=== PATIENT | female | born 1955 | race Caucasian/White ===

== ENCOUNTER → 2017-03-11 | Outpatient (CLI) | payer BC ==
[2017-03-11 09:37] LABS: BASOPHILS % (AUTO) 0 % (0-10); EOSINOPHILS # (AUTO) 0.1 10^3/uL (0.0-0.3); EOSINOPHILS % (AUTO) 1 % (0-10); LYMPHOCYTES # (AUTO) 2.3 X 10^3 (1.0-4.0); LYMPHOCYTES % (AUTO) 36 % (12-44); MEAN CORPUSCULAR HEMOGLOBIN 29 PG (25-34); MEAN CORPUSCULAR HGB CONC 34 G/DL (32-36); MEAN CORPUSCULAR VOLUME 86 FL (80-99); MEAN PLATELET VOLUME 11.6 FL (7.4-10.4); MONOCYTES # (AUTO) 0.6 X 10^3 (0.0-1.0); MONOCYTES % (AUTO) 9 % (0-12); NEUTROPHILS # (AUTO) 3.4 X 10^3 (1.8-7.8); NEUTROPHILS % (AUTO) 53 % (42-75); PLATELET COUNT 151 10^3/uL (130-400); RED BLOOD COUNT 4.81 10^6/uL (4.35-5.85); RED CELL DISTRIBUTION WIDTH 12.6 % (10.0-14.5); WHITE BLOOD COUNT 6.4 10^3/uL (4.3-11.0)
[2017-03-11 09:59] LABS: ALANINE AMINOTRANSFERASE 15 U/L (0-55); ALBUMIN 4.3 GM/DL (3.2-4.5); ANION GAP 8 MMOL/L (5-14); ASPARTATE AMINO TRANSFERASE 21 U/L (5-34); BILIRUBIN,TOTAL 1.1 MG/DL (0.1-1.0); BLOOD UREA NITROGEN 10 MG/DL (7-18); BUN/CREATININE RATIO 13 (0-20); CALCIUM 9.3 MG/DL (8.5-10.1); CARBON DIOXIDE 26 MMOL/L (21-32); CHLORIDE 106 MMOL/L (98-107); CHOLESTEROL 219 MG/DL (< 200); CREATININE SERUM 0.75 MG/DL (0.60-1.30); DIRECT LDL 146 MG/DL (1-129); GFR ESTIMATED > 60; GLUCOSE 95 MG/DL (70-105); HEMOLYSIS 6 (0-29); ICTERUS 1.4 (0-1.9); LIPEMIA 3 (0-49); SODIUM 140 MMOL/L (135-145); TOTAL PROTEIN 7.3 GM/DL (6.4-8.2); TRIGLYCERIDES 113 MG/DL (<150); VLDL CHOLESTEROL 23 MG/DL (5-40)
[2017-03-11 10:19] LABS: THYROID STIMULATING HORMONE 1.64 UIU/ML (0.35-4.94)
== END ==
LOC: LAB 09:18
PROVIDERS: ATTEND Family Medicine
DX: Z00.00 Encounter for general adult medical examination without abnormal findings (principal); E78.5 Hyperlipidemia, unspecified; I10 Essential (primary) hypertension
CPT/HCPCS: 36415; 80053; 80061; 84443; 85025

== ENCOUNTER → 2017-06-01 | Outpatient (CLI) | payer BC ==
[2017-06-01 07:23] LABS: BASOPHILS % (AUTO) 0 % (0-10); EOSINOPHILS # (AUTO) 0.1 10^3/uL (0.0-0.3); EOSINOPHILS % (AUTO) 2 % (0-10); LYMPHOCYTES # (AUTO) 2.2 X 10^3 (1.0-4.0); LYMPHOCYTES % (AUTO) 39 % (12-44); MEAN CORPUSCULAR HEMOGLOBIN 29 PG (25-34); MEAN CORPUSCULAR HGB CONC 34 G/DL (32-36); MEAN CORPUSCULAR VOLUME 87 FL (80-99); MEAN PLATELET VOLUME 11.1 FL (7.4-10.4); MONOCYTES # (AUTO) 0.4 X 10^3 (0.0-1.0); MONOCYTES % (AUTO) 7 % (0-12); NEUTROPHILS % (AUTO) 51 % (42-75); PLATELET COUNT 163 10^3/uL (130-400); RED CELL DISTRIBUTION WIDTH 12.7 % (10.0-14.5); WHITE BLOOD COUNT 5.8 10^3/uL (4.3-11.0)
[2017-06-01 07:49] LABS: ALANINE AMINOTRANSFERASE 21 U/L (0-55); ALBUMIN 4.3 GM/DL (3.2-4.5); ANION GAP 9 MMOL/L (5-14); ASPARTATE AMINO TRANSFERASE 22 U/L (5-34); BILIRUBIN,TOTAL 1.1 MG/DL (0.1-1.0); BLOOD UREA NITROGEN 10 MG/DL (7-18); BUN/CREATININE RATIO 13; CALCIUM 9.3 MG/DL (8.5-10.1); CARBON DIOXIDE 26 MMOL/L (21-32); CHLORIDE 107 MMOL/L (98-107); CHOLESTEROL 127 MG/DL (< 200); CREATININE SERUM 0.78 MG/DL (0.60-1.30); DIRECT LDL 61 MG/DL (1-129); GFR ESTIMATED > 60; GLUCOSE 94 MG/DL (70-105); POTASSIUM 3.9 MMOL/L (3.6-5.0); SODIUM 142 MMOL/L (135-145); TOTAL PROTEIN 7.1 GM/DL (6.4-8.2); TRIGLYCERIDES 105 MG/DL (<150); VLDL CHOLESTEROL 21 MG/DL (5-40)
[2017-06-01 08:09] LABS: THYROID STIMULATING HORMONE 2.89 UIU/ML (0.35-4.94)
== END ==
LOC: LAB 07:07
PROVIDERS: ATTEND Family Medicine
DX: E78.5 Hyperlipidemia, unspecified (principal)
CPT/HCPCS: 36415; 80053; 80061; 84443; 85025

== ENCOUNTER → 2018-03-09 | Outpatient (CLI) | payer BC ==
--- NOTE | 2018-03-10 09:10 | Diagnostic Imaging Report ---
Indication: Routine screening. Comparison is made with prior study from 05/04/2016 and 05/05/2012. 2-D and 3-D bilateral screening mammography was performed CAD. Scattered fibroglandular densities are identified bilaterally. The parenchymal pattern is stable. No mass or malignant-appearing microcalcifications are seen. Axillae are unremarkable. Impression: BI-RADS category 1. No mammographic features suspicious for malignancy are identified. ACR BI-RADS Category 1: Negative. Result letter will be mailed to the patient. Note: At least 10% of breast cancer is not imaged by mammography. Dictated by: Dictated on workstation # [id number]
== END ==
LOC: RAD 13:53
PROVIDERS: ATTEND Family Medicine
DX: Z12.31 Encounter for screening mammogram for malignant neoplasm of breast (principal)
CPT/HCPCS: 77067

== ENCOUNTER → 2019-11-15 | Outpatient (CLI) | payer MEDICARE, OTHER ==
--- NOTE | 2019-11-16 12:40 | Diagnostic Imaging Report ---
EXAMINATION: Digital mammogram bilateral screening. INDICATION: Screening. COMPARISON: This study was compared to the prior exams of 03/09/2018 and 05/04/2016. At this time, there are no current complaints. The current study was also evaluated with a Computer Aided Detection (CAD) system. 3-D tomosynthesis was also performed and reviewed. FINDINGS: The fibroglandular tissue in both breasts is heterogeneously dense. On the craniocaudad view of the right breast in the far lateral aspect of the breast, approximately 6 cm from the nipple, there is a 7.5 mm asymmetric density. There is no corresponding abnormality seen on the MLO view, and this finding is probably secondary to superimposition. Even so, I would recommend that a compression view of this area be obtained in the CC projection for further study. Immediately posterior and medial to this, there is a 6.6 mm nodular density which was not clearly evident on the prior exam either. There is no corresponding abnormality of this finding on the MLO view either. This area should also be compressed in the CC projection. A true lateral view of the right breast would be recommended as well. If these densities persist, then ultrasound may also be necessary. The left breast is unchanged. IMPRESSION: 1. Additional mammographic views of the two densities in the right breast would be recommended for further evaluation. Ultrasound should also be performed. ACR BI-RADS Category 0: Incomplete. (Needs additional imaging evaluation). Result letter will be mailed to the patient. Note: At least 10% of breast cancer is not imaged by mammography. Dictated by: Dictated on workstation # [id number]
== END ==
LOC: RAD 10:09
PROVIDERS: ATTEND Family Medicine
DX: Z12.31 Encounter for screening mammogram for malignant neoplasm of breast (principal)
CPT/HCPCS: 77067

== ENCOUNTER → 2019-12-03 | Outpatient (CLI) | payer MEDICARE, OTHER ==
--- NOTE | 2019-12-03 13:58 | Diagnostic Imaging Report ---
INDICATION: Right breast densities. Patient presents for additional views. COMPARISON: Correlation is made with the recent screening study from 11/15/2019. TECHNIQUE: Unilateral right 2D and 3D diagnostic mammography was performed with CAD. The patient returned and spot compression CC, rolled CC, and 90 degree lateral views of the right breast were performed. FINDINGS: The densities noted in the outer right breast at mid to posterior depth on the screening study show normal dispersion on additional views, most likely representing superimposed tissue. No underlying mass is identified. No suspicious calcifications are seen. IMPRESSION: Additional views fail to demonstrate a discrete mass. The patient may return to routine annual screening mammography. ACR BI-RADS Category 3: Probably benign findings. Result letter will be mailed to the patient. Note: At least 10% of breast cancer is not imaged by mammography. Dictated by: Dictated on workstation # [id number]
== END ==
LOC: RAD 13:31
PROVIDERS: ATTEND Nurse Practitioner Family
DX: R92.2 Inconclusive mammogram (principal)

== ENCOUNTER 2020-02-26 21:01 | Emergency (ER) | payer MEDICARE, OTHER ==
[~2020-02-26] VITALS: Ht 167 cm; Wt 77.0 kg
--- OUTSIDE RECORDS SUMMARY | 2020-02-26 21:08 | XMS REPORT | CCD ---
Author Author Carola Post D.O. 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 PP Unavailable CCM Unavailable Summary Purpose Interface Exchange Insurance Providers Payer name Policy type / Coverage type Covered constitution party ID Effective Begin Date Effective End Date WPS MEDICARE PART B [place] Medicare Part B [id number] 2019 Unknown [place] Medicare Part B [id number] 2019 100 Unknown Family history Grandfather Diagnosis Age At Onset Cancer Unknown Social History Social History Element Codes Description Effective Dates Marital status Unknown 04/08/2016 Number of children Unknown 3 04/08/2016 Employment Unknown Currently employed [employer] 249 04/08/[address]: 105915955 Has never smoked or chewed tobacco 04/08/[address]: 690344 Currently drinks alcohol 04/08 Frequency of drinks SNOMED CT: 043206624 Drinks rarely 016 Has the patient ever used illegal drugs? Unknown Has nev er used illegal drugs 04/08/2016 Allergies, Adverse Reactions, Alerts Substance Reaction Codes Entered Date Inactivated Date Status * NO KNOWN FOOD ALLERGIES Unknown 04/08/2016 No Inactiv e Date Active * NO KNOWN DRUG ALLERGIES Unknown 02/20/2020 No Inactiv e Date Active * NO KNOWN ENVIRONMENTAL ALLERGIES Unknown 04/08/2016 N o Inactive Date Active Problems Condition Codes Effective Dates Condition Status Encounter for general adult medical examination withou t abnormal findings ICD-9: V70.9 ICD-10: Z00.00 04/07/2016 Active Mixed hyperlipidemia ICD-9: 272.2 ICD-10: E78.2 08/29/2016 Active Essential (primary) hypertension ICD-9: 401.9 ICD-10: I10 08/29/2016 Active Screening mammogram, encounter for ICD-9: V76.12 ICD-10: Z12.31 10/31/2019 Active Hematuria ICD-9: 599.70 ICD-10: R31.9 08/27/2019 Active Urinary tract infection ICD-9: 599.0 ICD-10: N39.0 08/15/2019 Active VACCIN FOR DISEASE NEC (HPV or Zostavax) ICD-9: V05.8 ICD-10: Z23 08/15/2019 Active Other specified counseling ICD-9: V65.49 ICD-10: Z71.89 02/14/2019 Active FLU VACCINE ICD-9: V04.81 ICD-10: Z23 07/03/2018 Active Encounter for gynecological examination (general) (routine) without abnormal findings ICD-9: V72.31 ICD-10: Z01.419 03/02/2018 Active Pneumonia, unspecified organism ICD-9: 486 ICD-10: J18.9 11/03/2017 Active Acute bronchitis, unspecified ICD-9: 490 ICD-10: J20.9 10/27/2017 Active Influenza due to other identified influe nza virus with other respiratory manifestations ICD-9: 487.1 ICD-10: J10.1 10/27/2017 Active Hypertension Unknown 03/10/2017 Active Sciatica, left side ICD-9: 724.3 ICD-10: M54.32 04/29/2016 Active Strain of muscle, fascia and tendon of lower back, sub sequent encounter ICD-9: V58.89 ICD-10: S39.012D 04/29/2016 Active Strain of muscle, fascia and tendon of lower back, ini tial encounter ICD-9: 847.2 ICD-10: S39.012A 04/22/2016 Active Plantar fascial fibromatosis ICD-9: 728.71 ICD-10: M72.2 04/07/2016 Active Medications Medication Codes Instructions Start Date Stop Date Status Fill Instructions Zetia 10 mg tablet RxNorm: 044710 1 Tablet(s) Oral QD 02/20/202007/28 Active Livalo 1 mg tablet RxNorm: 172462 1 Tablet(s) Oral QD 12/03/201901/25 Inactive Aleve 220 mg tablet RxNorm: 683589 Tablet(s) Oral as needed 019 No Stop Date Active Macrobid 100 mg capsule RxNorm: 465455 1 Capsule(s) Oral two ti mes a day 08/15/2019 08/22/2019 Inactive Fish Oil 360 mg-1,200 mg capsule RxNorm: 1 Capsule(s) Or al two times a day 08/15/2019 02/19/2020 Inactive Crestor 5 mg tablet RxNorm: 662278 1/2 Tablet(s) PO twice a week 02/10/2020 Inactive Crestor 5 mg tablet RxNorm: 356159 1 Tablet(s) PO Tues, Thurs, Sat and Sun and 1/2 tablet (2.5mg) on Mon, Tue and Tue03/05/2019 03/11/2019 Inactive Crestor 5 mg tablet RxNorm: 934137 1 Tablet(s) PO QD 02/07/201903/05 Inactive Crestor 5 mg tablet RxNorm: 798222 1 Tablet(s) PO QD re check labwork in 6 months 08/21/2018 08/20/2018 Inactive Crestor 5 mg tablet RxNorm: 340002 1 Tablet(s) PO QD re check labwork in 6 months 08/21/2018 02/06/2019 Inactive Ventolin HFA 90 mcg/actuation aerosol inhaler RxNorm: 220322 2 Puff(s) INH Q4H as needed 11/03/2017 03/01/2018 Inactive please switch to proair if ventolin is not covered. thanks! Levaquin 500 mg tablet RxNorm: 401776 1 Tablet(s) PO QD 11/03/2017 Inactive Zithromax Z-Talat 250 mg tablet RxNorm: 540265 Tablet(s) PO 10/27/2017 03/01/2018 Inactive Lipitor 10 mg tablet RxNorm: 202772 1 TABLET(S) PO QD REPLACES PRAVASTATIN 06/08/2017 08/10/2017 Inactive Lipitor 10 mg tablet RxNorm: 595584 1 Tablet(s) PO QD replaces Pravastatin 03/16/2017 06/07/2017 Inactive pravastatin 10 mg tablet RxNorm: 242402 1 Tablet(s) PO QD 03/15/2017 03/14/2017 Inactive pravastatin 10 mg tablet RxNorm: 936167 1 Tablet(s) PO QD 03/15/2017 03/15/2017 Inactive Zorvolex 35 mg capsule RxNorm: 2468047 1 Capsule(s) PO TID HOLD MELOXICAM 05/03/2016 06/01/2016 Inactive Zorvolex 35 mg capsule RxNorm: 8909201 1 Capsule(s) PO TID HOLD MELOXICAM 04/30/2016 05/02/2016 Inactive prednisone 20 mg tablet RxNorm: 928010 1 Tablet(s) PO B ID and then decrease to 1 tab PO QD x 5 days 04/30/2016 05/04/2016 Inactive cyclobenzaprine 10 mg tablet RxNorm: 915836 1 Tablet(s) PO TID as needed for muscle spasm 04/23/2016 08/29/2016 Inactive pravastatin 20 mg tablet RxNorm: 327494 1 Tablet(s) PO QD 04/14/2016 08/29/2016 Inactive Vivlodex 10 mg capsule RxNorm: 7617390 1 Capsule(s) PO QD 04/08/2016 05/07/2016 Inactive Co Q-10 300 mg capsule RxNorm: 414130 1 Capsule(s) PO QD No Start Date Active Vitamin D3 5,000 unit tablet RxNorm: 585697 1 Tablet(s) PO QD No Star t Date Active melatonin 5 mg tablet RxNorm: 628509 1 Tablet(s) PO QHS as needed N o Start Date Active Multivitamin & Mineral Formula tablet RxNorm: 1 Tablet(s) PO Q D No Start Date Active Fish Oil 1,000 mg capsule RxNorm: 2 Capsule(s) PO QD No Start Date 08/29/2016 Inactive Metamucil 0.4 gram capsule RxNorm: 0298005 2 Capsule(s) PO BID No S tart Date 02/13/2019 Inactive Vitamin D3 2,000 unit tablet RxNorm: 736711 1 Tablet(s) PO QD No St art Date 03/26/2019 Inactive Lipitor 10 mg tablet RxNorm: 526339 1 Tablet(s) PO QD No Start Date 0 03/15/2017 Inactive Crestor 5 mg tablet RxNorm: 968920 1 Tablet(s) PO Tues, Thurs, Sat and Sun and 1/2 tablet (2.5mg) on Mon, Wed and Fri No Start Date 03/04/2019 Inactive Calcium with Vitamin D 600 mg (1,500 mg)-400 unit tablet RxN orm: 888167 1 Tablet(s) PO QD No Start Date 03/01/2018 Inactive krill oil 1,000 mg-170 mg-50 mg-80 mg capsule RxNorm: 1 Capsule(s) PO BID No Start Date 08/14/2019 Inactive Co Q-10 200 mg capsule RxNorm: 987409 1 Capsule(s) PO QD No Start D ate 03/01/2018 Inactive Co Q-10 oral RxNorm: 14156 oral No Start Date 07/24/2017 Inactive oxycodone-acetaminophen 5 mg-325 mg tablet RxNorm: 6231464 1 Tab let(s) PO Q6H No Start Date 08/29/2016 Inactive Krill Oil ([place] 3 and 6) oral RxNorm: 01345 oral No Start Date 02/13/2019 Inactive Flexeril 10mg tablet RxNorm: 1 Tablet(s) PO Q8H No Start Date 12/2015 Inactive Vitamin D3 1,000 unit tablet RxNorm: 826209 1 Tablet(s) PO QD No St art Date 03/11/2019 Inactive Medication Administered No Medication Administered data Immunizations Vaccine Codes Date Status Shingrix Unknown 11/20/2019 Zoster Unknown 08/15/2019 Complete Influenza CVX: 141 07/03/2018 Complete Results Observation Observation Code Item Item Code Result Date S [facility] Location COMPLETE BLOOD COUNT [id number] WBC 5.5 10e9/L 02/13/20 20 Unknown COMPLETE BLOOD COUNT [id number] RBC 4.67 10e12/L 2019 Unknown COMPLETE BLOOD COUNT [id number] HEMOGLOBIN 13.5 g/dL 02/13/20 20 Unknown COMPLETE BLOOD COUNT [id number] HEMATOCRIT 40.9 % 02/13/20 20 Unknown COMPLETE BLOOD COUNT [id number] MCV 87.6 fL 0 Unknown COMPLETE BLOOD COUNT [id number] MCH 28.9 pg 0 Unknown COMPLETE BLOOD COUNT [id number] MCHC 33.0 g/dL 0 Unknown COMPLETE BLOOD COUNT [id number] PLATELET COUNT 152 10e9/L Unknown COMPLETE BLOOD COUNT 2240945 Mean Plt Volume 11.6 fL Unknown COMPLETE BLOOD COUNT [id number] Neut Auto 32.4 % 0 Unknown COMPLETE BLOOD COUNT [id number] Lymph Auto 55.1 % 02/13/20 20 Unknown COMPLETE BLOOD COUNT [id number] Wolfe Auto 9.2 % 0 Unknown COMPLETE BLOOD COUNT [id number] RDW 13.2 % 0 Unknown COMPLETE BLOOD COUNT 1225961 Eos Auto 3.1 % 0 Unknown COMPLETE BLOOD COUNT 7545207 Baso Auto 0.2 % 0 Unknown COMPLETE BLOOD COUNT [id number] Neutrophil Abs 1.78 10e9/L Unknown COMPLETE BLOOD COUNT [id number] Lymphocyte Abs 3.03 10e9/L Unknown COMPLETE BLOOD COUNT [id number] Monocyte Abs 0.51 10e9/L 01/25 Unknown COMPLETE BLOOD COUNT [id number] Eosinophil Abs 0.17 10e9/L Unknown COMPLETE BLOOD COUNT [id number] RDW-SD 40.9 fL 0 Unknown COMPLETE BLOOD COUNT [id number] Basophil Abs 0.01 10e9/L 01/25 Unknown FREE T4 42935 T4 Free 0.83 ng/dL 02/13/2020 Unknown [facility] 10607 Cholesterol 204 mg/dL 02/13/2020 Unkno wn [facility] GROUP 93923 Triglyceride 136 mg/dL 02/13/2020 Unkn own [facility] 37947 HDL CHOLESTEROL 40 mg/dL 02/13/2020 U nknown [facility] 94117 Chol/HDL Ratio 5.10 ratio 02/13/2020 U nknown [facility] 26008 NON-HDL Chol 164 mg/dL 02/13/2020 Unkn own [facility] 92910 LDL Cholesterol 137 mg/dL 02/13/2020 U nknown THYROID STIMULATING HORMONE 86724 TSH 1.419 uIU/mL 02/13/2020 Unknown COMPREHENSIVE METABOLIC 88308 AST 20 U/L 2019 Unknown COMPREHENSIVE METABOLIC 77648 ALT 15 U/L 2019 Unknown COMPREHENSIVE METABOLIC 14758 BUN 11 mg/dL 2019 Unknown COMPREHENSIVE METABOLIC 39854 ALBUMIN 4.3 g/dL 2019 Unknown COMPREHENSIVE METABOLIC 22825 CHLORIDE 105 mmol/L 02/12 Unknown COMPREHENSIVE METABOLIC 14219 Bili Total 0.9 mg/dL 02/12 Unknown COMPREHENSIVE METABOLIC 36121 ALK PHOS 75 U/L 2019 Unknown COMPREHENSIVE METABOLIC 47616 SODIUM 142 mmol/L 02/12 Unknown COMPREHENSIVE METABOLIC 85992 CREATININE 0.67 mg/dL 01/25 Unknown COMPREHENSIVE METABOLIC 42432 CALCIUM 9.3 mg/dL 2019 Unknown COMPREHENSIVE METABOLIC 85147 POTASSIUM 4.5 mmol/L 02/12 Unknown COMPREHENSIVE METABOLIC 96317 Total Protein 6.6 g/dL Unknown COMPREHENSIVE METABOLIC 19786 Glucose 90 mg/dL 2019 Unknown COMPREHENSIVE METABOLIC 77133 Bicarbonate 28 mmol/L 01/25 Unknown COMPREHENSIVE METABOLIC 47334 AGAP 9 mmol/L 2019 Unknown GFR CALC 1712835 GFR Non Afr Amr >60 mL/min 02/13/2020 Un known GFR CALC 1806298 GFR Afr Amr >60 mL/min 02/13/2020 Unknow n CULTURE, URINE, ROUTINE 395 CULTURE SEE NOTE 1 11/13/2018 Mary Jane BONDMonica [place] [address] [place] [phone] CULTURE, URINE, ROUTINE 395 CULTURE, URINE, ROUTINE SEE NOTE 09/12/2019 Mary Jane [place] [address] [place] [phone] URINALYSIS, COMPLETE 45267 Color YELLOW 08/26 [facility] [place] [address] [place] [address] URINALYSIS, COMPLETE 87066 APPEARANCE CLEAR 08/26 [facility] [place] [address] [place] [phone] URINALYSIS, COMPLETE 40051 SPECIFIC GRAVITY 1.003 09/11/2019 [facility] [place] [address] [place] [phone] URINALYSIS, COMPLETE 89853 PH 7.0 08/26 [facility] [place] [address] [place] [address] URINALYSIS, COMPLETE 73093 Glucose NEGATIVE 08/26 [facility] [place] [address] [place] [phone] URINALYSIS, COMPLETE 41598 BILIRUBIN NEGATIVE 08/26 [facility] [place] [address] [place] [phone] URINALYSIS, COMPLETE 64566 Ketones NEGATIVE 08/[address] [address] URINALYSIS, COMPLETE 83392 OCCULT BLOOD NEGATIVE [facility] [address] [place] [address] URINALYSIS, COMPLETE 29509 Protein NEGATIVE 08/26 [facility] [address] URINALYSIS, COMPLETE 68722 LEUKOCYTE ESTERASE NEGATIV E 09/11/2019 [facility] [address] URINALYSIS, COMPLETE 33596 WBC NONE SEEN /HPF 09/11/2019 [facility] [place] [address] [address] URINALYSIS, COMPLETE 25912 RBC NONE SEEN /HPF 09/11/2019 [facility] [address] URINALYSIS, COMPLETE 71934 SQUAMOUS EPITHELIAL CELLS NONE SEEN /HPF 09/11/2019 [facility] [address] URINALYSIS, COMPLETE 28374 TRANSITIONAL EPITHELIAL CELLS DNR /HPF 09/11/2019 [facility] [address] URINALYSIS, COMPLETE 98685 RENAL EPITHELIAL CELLS DNR /HPF 09/11/2019 [facility] [address] URINALYSIS, COMPLETE 85060 BACTERIA NONE SEEN /HPF 09/11/2019 [facility] [address] URINALYSIS, COMPLETE 47715 CALCIUM OXALATE CRYSTALS D NR /HPF 09/11/[address] [facility] [address] URINALYSIS, COMPLETE 88137 TRIPLE PHOSPHATE CRYSTALS DNR /HPF 09/11/[address] [facility] [place] [address] URINALYSIS, COMPLETE 77984 URIC ACID CRYSTALS DNR /HP F 09/11/2019 [facility] [place] [address] URINALYSIS, COMPLETE 74888 AMORPHOUS SEDIMENT DNR /HP F 09/11/2019 [facility] [address] URINALYSIS, COMPLETE 33793 CRYSTALS DNR /HPF 08/26 [facility] [address] URINALYSIS, COMPLETE 86631 HYALINE CAST NONE SEEN /LP F 09/11/2019 [facility] [address] [place] [address] URINALYSIS, COMPLETE 83407 GRANULAR CAST DNR /LPF 1 11/12/2018 [facility] [address] URINALYSIS, COMPLETE 78433 CASTS DNR /LPF 08/26 [facility] [address] URINALYSIS, COMPLETE 12768 YEAST DNR /HPF 08/26 [facility] [address] URINALYSIS, COMPLETE 61794 COMMENTS DNR 08/26 [facility] [address] URINALYSIS, COMPLETE 07026 NOTE DNR 08/26 [facility] [address] URINALYSIS, COMPLETE 66841 NITRITE NEGATIVE 08/26 [facility] [address] CULTURE, URINE, ROUTINE 395 CULTURE, URINE, ROUTINE SEE NOTE 08/16/2019 Mary Jane [place] [address] EXTRA LAVENDER-TOP TUBE XLKS EXTRA LAVENDER-TOP TUBE 08/10/2019 [facility] [place] [address] EXTRA LAVENDER-TOP TUBE XLKS COMMENT 1 10/10/2018 [facility] [place] [address] LIPID PANEL 24774 CHOLESTEROL, TOTAL 180 mg/dL 08/10 [facility] [place] [address] LIPID PANEL 17745 HDL CHOLESTEROL 35 mg/dL 08/10/20 19 [facility] [place] [address] LIPID PANEL 60218 TRIGLYCERIDES 200 mg/dL 08/10/2019 [facility] [address] [address] LIPID PANEL 36177 LDL-CHOLESTEROL 113 mg/dL(calc) [facility] [address] [address] LIPID PANEL 30364 CHOL/HDLC RATIO 5.1 (calc) 08/10/20 [facility] [address] [address] LIPID PANEL 15816 NON HDL CHOLESTEROL 145 mg/dL(calc) 08/10/2019 [facility] [address] [address] COMPREHENSIVE METABOLIC PANEL 18623 Glucose 86 mg/ dL 08/10/2019 [facility] [address] COMPREHENSIVE METABOLIC PANEL 25771 UREA NITROGEN (BUN) 11 mg/dL 08/10/2019 [facility] [address] [address] COMPREHENSIVE METABOLIC PANEL 01971 CREATININE 0.71 m g/dL 08/10/2019 [facility] [address] [address] COMPREHENSIVE METABOLIC PANEL 85941 eGFR NON-AFR. ANGUILLAN 90 mL/min/1.73m2 08/10/2019 [facility] [address] COMPREHENSIVE METABOLIC PANEL 73054 eGFR 104 mL/min/1.73m2 08/10/2019 [facility] [address] [address] COMPREHENSIVE METABOLIC PANEL 27695 BUN/CREATININE RATIO NOT APPLICABLE (calc) 08/10/[address] [address] COMPREHENSIVE METABOLIC PANEL 42019 SODIUM 140 mm ol/L 08/10/2019 [facility] [address] [address] COMPREHENSIVE METABOLIC PANEL 30210 POTASSIUM 4.2 mm ol/L 08/10/2019 [facility] [address] [address] COMPREHENSIVE METABOLIC PANEL 33037 CHLORIDE 105 mm ol/L 08/10/2019 [facility] [address] [address] COMPREHENSIVE METABOLIC PANEL 25526 CARBON DIOXIDE 28 mmol/L 08/10/2019 [facility] [address] COMPREHENSIVE METABOLIC PANEL 90917 CALCIUM 9.3 mg /dL 08/10/2019 [facility] [address] COMPREHENSIVE METABOLIC PANEL 21585 PROTEIN, TOTAL 6. 7 g/dL 08/10/[address] [facility] [address] COMPREHENSIVE METABOLIC PANEL 23646 ALBUMIN 4.3 g/ dL 08/10/2019 [facility] [address] COMPREHENSIVE METABOLIC PANEL 26030 GLOBULIN 2.4 g/ dL(calc) 08/10/2019 [facility] [address] COMPREHENSIVE METABOLIC PANEL 11145 ALBUMIN/GLOBULIN RATIO 1.8 (calc) 08/10/2019 [facility] [address] COMPREHENSIVE METABOLIC PANEL 51647 BILIRUBIN, TOTAL 0.6 mg/dL 08/10/2019 [facility] [address] COMPREHENSIVE METABOLIC PANEL 96221 ALKALINE PHOSPHATASE 74 U/L 08/10/2019 [facility] [address] COMPREHENSIVE METABOLIC PANEL 77015 AST 21 U/L 08/10/2019 [facility] [address] COMPREHENSIVE METABOLIC PANEL 31013 ALT 15 U/L 08/10/2019 [facility] [address] COMPREHENSIVE METABOLIC 31055 AST 18 U/L 2018 Unknown COMPREHENSIVE METABOLIC 73784 ALT 12 U/L 2018 Unknown COMPREHENSIVE METABOLIC 00081 BUN 11 mg/dL 2018 Unknown COMPREHENSIVE METABOLIC 80873 ALBUMIN 4.6 g/dL 2018 Unknown COMPREHENSIVE METABOLIC 55577 CHLORIDE 106 mmol/L 02/14 Unknown COMPREHENSIVE METABOLIC 64253 Bili Total 0.9 mg/dL 02/14 Unknown COMPREHENSIVE METABOLIC 67051 ALK PHOS 76 U/L 2018 Unknown COMPREHENSIVE METABOLIC 34689 SODIUM 142 mmol/L 02/14 Unknown COMPREHENSIVE METABOLIC 36610 CREATININE 0.69 mg/dL 01/25 Unknown COMPREHENSIVE METABOLIC 90352 CALCIUM 9.5 mg/dL 2018 Unknown COMPREHENSIVE METABOLIC 20223 POTASSIUM 3.9 mmol/L 02/14 Unknown COMPREHENSIVE METABOLIC 27773 Total Protein 6.6 g/dL Unknown COMPREHENSIVE METABOLIC 44226 Glucose 86 mg/dL 2018 Unknown COMPREHENSIVE METABOLIC 26243 Bicarbonate 29 mmol/L 01/25 Unknown COMPREHENSIVE METABOLIC 04477 AGAP 7 mmol/L 2018 Unknown GFR CALC 3644405 GFR Non Afr Amr >60 mL/min 02/14/2019 Un known GFR CALC 2666820 GFR Afr Amr >60 mL/min 02/14/2019 Unknow n [facility] 39923 Cholesterol 127 mg/dL 02/14/2019 Unkno wn [facility] 85281 Triglyceride 156 mg/dL 02/14/2019 Unkn own [facility] 65710 HDL CHOLESTEROL 45 mg/dL 02/14/2019 U nknown [facility] 08804 Chol/HDL Ratio 2.82 ratio 02/14/2019 U nknown [facility] 42769 NON-HDL Chol 82 mg/dL 02/14/2019 Unkn own [facility] 75381 LDL Cholesterol 51 mg/dL 02/14/2019 U nknown COMPREHENSIVE METABOLIC PANEL 06406 Glucose 88 mg/ dL 08/16/2018 [facility] [place] [address] [place] [address] COMPREHENSIVE METABOLIC PANEL 66101 UREA NITROGEN (BUN) 11 mg/dL 08/16/2018 [facility] [place] [address] [place] [address] COMPREHENSIVE METABOLIC PANEL 97674 CREATININE 0.70 m g/dL 08/16/2018 [facility] [place] [address] [place] [address] COMPREHENSIVE METABOLIC PANEL 06040 eGFR NON-AFR. ANGUILLAN 92 mL/min/1.73m2 08/16/2018 [facility] [address] [place] [address] COMPREHENSIVE METABOLIC PANEL 40170 eGFR 107 mL/min/1.73m2 08/16/2018 [facility] [place] [address] [place] [address] COMPREHENSIVE METABOLIC PANEL 59254 BUN/CREATININE RATIO NOT APPLICABLE (calc) 08/16/2018 [facility] [place] [address] [place] [address] COMPREHENSIVE METABOLIC PANEL 34183 SODIUM 140 mm ol/L 08/16/2018 [facility] [address] COMPREHENSIVE METABOLIC PANEL 21093 POTASSIUM 4.0 mm ol/L 08/16/2018 [facility] [address] COMPREHENSIVE METABOLIC PANEL 78386 CHLORIDE 104 mm ol/L 08/16/[address] [facility] [address] COMPREHENSIVE METABOLIC PANEL 76673 CARBON DIOXIDE 29 mmol/L 08/16/[address] [facility] [address] COMPREHENSIVE METABOLIC PANEL 30779 CALCIUM 9.4 mg /dL 08/16/[address] [facility] [address] COMPREHENSIVE METABOLIC PANEL 19180 PROTEIN, TOTAL 6. 7 g/dL 08/16/[address] [facility] [address] COMPREHENSIVE METABOLIC PANEL 50208 ALBUMIN 4.4 g/ dL 08/16/[address] [facility] [address] COMPREHENSIVE METABOLIC PANEL 07117 GLOBULIN 2.3 g/ dL(calc) 08/16/[address] [facility] [address] COMPREHENSIVE METABOLIC PANEL 39842 ALBUMIN/GLOBULIN RATIO 1.9 (calc) 08/16/[address] [facility] [address] COMPREHENSIVE METABOLIC PANEL 67361 BILIRUBIN, TOTAL 0.8 mg/dL 08/16/2018 [facility] [address] [address] COMPREHENSIVE METABOLIC PANEL 47619 ALKALINE PHOSPHATASE 72 U/L 08/16/2018 [facility] [address] COMPREHENSIVE METABOLIC PANEL 46298 AST 19 U/L 08/16/2018 [facility] [address] COMPREHENSIVE METABOLIC PANEL 00981 ALT 12 U/L 08/16/2018 [facility] [address] LIPID PANEL 53003 CHOLESTEROL, TOTAL 228 mg/dL 08/16 [facility] [place] [address] LIPID PANEL 80906 HDL CHOLESTEROL 42 mg/dL 08/16/20 [facility] [address] [place] [address] LIPID PANEL 90241 TRIGLYCERIDES 175 mg/dL 08/16/2018 [facility] [address] LIPID PANEL 91134 LDL-CHOLESTEROL 155 mg/dL(calc) [facility] [address] LIPID PANEL 25497 CHOL/HDLC RATIO 5.4 (calc) 08/16/20 [facility] [address] LIPID PANEL 30324 NON HDL CHOLESTEROL 186 mg/dL(calc) 08/16/2018 [facility] [address] EXTRA LAVENDER-TOP TUBE XLKS EXTRA LAVENDER-TOP TUBE 08/16/2018 [facility] [address] [address] EXTRA LAVENDER-TOP TUBE XLKS COMMENT 1 10/16/2017 [facility] [address] Procedures Procedure Codes Date INITIAL PREVENTIVE EXAM CPT-4: G0402 02/20/2020 ROUTINE VENIPUNCTURE CPT-4: 16596 02/13/2020 COMPREHEN METABOLIC PANEL CPT-4: 29467 02/13/2020 LIPID PANEL CPT-4: 93265 02/13/2020 COMPLETE CBC W/AUTO DIFF WBC CPT-4: 02628 02/13/2020 ASSAY THYROID STIM HORMONE CPT-4: 01494 02/13/2020 ASSAY OF FREE THYROXINE CPT-4: 27662 02/13/2020 URINALYSIS, COMPLETE CPT-4: 77757 09/10/2019 CULTURE, URINE, ROUTINE CPT-4: 395 09/10/2019 URINALYSIS NONAUTO W/O SCOPE CPT-4: 74581 08/27/2019 CULTURE, URINE, ROUTINE CPT-4: 395 08/15/2019 URINALYSIS NONAUTO W/O SCOPE CPT-4: 53929 08/15/2019 SHINGRIX HZV VACC RECOMBINANT IM CPT-4: 44759 019 IMMUNIZATION ADMIN CPT-4: 63010 08/15/2019 COMPREHENSIVE METABOLIC PANEL CPT-4: 82982 08/09/2019 LIPID PANEL CPT-4: 99113 08/09/2019 ROUTINE VENIPUNCTURE CPT-4: 87371 08/09/2019 EXTRA LAVENDER-TOP TUBE CPT-4: XLKS 08/09/2019 ROUTINE VENIPUNCTURE CPT-4: 77889 02/14/2019 COMPREHEN METABOLIC PANEL CPT-4: 79729 02/14/2019 LIPID PANEL CPT-4: 77263 02/14/2019 ROUTINE VENIPUNCTURE CPT-4: 65825 08/15/2018 COMPREHENSIVE METABOLIC PANEL CPT-4: 62801 08/15/2018 EXTRA LAVENDER-TOP TUBE CPT-4: XLKS 08/15/2018 LIPID PANEL CPT-4: 06374 08/15/2018 IIV4 VACCINE 3 YRS+ IM AND UP CPT-4: 25114 07/03/2018 IMMUNIZATION ADMIN CPT-4: 54763 07/03/2018 SPECIMEN HANDLING OFFICE-LAB CPT-4: 92612 03/02/2018 OCCULT BLOOD FECES CPT-4: 41698 03/02/2018 THER/PROPH/DIAG INJ SC/IM CPT-4: 64545 11/03/2017 TRIAMCINOLONE ACET INJ NOS CPT-4: J3301 11/03/2017 INFLUENZA ASSAY W/OPTIC CPT-4: 31858 10/27/2017 THER/PROPH/DIAG INJ SC/IM CPT-4: 05616 10/27/2017 TRIAMCINOLONE ACET INJ NOS CPT-4: J3301 10/27/2017 THER/PROPH/DIAG INJ SC/IM CPT-4: 30637 04/23/2016 TRIAMCINOLONE ACET INJ NOS CPT-4: J3301 04/23/2016 DEXAMETHASONE SODIUM PHOS CPT-4: J1100 04/23/2016 Vital Signs Date Vital 02/20/2020 Blood Pressure 1: 138/74 Code: 8480-6 BMI: 27.9 Code: 47586-7 Heart Rate 1: 84 bpm Height: 5'5" Respiratory Rate: 18 bpm SpO2: 98% Tempera ture: 36.9 (C) / 98.4 (F) Weight: 169 lbs 08/27/2019 Blood Pressure 1: 128/80 Code: 8480-6 Heart Rate 1: 72 bpm Respiratory Rate: 18 bpm SpO2: 98% Temperature: 36.8 (C) / 98.2 (F) 08/15/2019 Blood Pressure 1: 128/74 Code: 8480-6 Heart Rate 1: 80 bpm Respiratory Rate: 16 bpm SpO2: 97% Temperature: 36.8 (C) / 98.2 (F) We ight: 162 lbs 02/14/2019 Blood Pressure 1: 126/70 Code: 8480-6 BMI: 26.7 Code: 61322-8 Heart Rate 1: 68 bpm Height: 5'6" Respiratory Rate: 18 bpm SpO2: 97% Tempera ture: 36.6 (C) / 97.9 (F) Weight: 168 lbs 08/15/2018 Blood Pressure 1: 122/78 Code: 8480-6 BMI: 25.9 Code: 73533-1 Heart Rate 1: 72 bpm Height: 5'6" Respiratory Rate: 20 bpm SpO2: 97% Tempera ture: 36.7 (C) / 98.0 (F) Weight: 163 lbs 03/02/2018 Blood Pressure 1: 126/74 Code: 8480-6 BMI: 26.1 Code: 32724-8 Heart Rate 1: 76 bpm Height: 5'6" Respiratory Rate: 20 bpm SpO2: 98% Tempera ture: 36.6 (C) / 97.8 (F) Weight: 164 lbs 11/03/2017 Blood Pressure 1: 124/82 Code: 8480-6 BMI: 25.3 Code: 30467-8 Heart Rate 1: 90 bpm Height: 5'6" Respiratory Rate: 22 bpm SpO2: 98% Tempera ture: 36.9 (C) / 98.4 (F) Weight: 159 lbs 10/27/2017 Blood Pressure 1: 122/84 Code: 8480-6 BMI: 25.6 Code: 07355-9 Heart Rate 1: 90 bpm Height: 5'6" Respiratory Rate: 22 bpm SpO2: 97% Tempera ture: 36.1 (C) / 97.0 (F) Weight: 161 lbs 08/11/2017 Blood Pressure 1: 132/76 Code: 8480-6 BMI: 26.4 Code: 11357-7 Heart Rate 1: 72 bpm Height: 5'6" Respiratory Rate: 20 bpm Temperature: 36 .6 (C) / 97.8 (F) Weight: 166 lbs 05/23/2017 Blood Pressure 1: 126/72 Code: 8480-6 BMI: 26.1 Code: 88898-6 Heart Rate 1: 72 bpm Height: 5'6" Respiratory Rate: 20 bpm SpO2: 98% Tempera ture: 37.1 (C) / 98.8 (F) Weight: 164 lbs 03/10/2017 Blood Pressure 1: 124/72 Code: 8480-6 BMI: 26.1 Code: 34840-4 Heart Rate 1: 92 bpm Height: 5'6" Respiratory Rate: 20 bpm SpO2: 97% Tempera ture: 37.2 (C) / 98.9 (F) Weight: 164 lbs 08/30/2016 Blood Pressure 1: 142/82 Code: 8480-6 BMI: 25.6 Code: 19431-9 Heart Rate 1: 72 bpm Height: 5'6" Respiratory Rate: 20 bpm Temperature: 36 .6 (C) / 97.9 (F) Weight: 161 lbs 06/01/2016 Blood Pressure 1: 156/88 Code: 8480-6 BMI: 26.4 Code: 71852-8 Heart Rate 1: 70 bpm Height: 5'6" Respiratory Rate: 18 bpm SpO2: 97% Tempera ture: 36.6 (C) / 97.8 (F) Weight: 166 lbs 04/30/2016 Blood Pressure 1: 122/70 Code: 8480-6 Heart Rate 1: 10 2 bpm Height: Respiratory Rate: 24 bpm SpO2: 95% Temperature: 36.4 (C) / 97.6 (F) We ight: 04/23/2016 Blood Pressure 1: 152/76 Code: 8480-6 BMI: 26.5 Code: 71236-9 Heart Rate 1: 106 bpm Height: 5'7" Respiratory Rate: 24 bpm SpO2: 96% Tempera ture: 36.8 (C) / 98.2 (F) Weight: 169 lbs 04/08/2016 Blood Pressure 1: 116/68 Code: 8480-6 BMI: 27.4 Code: 84060-9 Heart Rate 1: 76 bpm Height: 5'6" Respiratory Rate: 20 bpm Temperature: 36 .7 (C) / 98.1 (F) Weight: 170 lbs Functional Status No Functional Status data Reason For Visit Reason For Visit Effective Dates Notes well woman exam (65+ years) 02/20/2020 [facility] to [facility] Physical follow up 08/27/2019 hyperlipidemia 08/15/2019 Patient had discolor ed urine last week and has resolved after taking cranberry juice. She feels like it may be related to her Crestor lab draw 08/09/2019 follow up 02/14/2019 follow up 08/15/2018 injection(s) 07/03/2018 requesting flu shot well woman exam (40-65 years) 03/02/2018 Due for ma mmogram, patient unsure if ever had bone density, colonoscopy at age 54 follow up 11/03/2017 fatigue 10/27/2017 hyperlipidemia 08/11/2017 hyperlipidemia 05/23/2017 follow up 03/10/2017 follow up 08/30/2016 follow up 06/01/2016 Patient states the l egs are the worst of it follow up 04/30/2016 Patient has stopped the Oxycodone and is now Extra Strength Tylenol with stretches follow up 04/23/2016 ER visit from 2015 for persistent lower back/hip pain. ~generic 04/08/2016 New Patient---establ ishing visit Encounters Encounter Performer Location Codes Date ([id number]) NURSE/OUTPATIENT VISIT EST Diagnosis: Essential (primary) hypertension[ICD10: I10] Diagnosis: Mixed hyperlipidemia[ICD10: E78.2] Diagnosis: Encounter for general adult medical examination without abnormal findings[ICD10: Z00.00] Chio MORTENSEN S. MARIONDER [employer] CPT-4: 86103 02/13/2020 ([id number]) NURSE/OUTPATIENT VISIT EST Diagnosis: Hematuria[ICD10: R31.9] Chio MORTENSEN S. OREND ER DO [employer] CPT-4: 00885 09/10/2019 ([id number]) OFFICE/OUTPATIENT VISIT EST Diagnosis: Hematuria[ICD10: R31.9] Chio MORTENSEN S. MARIOND ER DO [employer] CPT-4: 02618 08/27/2019 ([id number]) PREV VISIT EST AGE 40-64 Diagnosis: Urinary tract infection[ICD10: N39.0] Diagnosis: Encounter for general adult medical examination without abnormal findings[ICD10: Z00.00] Diagnosis: Essential (primary) hypertension[ICD10: I10] Diagnosis: Mixed hyperlipidemia[ICD10: E78.2] Diagnosis: VACCIN FOR DISEASE NEC (HPV or Zostavax)[ICD10: Z23] Chio POST [facility] CPT-4: 91248 08/15/2019 ([id number]) NURSE/OUTPATIENT VISIT EST Diagnosis: Mixed hyperlipidemia[ICD10: E78.2] Diagnosis: Essential (primary) hypertension[ICD10: I10] Chio POST DO [facility] CPT-4: 99335 08/09/2019 ([id number]) OFFICE/OUTPATIENT VISIT EST Diagnosis: Mixed hyperlipidemia[ICD10: E78.2] Diagnosis: Other specified counseling[ICD10: Z71.89] Chio POST [facility] CPT-4: 56647 02/14/2019 ([id number]) OFFICE/OUTPATIENT VISIT EST Diagnosis: Mixed hyperlipidemia[ICD10: E78.2] Chio PLUMMER NELLIE Addis POST [facility] CPT-4: 74358 08/15/2018 ([id number]) NURSE/OUTPATIENT VISIT EST Diagnosis: FLU VACCINE[ICD10: Z23] Chio BONILLA [facility] CPT-4: 35959 07/03/2018 ([id number]) PREV VISIT EST AGE 40-64 Diagnosis: Encounter for general adult medical examination without abnormal findings[ICD10: Z00.00] Diagnosis: Encounter for gynecological examination (general) (routine) without abnormal findings[ICD10: Z01.419] Chio Holder [facility] CPT-4: 25321 03/02/2018 OFFICE/OUTPATIENT VISIT EST Diagnosis: Pneumonia, unspecified organism[ICD10: J18.9] Shaniqua MORENOLINE Addis POST DO [facility] CPT-4: 97529 11/03/2017 OFFICE/OUTPATIENT VISIT EST Diagnosis: Influenza due to other identified influenza virus with other respiratory manifestations[ICD10: J10.1] Diagnosis: Acute bronchitis, unspecified[ICD10: J20.9] Shaniqua POST [facility] CPT-4: 06028 10/27/2017 ([id number]) OFFICE/OUTPATIENT VISIT EST Diagnosis: Mixed hyperlipidemia[ICD10: E78.2] Chio BALLARD [email or web address] POST [employer] [facility] CPT-4: 63238 08/11/2017 ([id number]) PREV VISIT EST AGE 40-64 Diagnosis: Encounter for general adult medical examination without abnormal findings[ICD10: Z00.00] Diagnosis: Mixed hyperlipidemia[ICD10: E78.2] Chio PLUMMER [place] [email or web address] [facility] [employer] [facility] CPT-4: 64057 05/23/2017 ([id number]) OFFICE/OUTPATIENT VISIT EST Diagnosis: Essential (primary) hypertension[ICD10: I10] Diagnosis: Mixed hyperlipidemia[ICD10: E78.2] Chio POST [employer] [facility] CPT-4: 60898 03/10/2017 ([id number]) OFFICE/OUTPATIENT VISIT EST Diagnosis: Mixed hyperlipidemia[ICD10: E78.2] Diagnosis: Essential (primary) hypertension[ICD10: I10] Chio POST [employer] [facility] CPT-4: 15629 08/30/2016 ([id number]) OFFICE/OUTPATIENT VISIT EST Diagnosis: Mixed hyperlipidemia[ICD10: E78.2] Ale Becerra KAVITHA [place] [email or web address] MARTINBlekkoIRENE [employer] [facility] CPT-4: 53099 06/01/2016 ([id number]) OFFICE/OUTPATIENT VISIT EST Diagnosis: Strain of muscle, fascia and tendon of lower back, subsequent encounter[ICD10: S39.012D] Diagnosis: Sciatica, left side[ICD10: M54.32] Aleeli PLUMMER [place] [employer] ROMAN [employer] [facility] CPT-4: 69150 04/30/2016 ([id number]) OFFICE/OUTPATIENT VISIT EST Diagnosis: Strain of muscle, fascia and tendon of lower back, initial encounter[ICD10: S39.012A] Diagnosis: Sciatica, left side[ICD10: M54.32] Aleeli Becerra KAVITHA [place] [email or web address] CPT-4: 27500 04/23/2016 ([id number]) PREV VISIT NEW AGE 40-64 Diagnosis: Encounter for general adult medical examination without abnormal findings[ICD10: Z00.00] Diagnosis: Plantar fascial fibromatosis[ICD10: M72.2] [facility]io [facility] CPT-4: 33700 04/08/2016 Plan of Care Planned Activity Notes Codes Status Date Visit Diagnosis Plan: Encounter for gene ral adult medical examination without abnormal findings Discussion: Mediterranean diet Combinati on of cardio and weight bearing exercise Lab discussed Due for colonoscopy this year Will get Flu and Prevnar this Fall ICD-9 : V70.9 ICD-10 : Z00.00 02/20/2020 Visit Diagnosis Plan: Mixed hyperlipidemia Discussion: Does not tolerate statins so will do zetia trial with lifestyle change and recheck in 6mos ICD-9 : 272.2 ICD-10 : E78.2 02/20/2020 Patient Education: Zetia- [employer] Coupon [id number] [email or web address] Completed 02/20/2020 Appointment: Chio Post WPtel: [address] [place], [place] [phone] LAB 02/13/2020 Appointment: Chio Post WPtel: [address] [place] [address] UA 09/10/2019 Visit Diagnosis Plan: Hematuria Discussion: Hold crest or No NSAIDs Push fluids/water Recheck urine microscopy in 2weeks and if still with microscopic blood then will need urology eval and cystoscope ICD-9 : 599.70 ICD-10 : R31.9 08/27/2019 Appointment: Chio Post WPtel: [address] [place], [place] [phone] [facility] ACUTE ILLNESS 08/27/2019 Visit Diagnosis Plan: Encounter for gene ral adult medical examination without abnormal findings Discussion: Mediterranean diet Combinati on of cardio and weight bearing exercise Lab discussed Had Tdap about 1 year ago Had flu shot Shingrix #1 given ICD-9 : V70.9 ICD-10 : Z00.00 08/15/2019 Visit Diagnosis Plan: Essential (primary) hypertension Discussion: Stable ICD-9 : 401.9 ICD-10 : I10 08/15/2019 Visit Diagnosis Plan: Mixed hyperlipidemia Discussion: Increase Crestor to 1/2 tablet daily 3 times a week and check lipids in 6mos ICD-9 : 272.2 ICD-10 : E78.2 08/15/2019 Appointment: Chio Post WPtel: [address] [place], [place] [phone] [place] confirmed 08/09/19-- does not need reminder call Annual Well Visit 08/15/2019 Appointment: Chio Post WPtel: [address] [place] [address] 08/15/19 1330---added to office visit with Dr kwon () CANCELED 08/15/2019 Appointment: Chio Post WPtel: [address] [place] [address] [place] LAB 08/09/2019 Visit Diagnosis Plan: Mixed hyperlipidemia Discussion: Check CMP, Lipids Doing well with Crestor Restart Vitamin D ICD-9 : 272.2 ICD-10 : E78.2 02/14/2019 Visit Diagnosis Plan: Other specified counseling Discu ssion: Discussed upcoming travel and using compression socks as well as aspirin 81mg starting 2 days prior to travel and continuing for 1 week after ICD-9 : V65.49 ICD-10 : Z71.89 02/14/2019 Appointment: Chio Post WPtel: [address] [place], [place] [phone] [place] FOLLOW UP 02/14/2019 Visit Diagnosis Plan: Mixed hyperlipidemia Discussion: Check CMP, Lipids Recommend Shingrix Had flu shot ICD-9 : 272.2 ICD-10 : E78.2 08/15/2018 Appointment: Chio Post WPtel: [address] [place], [place] [phone] FOLLOW UP 08/15/2018 Appointment: Chio Post WPtel: [address] [place], [place] [phone] [place] INJECTION 07/03/2018 Patient Education: Patient Medication Summary Completed 07/03/2018 Visit Diagnosis Plan: Encounter for gene ral adult medical examination without abnormal findings Discussion: Update fasting lab in Novemb er then fwup Recommend Shingrix ICD-9 : V70.9 ICD-10 : Z00.00 03/02/2018 Visit Diagnosis Plan: Encounter for gyne cological examination (general) (routine) without abnormal findings Discussion: Pap done Mammogram ordered ICD-9 : V72.31 ICD-10 : Z01.419 03/02/2018 Appointment: Chio Post WPtel: [facility] Annual Well Visit 03/02/2018 Patient Education: Patient Medication Summary Completed 03/02/2018 Appointment: Chio Post WPtel: [phone] RESCHEDULED 02/08/2018 Visit Diagnosis Plan: Pneumonia, unspecified organism Discussion: patient recently on zpack. 40 mg kenalog given as one time shot. levaquin prescribed daily for 7 days. instructed patient to increase fluid intake and rest. instructed to perform deep breathing exercises every hour. if new or worsening symptoms, go to ED. inhaler prescribed to be used every 4 hours as needed for SOB/cough. no work for rest of week. rtc next week if no improvement. ICD-9 : 486 ICD-10 : J18.9 11/03/2017 Appointment: Shaniqua Ruiz [address] [place] [address] ACUTE ILLNESS 11/03/2017 Patient Education: Patient Medication Summary Completed 11/03/2017 Visit Diagnosis Plan: Acute bronchitis, unspecified Di scussion: zpack prescribed for patient. 40 mg kenalog given to patient to assist with fluid collection. instructed to perform deep breathing exercises at home. ICD-9 : 490 ICD-10 : J20.9 10/27/2017 Visit Diagnosis Plan: Influenza due to o ther identified influenza virus with other respiratory manifestations Discussion: positive for influenza b. ou t of window for tamiflu. increase fluid intake and rest. no work until tuesday. discussed length of illness and secondary infections. continue with tylenol/ibup rofen for pain or fever. call or rtc next week if new or worsening symptoms. 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 then check CMP, Lipids and fwup ICD-9 : 272.2 ICD-10 : E78.2 08/11/2017 Appointment: Chio Post WPtel: [address] [place] [address] MEDICATION REVIEW 08/11/2017 Patient Education: Patient Medication Summary Completed 08/11/2017 Visit Diagnosis Plan: Mixed hyperlipidemia Discussion: Continue lipitor and check lipids with LFTs next month ICD-9 : 272.2 ICD-10 : E78.2 05/23/2017 Visit Diagnosis Plan: Encounter for [facility] adult medical examination without abnormal findings Discussion: Will update lab next month D efers mammogram until next year--normal mammogram last year Pap due next year Tdap 3 yrs ago Colonoscopy up to date Discussed zostavax--will check on coverage ICD-9 : V70.9 ICD-10 : Z00.00 05/23/2017 Appointment: Chio Post WPtel: [address] [place] [address] Annual Well Visit 05/23/2017 Patient Education: Patient Medication Summary Completed 05/23/2017 Visit Diagnosis Plan: Mixed hyperlipidemia Discussion: Check CMP, Lipids ICD-9 : 272.2 ICD-10 : E78.2 03/10/2017 Visit Diagnosis Plan: Essential (primary) hypertension Follow Up: 6 months ICD-9 : 401.9 ICD-10 : I10 03/10/2017 Appointment: Chio Post WPtel: [facility] 03/09 confimed ~sl CHECK UP 03/10/2017 Patient Education: Patient Medication Summary Completed 03/10/2017 Appointment: Chio [phone] [facility] 02/03 rescheduled ~sl RESCHEDULED 02/28/2017 Visit Plan: Lab discussed Continue lifes tyle modification Check full fasting lab in 6mos Monitor BP 1-2 times a week at home Discussed adding weights or yoga/sriram chi 3 times a week 08/30/2016 Appointment: Chio Post WPtel: [address] [place], [place] [phone] 08/26 lm`sl...confirmed~lb FOLLOW UP 08/30 Patient Education: Patient Medication Summary Completed 08/30/2016 Patient Education: Patient Medication Summary Completed 08/26/2016 Care Plan: COMPREHEN METABOLIC PANEL NINFA NC : 97871-4 Pending 08/26/2016 Care Plan: LIPID PANEL LOINC : 38572-3 Pending 08/26/2016 Visit Plan: Patient is very anxious abou t going back on any medication for her lipids right now Stressed diet and exercise changes she can try Continue higher dose of fish oil she is now taking Can recheck lipids and cmp in 3 months If not much better, will need rx started - discussed trying fenofibrate possibly 06/01/2016 Appointment: Ale Becerra [address] [place], [place] [phone] 05/27 confirmed ~sl FOLLOW UP 06/01/2016 Patient Education: Patient Medication Summary Completed 06/01/2016 Visit Plan: 3 days of zorvolex samples g iven - hold meloxicam - if working well, can send into [facility] Tuesday Additional prednisone above since injection seemed to be helpful Continue flexeril since helping also Can do tylebol still Continue stretching, heat, ice, topical pain relievers Follow up in 1-2 weeks if not still improving and will consider imaging(lumbar xrays and then MRI if negative) 04/30/2016 Appointment: Ale Becerra [address] [facility] FOLLOW UP 04/30/2016 Patient Education: Patient Medication Summary Completed 04/30/2016 Visit Plan: Steroid injection given toda y Muscle relaxer as well Continue daily meloxicam Start weaning back on oxycodone Can replace oxycodone dosing with otc tylenol Advised topical pain relievers, heat/ice, etc If oxycodone runs completely out and patient still needs some, can call for refill to [facility] or could consider replacing with tramadol 04/23/2016 Appointment: Hernan Ale [facility] [facility] [facility] Follow UP 04/23/2016 Patient Education: Patient Medication Summary Completed 04/23/2016 Visit Plan: Continue inserts and stretch es for plantar fascia Add Vivlodex Return in 2-3 weeks for injection if pain persists Check Fasting Lab Update Mammogram 04/08/2016 Appointment: Chio Post WPtel: [phone] [facility] 04/07 confirmed ~sl NEW PATIENT 04/08/2016 Patient Education: Patient Medication Summary Completed 04/08/2016 Patient Education: [facility] - [employer] - 18-64 - Dynamic Jaun l ID Completed 04/08/2016 Care Plan: MAMMOGRAM SCREENING LOINC : 2 6347-5 Pending 04/08/2016 Instructions Comment . Lab discussed Continue lifestyle modification Check full fasting lab in 6mos Monitor BP 1-2 times a week at home Discussed adding weights or yoga/sriram chi 3 times a week . Patient is very anxious about going ba ck on any medication for her lipids right now Stressed diet and exercise changes she can try Continue higher dose of fish oil she is now taking Can recheck lipids and cmp in 3 months If not much better, will need rx started - discussed trying fenofibrate possibly . 3 days of zorvolex samples given - d meloxicam - if working well, can send into [facility] Tuesday Additional prednisone above since injection seemed to be helpful Continue flexeril since helping also Can do tylebol still Continue stretching, heat, ice, topical pain relievers Follow up in 1-2 weeks if not still improving and will consider imaging(lumbar xrays and then MRI if negative) . Steroid injection given today Muscle relaxer as well Continue daily meloxicam Start weaning back on oxycodone Can replace oxycodone dosing with otc tylenol Advised topical pain relievers, heat/ice, etc If oxycodone runs completely out and patient still needs some, can call for refill to [facility] or could consider replacing with tramadol . Continue inserts and stretches for josey ntar fascia Add Vivlodex Return in 2-3 weeks for injection if pain persists Check Fasting Lab Update Mammogram Medical Equipment No Medical Equipment data Health Concerns Section Health Concerns data not found Goals Section Goals data not found Interventions Section Interventions data not found Health Status Evaluations/Outcomes Section Health Status Evaluations/Outcomes data not found Advance Directives No Advance Directive data
--- OUTSIDE RECORDS SUMMARY | 2020-02-26 21:09 | XMS REPORT | CCD ---
Author Author Carola Post D.O. Organization [facility] Address [address] [place] [address] Phone Care Team Providers Care Diet Consultant Name Role Phone Chio Post D.O. PP Unavailable CCM Unavailable Summary Purpose Interface Exchange Insurance Providers Payer name Policy type / Coverage type Covered green party ID Effective Begin Date Effective End Date WPS MEDICARE PART B [place] Medicare Part B [id number] 2019 Unknown [employer] Medicare Part B [id number] 2019 100 Unknown Family history Grandfather Diagnosis Age At Onset Cancer Unknown Social History Social History Element Codes Description Effective Dates Marital status Unknown 04/08/2016 Number of children Unknown 3 04/08/2016 Employment Unknown Currently employed [employer] 249 04/08/[address]: 926256185 Has never smoked or chewed tobacco 04/08/[address]: 169386 Currently drinks alcohol 04/08 Frequency of drinks SNOMED CT: 728861508 Drinks rarely 016 Has the patient ever [...] Fill Instructions Zetia 10 mg tablet RxNorm: 439321 1 Tablet(s) Oral QD 02/20/202007/28 Active Livalo 1 mg tablet RxNorm: 934776 1 Tablet(s) Oral QD 12/03/201901/25 Inactive Aleve 220 mg tablet RxNorm: 485235 Tablet(s) Oral as needed 019 No Stop Date Active Macrobid 100 mg capsule RxNorm: 357816 1 Capsule(s) Oral two ti mes a day 08/15/2019 08/22/2019 Inactive Fish Oil 360 mg-1,200 mg capsule RxNorm: 1 Capsule(s) Or al two times a day 08/15/2019 02/19/2020 Inactive Crestor 5 mg tablet RxNorm: 700475 1/2 Tablet(s) PO twice a week 02/10/2020 Inactive Crestor 5 mg tablet RxNorm: 226803 1 Tablet(s) PO Tues, Thurs, Sat and Sun and 1/2 tablet (2.5mg) on Mon, Tue and Tue03/05/2019 03/11/2019 Inactive Crestor 5 mg tablet RxNorm: 816531 1 Tablet(s) PO QD 02/07/201903/05 Inactive Crestor 5 mg tablet RxNorm: 079397 1 Tablet(s) PO QD re check labwork in 6 months 08/21/2018 08/20/2018 Inactive Crestor 5 mg tablet RxNorm: 957054 1 Tablet(s) PO QD re check labwork in 6 months 08/21/2018 02/06/2019 Inactive Ventolin HFA 90 mcg/actuation aerosol inhaler RxNorm: 017961 2 Puff(s) INH Q4H as needed 11/03/2017 03/01/2018 Inactive please switch to proair if ventolin is not covered. thanks! Levaquin 500 mg tablet RxNorm: 512781 1 Tablet(s) PO QD 11/03/2017 Inactive Zithromax Z-Talat 250 mg tablet RxNorm: 219052 Tablet(s) PO 10/27/2017 03/01/2018 Inactive Lipitor 10 mg tablet RxNorm: 179501 1 TABLET(S) PO QD REPLACES PRAVASTATIN 06/08/2017 08/10/2017 Inactive Lipitor 10 mg tablet RxNorm: 441175 1 Tablet(s) PO QD replaces Pravastatin 03/16/2017 06/07/2017 Inactive pravastatin 10 mg tablet RxNorm: 662775 1 Tablet(s) PO QD 03/15/2017 03/14/2017 Inactive pravastatin 10 mg tablet RxNorm: 688841 1 Tablet(s) PO QD 03/15/2017 03/15/2017 Inactive Zorvolex 35 mg capsule RxNorm: 3523288 1 Capsule(s) PO TID HOLD MELOXICAM 05/03/2016 06/01/2016 Inactive Zorvolex 35 mg capsule RxNorm: 1196405 1 Capsule(s) PO TID HOLD MELOXICAM 04/30/2016 05/02/2016 Inactive prednisone 20 mg tablet RxNorm: 678819 1 Tablet(s) PO B ID and then decrease to 1 tab PO QD x 5 days 04/30/2016 05/04/2016 Inactive cyclobenzaprine 10 mg tablet RxNorm: 674434 1 Tablet(s) PO TID as needed for muscle spasm 04/23/2016 08/29/2016 Inactive pravastatin 20 mg tablet RxNorm: 015325 1 Tablet(s) PO QD 04/14/2016 08/29/2016 Inactive Vivlodex 10 mg capsule RxNorm: 0715601 1 Capsule(s) PO QD 04/08/2016 05/07/2016 Inactive Co Q-10 300 mg capsule RxNorm: 440027 1 Capsule(s) PO QD No Start Date Active Vitamin D3 5,000 unit tablet RxNorm: 667825 1 Tablet(s) PO QD No Star t Date Active melatonin 5 mg tablet RxNorm: 633179 1 Tablet(s) PO QHS as needed N o Start Date Active Multivitamin & Mineral Formula tablet RxNorm: 1 Tablet(s) PO Q D No Start Date Active Fish Oil 1,000 mg capsule RxNorm: 2 Capsule(s) PO QD No Start Date 08/29/2016 Inactive Metamucil 0.4 gram capsule RxNorm: 1376412 2 Capsule(s) PO BID No S tart Date 02/13/2019 Inactive Vitamin D3 2,000 unit tablet RxNorm: 395993 1 Tablet(s) PO QD No St art Date 03/26/2019 Inactive Lipitor 10 mg tablet RxNorm: 378988 1 Tablet(s) PO QD No Start Date 0 03/15/2017 Inactive Crestor 5 mg tablet RxNorm: 955848 1 Tablet(s) PO Tues, Thurs, Sat and Sun and 1/2 tablet (2.5mg) on Mon, Wed and Fri No Start Date 03/04/2019 Inactive Calcium with Vitamin D 600 mg (1,500 mg)-400 unit tablet RxN orm: 034327 1 Tablet(s) PO QD No Start Date 03/01/2018 Inactive krill oil 1,000 mg-170 mg-50 mg-80 mg capsule RxNorm: 1 Capsule(s) PO BID No Start Date 08/14/2019 Inactive Co Q-10 200 mg capsule RxNorm: 574792 1 Capsule(s) PO QD No Start D ate 03/01/2018 Inactive Co Q-10 oral RxNorm: 11332 oral No Start Date 07/24/2017 Inactive oxycodone-acetaminophen 5 mg-325 mg tablet RxNorm: 5038423 1 Tab let(s) PO Q6H No Start Date 08/29/2016 Inactive Krill Oil ([place] 3 and 6) oral RxNorm: 58740 oral No Start Date 02/13/2019 Inactive Flexeril 10mg tablet RxNorm: 1 Tablet(s) PO Q8H No Start Date 12/2015 Inactive Vitamin D3 1,000 unit tablet RxNorm: 237338 1 Tablet(s) PO QD No St art Date 03/11/2019 Inactive Medication Administered No Medication Administered data Immunizations Vaccine Codes Date Status Shingrix Unknown 11/20/2019 Zoster Unknown 08/15/2019 Complete Influenza CVX: 141 07/03/2018 Complete Results Observation Observation Code Item Item Code Result Date S [facility] Location COMPLETE BLOOD COUNT [id number] WBC 5.5 10e9/L 02/13/20 20 Unknown COMPLETE BLOOD COUNT [id number] RBC 4.67 10e12/L 2019 Unknown COMPLETE BLOOD COUNT [id number] HEMOGLOBIN 13.5 g/dL 02/13/20 20 Unknown COMPLETE BLOOD COUNT [id number] HEMATOCRIT 40.9 % 02/13/20 20 Unknown COMPLETE BLOOD COUNT [id number] MCV 87.6 fL 0 Unknown COMPLETE BLOOD COUNT [id number] MCH 28.9 pg 0 Unknown COMPLETE BLOOD COUNT 1644679 MCHC 33.0 g/dL 0 Unknown COMPLETE BLOOD COUNT [id number] PLATELET COUNT 152 10e9/L Unknown COMPLETE BLOOD COUNT 0060694 Mean Plt Volume 11.6 fL Unknown COMPLETE BLOOD COUNT [id number] Neut Auto 32.4 % 0 Unknown COMPLETE BLOOD COUNT [id number] Lymph Auto 55.1 % 02/13/20 20 Unknown COMPLETE BLOOD COUNT [id number] [place] Auto 9.2 % 0 Unknown COMPLETE BLOOD COUNT [id number] RDW 13.2 % 0 Unknown COMPLETE BLOOD COUNT [id number] Eos Auto 3.1 % 0 Unknown COMPLETE BLOOD COUNT [id number] Baso Auto 0.2 % 0 Unknown COMPLETE BLOOD COUNT [id number] Neutrophil Abs 1.78 10e9/L Unknown COMPLETE BLOOD COUNT 1959403 Lymphocyte Abs 3.03 10e9/L Unknown COMPLETE BLOOD COUNT [id number] Monocyte Abs 0.51 10e9/L 01/25 Unknown COMPLETE BLOOD COUNT [id number] Eosinophil Abs 0.17 10e9/L Unknown COMPLETE BLOOD COUNT 6513861 RDW-SD 40.9 fL 0 Unknown COMPLETE BLOOD COUNT [id number] Basophil Abs 0.01 10e9/L 01/25 Unknown FREE T4 94768 T4 Free 0.83 ng/dL 02/13/2020 Unknown LIP[facility] GROUP 30186 Cholesterol 204 mg/dL 02/13/2020 Unkno wn LIPID GROUP 33269 Triglyceride 136 mg/dL 02/13/2020 Unkn own LIPID GROUP 06796 HDL CHOLESTEROL 40 mg/dL 02/13/2020 U nknown L[facility] GROUP 17747 Chol/HDL Ratio 5.10 ratio 02/13/2020 U nknown LIPID GROUP 64685 NON-HDL Chol 164 mg/dL 02/13/2020 Unkn own LIP[facility] GROUP 30617 LDL Cholesterol 137 mg/dL 02/13/2020 U nknown THYROID STIMULATING HORMONE 57084 TSH 1.419 uIU/mL 02/13/2020 Unknown COMPREHENSIVE METABOLIC 90617 AST 20 U/L 2019 Unknown COMPREHENSIVE METABOLIC 30635 ALT 15 U/L 2019 Unknown COMPREHENSIVE METABOLIC 87187 BUN 11 mg/dL 2019 Unknown COMPREHENSIVE METABOLIC 04834 ALBUMIN 4.3 g/dL 2019 Unknown COMPREHENSIVE METABOLIC 45355 CHLORIDE 105 mmol/L 02/12 Unknown COMPREHENSIVE METABOLIC 47935 Bili Total 0.9 mg/dL 02/12 Unknown COMPREHENSIVE METABOLIC 11117 ALK PHOS 75 U/L 2019 Unknown COMPREHENSIVE METABOLIC 18970 SODIUM 142 mmol/L 02/12 Unknown COMPREHENSIVE METABOLIC 43222 CREATININE 0.67 mg/dL 01/25 Unknown COMPREHENSIVE METABOLIC 50637 CALCIUM 9.3 mg/dL 2019 Unknown COMPREHENSIVE METABOLIC 65977 POTASSIUM 4.5 mmol/L 02/12 Unknown COMPREHENSIVE METABOLIC 52483 Total Protein 6.6 g/dL Unknown COMPREHENSIVE METABOLIC 41904 Glucose 90 mg/dL 2019 Unknown COMPREHENSIVE METABOLIC 73538 Bicarbonate 28 mmol/L 01/25 Unknown COMPREHENSIVE METABOLIC 12698 AGAP 9 mmol/L 2019 Unknown GFR CALC 0847455 GFR Non Afr Amr >60 mL/min 02/13/2020 Un known GFR CALC [id number] GFR Afr Amr >60 mL/min 02/13/2020 Unknow n CULTURE, URINE, ROUTINE 395 CULTURE SEE NOTE 1 11/13/2018 [facility] [place] [address] [place] [phone] CULTURE, URINE, ROUTINE 395 CULTURE, URINE, ROUTINE SEE NOTE 09/12/2019 Mary Jane [place] [address] [place] [address] URINALYSIS, COMPLETE 15398 Color YELLOW 08/26 [facility] [place] [address] [place] [address] URINALYSIS, COMPLETE 87267 APPEARANCE CLEAR 08/26 [facility] [place] [address] [place] [address] URINALYSIS, COMPLETE 74792 SPECIFIC GRAVITY 1.003 09/11/2019 [facility] [place] [address] [place] [address] URINALYSIS, COMPLETE 31879 PH 7.0 08/26 [facility] [place] [address] [place] [address] URINALYSIS, COMPLETE 32999 Glucose NEGATIVE 08/26 [facility] [place] [address] [place] [address] URINALYSIS, COMPLETE 42732 BILIRUBIN NEGATIVE 08/26 [facility] [place] [address] [place] [address] URINALYSIS, COMPLETE 63752 Ketones NEGATIVE 08/26 [facility] [address] [address] URINALYSIS, COMPLETE 89211 OCCULT BLOOD NEGATIVE [facility] [address] [place] [address] URINALYSIS, COMPLETE 18201 Protein NEGATIVE 08/26 [facility] [place] [address] URINALYSIS, COMPLETE 16947 LEUKOCYTE ESTERASE NEGATIV E 09/11/2019 [facility] [place] [address] URINALYSIS, COMPLETE 41007 WBC NONE SEEN /HPF 09/11/2019 [facility] [place] [address] URINALYSIS, COMPLETE 59435 RBC NONE SEEN /HPF 09/11/2019 [facility] [place] [address] URINALYSIS, COMPLETE 64604 SQUAMOUS EPITHELIAL CELLS NONE SEEN /HPF 09/11/2019 [facility] [place] [address] URINALYSIS, COMPLETE 95732 TRANSITIONAL EPITHELIAL CELLS DNR /HPF 09/11/2019 [facility] [address] URINALYSIS, COMPLETE 08936 RENAL EPITHELIAL CELLS DNR /HPF 09/11/2019 [facility] [address] URINALYSIS, COMPLETE 43374 BACTERIA NONE SEEN /HPF 09/11/2019 [facility] [address] URINALYSIS, COMPLETE 49783 CALCIUM OXALATE CRYSTALS D NR /HPF 09/11/[address] [facility] [address] URINALYSIS, COMPLETE 57800 TRIPLE PHOSPHATE CRYSTALS DNR /HPF 09/11/[address] [facility] [place] [address] URINALYSIS, COMPLETE 59379 URIC ACID CRYSTALS DNR /HP F 09/11/2019 [facility] [place] [address] URINALYSIS, COMPLETE 96547 AMORPHOUS SEDIMENT DNR /HP F 09/11/2019 [facility] [place] [address] URINALYSIS, COMPLETE 84897 CRYSTALS DNR /HPF 08/26 [facility] [address] URINALYSIS, COMPLETE 38283 HYALINE CAST NONE SEEN /LP F 09/11/2019 [facility] [address] [place] [address] [place] [address] URINALYSIS, COMPLETE 52998 GRANULAR CAST DNR /LPF 1 11/12/2018 [facility] [address] URINALYSIS, COMPLETE 64784 CASTS DNR /LPF 08/26 [facility] [address] URINALYSIS, COMPLETE 61359 YEAST DNR /HPF 08/26 [facility] [address] URINALYSIS, COMPLETE 07265 COMMENTS DNR 08/26 [facility] [address] URINALYSIS, COMPLETE 62555 NOTE DNR 08/26 [facility] [address] URINALYSIS, COMPLETE 41853 NITRITE NEGATIVE 08/26 [facility] [address] CULTURE, URINE, ROUTINE 395 CULTURE, URINE, ROUTINE SEE NOTE 08/16/2019 Mary [place] [address] EXTRA LAVENDER-TOP TUBE XLKS EXTRA LAVENDER-TOP TUBE 08/10/2019 [facility] [place] [address] EXTRA LAVENDER-TOP TUBE XLKS COMMENT 1 10/10/2018 [facility] [place] [address] LIPID PANEL 07717 CHOLESTEROL, TOTAL 180 mg/dL 08/10 [facility] [place] [address] LIPID PANEL 57317 HDL CHOLESTEROL 35 mg/dL 08/10/20 19 [facility] [place] [address] LIPID PANEL 92320 TRIGLYCERIDES 200 mg/dL 08/10/2019 [facility] [address] [address] LIPID PANEL 89398 LDL-CHOLESTEROL 113 mg/dL(calc) [facility] [address] [address] LIPID PANEL 20407 CHOL/HDLC RATIO 5.1 (calc) 08/10/20 [facility] [address] [address] LIPID PANEL 95996 NON HDL CHOLESTEROL 145 mg/dL(calc) 08/10/2019 [facility] [address] [address] COMPREHENSIVE METABOLIC PANEL 45479 Glucose 86 mg/ dL 08/10/[address] [facility] [address] COMPREHENSIVE METABOLIC PANEL 37520 UREA NITROGEN (BUN) 11 mg/dL 08/10/2019 [facility] [address] [address] COMPREHENSIVE METABOLIC PANEL 32018 CREATININE 0.71 m g/dL 08/10/2019 [facility] [address] [address] COMPREHENSIVE METABOLIC PANEL 80717 eGFR NON-AFR. CITIZEN [place] 90 mL/min/1.73m2 08/10/[address] [facility] [address] COMPREHENSIVE METABOLIC PANEL 71296 eGFR 104 mL/min/1.73m2 08/10/2019 [facility] [address] [address] COMPREHENSIVE METABOLIC PANEL 68513 BUN/CREATININE RATIO NOT APPLICABLE (calc) 08/10/2019 [facility] [address] [address] COMPREHENSIVE METABOLIC PANEL 12827 SODIUM 140 mm ol/L 08/10/2019 [facility] [address] [address] COMPREHENSIVE METABOLIC PANEL 98360 POTASSIUM 4.2 mm ol/L 08/10/2019 [facility] [address] [address] COMPREHENSIVE METABOLIC PANEL 05357 CHLORIDE 105 mm ol/L 08/10/2019 [facility] [address] [address] COMPREHENSIVE METABOLIC PANEL 28711 CARBON DIOXIDE 28 mmol/L 08/10/[address] [facility] [address] COMPREHENSIVE METABOLIC PANEL 28021 CALCIUM 9.3 mg /dL 08/10/[address] [facility] [address] COMPREHENSIVE METABOLIC PANEL 08962 PROTEIN, TOTAL 6. 7 g/dL 08/10/[address] [facility] [address] COMPREHENSIVE METABOLIC PANEL 50925 ALBUMIN 4.3 g/ dL 08/10/[address] [facility] [address] COMPREHENSIVE METABOLIC PANEL 68674 GLOBULIN 2.4 g/ dL(calc) 08/10/[address] [facility] [address] COMPREHENSIVE METABOLIC PANEL 02250 ALBUMIN/GLOBULIN RATIO 1.8 (calc) 08/10/[address] [facility] [address] COMPREHENSIVE METABOLIC PANEL 34796 BILIRUBIN, TOTAL 0.6 mg/dL 08/10/2019 [facility] [address] COMPREHENSIVE METABOLIC PANEL 23970 ALKALINE PHOSPHATASE 74 U/L 08/10/2019 [facility] [address] COMPREHENSIVE METABOLIC PANEL 35519 AST 21 U/L 08/10/2019 [facility] [address] COMPREHENSIVE METABOLIC PANEL 44168 ALT 15 U/L 08/10/[address] [facility] [address] COMPREHENSIVE METABOLIC 11076 AST 18 U/L 2018 Unknown COMPREHENSIVE METABOLIC 49912 ALT 12 U/L 2018 Unknown COMPREHENSIVE METABOLIC 77294 BUN 11 mg/dL 2018 Unknown COMPREHENSIVE METABOLIC 25179 ALBUMIN 4.6 g/dL 2018 Unknown COMPREHENSIVE METABOLIC 17592 CHLORIDE 106 mmol/L 02/14 Unknown COMPREHENSIVE METABOLIC 90802 Bili Total 0.9 mg/dL 02/14 Unknown COMPREHENSIVE METABOLIC 51557 ALK PHOS 76 U/L 2018 Unknown COMPREHENSIVE METABOLIC 90739 SODIUM 142 mmol/L 02/14 Unknown COMPREHENSIVE METABOLIC 87120 CREATININE 0.69 mg/dL 01/25 Unknown COMPREHENSIVE METABOLIC 75014 CALCIUM 9.5 mg/dL 2018 Unknown COMPREHENSIVE METABOLIC 43845 POTASSIUM 3.9 mmol/L 02/14 Unknown COMPREHENSIVE METABOLIC 10580 Total Protein 6.6 g/dL Unknown COMPREHENSIVE METABOLIC 42638 Glucose 86 mg/dL 2018 Unknown COMPREHENSIVE METABOLIC 65116 Bicarbonate 29 mmol/L 01/25 Unknown COMPREHENSIVE METABOLIC 86513 AGAP 7 mmol/L 2018 Unknown GFR CALC 6137402 GFR Non Afr Amr >60 mL/min 02/14/2019 Un known GFR CALC 4195244 GFR Afr Amr >60 mL/min 02/14/2019 Unknow n LIP[facility] GROUP 53008 Cholesterol 127 mg/dL 02/14/2019 Unkno wn LIP[facility] GROUP 34315 Triglyceride 156 mg/dL 02/14/2019 Unkn own [facility] 35595 HDL CHOLESTEROL 45 mg/dL 02/14/2019 U nknown L[facility] GROUP 76984 Chol/HDL Ratio 2.82 ratio 02/14/2019 U nknown L[facility] GROUP 49940 NON-HDL Chol 82 mg/dL 02/14/2019 Unkn own LIP[facility] GROUP 11793 LDL Cholesterol 51 mg/dL 02/14/2019 U nknown COMPREHENSIVE METABOLIC PANEL 68509 Glucose 88 mg/ dL 08/16/2018 [facility] [place] [address] [place] [address] COMPREHENSIVE METABOLIC PANEL 12269 UREA NITROGEN (BUN) 11 mg/dL 08/16/2018 [facility] [place] [address] [place] [address] COMPREHENSIVE METABOLIC PANEL 89245 CREATININE 0.70 m g/dL 08/16/2018 [facility] [place] [address] [place] [address] COMPREHENSIVE METABOLIC PANEL 87161 eGFR NON-AFR. CITIZEN OF [place] 92 mL/min/1.73m2 08/16/2018 [facility]Align[facility]WallsLife[facility] [address] [place] [address] COMPREHENSIVE METABOLIC PANEL 91354 eGFR 107 mL/min/1.73m2 08/16/2018 [facility] CenterWallssamreen [place] [address] [place] [address] COMPREHENSIVE METABOLIC PANEL 38573 BUN/CREATININE RATIO NOT APPLICABLE (calc) 08/16/2018 [facility] CenterWallssamreen [place] [address] [place] [address] COMPREHENSIVE METABOLIC PANEL 03127 SODIUM 140 mm ol/L 08/16/2018 [facility] [address] COMPREHENSIVE METABOLIC PANEL 53655 POTASSIUM 4.0 mm ol/L 08/16/2018 [facility] [address] COMPREHENSIVE METABOLIC PANEL 89626 CHLORIDE 104 mm ol/L 08/16/[address] [facility] [address] COMPREHENSIVE METABOLIC PANEL 68245 CARBON DIOXIDE 29 mmol/L 08/16/[address] [facility] [address] COMPREHENSIVE METABOLIC PANEL 98072 CALCIUM 9.4 mg /dL 08/16/2018 [facility] [address] COMPREHENSIVE METABOLIC PANEL 14796 PROTEIN, TOTAL 6. 7 g/dL 08/16/2018 [facility] [address] COMPREHENSIVE METABOLIC PANEL 97787 ALBUMIN 4.4 g/ dL 08/16/[address] [facility] [address] COMPREHENSIVE METABOLIC PANEL 60760 GLOBULIN 2.3 g/ dL(calc) 08/16/2018 [facility] [address] COMPREHENSIVE METABOLIC PANEL 16374 ALBUMIN/GLOBULIN RATIO 1.9 (calc) 08/16/2018 [facility] [address] COMPREHENSIVE METABOLIC PANEL 55269 BILIRUBIN, TOTAL 0.8 mg/dL 08/16/2018 [facility] [address] [address] COMPREHENSIVE METABOLIC PANEL 17597 ALKALINE PHOSPHATASE 72 U/L 08/16/2018 [facility] [address] COMPREHENSIVE METABOLIC PANEL 39061 AST 19 U/L 08/16/2018 [facility] [address] COMPREHENSIVE METABOLIC PANEL 91661 ALT 12 U/L 08/16/2018 [facility] [address] LIPID PANEL 65595 CHOLESTEROL, TOTAL 228 mg/dL 08/16 [facility] [address] LIPID PANEL 02353 HDL CHOLESTEROL 42 mg/dL 08/16/20 [facility] [address] [place] [address] LIPID PANEL 89292 TRIGLYCERIDES 175 mg/dL 08/16/2018 [facility] [address] LIPID PANEL 23322 LDL-CHOLESTEROL 155 mg/dL(calc) [facility] [address] LIPID PANEL 95956 CHOL/HDLC RATIO 5.4 (calc) 08/16/20 [facility] [address] LIPID PANEL 14258 NON HDL CHOLESTEROL 186 mg/dL(calc) 08/16/2018 [facility] [address] EXTRA LAVENDER-TOP TUBE XLKS EXTRA LAVENDER-TOP TUBE 08/16/[address] [facility] [address] [address] EXTRA LAVENDER-TOP TUBE XLKS COMMENT 1 10/16/2017 [facility] [address] Procedures Procedure Codes Date INITIAL PREVENTIVE EXAM CPT-4: G0402 02/20/2020 ROUTINE VENIPUNCTURE CPT-4: 43929 02/13/2020 COMPREHEN METABOLIC PANEL CPT-4: 99116 02/13/2020 LIPID PANEL CPT-4: 80048 02/13/2020 COMPLETE CBC W/AUTO DIFF WBC CPT-4: 05529 02/13/2020 ASSAY THYROID STIM HORMONE CPT-4: 87002 02/13/2020 ASSAY OF FREE THYROXINE CPT-4: 21865 02/13/2020 URINALYSIS, COMPLETE CPT-4: 45243 09/10/2019 CULTURE, URINE, ROUTINE CPT-4: 395 09/10/2019 URINALYSIS NONAUTO W/O SCOPE CPT-4: 94461 08/27/2019 CULTURE, URINE, ROUTINE CPT-4: 395 08/15/2019 URINALYSIS NONAUTO W/O SCOPE CPT-4: 64304 08/15/2019 SHINGRIX HZV VACC RECOMBINANT IM CPT-4: 41889 019 IMMUNIZATION ADMIN CPT-4: 09983 08/15/2019 COMPREHENSIVE METABOLIC PANEL CPT-4: 93700 08/09/2019 LIPID PANEL CPT-4: 22719 08/09/2019 ROUTINE VENIPUNCTURE CPT-4: 14749 08/09/2019 EXTRA LAVENDER-TOP TUBE CPT-4: XLKS 08/09/2019 ROUTINE VENIPUNCTURE CPT-4: 80773 02/14/2019 COMPREHEN METABOLIC PANEL CPT-4: 58236 02/14/2019 LIPID PANEL CPT-4: 28265 02/14/2019 ROUTINE VENIPUNCTURE CPT-4: 53037 08/15/2018 COMPREHENSIVE METABOLIC PANEL CPT-4: 24940 08/15/2018 EXTRA LAVENDER-TOP TUBE CPT-4: XLKS 08/15/2018 LIPID PANEL CPT-4: 04018 08/15/2018 IIV4 VACCINE 3 YRS+ IM AND UP CPT-4: 96479 07/03/2018 IMMUNIZATION ADMIN CPT-4: 40301 07/03/2018 SPECIMEN HANDLING OFFICE-LAB CPT-4: 17335 03/02/2018 OCCULT BLOOD FECES CPT-4: 35902 03/02/2018 THER/PROPH/DIAG INJ SC/IM CPT-4: 14979 11/03/2017 TRIAMCINOLONE ACET INJ NOS CPT-4: J3301 11/03/2017 INFLUENZA ASSAY W/OPTIC CPT-4: 87058 10/27/2017 THER/PROPH/DIAG INJ SC/IM CPT-4: 30075 10/27/2017 TRIAMCINOLONE ACET INJ NOS CPT-4: J3301 10/27/2017 THER/PROPH/DIAG INJ SC/IM CPT-4: 58294 04/23/2016 TRIAMCINOLONE ACET INJ NOS CPT-4: J3301 04/23/2016 DEXAMETHASONE SODIUM PHOS CPT-4: J1100 04/23/2016 Vital Signs Date Vital 02/20/2020 Blood Pressure 1: 138/74 Code: 8480-6 BMI: 27.9 Code: 49189-6 Heart Rate 1: 84 bpm Height: 5'5" [...] 1: 126/70 Code: 8480-6 BMI: 26.7 Code: 16943-9 Heart Rate 1: 68 bpm Height: 5'6" Respiratory Rate: 18 bpm SpO2: 97% Tempera ture: 36.6 (C) / 97.9 (F) Weight: 168 lbs 08/15/2018 Blood Pressure 1: 122/78 Code: 8480-6 BMI: 25.9 Code: 95820-8 Heart Rate 1: 72 bpm Height: 5'6" Respiratory Rate: 20 bpm SpO2: 97% Tempera ture: 36.7 (C) / 98.0 (F) Weight: 163 lbs 03/02/2018 Blood Pressure 1: 126/74 Code: 8480-6 BMI: 26.1 Code: 02988-0 Heart Rate 1: 76 bpm Height: 5'6" Respiratory Rate: 20 bpm SpO2: 98% Tempera ture: 36.6 (C) / 97.8 (F) Weight: 164 lbs 11/03/2017 Blood Pressure 1: 124/82 Code: 8480-6 BMI: 25.3 Code: 49709-2 Heart Rate 1: 90 bpm Height: 5'6" Respiratory Rate: 22 bpm SpO2: 98% Tempera ture: 36.9 (C) / 98.4 (F) Weight: 159 lbs 10/27/2017 Blood Pressure 1: 122/84 Code: 8480-6 BMI: 25.6 Code: 28603-7 Heart Rate 1: 90 bpm Height: 5'6" Respiratory Rate: 22 bpm SpO2: 97% Tempera ture: 36.1 (C) / 97.0 (F) Weight: 161 lbs 08/11/2017 Blood Pressure 1: 132/76 Code: 8480-6 BMI: 26.4 Code: 79768-8 Heart Rate 1: 72 bpm Height: 5'6" Respiratory Rate: 20 bpm Temperature: 36 .6 (C) / 97.8 (F) Weight: 166 lbs 05/23/2017 Blood Pressure 1: 126/72 Code: 8480-6 BMI: 26.1 Code: 92253-8 Heart Rate 1: 72 bpm Height: 5'6" Respiratory Rate: 20 bpm SpO2: 98% Tempera ture: 37.1 (C) / 98.8 (F) Weight: 164 lbs 03/10/2017 Blood Pressure 1: 124/72 Code: 8480-6 BMI: 26.1 Code: 58097-0 Heart Rate 1: 92 bpm Height: 5'6" Respiratory Rate: 20 bpm SpO2: 97% Tempera ture: 37.2 (C) / 98.9 (F) Weight: 164 lbs 08/30/2016 Blood Pressure 1: 142/82 Code: 8480-6 BMI: 25.6 Code: 82547-6 Heart Rate 1: 72 bpm Height: 5'6" Respiratory Rate: 20 bpm Temperature: 36 .6 (C) / 97.9 (F) Weight: 161 lbs 06/01/2016 Blood Pressure 1: 156/88 Code: 8480-6 BMI: 26.4 Code: 23963-7 Heart Rate 1: 70 bpm Height: 5'6" Respiratory Rate: 18 bpm SpO2: 97% Tempera ture: 36.6 (C) / 97.8 (F) Weight: 166 lbs 04/30/2016 Blood Pressure 1: 122/70 Code: 8480-6 Heart Rate 1: 10 2 bpm Height: Respiratory Rate: 24 bpm SpO2: 95% Temperature: 36.4 (C) / 97.6 (F) We ight: 04/23/2016 Blood Pressure 1: 152/76 Code: 8480-6 BMI: 26.5 Code: 88610-5 Heart Rate 1: 106 bpm Height: 5'7" Respiratory Rate: 24 bpm SpO2: 96% Tempera ture: 36.8 (C) / 98.2 (F) Weight: 169 lbs 04/08/2016 Blood Pressure 1: 116/68 Code: 8480-6 BMI: 27.4 Code: 76186-1 Heart Rate 1: 76 bpm Height: 5'6" [...] visit Encounters Encounter Performer Location Codes Date ([id number]) NURSE/OUTPATIENT VISIT EST Diagnosis: Essential (primary) hypertension[ICD10: I10] Diagnosis: Mixed hyperlipidemia[ICD10: E78.2] Diagnosis: Encounter for general adult medical examination without abnormal findings[ICD10: Z00.00] Chio MORTENSEN S. MARIONDER [email or web address] CPT-4: 17771 02/13/2020 ([id number]) NURSE/OUTPATIENT VISIT EST Diagnosis: Hematuria[ICD10: R31.9] Chio MORTENSEN S. OREND ER DO [employer] CPT-4: 50154 09/10/2019 ([id number]) OFFICE/OUTPATIENT VISIT EST Diagnosis: Hematuria[ICD10: R31.9] Chio MORTENSEN S. MARIOND ER DO [employer] CPT-4: 13599 08/27/2019 ([id number]) PREV VISIT EST AGE 40-64 Diagnosis: Urinary tract infection[ICD10: N39.0] Diagnosis: Encounter for general adult medical examination without abnormal findings[ICD10: Z00.00] Diagnosis: Essential (primary) hypertension[ICD10: I10] Diagnosis: Mixed hyperlipidemia[ICD10: E78.2] Diagnosis: VACCIN FOR DISEASE NEC (HPV or Zostavax)[ICD10: Z23] Chio POST [facility] CPT-4: 97078 08/15/2019 ([id number]) NURSE/OUTPATIENT VISIT EST Diagnosis: Mixed hyperlipidemia[ICD10: E78.2] Diagnosis: Essential (primary) hypertension[ICD10: I10] Chio POST DO [facility] CPT-4: 05799 08/09/2019 ([id number]) OFFICE/OUTPATIENT VISIT EST Diagnosis: Mixed hyperlipidemia[ICD10: E78.2] Diagnosis: Other specified counseling[ICD10: Z71.89] Chio POST [facility] CPT-4: 59685 02/14/2019 ([id number]) OFFICE/OUTPATIENT VISIT EST Diagnosis: Mixed hyperlipidemia[ICD10: E78.2] Chio PLUMMER NELLIE Addis POST [facility] CPT-4: 62088 08/15/2018 ([id number]) NURSE/OUTPATIENT VISIT EST Diagnosis: FLU VACCINE[ICD10: Z23] Chio BONILLA [facility] CPT-4: 82370 07/03/2018 ([id number]) PREV VISIT EST AGE 40-64 Diagnosis: Encounter for general adult medical examination without abnormal findings[ICD10: Z00.00] Diagnosis: Encounter for gynecological examination (general) (routine) without abnormal findings[ICD10: Z01.419] Chio Holder [facility] CPT-4: 99820 03/02/2018 OFFICE/OUTPATIENT VISIT EST Diagnosis: Pneumonia, unspecified organism[ICD10: J18.9] Shaniqua MORENOLINE Addis POST DO [facility] CPT-4: 57536 11/03/2017 OFFICE/OUTPATIENT VISIT EST Diagnosis: Influenza due to other identified influenza virus with other respiratory manifestations[ICD10: J10.1] Diagnosis: Acute bronchitis, unspecified[ICD10: J20.9] Shaniqua POST [facility] CPT-4: 77132 10/27/2017 ([id number]) OFFICE/OUTPATIENT VISIT EST Diagnosis: Mixed hyperlipidemia[ICD10: E78.2] Chio BALLARD [employer] POST [facility] CPT-4: 91731 08/11/2017 ([id number]) PREV VISIT EST AGE 40-64 Diagnosis: Encounter for general adult medical examination without abnormal findings[ICD10: Z00.00] Diagnosis: Mixed hyperlipidemia[ICD10: E78.2] Chio PLUMMER MS [employer] POST [facility] CPT-4: 54505 05/23/2017 ([id number]) OFFICE/OUTPATIENT VISIT EST Diagnosis: Essential (primary) hypertension[ICD10: I10] Diagnosis: Mixed hyperlipidemia[ICD10: E78.2] Chio POST Social [facility] CPT-4: 23650 03/10/2017 ([id number]) OFFICE/OUTPATIENT VISIT EST Diagnosis: Mixed hyperlipidemia[ICD10: E78.2] Diagnosis: Essential (primary) hypertension[ICD10: I10] Choi POST [facility] CPT-4: 08355 08/30/2016 ([id number]) OFFICE/OUTPATIENT VISIT EST Diagnosis: Mixed hyperlipidemia[ICD10: E78.2] Ale Becerra KAVITHA MS [employer] MARTINView2GetherIRENE [facility] CPT-4: 48509 06/01/2016 ([id number]) OFFICE/OUTPATIENT VISIT EST Diagnosis: Strain of muscle, fascia and tendon of lower back, subsequent encounter[ICD10: S39.012D] Diagnosis: Sciatica, left side[ICD10: M54.32] Aleeli PLUMMER MS [employer] ROMAN [facility] CPT-4: 54148 04/30/2016 ([id number]) OFFICE/OUTPATIENT VISIT EST Diagnosis: Strain of muscle, fascia and tendon of lower back, initial encounter[ICD10: S39.012A] Diagnosis: Sciatica, left side[ICD10: M54.32] Aleeli Becerra KAVITHA MS [employer] CPT-4: 80695 04/23/2016 ([id number]) PREV VISIT NEW AGE 40-64 Diagnosis: Encounter for general adult medical examination without abnormal findings[ICD10: Z00.00] Diagnosis: Plantar fascial fibromatosis[ICD10: M72.2] Chio [facility] CPT-4: 23549 04/08/2016 Plan of Care Planned Activity Notes [...] E78.2 02/20/2020 Patient Education: [employer]- [employer] C[employer]on [id number] [email or web address] Completed 02/20/2020 Appointment: Chio Post WPtel: [address] [place], [place] [phone] LAB 02/13/2020 Appointment: Chio Post WPtel: [address] [place] [address] UA 09/10/2019 Visit Diagnosis Plan: Hematuria Discussion: Hold crest or No NSAIDs Push fluids/water Recheck urine microscopy in 2weeks and if still with microscopic blood then will need urology eval and cystoscope ICD-9 : 599.70 ICD-10 : R31.9 08/27/2019 Appointment: Chio Post WPtel: [address] [place], [place] [phone] ACUTE ILLNESS 08/27/2019 Visit Diagnosis Plan: [...] : E78.2 08/15/2019 Appointment: Chio Post WPtel: [address] [place], [place] [phone] US confirmed 08/09/19-- does not need reminder call Annual Well Visit 08/15/2019 Appointment: Chio Post WPtel: [address] [place] [address] 08/15/19 1330---added to office visit with Dr kwon () CANCELED 08/15/2019 Appointment: Chio Post WPtel: [address] [place] [address] US LAB 08/09/2019 Visit Diagnosis Plan: Mixed [...] : Z71.89 02/14/2019 Appointment: Chio Post WPtel: [address] [place], [place] [phone] US FOLLOW UP 02/14/2019 Visit Diagnosis Plan: Mixed hyperlipidemia Discussion: Check CMP, Lipids Recommend Shingrix Had flu shot ICD-9 : 272.2 ICD-10 : E78.2 08/15/2018 Appointment: Chio Post WPtel: [address] [place], [place] [phone] FOLLOW UP 08/15/2018 Appointment: Chio Post WPtel: [address] [place], [place] [phone] US INJECTION 07/03/2018 Patient Education: Patient Medication [...] : Z01.419 03/02/2018 Appointment: Chio Post WPtel: [facility] [address] Annual Well Visit 03/02/2018 Patient Education: Patient Medication Summary Completed 03/02/2018 Appointment: Chio Post WPtel: [phone] RESCHEDULED 02/08/2018 Visit Diagnosis Plan: Pneumonia, [...] ICD-10 : J18.9 11/03/2017 Appointment: Shaniqua Ruiz [address] [place] [address] ACUTE ILLNESS 11/03/2017 Patient Education: Patient Medication [...] ICD-10 : J10.1 10/27/2017 Appointment: Shaniqua Ruiz [address] [place] [address] ACUTE ILLNESS 10/27/2017 Patient Education: Patient Medication Summary Completed 10/27/2017 Visit Diagnosis Plan: Mixed hyperlipidemia Discussion: Hold on statins due to side effects 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 then check CMP, Lipids and fwup ICD-9 : 272.2 ICD-10 : E78.2 08/11/2017 Appointment: Chio Post WPtel: [address] [place] [address] MEDICATION REVIEW 08/11/2017 Patient Education: Patient Medication Summary Completed 08/11/2017 Visit Diagnosis Plan: Mixed hyperlipidemia Discussion: Continue lipitor and check lipids with LFTs next month ICD-9 : 272.2 ICD-10 : E78.2 05/23/2017 Visit Diagnosis Plan: Encounter for [facility] adult medical examination without abnormal findings Discussion: Will update lab next month D efers mammogram until next year--normal mammogram last year Pap due next year Tdap 3 yrs ago Colonoscopy up to date Discussed zostavax--will check on coverage ICD-9 : V70.9 ICD-10 : Z00.00 05/23/2017 Appointment: Chio Post WPtel: [address] [place] [address] Annual Well Visit 05/23/2017 Patient Education: Patient Medication Summary Completed 05/23/2017 Visit Diagnosis Plan: Mixed hyperlipidemia Discussion: Check CMP, Lipids ICD-9 : 272.2 ICD-10 : E78.2 03/10/2017 Visit Diagnosis Plan: Essential (primary) hypertension Follow Up: 6 months ICD-9 : 401.9 ICD-10 : I10 03/10/2017 Appointment: Chio Post WPtel: [facility] 03/09 confimed ~sl CHECK UP 03/10/2017 Patient Education: Patient Medication Summary Completed 03/10/2017 Appointment: [facility] [address] [facility] 02/03 rescheduled ~sl RESCHEDULED 02/28/2017 Visit Plan: Lab discussed Continue lifes tyle modification Check full fasting lab in 6mos Monitor BP 1-2 times a week at home Discussed adding weights or yoga/sriram chi 3 times a week 08/30/2016 Appointment: Chio Post WPtel: [address] [place], [place] [phone] 08/26 lm`sl...confirmed~lb FOLLOW UP 08/30 Patient Education: Patient Medication Summary Completed 08/30/2016 Patient Education: Patient Medication Summary Completed 08/26/2016 Care Plan: COMPREHEN METABOLIC PANEL NINFA NC : 94135-0 Pending 08/26/2016 Care Plan: LIPID PANEL LOINC : 06055-7 Pending 08/26/2016 Visit Plan: Patient is very anxious abou t going back on any medication for her lipids right now Stressed diet and exercise changes she can try Continue higher dose of fish oil she is now taking Can recheck lipids and cmp in 3 months If not much better, will need rx started - discussed trying fenofibrate possibly 06/01/2016 Appointment: Ale Becerra [address] [place], [place] [phone] 05/27 confirmed ~sl FOLLOW UP 06/01/2016 Patient [...] if negative) 04/30/2016 Appointment: Ale Becerra [address] [facility] FOLLOW UP 04/30/2016 Patient Education: Patient Medication Summary Completed 04/30/2016 Visit Plan: Steroid injection given toda y Muscle relaxer as well Continue daily meloxicam Start weaning back on oxycodone Can replace oxycodone dosing with otc tylenol Advised topical pain relievers, heat/ice, etc If oxycodone runs completely out and patient still needs some, can call for refill to [facility] or could consider replacing with tramadol 04/23/2016 Appointment: [facility] [facility] [facility] Follow UP 04/23/2016 Patient Education: Patient Medication Summary Completed 04/23/2016 Visit Plan: Continue inserts and stretch es for plantar fascia Add Vivlodex Return in 2-3 weeks for injection if pain persists Check Fasting Lab Update Mammogram 04/08/2016 Appointment: Chio [facility] [address] [facility] 04/07 confirmed ~sl NEW PATIENT 04/08/2016 Patient Education: Patient Medication Summary Completed 04/08/2016 Patient Education: [facility] - Saving Auto[employer]j - 18-64 - Dynamic Juan l ID Completed 04/08/2016 Care Plan: MAMMOGRAM [...] needs some, can call for refill to [facility] or could consider replacing with tramadol . [...]
--- OUTSIDE RECORDS SUMMARY | 2020-02-26 21:09 | XMS REPORT | CCD ---
Author Author Carola Post D.O. Organization [facility] Address [address] [place] [address] Phone Care Team Providers Care Psychiatric Rn Name Role Phone Chio Post D.O. PP Unavailable CCM Unavailable Summary Purpose Interface Exchange Insurance Providers Payer name Policy type / Coverage type Covered democrat ID Effective Begin Date Effective End Date WPS MEDICARE PART B [place] Medicare Part B [id number] 2019 Unknown Ad[employer] Medicare Part B [id number] 2019 100 Unknown Family history Grandfather Diagnosis Age At Onset Cancer Unknown Social History Social History Element Codes Description Effective Dates Marital status Unknown 04/08/2016 Number of children Unknown 3 04/08/2016 Employment Unknown Currently employed [employer] 249 04/08/[address]: 255782495 Has never smoked or chewed tobacco 04/08/[address]: 961572 Currently drinks alcohol 04/08 Frequency of drinks SNOMED CT: 421602781 Drinks rarely 016 Has the patient ever [...] Fill Instructions Zetia 10 mg tablet RxNorm: 814719 1 Tablet(s) Oral QD 02/20/202007/28 Active Livalo 1 mg tablet RxNorm: 504772 1 Tablet(s) Oral QD 12/03/201901/25 Inactive Aleve 220 mg tablet RxNorm: 591289 Tablet(s) Oral as needed 019 No Stop Date Active Macrobid 100 mg capsule RxNorm: 788403 1 Capsule(s) Oral two ti mes a day 08/15/2019 08/22/2019 Inactive Fish Oil 360 mg-1,200 mg capsule RxNorm: 1 Capsule(s) Or al two times a day 08/15/2019 02/19/2020 Inactive Crestor 5 mg tablet RxNorm: 883056 1/2 Tablet(s) PO twice a week 02/10/2020 Inactive Crestor 5 mg tablet RxNorm: 578564 1 Tablet(s) PO Tues, Thurs, Sat and Sun and 1/2 tablet (2.5mg) on Mon, Tue and Tue03/05/2019 03/11/2019 Inactive Crestor 5 mg tablet RxNorm: 483916 1 Tablet(s) PO QD 02/07/201903/05 Inactive Crestor 5 mg tablet RxNorm: 496341 1 Tablet(s) PO QD re check labwork in 6 months 08/21/2018 08/20/2018 Inactive Crestor 5 mg tablet RxNorm: 936123 1 Tablet(s) PO QD re check labwork in 6 months 08/21/2018 02/06/2019 Inactive Ventolin HFA 90 mcg/actuation aerosol inhaler RxNorm: 184275 2 Puff(s) INH Q4H as needed 11/03/2017 03/01/2018 Inactive please switch to proair if ventolin is not covered. thanks! Levaquin 500 mg tablet RxNorm: 348912 1 Tablet(s) PO QD 11/03/2017 Inactive Zithromax Z-Talat 250 mg tablet RxNorm: 686910 Tablet(s) PO 10/27/2017 03/01/2018 Inactive Lipitor 10 mg tablet RxNorm: 555205 1 TABLET(S) PO QD REPLACES PRAVASTATIN 06/08/2017 08/10/2017 Inactive Lipitor 10 mg tablet RxNorm: 448619 1 Tablet(s) PO QD replaces Pravastatin 03/16/2017 06/07/2017 Inactive pravastatin 10 mg tablet RxNorm: 322639 1 Tablet(s) PO QD 03/15/2017 03/14/2017 Inactive pravastatin 10 mg tablet RxNorm: 860476 1 Tablet(s) PO QD 03/15/2017 03/15/2017 Inactive Zorvolex 35 mg capsule RxNorm: 7881528 1 Capsule(s) PO TID HOLD MELOXICAM 05/03/2016 06/01/2016 Inactive Zorvolex 35 mg capsule RxNorm: 6633984 1 Capsule(s) PO TID HOLD MELOXICAM 04/30/2016 05/02/2016 Inactive prednisone 20 mg tablet RxNorm: 456309 1 Tablet(s) PO B ID and then decrease to 1 tab PO QD x 5 days 04/30/2016 05/04/2016 Inactive cyclobenzaprine 10 mg tablet RxNorm: 560697 1 Tablet(s) PO TID as needed for muscle spasm 04/23/2016 08/29/2016 Inactive pravastatin 20 mg tablet RxNorm: 895372 1 Tablet(s) PO QD 04/14/2016 08/29/2016 Inactive Vivlodex 10 mg capsule RxNorm: 1134681 1 Capsule(s) PO QD 04/08/2016 05/07/2016 Inactive Co Q-10 300 mg capsule RxNorm: 669730 1 Capsule(s) PO QD No Start Date Active Vitamin D3 5,000 unit tablet RxNorm: 412405 1 Tablet(s) PO QD No Star t Date Active melatonin 5 mg tablet RxNorm: 796539 1 Tablet(s) PO QHS as needed N o Start Date Active Multivitamin & Mineral Formula tablet RxNorm: 1 Tablet(s) PO Q D No Start Date Active Fish Oil 1,000 mg capsule RxNorm: 2 Capsule(s) PO QD No Start Date 08/29/2016 Inactive Metamucil 0.4 gram capsule RxNorm: 2752100 2 Capsule(s) PO BID No S tart Date 02/13/2019 Inactive Vitamin D3 2,000 unit tablet RxNorm: 220156 1 Tablet(s) PO QD No St art Date 03/26/2019 Inactive Lipitor 10 mg tablet RxNorm: 909248 1 Tablet(s) PO QD No Start Date 0 03/15/2017 Inactive Crestor 5 mg tablet RxNorm: 490590 1 Tablet(s) PO Tues, Thurs, Sat and Sun and 1/2 tablet (2.5mg) on Mon, Wed and Fri No Start Date 03/04/2019 Inactive Calcium with Vitamin D 600 mg (1,500 mg)-400 unit tablet RxN orm: 046360 1 Tablet(s) PO QD No Start Date 03/01/2018 Inactive krill oil 1,000 mg-170 mg-50 mg-80 mg capsule RxNorm: 1 Capsule(s) PO BID No Start Date 08/14/2019 Inactive Co Q-10 200 mg capsule RxNorm: 122960 1 Capsule(s) PO QD No Start D ate 03/01/2018 Inactive Co Q-10 oral RxNorm: 39059 oral No Start Date 07/24/2017 Inactive oxycodone-acetaminophen 5 mg-325 mg tablet RxNorm: 6195125 1 Tab let(s) PO Q6H No Start Date 08/29/2016 Inactive Krill Oil ([place] 3 and 6) oral RxNorm: 96104 oral No Start Date 02/13/2019 Inactive Flexeril 10mg tablet RxNorm: 1 Tablet(s) PO Q8H No Start Date 12/2015 Inactive Vitamin D3 1,000 unit tablet RxNorm: 675824 1 Tablet(s) PO QD No St art Date 03/11/2019 Inactive Medication Administered No Medication Administered data Immunizations Vaccine Codes Date Status Shingrix Unknown 11/20/2019 Zoster Unknown 08/15/2019 Complete Influenza CVX: 141 07/03/2018 Complete Results Observation Observation Code Item Item Code Result Date S [facility] Location COMPLETE BLOOD COUNT [id number] WBC 5.5 10e9/L 02/13/20 20 Unknown COMPLETE BLOOD COUNT [id number] RBC 4.67 10e12/L 2019 Unknown COMPLETE BLOOD COUNT [id number] HEMOGLOBIN 13.5 g/dL 02/13/20 20 Unknown COMPLETE BLOOD COUNT [id number] HEMATOCRIT 40.9 % 02/13/20 20 Unknown COMPLETE BLOOD COUNT 1334635 MCV 87.6 fL 0 Unknown COMPLETE BLOOD COUNT [id number] MCH 28.9 pg 0 Unknown COMPLETE BLOOD COUNT [id number] MCHC 33.0 g/dL 0 Unknown COMPLETE BLOOD COUNT [id number] PLATELET COUNT 152 10e9/L Unknown COMPLETE BLOOD COUNT [id number] Mean Plt Volume 11.6 fL Unknown COMPLETE BLOOD COUNT 7345750 Neut Auto 32.4 % 0 Unknown COMPLETE BLOOD COUNT [id number] Lymph Auto 55.1 % 02/13/20 20 Unknown COMPLETE BLOOD COUNT [id number] Hamilton Auto 9.2 % 0 Unknown COMPLETE BLOOD COUNT 7768853 RDW 13.2 % 0 Unknown COMPLETE BLOOD COUNT [id number] Eos Auto 3.1 % 0 Unknown COMPLETE BLOOD COUNT [id number] Baso Auto 0.2 % 0 Unknown COMPLETE BLOOD COUNT [id number] Neutrophil Abs 1.78 10e9/L Unknown COMPLETE BLOOD COUNT [id number] Lymphocyte Abs 3.03 10e9/L Unknown COMPLETE BLOOD COUNT [id number] Monocyte Abs 0.51 10e9/L 01/25 Unknown COMPLETE BLOOD COUNT [id number] Eosinophil Abs 0.17 10e9/L Unknown COMPLETE BLOOD COUNT [id number] RDW-SD 40.9 fL 0 Unknown COMPLETE BLOOD COUNT [id number] Basophil Abs 0.01 10e9/L 01/25 Unknown FREE T4 34514 T4 Free 0.83 ng/dL 02/13/2020 Unknown LIP[facility] GROUP 18127 Cholesterol 204 mg/dL 02/13/2020 Unkno wn LIPID GROUP 57087 Triglyceride 136 mg/dL 02/13/2020 Unkn own LIPID GROUP 85418 HDL CHOLESTEROL 40 mg/dL 02/13/2020 U nknown LIP[facility] GROUP 65319 Chol/HDL Ratio 5.10 ratio 02/13/2020 U nknown LIPID GROUP 68580 NON-HDL Chol 164 mg/dL 02/13/2020 Unkn own LIPID GROUP 14039 LDL Cholesterol 137 mg/dL 02/13/2020 U nknown THYROID STIMULATING HORMONE 51101 TSH 1.419 uIU/mL 02/13/2020 Unknown COMPREHENSIVE METABOLIC 48753 AST 20 U/L 2019 Unknown COMPREHENSIVE METABOLIC 47784 ALT 15 U/L 2019 Unknown COMPREHENSIVE METABOLIC 00525 BUN 11 mg/dL 2019 Unknown COMPREHENSIVE METABOLIC 11899 ALBUMIN 4.3 g/dL 2019 Unknown COMPREHENSIVE METABOLIC 26450 CHLORIDE 105 mmol/L 02/12 Unknown COMPREHENSIVE METABOLIC 11393 Bili Total 0.9 mg/dL 02/12 Unknown COMPREHENSIVE METABOLIC 22496 ALK PHOS 75 U/L 2019 Unknown COMPREHENSIVE METABOLIC 46963 SODIUM 142 mmol/L 02/12 Unknown COMPREHENSIVE METABOLIC 18309 CREATININE 0.67 mg/dL 01/25 Unknown COMPREHENSIVE METABOLIC 40055 CALCIUM 9.3 mg/dL 2019 Unknown COMPREHENSIVE METABOLIC 68832 POTASSIUM 4.5 mmol/L 02/12 Unknown COMPREHENSIVE METABOLIC 22697 Total Protein 6.6 g/dL Unknown COMPREHENSIVE METABOLIC 17862 Glucose 90 mg/dL 2019 Unknown COMPREHENSIVE METABOLIC 97911 Bicarbonate 28 mmol/L 01/25 Unknown COMPREHENSIVE METABOLIC 93525 AGAP 9 mmol/L 2019 Unknown GFR CALC 1896395 GFR Non Afr Amr >60 mL/min 02/13/2020 Un known GFR CALC [id number] GFR Afr Amr >60 mL/min 02/13/2020 Unknow n CULTURE, URINE, ROUTINE 395 CULTURE SEE NOTE 1 11/13/2018 [facility] [place] [address] [place] [phone] CULTURE, URINE, ROUTINE 395 CULTURE, URINE, ROUTINE SEE NOTE 09/12/2019 [facility] [place] [address] [place] [phone] URINALYSIS, COMPLETE 02872 Color YELLOW 08/26 [facility] [place] [address] [place] [address] URINALYSIS, COMPLETE 95058 APPEARANCE CLEAR 08/26 [facility] [place] [address] [place] [phone] URINALYSIS, COMPLETE 36940 SPECIFIC GRAVITY 1.003 09/11/2019 [facility] [place] [address] [place] [phone] URINALYSIS, COMPLETE 33800 PH 7.0 08/26 [facility] [place] [address] [place] [phone] URINALYSIS, COMPLETE 05859 Glucose NEGATIVE 08/26 [facility] [place] [address] [place] [address] URINALYSIS, COMPLETE 32505 BILIRUBIN NEGATIVE 08/26 [facility] [place] [address] [place] [address] URINALYSIS, COMPLETE 50941 Ketones NEGATIVE 08/26 [facility] [address] [address] URINALYSIS, COMPLETE 90916 OCCULT BLOOD NEGATIVE [facility] [address] [place] [address] URINALYSIS, COMPLETE 23491 Protein NEGATIVE 08/26 [facility] [place] [address] URINALYSIS, COMPLETE 28298 LEUKOCYTE ESTERASE NEGATIV E 09/11/2019 [facility] [place] [address] URINALYSIS, COMPLETE 02737 WBC NONE SEEN /HPF 09/11/2019 [facility] [place] [address] URINALYSIS, COMPLETE 77972 RBC NONE SEEN /HPF 09/11/2019 [facility] [place] [address] URINALYSIS, COMPLETE 30836 SQUAMOUS EPITHELIAL CELLS NONE SEEN /HPF 09/11/2019 [facility] [place] [address] URINALYSIS, COMPLETE 01246 TRANSITIONAL EPITHELIAL CELLS DNR /HPF 09/11/2019 [facility] [address] URINALYSIS, COMPLETE 51861 RENAL EPITHELIAL CELLS DNR /HPF 09/11/2019 [facility] [address] URINALYSIS, COMPLETE 13729 BACTERIA NONE SEEN /HPF 09/11/2019 [facility] [address] URINALYSIS, COMPLETE 25075 CALCIUM OXALATE CRYSTALS D NR /HPF 09/11/[address] [facility] [address] URINALYSIS, COMPLETE 77236 TRIPLE PHOSPHATE CRYSTALS DNR /HPF 09/11/[address] [facility] [place] [address] URINALYSIS, COMPLETE 82336 URIC ACID CRYSTALS DNR /HP F 09/11/2019 [facility] [place] [address] URINALYSIS, COMPLETE 73604 AMORPHOUS SEDIMENT DNR /HP F 09/11/2019 [facility] [place] [address] URINALYSIS, COMPLETE 33541 CRYSTALS DNR /HPF 08/26 [facility] [address] URINALYSIS, COMPLETE 72392 HYALINE CAST NONE SEEN /LP F 09/11/2019 [facility] [address] [place] [address] URINALYSIS, COMPLETE 90855 GRANULAR CAST DNR /LPF 1 11/12/2018 [facility] [address] URINALYSIS, COMPLETE 79196 CASTS DNR /LPF 08/26 [facility] [place] [address] URINALYSIS, COMPLETE 80594 YEAST DNR /HPF 08/26 [facility] [address] URINALYSIS, COMPLETE 70466 COMMENTS DNR 08/26 [facility] [address] URINALYSIS, COMPLETE 31177 NOTE DNR 08/26 [facility] [place] [address] URINALYSIS, COMPLETE 56218 NITRITE NEGATIVE 08/26 [facility] [place] [address] CULTURE, URINE, ROUTINE 395 CULTURE, URINE, ROUTINE SEE NOTE 08/16/2019 [facility] [place] [address] [address] EXTRA LAVENDER-TOP TUBE XLKS EXTRA LAVENDER-TOP TUBE 08/10/2019 [facility] [place] [address] EXTRA LAVENDER-TOP TUBE XLKS COMMENT 1 10/10/2018 [facility] [place] [address] [place] [address] LIPID PANEL 83402 CHOLESTEROL, TOTAL 180 mg/dL 08/10 [facility] [place] [address] [place] [address] LIPID PANEL 29405 HDL CHOLESTEROL 35 mg/dL 08/10/20 19 [facility] [place] [address] LIPID PANEL 13241 TRIGLYCERIDES 200 mg/dL 08/10/2019 [facility] [address] [address] LIPID PANEL 32125 LDL-CHOLESTEROL 113 mg/dL(calc) [facility] [address] [address] LIPID PANEL 79299 CHOL/HDLC RATIO 5.1 (calc) 08/10/20 [facility] [address] [address] LIPID PANEL 18560 NON HDL CHOLESTEROL 145 mg/dL(calc) 08/10/2019 [facility] [address] [address] COMPREHENSIVE METABOLIC PANEL 35317 Glucose 86 mg/ dL 08/10/[address] [facility] [address] COMPREHENSIVE METABOLIC PANEL 07664 UREA NITROGEN (BUN) 11 mg/dL 08/10/2019 [facility] [address] [address] COMPREHENSIVE METABOLIC PANEL 75060 CREATININE 0.71 m g/dL 08/10/2019 [facility] [address] [address] COMPREHENSIVE METABOLIC PANEL 52790 eGFR NON-AFR. [place] 90 mL/min/1.73m2 08/10/[address] [facility] [address] COMPREHENSIVE METABOLIC PANEL 92852 eGFR 104 mL/min/1.73m2 08/10/2019 [facility] [address] [address] COMPREHENSIVE METABOLIC PANEL 21926 BUN/CREATININE RATIO NOT APPLICABLE (calc) 08/10/2019 [facility] [address] [address] COMPREHENSIVE METABOLIC PANEL 74836 SODIUM 140 mm ol/L 08/10/2019 [facility] [address] [address] COMPREHENSIVE METABOLIC PANEL 67839 POTASSIUM 4.2 mm ol/L 08/10/2019 [facility] [address] [address] COMPREHENSIVE METABOLIC PANEL 50945 CHLORIDE 105 mm ol/L 08/10/2019 [facility] [address] [address] COMPREHENSIVE METABOLIC PANEL 33267 CARBON DIOXIDE 28 mmol/L 08/10/[address] [facility] [address] COMPREHENSIVE METABOLIC PANEL 44510 CALCIUM 9.3 mg /dL 08/10/[address] [facility] [address] COMPREHENSIVE METABOLIC PANEL 11563 PROTEIN, TOTAL 6. 7 g/dL 08/10/2019 [facility] [address] COMPREHENSIVE METABOLIC PANEL 47838 ALBUMIN 4.3 g/ dL 08/10/[address] [facility] [address] COMPREHENSIVE METABOLIC PANEL 81482 GLOBULIN 2.4 g/ dL(calc) 08/10/[address] [facility] [address] COMPREHENSIVE METABOLIC PANEL 84690 ALBUMIN/GLOBULIN RATIO 1.8 (calc) 08/10/[address] [facility] [address] COMPREHENSIVE METABOLIC PANEL 83582 BILIRUBIN, TOTAL 0.6 mg/dL 08/10/2019 [facility] [address] COMPREHENSIVE METABOLIC PANEL 70220 ALKALINE PHOSPHATASE 74 U/L 08/10/[address] [facility] [address] COMPREHENSIVE METABOLIC PANEL 82132 AST 21 U/L 08/10/2019 [facility] [address] COMPREHENSIVE METABOLIC PANEL 96580 ALT 15 U/L 08/10/[address] [facility] [address] COMPREHENSIVE METABOLIC 73632 AST 18 U/L 2018 Unknown COMPREHENSIVE METABOLIC 47944 ALT 12 U/L 2018 Unknown COMPREHENSIVE METABOLIC 24564 BUN 11 mg/dL 2018 Unknown COMPREHENSIVE METABOLIC 57818 ALBUMIN 4.6 g/dL 2018 Unknown COMPREHENSIVE METABOLIC 21969 CHLORIDE 106 mmol/L 02/14 Unknown COMPREHENSIVE METABOLIC 45630 Bili Total 0.9 mg/dL 02/14 Unknown COMPREHENSIVE METABOLIC 24563 ALK PHOS 76 U/L 2018 Unknown COMPREHENSIVE METABOLIC 10856 SODIUM 142 mmol/L 02/14 Unknown COMPREHENSIVE METABOLIC 69004 CREATININE 0.69 mg/dL 01/25 Unknown COMPREHENSIVE METABOLIC 90532 CALCIUM 9.5 mg/dL 2018 Unknown COMPREHENSIVE METABOLIC 28271 POTASSIUM 3.9 mmol/L 02/14 Unknown COMPREHENSIVE METABOLIC 07017 Total Protein 6.6 g/dL Unknown COMPREHENSIVE METABOLIC 37498 Glucose 86 mg/dL 2018 Unknown COMPREHENSIVE METABOLIC 34673 Bicarbonate 29 mmol/L 01/25 Unknown COMPREHENSIVE METABOLIC 69337 AGAP 7 mmol/L 2018 Unknown GFR CALC 0776694 GFR Non Afr Amr >60 mL/min 02/14/2019 Un known GFR CALC 3549576 GFR Afr Amr >60 mL/min 02/14/2019 Unknow n LIP[facility] 90296 Cholesterol 127 mg/dL 02/14/2019 Unkno wn L[facility] GROUP 22377 Triglyceride 156 mg/dL 02/14/2019 Unkn own [facility] 58319 HDL CHOLESTEROL 45 mg/dL 02/14/2019 U nknown [facility] 39358 Chol/HDL Ratio 2.82 ratio 02/14/2019 U nknown [facility] 14037 NON-HDL Chol 82 mg/dL 02/14/2019 Unkn own [facility] GROUP 55428 LDL Cholesterol 51 mg/dL 02/14/2019 U nknown COMPREHENSIVE METABOLIC PANEL 13802 Glucose 88 mg/ dL 08/16/2018 [facility] [place] [address] [place] [address] COMPREHENSIVE METABOLIC PANEL 79777 UREA NITROGEN (BUN) 11 mg/dL 08/16/2018 [facility] [place] [address] [place] [address] COMPREHENSIVE METABOLIC PANEL 79800 CREATININE 0.70 m g/dL 08/16/2018 [facility] [place] [address] [place] [address] COMPREHENSIVE METABOLIC PANEL 63737 eGFR NON-AFR. [place] 92 mL/min/1.73m2 08/16/2018 [facility] [address] [place] [address] COMPREHENSIVE METABOLIC PANEL 67879 eGFR 107 mL/min/1.73m2 08/16/2018 [facility] [place] [address] [place] [address] COMPREHENSIVE METABOLIC PANEL 29710 BUN/CREATININE RATIO NOT APPLICABLE (calc) 08/16/2018 [facility] [place] [address] [place] [address] COMPREHENSIVE METABOLIC PANEL 12345 SODIUM 140 mm ol/L 08/16/2018 [facility] [address] COMPREHENSIVE METABOLIC PANEL 86790 POTASSIUM 4.0 mm ol/L 08/16/2018 [facility] [address] COMPREHENSIVE METABOLIC PANEL 28012 CHLORIDE 104 mm ol/L 08/16/[address] [facility] [address] COMPREHENSIVE METABOLIC PANEL 11957 CARBON DIOXIDE 29 mmol/L 08/16/2018 [facility] [address] COMPREHENSIVE METABOLIC PANEL 31291 CALCIUM 9.4 mg /dL 08/16/2018 [facility] [address] COMPREHENSIVE METABOLIC PANEL 30538 PROTEIN, TOTAL 6. 7 g/dL 08/16/2018 [facility] [address] COMPREHENSIVE METABOLIC PANEL 69023 ALBUMIN 4.4 g/ dL 08/16/[address] [facility] [address] COMPREHENSIVE METABOLIC PANEL 80571 GLOBULIN 2.3 g/ dL(calc) 08/16/2018 [facility] [address] COMPREHENSIVE METABOLIC PANEL 25387 ALBUMIN/GLOBULIN RATIO 1.9 (calc) 08/16/2018 [facility] [address] COMPREHENSIVE METABOLIC PANEL 40337 BILIRUBIN, TOTAL 0.8 mg/dL 08/16/2018 [facility] [address] [address] COMPREHENSIVE METABOLIC PANEL 31300 ALKALINE PHOSPHATASE 72 U/L 08/16/2018 [facility] [address] COMPREHENSIVE METABOLIC PANEL 28461 AST 19 U/L 08/16/2018 [facility] [address] COMPREHENSIVE METABOLIC PANEL 38881 ALT 12 U/L 08/16/2018 [facility] [address] LIPID PANEL 18326 CHOLESTEROL, TOTAL 228 mg/dL 08/16 [facility] [address] LIPID PANEL 38585 HDL CHOLESTEROL 42 mg/dL 08/16/20 [facility] [address] [place] [address] LIPID PANEL 50858 TRIGLYCERIDES 175 mg/dL 08/16/2018 [facility] [address] LIPID PANEL 30918 LDL-CHOLESTEROL 155 mg/dL(calc) [facility] [address] LIPID PANEL 10270 CHOL/HDLC RATIO 5.4 (calc) 08/16/20 [facility] [address] LIPID PANEL 00349 NON HDL CHOLESTEROL 186 mg/dL(calc) 08/16/[address] [facility] [address] EXTRA LAVENDER-TOP TUBE XLKS EXTRA LAVENDER-TOP TUBE 08/16/[address] [address] [address] EXTRA LAVENDER-TOP TUBE XLKS COMMENT 1 10/16/[address] [facility] [address] Procedures Procedure Codes Date INITIAL PREVENTIVE EXAM CPT-4: G0402 02/20/2020 ROUTINE VENIPUNCTURE CPT-4: 45551 02/13/2020 COMPREHEN METABOLIC PANEL CPT-4: 92029 02/13/2020 LIPID PANEL CPT-4: 07928 02/13/2020 COMPLETE CBC W/AUTO DIFF WBC CPT-4: 01405 02/13/2020 ASSAY THYROID STIM HORMONE CPT-4: 44388 02/13/2020 ASSAY OF FREE THYROXINE CPT-4: 10492 02/13/2020 URINALYSIS, COMPLETE CPT-4: 07204 09/10/2019 CULTURE, URINE, ROUTINE CPT-4: 395 09/10/2019 URINALYSIS NONAUTO W/O SCOPE CPT-4: 26314 08/27/2019 CULTURE, URINE, ROUTINE CPT-4: 395 08/15/2019 URINALYSIS NONAUTO W/O SCOPE CPT-4: 33339 08/15/2019 SHINGRIX HZV VACC RECOMBINANT IM CPT-4: 83484 019 IMMUNIZATION ADMIN CPT-4: 82433 08/15/2019 COMPREHENSIVE METABOLIC PANEL CPT-4: 61350 08/09/2019 LIPID PANEL CPT-4: 50177 08/09/2019 ROUTINE VENIPUNCTURE CPT-4: 37013 08/09/2019 EXTRA LAVENDER-TOP TUBE CPT-4: XLKS 08/09/2019 ROUTINE VENIPUNCTURE CPT-4: 63725 02/14/2019 COMPREHEN METABOLIC PANEL CPT-4: 42537 02/14/2019 LIPID PANEL CPT-4: 36715 02/14/2019 ROUTINE VENIPUNCTURE CPT-4: 68414 08/15/2018 COMPREHENSIVE METABOLIC PANEL CPT-4: 40745 08/15/2018 EXTRA LAVENDER-TOP TUBE CPT-4: XLKS 08/15/2018 LIPID PANEL CPT-4: 60334 08/15/2018 IIV4 VACCINE 3 YRS+ IM AND UP CPT-4: 33481 07/03/2018 IMMUNIZATION ADMIN CPT-4: 98482 07/03/2018 SPECIMEN HANDLING OFFICE-LAB CPT-4: 19708 03/02/2018 OCCULT BLOOD FECES CPT-4: 12282 03/02/2018 THER/PROPH/DIAG INJ SC/IM CPT-4: 10930 11/03/2017 TRIAMCINOLONE ACET INJ NOS CPT-4: J3301 11/03/2017 INFLUENZA ASSAY W/OPTIC CPT-4: 23240 10/27/2017 THER/PROPH/DIAG INJ SC/IM CPT-4: 28059 10/27/2017 TRIAMCINOLONE ACET INJ NOS CPT-4: J3301 10/27/2017 THER/PROPH/DIAG INJ SC/IM CPT-4: 56430 04/23/2016 TRIAMCINOLONE ACET INJ NOS CPT-4: J3301 04/23/2016 DEXAMETHASONE SODIUM PHOS CPT-4: J1100 04/23/2016 Vital Signs Date Vital 02/20/2020 Blood Pressure 1: 138/74 Code: 8480-6 BMI: 27.9 Code: 35716-0 Heart Rate 1: 84 bpm Height: 5'5" [...] 1: 126/70 Code: 8480-6 BMI: 26.7 Code: 01540-1 Heart Rate 1: 68 bpm Height: 5'6" Respiratory Rate: 18 bpm SpO2: 97% Tempera ture: 36.6 (C) / 97.9 (F) Weight: 168 lbs 08/15/2018 Blood Pressure 1: 122/78 Code: 8480-6 BMI: 25.9 Code: 24282-0 Heart Rate 1: 72 bpm Height: 5'6" Respiratory Rate: 20 bpm SpO2: 97% Tempera ture: 36.7 (C) / 98.0 (F) Weight: 163 lbs 03/02/2018 Blood Pressure 1: 126/74 Code: 8480-6 BMI: 26.1 Code: 69999-4 Heart Rate 1: 76 bpm Height: 5'6" Respiratory Rate: 20 bpm SpO2: 98% Tempera ture: 36.6 (C) / 97.8 (F) Weight: 164 lbs 11/03/2017 Blood Pressure 1: 124/82 Code: 8480-6 BMI: 25.3 Code: 50939-4 Heart Rate 1: 90 bpm Height: 5'6" Respiratory Rate: 22 bpm SpO2: 98% Tempera ture: 36.9 (C) / 98.4 (F) Weight: 159 lbs 10/27/2017 Blood Pressure 1: 122/84 Code: 8480-6 BMI: 25.6 Code: 83887-0 Heart Rate 1: 90 bpm Height: 5'6" Respiratory Rate: 22 bpm SpO2: 97% Tempera ture: 36.1 (C) / 97.0 (F) Weight: 161 lbs 08/11/2017 Blood Pressure 1: 132/76 Code: 8480-6 BMI: 26.4 Code: 22190-7 Heart Rate 1: 72 bpm Height: 5'6" Respiratory Rate: 20 bpm Temperature: 36 .6 (C) / 97.8 (F) Weight: 166 lbs 05/23/2017 Blood Pressure 1: 126/72 Code: 8480-6 BMI: 26.1 Code: 76854-5 Heart Rate 1: 72 bpm Height: 5'6" Respiratory Rate: 20 bpm SpO2: 98% Tempera ture: 37.1 (C) / 98.8 (F) Weight: 164 lbs 03/10/2017 Blood Pressure 1: 124/72 Code: 8480-6 BMI: 26.1 Code: 98816-4 Heart Rate 1: 92 bpm Height: 5'6" Respiratory Rate: 20 bpm SpO2: 97% Tempera ture: 37.2 (C) / 98.9 (F) Weight: 164 lbs 08/30/2016 Blood Pressure 1: 142/82 Code: 8480-6 BMI: 25.6 Code: 15340-1 Heart Rate 1: 72 bpm Height: 5'6" Respiratory Rate: 20 bpm Temperature: 36 .6 (C) / 97.9 (F) Weight: 161 lbs 06/01/2016 Blood Pressure 1: 156/88 Code: 8480-6 BMI: 26.4 Code: 44528-8 Heart Rate 1: 70 bpm Height: 5'6" Respiratory Rate: 18 bpm SpO2: 97% Tempera ture: 36.6 (C) / 97.8 (F) Weight: 166 lbs 04/30/2016 Blood Pressure 1: 122/70 Code: 8480-6 Heart Rate 1: 10 2 bpm Height: Respiratory Rate: 24 bpm SpO2: 95% Temperature: 36.4 (C) / 97.6 (F) We ight: 04/23/2016 Blood Pressure 1: 152/76 Code: 8480-6 BMI: 26.5 Code: 86807-2 Heart Rate 1: 106 bpm Height: 5'7" Respiratory Rate: 24 bpm SpO2: 96% Tempera ture: 36.8 (C) / 98.2 (F) Weight: 169 lbs 04/08/2016 Blood Pressure 1: 116/68 Code: 8480-6 BMI: 27.4 Code: 86417-5 Heart Rate 1: 76 bpm Height: 5'6" [...] visit Encounters Encounter Performer Location Codes Date ([id number]) NURSE/OUTPATIENT VISIT EST Diagnosis: Essential (primary) hypertension[ICD10: I10] Diagnosis: Mixed hyperlipidemia[ICD10: E78.2] Diagnosis: Encounter for general adult medical examination without abnormal findings[ICD10: Z00.00] Chio MORTENSEN S. MARIONDER [facility] CPT-4: 85887 02/13/2020 ([id number]) NURSE/OUTPATIENT VISIT EST Diagnosis: Hematuria[ICD10: R31.9] Chio MORTENSEN S. OREND ER DO [employer] CPT-4: 11535 09/10/2019 ([id number]) OFFICE/OUTPATIENT VISIT EST Diagnosis: Hematuria[ICD10: R31.9] Chio MORTENSEN S. MARIOND ER DO [employer] CPT-4: 22171 08/27/2019 ([id number]) PREV VISIT EST AGE 40-64 Diagnosis: Urinary tract infection[ICD10: N39.0] Diagnosis: Encounter for general adult medical examination without abnormal findings[ICD10: Z00.00] Diagnosis: Essential (primary) hypertension[ICD10: I10] Diagnosis: Mixed hyperlipidemia[ICD10: E78.2] Diagnosis: VACCIN FOR DISEASE NEC (HPV or Zostavax)[ICD10: Z23] Chio POST [facility] CPT-4: 69716 08/15/2019 ([id number]) NURSE/OUTPATIENT VISIT EST Diagnosis: Mixed hyperlipidemia[ICD10: E78.2] Diagnosis: Essential (primary) hypertension[ICD10: I10] Chio POST DO [facility] CPT-4: 32606 08/09/2019 ([id number]) OFFICE/OUTPATIENT VISIT EST Diagnosis: Mixed hyperlipidemia[ICD10: E78.2] Diagnosis: Other specified counseling[ICD10: Z71.89] Chio POST [facility] CPT-4: 93296 02/14/2019 ([id number]) OFFICE/OUTPATIENT VISIT EST Diagnosis: Mixed hyperlipidemia[ICD10: E78.2] Chio PLUMMER NELLIE Addis [facility] CPT-4: 09461 08/15/2018 ([id number]) NURSE/OUTPATIENT VISIT EST Diagnosis: FLU VACCINE[ICD10: Z23] Chio BONILLA [facility] CPT-4: 23989 07/03/2018 ([id number]) PREV VISIT EST AGE 40-64 Diagnosis: Encounter for general adult medical examination without abnormal findings[ICD10: Z00.00] Diagnosis: Encounter for gynecological examination (general) (routine) without abnormal findings[ICD10: Z01.419] Chio Holder [facility] CPT-4: 66170 03/02/2018 OFFICE/OUTPATIENT VISIT EST Diagnosis: Pneumonia, unspecified organism[ICD10: J18.9] Shaniqua MORENOLINE Addis POST DO [facility] CPT-4: 78432 11/03/2017 OFFICE/OUTPATIENT VISIT EST Diagnosis: Influenza due to other identified influenza virus with other respiratory manifestations[ICD10: J10.1] Diagnosis: Acute bronchitis, unspecified[ICD10: J20.9] Shaniqua POST [facility] CPT-4: 80270 10/27/2017 ([id number]) OFFICE/OUTPATIENT VISIT EST Diagnosis: Mixed hyperlipidemia[ICD10: E78.2] Chio BALLARD [employer] POST [employer] [facility] CPT-4: 79179 08/11/2017 ([id number]) PREV VISIT EST AGE 40-64 Diagnosis: Encounter for general adult medical examination without abnormal findings[ICD10: Z00.00] Diagnosis: Mixed hyperlipidemia[ICD10: E78.2] Chio PLUMMER MD [employer] POST [employer] [facility] CPT-4: 60302 05/23/2017 ([id number]) OFFICE/OUTPATIENT VISIT EST Diagnosis: Essential (primary) hypertension[ICD10: I10] Diagnosis: Mixed hyperlipidemia[ICD10: E78.2] Chio POST [employer] [facility] CPT-4: 69099 03/10/2017 ([id number]) OFFICE/OUTPATIENT VISIT EST Diagnosis: Mixed hyperlipidemia[ICD10: E78.2] Diagnosis: Essential (primary) hypertension[ICD10: I10] Chio POST [employer] [facility] CPT-4: 30898 08/30/2016 ([id number]) OFFICE/OUTPATIENT VISIT EST Diagnosis: Mixed hyperlipidemia[ICD10: E78.2] Ale Becerra KAVITHA MD [employer] MARTINNeuroPaceIRENE [employer] [facility] CPT-4: 27135 06/01/2016 ([id number]) OFFICE/OUTPATIENT VISIT EST Diagnosis: Strain of muscle, fascia and tendon of lower back, subsequent encounter[ICD10: S39.012D] Diagnosis: Sciatica, left side[ICD10: M54.32] Aleeli PLUMMER MD [employer] ROMAN [employer] [facility] CPT-4: 10090 04/30/2016 ([id number]) OFFICE/OUTPATIENT VISIT EST Diagnosis: Strain of muscle, fascia and tendon of lower back, initial encounter[ICD10: S39.012A] Diagnosis: Sciatica, left side[ICD10: M54.32] Aleeli Becerra KAVITHA MD [employer] CPT-4: 94874 04/23/2016 ([id number]) PREV VISIT NEW AGE 40-64 Diagnosis: Encounter for general adult medical examination without abnormal findings[ICD10: Z00.00] Diagnosis: Plantar fascial fibromatosis[ICD10: M72.2] [facility] CPT-4: 94653 04/08/2016 Plan of Care Planned Activity Notes [...] E78.2 02/20/2020 Patient Education: [employer]- [employer] C[employer]on [id number] [email or web address] Completed 02/20/2020 Appointment: Chio Post WPtel: [address] [place], [place] [phone] LAB 02/13/2020 Appointment: Chio Post WPtel: [address] [place] [address] UA 09/10/2019 Visit Diagnosis Plan: Hematuria Discussion: Hold crest or No NSAIDs Push fluids/water Recheck urine microscopy in 2weeks and if still with microscopic blood then will need urology eval and cystoscope ICD-9 : 599.70 ICD-10 : R31.9 08/27/2019 Appointment: Chio Post WPtel: [address] [place], [place] [phone] ACUTE I[facility] 08/27/2019 Visit Diagnosis Plan: Encounter [...] : E78.2 08/15/2019 Appointment: Chio Post WPtel: [address] [place], [place] [phone] [place] confirmed 08/09/19-- does not need reminder call Annual Well Visit 08/15/2019 Appointment: Chio Post WPtel: [address] [place] [address] 08/15/19 1330---added to office visit with Dr kwon () CANCELED 08/15/2019 Appointment: Chio Post WPtel: [address] [place] [address] [place] LAB 08/09/2019 Visit Diagnosis Plan: Mixed [...] : Z71.89 02/14/2019 Appointment: Chio Post WPtel: [address] [place], [place] [phone] [place] FOLLOW UP 02/14/2019 Visit Diagnosis Plan: Mixed hyperlipidemia Discussion: Check CMP, Lipids Recommend Shingrix Had flu shot ICD-9 : 272.2 ICD-10 : E78.2 08/15/2018 Appointment: Chio Post WPtel: [address] [place], [place] [phone] FOLLOW UP 08/15/2018 Appointment: Chio Post WPtel: [address] [place], [place] [phone] [place] INJECTION 07/03/2018 Patient Education: Patient Medication [...] : Z01.419 03/02/2018 Appointment: Chio Post WPtel: [facility] Annual Well Visit 03/02/2018 Patient Education: Patient Medication Summary Completed 03/02/2018 Appointment: Chio Post WPtel: [phone] RESCHEDULED 02/08/2018 Visit Diagnosis Plan: Pneumonia, [...] ICD-10 : J18.9 11/03/2017 Appointment: Shaniqua Ruiz [address] [place] [address] ACUTE ILLNESS 11/03/2017 Patient Education: Patient Medication [...] ICD-10 : J10.1 10/27/2017 Appointment: Shaniqua Ruiz [address] [place] [address] ACUTE ILLNESS 10/27/2017 Patient Education: Patient Medication Summary Completed 10/27/2017 Visit Diagnosis Plan: Mixed hyperlipidemia Discussion: Hold on statins due to side effects 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 then check CMP, Lipids and fwup ICD-9 : 272.2 ICD-10 : E78.2 08/11/2017 Appointment: Chio Post WPtel: [address] [place] [address] MEDICATION REVIEW 08/11/2017 Patient Education: Patient Medication Summary Completed 08/11/2017 Visit Diagnosis Plan: Mixed hyperlipidemia Discussion: Continue lipitor and check lipids with LFTs next month ICD-9 : 272.2 ICD-10 : E78.2 05/23/2017 Visit Diagnosis Plan: Encounter for [facility] adult medical examination without abnormal findings Discussion: Will update lab next month D efers mammogram until next year--normal mammogram last year Pap due next year Tdap 3 yrs ago Colonoscopy up to date Discussed zostavax--will check on coverage ICD-9 : V70.9 ICD-10 : Z00.00 05/23/2017 Appointment: Chio Post WPtel: [address] [place] [address] Annual Well Visit 05/23/2017 Patient Education: Patient Medication Summary Completed 05/23/2017 Visit Diagnosis Plan: Mixed hyperlipidemia Discussion: Check CMP, Lipids ICD-9 : 272.2 ICD-10 : E78.2 03/10/2017 Visit Diagnosis Plan: Essential (primary) hypertension Follow Up: 6 months ICD-9 : 401.9 ICD-10 : I10 03/10/2017 Appointment: Chio Post WPtel: [facility] 03/09 confimed ~sl CHECK UP 03/10/2017 Patient Education: Patient Medication Summary Completed 03/10/2017 [facility]ment[facility] [facility] 02/03 rescheduled ~sl RESCHEDULED 02/28/2017 Visit Plan: Lab discussed Continue lifes tyle modification Check full fasting lab in 6mos Monitor BP 1-2 times a week at home Discussed adding weights or yoga/sriram chi 3 times a week 08/30/2016 Appointment: Chio Post WPtel: [address] [place], [place] [phone] 08/26 lm`sl...confirmed~lb FOLLOW UP 08/30 Patient Education: Patient Medication Summary Completed 08/30/2016 Patient Education: Patient Medication Summary Completed 08/26/2016 Care Plan: COMPREHEN METABOLIC PANEL NINFA NC : 67994-3 Pending 08/26/2016 Care Plan: LIPID PANEL LOINC : 30158-8 Pending 08/26/2016 Visit Plan: Patient is very anxious abou t going back on any medication for her lipids right now Stressed diet and exercise changes she can try Continue higher dose of fish oil she is now taking Can recheck lipids and cmp in 3 months If not much better, will need rx started - discussed trying fenofibrate possibly 06/01/2016 Appointment: Ale Becerra [address] [place], [place] [phone] 05/27 confirmed ~sl FOLLOW UP 06/01/2016 Patient [...] if negative) 04/30/2016 Appointment: Ale Becerra [address] [facility] FOLLOW UP 04/30/2016 Patient Education: Patient Medication Summary Completed 04/30/2016 Visit Plan: Steroid injection given toda y Muscle relaxer as well Continue daily meloxicam Start weaning back on oxycodone Can replace oxycodone dosing with otc tylenol Advised topical pain relievers, heat/ice, etc If oxycodone runs completely out and patient still needs some, can call for refill to brick picker or could consider replacing with tramadol 04/23/2016 Appointment: [facility] [facility] Follow UP 04/23/2016 Patient Education: Patient Medication Summary Completed 04/23/2016 Visit Plan: Continue inserts and stretch es for plantar fascia Add Vivlodex Return in 2-3 weeks for injection if pain persists Check Fasting Lab Update Mammogram 04/08/2016 Appointment: [facility] [facility] 04/07 confirmed ~sl NEW PATIENT 04/08/2016 Patient Education: Patient Medication Summary Completed 04/08/2016 Patient Education: [facility] - Saving AutoInj - 18-64 - Dynamic [...] needs some, can call for refill to brick picker or could consider replacing with tramadol [...]
--- OUTSIDE RECORDS SUMMARY | 2020-02-26 21:09 | XMS REPORT | CCD ---
Author Author Carola Post D.O. Organization [facility] Address [address] [place] [address] Phone Care Team Providers Care Needle Leader Name Role Phone Chio Post D.O. PP Unavailable CCM Unavailable Summary Purpose Interface Exchange Insurance Providers Payer name Policy type / Coverage type Covered republican ID Effective Begin Date Effective End Date WPS MEDICARE PART B [place] Medicare Part B [id number] 2019 Unknown Simple [place] Medicare Part B [id number] 2019 100 Unknown Family history Grandfather Diagnosis Age At Onset Cancer Unknown Social History Social History Element Codes Description Effective Dates Marital status Unknown 04/08/2016 Number of children Unknown 3 04/08/2016 Employment Unknown Currently employed [employer] 04/08/[address]: 175178063 Has never smoked or chewed tobacco 04/08/[address]: 021755 Currently drinks alcohol 04/08 Frequency of drinks SNOMED CT: 654513691 Drinks rarely 016 Has the patient ever [...] Fill Instructions Zetia 10 mg tablet RxNorm: 472526 1 Tablet(s) Oral QD 02/20/202007/28 Active Livalo 1 mg tablet RxNorm: 433437 1 Tablet(s) Oral QD 12/03/201901/25 Inactive Aleve 220 mg tablet RxNorm: 061869 Tablet(s) Oral as needed 019 No Stop Date Active Macrobid 100 mg capsule RxNorm: 184482 1 Capsule(s) Oral two ti mes a day 08/15/2019 08/22/2019 Inactive Fish Oil 360 mg-1,200 mg capsule RxNorm: 1 Capsule(s) Or al two times a day 08/15/2019 02/19/2020 Inactive Crestor 5 mg tablet RxNorm: 450851 1/2 Tablet(s) PO twice a week 02/10/2020 Inactive Crestor 5 mg tablet RxNorm: 623925 1 Tablet(s) PO Tues, Thurs, Sat and Sun and 1/2 tablet (2.5mg) on Mon, Tue and Tue03/05/2019 03/11/2019 Inactive Crestor 5 mg tablet RxNorm: 680207 1 Tablet(s) PO QD 02/07/201903/05 Inactive Crestor 5 mg tablet RxNorm: 571566 1 Tablet(s) PO QD re check labwork in 6 months 08/21/2018 08/20/2018 Inactive Crestor 5 mg tablet RxNorm: 558450 1 Tablet(s) PO QD re check labwork in 6 months 08/21/2018 02/06/2019 Inactive Ventolin HFA 90 mcg/actuation aerosol inhaler RxNorm: 344976 2 Puff(s) INH Q4H as needed 11/03/2017 03/01/2018 Inactive please switch to proair if ventolin is not covered. thanks! Levaquin 500 mg tablet RxNorm: 546396 1 Tablet(s) PO QD 11/03/2017 Inactive Zithromax Z-Talat 250 mg tablet RxNorm: 881669 Tablet(s) PO 10/27/2017 03/01/2018 Inactive Lipitor 10 mg tablet RxNorm: 301266 1 TABLET(S) PO QD REPLACES PRAVASTATIN 06/08/2017 08/10/2017 Inactive Lipitor 10 mg tablet RxNorm: 539231 1 Tablet(s) PO QD replaces Pravastatin 03/16/2017 06/07/2017 Inactive pravastatin 10 mg tablet RxNorm: 325301 1 Tablet(s) PO QD 03/15/2017 03/14/2017 Inactive pravastatin 10 mg tablet RxNorm: 120113 1 Tablet(s) PO QD 03/15/2017 03/15/2017 Inactive Zorvolex 35 mg capsule RxNorm: 8163810 1 Capsule(s) PO TID HOLD MELOXICAM 05/03/2016 06/01/2016 Inactive Zorvolex 35 mg capsule RxNorm: 7086197 1 Capsule(s) PO TID HOLD MELOXICAM 04/30/2016 05/02/2016 Inactive prednisone 20 mg tablet RxNorm: 702493 1 Tablet(s) PO B ID and then decrease to 1 tab PO QD x 5 days 04/30/2016 05/04/2016 Inactive cyclobenzaprine 10 mg tablet RxNorm: 319898 1 Tablet(s) PO TID as needed for muscle spasm 04/23/2016 08/29/2016 Inactive pravastatin 20 mg tablet RxNorm: 812061 1 Tablet(s) PO QD 04/14/2016 08/29/2016 Inactive Vivlodex 10 mg capsule RxNorm: 1135361 1 Capsule(s) PO QD 04/08/2016 05/07/2016 Inactive Co Q-10 300 mg capsule RxNorm: 929281 1 Capsule(s) PO QD No Start Date Active Vitamin D3 5,000 unit tablet RxNorm: 890565 1 Tablet(s) PO QD No Star t Date Active melatonin 5 mg tablet RxNorm: 679229 1 Tablet(s) PO QHS as needed N o Start Date Active Multivitamin & Mineral Formula tablet RxNorm: 1 Tablet(s) PO Q D No Start Date Active Fish Oil 1,000 mg capsule RxNorm: 2 Capsule(s) PO QD No Start Date 08/29/2016 Inactive Metamucil 0.4 gram capsule RxNorm: 5784119 2 Capsule(s) PO BID No S tart Date 02/13/2019 Inactive Vitamin D3 2,000 unit tablet RxNorm: 894286 1 Tablet(s) PO QD No St art Date 03/26/2019 Inactive Lipitor 10 mg tablet RxNorm: 461963 1 Tablet(s) PO QD No Start Date 0 03/15/2017 Inactive Crestor 5 mg tablet RxNorm: 890532 1 Tablet(s) PO Tues, Thurs, Sat and Sun and 1/2 tablet (2.5mg) on Mon, Wed and Fri No Start Date 03/04/2019 Inactive Calcium with Vitamin D 600 mg (1,500 mg)-400 unit tablet RxN orm: 900800 1 Tablet(s) PO QD No Start Date 03/01/2018 Inactive krill oil 1,000 mg-170 mg-50 mg-80 mg capsule RxNorm: 1 Capsule(s) PO BID No Start Date 08/14/2019 Inactive Co Q-10 200 mg capsule RxNorm: 458783 1 Capsule(s) PO QD No Start D ate 03/01/2018 Inactive Co Q-10 oral RxNorm: 41633 oral No Start Date 07/24/2017 Inactive oxycodone-acetaminophen 5 mg-325 mg tablet RxNorm: 5714740 1 Tab let(s) PO Q6H No Start Date 08/29/2016 Inactive Krill Oil ([place] 3 and 6) oral RxNorm: 90063 oral No Start Date 02/13/2019 Inactive Flexeril 10mg tablet RxNorm: 1 Tablet(s) PO Q8H No Start Date 12/2015 Inactive Vitamin D3 1,000 unit tablet RxNorm: 060723 1 Tablet(s) PO QD No St art Date 03/11/2019 Inactive Medication Administered No Medication Administered data Immunizations Vaccine Codes Date Status Shingrix Unknown 11/20/2019 Zoster Unknown 08/15/2019 Complete Influenza CVX: 141 07/03/2018 Complete Results Observation Observation Code Item Item Code Result Date S [facility] Location COMPLETE BLOOD COUNT [id number] WBC 5.5 10e9/L 02/13/20 20 Unknown COMPLETE BLOOD COUNT [id number] RBC 4.67 10e12/L 2019 Unknown COMPLETE BLOOD COUNT [id number] HEMOGLOBIN 13.5 g/dL 02/13/20 20 Unknown COMPLETE BLOOD COUNT [id number] HEMATOCRIT 40.9 % 02/13/20 20 Unknown COMPLETE BLOOD COUNT [id number] MCV 87.6 fL 0 Unknown COMPLETE BLOOD COUNT 1437092 MCH 28.9 pg 0 Unknown COMPLETE BLOOD COUNT 3268682 MCHC 33.0 g/dL 0 Unknown COMPLETE BLOOD COUNT [id number] PLATELET COUNT 152 10e9/L Unknown COMPLETE BLOOD COUNT 6723028 Mean Plt Volume 11.6 fL Unknown COMPLETE BLOOD COUNT 7042058 Neut Auto 32.4 % 0 Unknown COMPLETE BLOOD COUNT [id number] Lymph Auto 55.1 % 02/13/20 20 Unknown COMPLETE BLOOD COUNT 6284106 [place] Auto 9.2 % 0 Unknown COMPLETE BLOOD COUNT 2777350 RDW 13.2 % 0 Unknown COMPLETE BLOOD COUNT [id number] Eos Auto 3.1 % 0 Unknown COMPLETE BLOOD COUNT 3101425 Baso Auto 0.2 % 0 Unknown COMPLETE BLOOD COUNT [id number] Neutrophil Abs 1.78 10e9/L Unknown COMPLETE BLOOD COUNT [id number] Lymphocyte Abs 3.03 10e9/L Unknown COMPLETE BLOOD COUNT 2169135 Monocyte Abs 0.51 10e9/L 01/25 Unknown COMPLETE BLOOD COUNT [id number] Eosinophil Abs 0.17 10e9/L Unknown COMPLETE BLOOD COUNT 0282121 RDW-SD 40.9 fL 0 Unknown COMPLETE BLOOD COUNT [id number] Basophil Abs 0.01 10e9/L 01/25 Unknown FREE T4 71332 T4 Free 0.83 ng/dL 02/13/2020 Unknown L[facility] GROUP 66044 Cholesterol 204 mg/dL 02/13/2020 Unkno wn LIPID GROUP 59552 Triglyceride 136 mg/dL 02/13/2020 Unkn own LIP[facility] GROUP 89099 HDL CHOLESTEROL 40 mg/dL 02/13/2020 U nknown L[facility] GROUP 83795 Chol/HDL Ratio 5.10 ratio 02/13/2020 U nknown L[facility] GROUP 34363 NON-HDL Chol 164 mg/dL 02/13/2020 Unkn own LIP[facility] GROUP 06948 LDL Cholesterol 137 mg/dL 02/13/2020 U nknown THYROID STIMULATING HORMONE 16044 TSH 1.419 uIU/mL 02/13/2020 Unknown COMPREHENSIVE METABOLIC 10901 AST 20 U/L 2019 Unknown COMPREHENSIVE METABOLIC 81898 ALT 15 U/L 2019 Unknown COMPREHENSIVE METABOLIC 72989 BUN 11 mg/dL 2019 Unknown COMPREHENSIVE METABOLIC 46637 ALBUMIN 4.3 g/dL 2019 Unknown COMPREHENSIVE METABOLIC 95461 CHLORIDE 105 mmol/L 02/12 Unknown COMPREHENSIVE METABOLIC 58243 Bili Total 0.9 mg/dL 02/12 Unknown COMPREHENSIVE METABOLIC 86982 ALK PHOS 75 U/L 2019 Unknown COMPREHENSIVE METABOLIC 97883 SODIUM 142 mmol/L 02/12 Unknown COMPREHENSIVE METABOLIC 50860 CREATININE 0.67 mg/dL 01/25 Unknown COMPREHENSIVE METABOLIC 69696 CALCIUM 9.3 mg/dL 2019 Unknown COMPREHENSIVE METABOLIC 26853 POTASSIUM 4.5 mmol/L 02/12 Unknown COMPREHENSIVE METABOLIC 96035 Total Protein 6.6 g/dL Unknown COMPREHENSIVE METABOLIC 31235 Glucose 90 mg/dL 2019 Unknown COMPREHENSIVE METABOLIC 13849 Bicarbonate 28 mmol/L 01/25 Unknown COMPREHENSIVE METABOLIC 72242 AGAP 9 mmol/L 2019 Unknown GFR CALC 8647022 GFR Non Afr Amr >60 mL/min 02/13/2020 Un known GFR CALC 2788399 GFR Afr Amr >60 mL/min 02/13/2020 Unknow n CULTURE, URINE, ROUTINE 395 CULTURE SEE NOTE 1 11/13/2018 [facility] [place] [address] [place] [phone] CULTURE, URINE, ROUTINE 395 CULTURE, URINE, ROUTINE SEE NOTE 09/12/2019 [facility] [place] [address] [place] [phone] URINALYSIS, COMPLETE 01586 Color YELLOW 08/26 [facility] [place] [address] [place] [phone] URINALYSIS, COMPLETE 35467 APPEARANCE CLEAR 08/26 [facility] [place] [address] [place] [phone] URINALYSIS, COMPLETE 11849 SPECIFIC GRAVITY 1.003 09/11/2019 [facility] [place] [address] [place] [phone] URINALYSIS, COMPLETE 92697 PH 7.0 08/26 [facility] [place] [address] [place] [phone] URINALYSIS, COMPLETE 88904 Glucose NEGATIVE 08/26 [facility] [place] [address] [place] [phone] URINALYSIS, COMPLETE 79059 BILIRUBIN NEGATIVE 08/26 [facility] [place] [address] [place] [phone] URINALYSIS, COMPLETE 66968 Ketones NEGATIVE 08/26 [facility] [address] [address] URINALYSIS, COMPLETE 94634 OCCULT BLOOD NEGATIVE [facility] [address] [place] [address] URINALYSIS, COMPLETE 13523 Protein NEGATIVE 08/26 [facility] [place] [address] URINALYSIS, COMPLETE 58742 LEUKOCYTE ESTERASE NEGATIV E 09/11/2019 [facility] [place] [address] URINALYSIS, COMPLETE 02315 WBC NONE SEEN /HPF 09/11/2019 [facility] [place] [address] URINALYSIS, COMPLETE 12189 RBC NONE SEEN /HPF 09/11/2019 [facility] [place] [address] URINALYSIS, COMPLETE 61798 SQUAMOUS EPITHELIAL CELLS NONE SEEN /HPF 09/11/2019 [facility] [address] [address] URINALYSIS, COMPLETE 84642 TRANSITIONAL EPITHELIAL CELLS DNR /HPF 09/11/2019 [facility] [address] URINALYSIS, COMPLETE 20753 RENAL EPITHELIAL CELLS DNR /HPF 09/11/2019 [facility] [address] URINALYSIS, COMPLETE 01302 BACTERIA NONE SEEN /HPF 09/11/2019 [facility] [address] URINALYSIS, COMPLETE 98357 CALCIUM OXALATE CRYSTALS D NR /HPF 09/11/[address] [facility] [address] URINALYSIS, COMPLETE 28053 TRIPLE PHOSPHATE CRYSTALS DNR /HPF 09/11/[address] [facility] [place] [address] URINALYSIS, COMPLETE 85220 URIC ACID CRYSTALS DNR /HP F 09/11/2019 [facility] [place] [address] URINALYSIS, COMPLETE 01909 AMORPHOUS SEDIMENT DNR /HP F 09/11/2019 [facility] [place] [address] URINALYSIS, COMPLETE 88427 CRYSTALS DNR /HPF 08/26 [facility] [address] URINALYSIS, COMPLETE 76176 HYALINE CAST NONE SEEN /LP F 09/11/2019 [facility] [address] [place] [address] URINALYSIS, COMPLETE 25592 GRANULAR CAST DNR /LPF 1 11/12/2018 [facility] [address] URINALYSIS, COMPLETE 88169 CASTS DNR /LPF 08/26 [facility] [place] [address] URINALYSIS, COMPLETE 72289 YEAST DNR /HPF 08/26 [facility] [address] URINALYSIS, COMPLETE 83626 COMMENTS DNR 08/26 [facility] [address] URINALYSIS, COMPLETE 41734 NOTE DNR 08/26 [facility] [address] URINALYSIS, COMPLETE 95805 NITRITE NEGATIVE 08/26 [facility] [address] CULTURE, URINE, ROUTINE 395 CULTURE, URINE, ROUTINE SEE NOTE 08/16/2019 [facility] [place] [address] EXTRA LAVENDER-TOP TUBE XLKS EXTRA LAVENDER-TOP TUBE 08/10/2019 [facility] [place] [address] EXTRA LAVENDER-TOP TUBE XLKS COMMENT 1 10/10/2018 [facility] [place] [address] LIPID PANEL 30398 CHOLESTEROL, TOTAL 180 mg/dL 08/10 [facility] [place] [address] LIPID PANEL 53246 HDL CHOLESTEROL 35 mg/dL 08/10/20 19 [facility] [place] [address] LIPID PANEL 07394 TRIGLYCERIDES 200 mg/dL 08/10/2019 [facility] [address] [address] LIPID PANEL 55088 LDL-CHOLESTEROL 113 mg/dL(calc) [facility] [address] [address] LIPID PANEL 36761 CHOL/HDLC RATIO 5.1 (calc) 08/10/20 [facility] [address] [address] LIPID PANEL 88203 NON HDL CHOLESTEROL 145 mg/dL(calc) 08/10/2019 [facility] [address] [address] COMPREHENSIVE METABOLIC PANEL 60492 Glucose 86 mg/ dL 08/10/[address] [facility] [address] [address] COMPREHENSIVE METABOLIC PANEL 27373 UREA NITROGEN (BUN) 11 mg/dL 08/10/2019 [facility] [address] [address] COMPREHENSIVE METABOLIC PANEL 89034 CREATININE 0.71 m g/dL 08/10/2019 [facility] [address] [address] COMPREHENSIVE METABOLIC PANEL 77270 eGFR NON-AFR. QATARI 90 mL/min/1.73m2 08/10/[address] [facility] [address] [address] COMPREHENSIVE METABOLIC PANEL 02132 eGFR 104 mL/min/1.73m2 08/10/2019 [facility] [address] [address] COMPREHENSIVE METABOLIC PANEL 95394 BUN/CREATININE RATIO NOT APPLICABLE (calc) 08/10/2019 [facility] [address] [address] COMPREHENSIVE METABOLIC PANEL 32532 SODIUM 140 mm ol/L 08/10/2019 [facility] [address] [address] COMPREHENSIVE METABOLIC PANEL 05244 POTASSIUM 4.2 mm ol/L 08/10/2019 [facility] [address] [address] COMPREHENSIVE METABOLIC PANEL 08500 CHLORIDE 105 mm ol/L 08/10/2019 [facility] [address] [address] COMPREHENSIVE METABOLIC PANEL 96212 CARBON DIOXIDE 28 mmol/L 08/10/[address] [facility] [address] [address] COMPREHENSIVE METABOLIC PANEL 10743 CALCIUM 9.3 mg /dL 08/10/[address] [facility] [address] [address] COMPREHENSIVE METABOLIC PANEL 95996 PROTEIN, TOTAL 6. 7 g/dL 08/10/[address] [facility] [address] COMPREHENSIVE METABOLIC PANEL 81358 ALBUMIN 4.3 g/ dL 08/10/[address] [facility] [address] COMPREHENSIVE METABOLIC PANEL 74534 GLOBULIN 2.4 g/ dL(calc) 08/10/[address] [facility] [address] COMPREHENSIVE METABOLIC PANEL 69623 ALBUMIN/GLOBULIN RATIO 1.8 (calc) 08/10/[address] [facility] [address] COMPREHENSIVE METABOLIC PANEL 53521 BILIRUBIN, TOTAL 0.6 mg/dL 08/10/2019 [facility] [address] COMPREHENSIVE METABOLIC PANEL 74461 ALKALINE PHOSPHATASE 74 U/L 08/10/[address] [facility] [address] COMPREHENSIVE METABOLIC PANEL 24832 AST 21 U/L 08/10/2019 [facility] [address] COMPREHENSIVE METABOLIC PANEL 15349 ALT 15 U/L 08/10/[address] [facility] [address] COMPREHENSIVE METABOLIC 17393 AST 18 U/L 2018 Unknown COMPREHENSIVE METABOLIC 48954 ALT 12 U/L 2018 Unknown COMPREHENSIVE METABOLIC 16931 BUN 11 mg/dL 2018 Unknown COMPREHENSIVE METABOLIC 83057 ALBUMIN 4.6 g/dL 2018 Unknown COMPREHENSIVE METABOLIC 60086 CHLORIDE 106 mmol/L 02/14 Unknown COMPREHENSIVE METABOLIC 51401 Bili Total 0.9 mg/dL 02/14 Unknown COMPREHENSIVE METABOLIC 65882 ALK PHOS 76 U/L 2018 Unknown COMPREHENSIVE METABOLIC 00309 SODIUM 142 mmol/L 02/14 Unknown COMPREHENSIVE METABOLIC 76661 CREATININE 0.69 mg/dL 01/25 Unknown COMPREHENSIVE METABOLIC 16852 CALCIUM 9.5 mg/dL 2018 Unknown COMPREHENSIVE METABOLIC 35220 POTASSIUM 3.9 mmol/L 02/14 Unknown COMPREHENSIVE METABOLIC 28465 Total Protein 6.6 g/dL Unknown COMPREHENSIVE METABOLIC 39320 Glucose 86 mg/dL 2018 Unknown COMPREHENSIVE METABOLIC 50018 Bicarbonate 29 mmol/L 01/25 Unknown COMPREHENSIVE METABOLIC 14056 AGAP 7 mmol/L 2018 Unknown GFR CALC 8106847 GFR Non Afr Amr >60 mL/min 02/14/2019 Un known GFR CALC 1700174 GFR Afr Amr >60 mL/min 02/14/2019 Unknow n L[facility] 38336 Cholesterol 127 mg/dL 02/14/2019 Unkno wn L[facility] 50277 Triglyceride 156 mg/dL 02/14/2019 Unkn own [facility] 71458 HDL CHOLESTEROL 45 mg/dL 02/14/2019 U nknown [facility] 52549 Chol/HDL Ratio 2.82 ratio 02/14/2019 U nknown L[facility] GROUP 82539 NON-HDL Chol 82 mg/dL 02/14/2019 Unkn own LIP[facility] GROUP 66982 LDL Cholesterol 51 mg/dL 02/14/2019 U nknown COMPREHENSIVE METABOLIC PANEL 02314 Glucose 88 mg/ dL 08/16/2018 [facility] [place] [address] [place] [address] COMPREHENSIVE METABOLIC PANEL 28024 UREA NITROGEN (BUN) 11 mg/dL 08/16/2018 [facility] [place] [address] [place] [address] COMPREHENSIVE METABOLIC PANEL 32304 CREATININE 0.70 m g/dL 08/16/2018 [facility] [place] [address] [place] [address] COMPREHENSIVE METABOLIC PANEL 05006 eGFR NON-AFR. QATARI 92 mL/min/1.73m2 08/16/2018 [facility] [address] [place] [address] COMPREHENSIVE METABOLIC PANEL 37442 eGFR 107 mL/min/1.73m2 08/16/2018 [facility] [place] [address] [place] [address] COMPREHENSIVE METABOLIC PANEL 00554 BUN/CREATININE RATIO NOT APPLICABLE (calc) 08/16/2018 [facility] [place] [address] [place] [address] COMPREHENSIVE METABOLIC PANEL 27946 SODIUM 140 mm ol/L 08/16/2018 [facility] [address] COMPREHENSIVE METABOLIC PANEL 41417 POTASSIUM 4.0 mm ol/L 08/16/2018 [facility] [address] COMPREHENSIVE METABOLIC PANEL 82701 CHLORIDE 104 mm ol/L 08/16/[address] [facility] [address] COMPREHENSIVE METABOLIC PANEL 45572 CARBON DIOXIDE 29 mmol/L 08/16/[address] [facility] [address] COMPREHENSIVE METABOLIC PANEL 16049 CALCIUM 9.4 mg /dL 08/16/2018 [facility] [address] COMPREHENSIVE METABOLIC PANEL 36304 PROTEIN, TOTAL 6. 7 g/dL 08/16/2018 [facility] [address] COMPREHENSIVE METABOLIC PANEL 40355 ALBUMIN 4.4 g/ dL 08/16/2018 [facility] [address] COMPREHENSIVE METABOLIC PANEL 84391 GLOBULIN 2.3 g/ dL(calc) 08/16/2018 [facility] [address] COMPREHENSIVE METABOLIC PANEL 61492 ALBUMIN/GLOBULIN RATIO 1.9 (calc) 08/16/[address] [facility] [address] COMPREHENSIVE METABOLIC PANEL 87595 BILIRUBIN, TOTAL 0.8 mg/dL 08/16/2018 [facility] [address] [address] COMPREHENSIVE METABOLIC PANEL 53656 ALKALINE PHOSPHATASE 72 U/L 08/16/2018 [facility] [address] COMPREHENSIVE METABOLIC PANEL 04963 AST 19 U/L 08/16/2018 [facility] [address] COMPREHENSIVE METABOLIC PANEL 35123 ALT 12 U/L 08/16/2018 [facility] [address] LIPID PANEL 35469 CHOLESTEROL, TOTAL 228 mg/dL 08/16 [facility] [address] LIPID PANEL 43304 HDL CHOLESTEROL 42 mg/dL 08/16/20 [facility] [address] [place] [address] LIPID PANEL 42253 TRIGLYCERIDES 175 mg/dL 08/16/[address] [facility] [address] LIPID PANEL 56979 LDL-CHOLESTEROL 155 mg/dL(calc) [facility] [address] LIPID PANEL 83336 CHOL/HDLC RATIO 5.4 (calc) 08/16/[address] [facility] [address] LIPID PANEL 00621 NON HDL CHOLESTEROL 186 mg/dL(calc) 08/16/[address] [facility] [address] EXTRA LAVENDER-TOP TUBE XLKS EXTRA LAVENDER-TOP TUBE 08/16/[address] [address] EXTRA LAVENDER-TOP TUBE XLKS COMMENT 1 10/16/[address] [facility] [address] Procedures Procedure Codes Date INITIAL PREVENTIVE EXAM CPT-4: G0402 02/20/2020 ROUTINE VENIPUNCTURE CPT-4: 13655 02/13/2020 COMPREHEN METABOLIC PANEL CPT-4: 78524 02/13/2020 LIPID PANEL CPT-4: 56892 02/13/2020 COMPLETE CBC W/AUTO DIFF WBC CPT-4: 92543 02/13/2020 ASSAY THYROID STIM HORMONE CPT-4: 52247 02/13/2020 ASSAY OF FREE THYROXINE CPT-4: 36707 02/13/2020 URINALYSIS, COMPLETE CPT-4: 53837 09/10/2019 CULTURE, URINE, ROUTINE CPT-4: 395 09/10/2019 URINALYSIS NONAUTO W/O SCOPE CPT-4: 47501 08/27/2019 CULTURE, URINE, ROUTINE CPT-4: 395 08/15/2019 URINALYSIS NONAUTO W/O SCOPE CPT-4: 41963 08/15/2019 SHINGRIX HZV VACC RECOMBINANT IM CPT-4: 05163 019 IMMUNIZATION ADMIN CPT-4: 63712 08/15/2019 COMPREHENSIVE METABOLIC PANEL CPT-4: 18993 08/09/2019 LIPID PANEL CPT-4: 58869 08/09/2019 ROUTINE VENIPUNCTURE CPT-4: 53456 08/09/2019 EXTRA LAVENDER-TOP TUBE CPT-4: XLKS 08/09/2019 ROUTINE VENIPUNCTURE CPT-4: 09632 02/14/2019 COMPREHEN METABOLIC PANEL CPT-4: 62057 02/14/2019 LIPID PANEL CPT-4: 48603 02/14/2019 ROUTINE VENIPUNCTURE CPT-4: 73152 08/15/2018 COMPREHENSIVE METABOLIC PANEL CPT-4: 18508 08/15/2018 EXTRA LAVENDER-TOP TUBE CPT-4: XLKS 08/15/2018 LIPID PANEL CPT-4: 96956 08/15/2018 IIV4 VACCINE 3 YRS+ IM AND UP CPT-4: 89758 07/03/2018 IMMUNIZATION ADMIN CPT-4: 43844 07/03/2018 SPECIMEN HANDLING OFFICE-LAB CPT-4: 47327 03/02/2018 OCCULT BLOOD FECES CPT-4: 69945 03/02/2018 THER/PROPH/DIAG INJ SC/IM CPT-4: 61254 11/03/2017 TRIAMCINOLONE ACET INJ NOS CPT-4: J3301 11/03/2017 INFLUENZA ASSAY W/OPTIC CPT-4: 62580 10/27/2017 THER/PROPH/DIAG INJ SC/IM CPT-4: 49667 10/27/2017 TRIAMCINOLONE ACET INJ NOS CPT-4: J3301 10/27/2017 THER/PROPH/DIAG INJ SC/IM CPT-4: 73146 04/23/2016 TRIAMCINOLONE ACET INJ NOS CPT-4: J3301 04/23/2016 DEXAMETHASONE SODIUM PHOS CPT-4: J1100 04/23/2016 Vital Signs Date Vital 02/20/2020 Blood Pressure 1: 138/74 Code: 8480-6 BMI: 27.9 Code: 43474-7 Heart Rate 1: 84 bpm Height: 5'5" [...] 1: 126/70 Code: 8480-6 BMI: 26.7 Code: 16907-6 Heart Rate 1: 68 bpm Height: 5'6" Respiratory Rate: 18 bpm SpO2: 97% Tempera ture: 36.6 (C) / 97.9 (F) Weight: 168 lbs 08/15/2018 Blood Pressure 1: 122/78 Code: 8480-6 BMI: 25.9 Code: 76120-1 Heart Rate 1: 72 bpm Height: 5'6" Respiratory Rate: 20 bpm SpO2: 97% Tempera ture: 36.7 (C) / 98.0 (F) Weight: 163 lbs 03/02/2018 Blood Pressure 1: 126/74 Code: 8480-6 BMI: 26.1 Code: 32740-6 Heart Rate 1: 76 bpm Height: 5'6" Respiratory Rate: 20 bpm SpO2: 98% Tempera ture: 36.6 (C) / 97.8 (F) Weight: 164 lbs 11/03/2017 Blood Pressure 1: 124/82 Code: 8480-6 BMI: 25.3 Code: 15333-9 Heart Rate 1: 90 bpm Height: 5'6" Respiratory Rate: 22 bpm SpO2: 98% Tempera ture: 36.9 (C) / 98.4 (F) Weight: 159 lbs 10/27/2017 Blood Pressure 1: 122/84 Code: 8480-6 BMI: 25.6 Code: 21415-2 Heart Rate 1: 90 bpm Height: 5'6" Respiratory Rate: 22 bpm SpO2: 97% Tempera ture: 36.1 (C) / 97.0 (F) Weight: 161 lbs 08/11/2017 Blood Pressure 1: 132/76 Code: 8480-6 BMI: 26.4 Code: 98075-2 Heart Rate 1: 72 bpm Height: 5'6" Respiratory Rate: 20 bpm Temperature: 36 .6 (C) / 97.8 (F) Weight: 166 lbs 05/23/2017 Blood Pressure 1: 126/72 Code: 8480-6 BMI: 26.1 Code: 09008-4 Heart Rate 1: 72 bpm Height: 5'6" Respiratory Rate: 20 bpm SpO2: 98% Tempera ture: 37.1 (C) / 98.8 (F) Weight: 164 lbs 03/10/2017 Blood Pressure 1: 124/72 Code: 8480-6 BMI: 26.1 Code: 42838-1 Heart Rate 1: 92 bpm Height: 5'6" Respiratory Rate: 20 bpm SpO2: 97% Tempera ture: 37.2 (C) / 98.9 (F) Weight: 164 lbs 08/30/2016 Blood Pressure 1: 142/82 Code: 8480-6 BMI: 25.6 Code: 44821-6 Heart Rate 1: 72 bpm Height: 5'6" Respiratory Rate: 20 bpm Temperature: 36 .6 (C) / 97.9 (F) Weight: 161 lbs 06/01/2016 Blood Pressure 1: 156/88 Code: 8480-6 BMI: 26.4 Code: 65731-0 Heart Rate 1: 70 bpm Height: 5'6" Respiratory Rate: 18 bpm SpO2: 97% Tempera ture: 36.6 (C) / 97.8 (F) Weight: 166 lbs 04/30/2016 Blood Pressure 1: 122/70 Code: 8480-6 Heart Rate 1: 10 2 bpm Height: Respiratory Rate: 24 bpm SpO2: 95% Temperature: 36.4 (C) / 97.6 (F) We ight: 04/23/2016 Blood Pressure 1: 152/76 Code: 8480-6 BMI: 26.5 Code: 88157-2 Heart Rate 1: 106 bpm Height: 5'7" Respiratory Rate: 24 bpm SpO2: 96% Tempera ture: 36.8 (C) / 98.2 (F) Weight: 169 lbs 04/08/2016 Blood Pressure 1: 116/68 Code: 8480-6 BMI: 27.4 Code: 52185-8 Heart Rate 1: 76 bpm Height: 5'6" [...] visit Encounters Encounter Performer Location Codes Date ([id number]) NURSE/OUTPATIENT VISIT EST Diagnosis: Essential (primary) hypertension[ICD10: I10] Diagnosis: Mixed hyperlipidemia[ICD10: E78.2] Diagnosis: Encounter for general adult medical examination without abnormal findings[ICD10: Z00.00] Chio MORTENSEN S. MARIONDER Mr [employer] CPT-4: 53771 02/13/2020 ([id number]) NURSE/OUTPATIENT VISIT EST Diagnosis: Hematuria[ICD10: R31.9] Chio MORTENSEN S. OREND ER DO [facility] CPT-4: 66302 09/10/2019 ([id number]) OFFICE/OUTPATIENT VISIT EST Diagnosis: Hematuria[ICD10: R31.9] Chio MORTENSEN S. MARIOND ER DO [facility] CPT-4: 19780 08/27/2019 ([id number]) PREV VISIT EST AGE 40-64 Diagnosis: Urinary tract infection[ICD10: N39.0] Diagnosis: Encounter for general adult medical examination without abnormal findings[ICD10: Z00.00] Diagnosis: Essential (primary) hypertension[ICD10: I10] Diagnosis: Mixed hyperlipidemia[ICD10: E78.2] Diagnosis: VACCIN FOR DISEASE NEC (HPV or Zostavax)[ICD10: Z23] Chio POST [facility] CPT-4: 02440 08/15/2019 ([id number]) NURSE/OUTPATIENT VISIT EST Diagnosis: Mixed hyperlipidemia[ICD10: E78.2] Diagnosis: Essential (primary) hypertension[ICD10: I10] Chio POST DO [facility] CPT-4: 03029 08/09/2019 ([id number]) OFFICE/OUTPATIENT VISIT EST Diagnosis: Mixed hyperlipidemia[ICD10: E78.2] Diagnosis: Other specified counseling[ICD10: Z71.89] Chio POST [facility] CPT-4: 71304 02/14/2019 ([id number]) OFFICE/OUTPATIENT VISIT EST Diagnosis: Mixed hyperlipidemia[ICD10: E78.2] Chio PLUMMER NELLIE Addis [facility] CPT-4: 43390 08/15/2018 ([id number]) NURSE/OUTPATIENT VISIT EST Diagnosis: FLU VACCINE[ICD10: Z23] Chio BONILLA [facility] CPT-4: 11145 07/03/2018 ([id number]) PREV VISIT EST AGE 40-64 Diagnosis: Encounter for general adult medical examination without abnormal findings[ICD10: Z00.00] Diagnosis: Encounter for gynecological examination (general) (routine) without abnormal findings[ICD10: Z01.419] Chio Holder [facility] CPT-4: 68385 03/02/2018 OFFICE/OUTPATIENT VISIT EST Diagnosis: Pneumonia, unspecified organism[ICD10: J18.9] Shaniqua MORENOLINE Addis POST [facility] CPT-4: 52648 11/03/2017 OFFICE/OUTPATIENT VISIT EST Diagnosis: Influenza due to other identified influenza virus with other respiratory manifestations[ICD10: J10.1] Diagnosis: Acute bronchitis, unspecified[ICD10: J20.9] Shaniqua POST [facility] CPT-4: 85051 10/27/2017 ([id number]) OFFICE/OUTPATIENT VISIT EST Diagnosis: Mixed hyperlipidemia[ICD10: E78.2] Chio BALLARD [employer] [facility] CPT-4: 15603 08/11/2017 ([id number]) PREV VISIT EST AGE 40-64 Diagnosis: Encounter for general adult medical examination without abnormal findings[ICD10: Z00.00] Diagnosis: Mixed hyperlipidemia[ICD10: E78.2] Chio PLUMMER CO [employer] POST [facility] CPT-4: 80168 05/23/2017 ([id number]) OFFICE/OUTPATIENT VISIT EST Diagnosis: Essential (primary) hypertension[ICD10: I10] Diagnosis: Mixed hyperlipidemia[ICD10: E78.2] Chio [facility] CPT-4: 44148 03/10/2017 ([id number]) OFFICE/OUTPATIENT VISIT EST Diagnosis: Mixed hyperlipidemia[ICD10: E78.2] Diagnosis: Essential (primary) hypertension[ICD10: I10] Chio [facility] CPT-4: 55053 08/30/2016 ([id number]) OFFICE/OUTPATIENT VISIT EST Diagnosis: Mixed hyperlipidemia[ICD10: E78.2] Ale Becerra KAVITHA CO [employer] MARTINSvitStyleIRENE [facility] CPT-4: 01491 06/01/2016 ([id number]) OFFICE/OUTPATIENT VISIT EST Diagnosis: Strain of muscle, fascia and tendon of lower back, subsequent encounter[ICD10: S39.012D] Diagnosis: Sciatica, left side[ICD10: M54.32] Aleeli PLUMMER CO [employer] ROMAN [facility] CPT-4: 69274 04/30/2016 ([id number]) OFFICE/OUTPATIENT VISIT EST Diagnosis: Strain of muscle, fascia and tendon of lower back, initial encounter[ICD10: S39.012A] Diagnosis: Sciatica, left side[ICD10: M54.32] Aleeli Becerra KAVITHA CO [employer] [facility] CPT-4: 87310 04/23/2016 ([id number]) PREV VISIT NEW AGE 40-64 Diagnosis: Encounter for general adult medical examination without abnormal findings[ICD10: Z00.00] Diagnosis: Plantar fascial fibromatosis[ICD10: M72.2] [facility] CPT-4: 30889 04/08/2016 Plan of Care Planned Activity Notes [...] E78.2 02/20/2020 Patient Education: [employer]- [employer] Coupon [id number] [email or web address] Completed 02/20/2020 Appointment: Chio Post WPtel: [address] [place], [place] [phone] LAB 02/13/2020 Appointment: Chio Post WPt[facility]: [address] [place] [address] UA 09/10/2019 Visit Diagnosis Plan: Hematuria Discussion: Hold crest or No NSAIDs Push fluids/water Recheck urine microscopy in 2weeks and if still with microscopic blood then will need urology eval and cystoscope ICD-9 : 599.70 ICD-10 : R31.9 08/27/2019 Appointment: Chio Post WPt[facility]: [address] [place], [place] [phone] ACUTE [facility] 08/27/2019 Visit Diagnosis Plan: Encounter [...] : E78.2 08/15/2019 Appointment: Chio Post WPt[facility]: [address] [place], [place] [phone] [place] confirmed 08/09/19-- does not need reminder call Annual Well Visit 08/15/2019 Appointment: Chio Post W[facility]: [address] [place] [address] 08/15/19 1330---added to office visit with Dr kwon () CANCELED 08/15/2019 Appointment: Chio Post WPt[facility]: [address] [place] [address] US LAB 08/09/2019 Visit Diagnosis Plan: Mixed [...] : Z71.89 02/14/2019 Appointment: Chio Post WPt[facility]: [address] [place], [place] [phone] [place] FOLLOW UP 02/14/2019 Visit Diagnosis Plan: Mixed hyperlipidemia Discussion: Check CMP, Lipids Recommend Shingrix Had flu shot ICD-9 : 272.2 ICD-10 : E78.2 08/15/2018 Appointment: Chio Post [facility]: [address] [place], [place] [phone] FOLLOW UP 08/15/2018 Appointment: Chio Post WPtel: [address] [place], [place] [phone] [place] INJECTION 07/03/2018 Patient Education: Patient Medication [...] : Z01.419 03/02/2018 Appointment: Chio Post WPt[facility]: [facility] Annual Well Visit 03/02/2018 Patient Education: Patient Medication Summary Completed 03/02/2018 Appointment: Chio Post WPtel: [phone] RESCHEDULED 02/08/2018 Visit Diagnosis Plan: Pneumonia, [...] ICD-10 : J18.9 11/03/2017 Appointment: Shaniqua Ruiz [address] [place] [address] ACUTE ILLNESS 11/03/2017 Patient Education: Patient Medication [...] ICD-10 : J10.1 10/27/2017 Appointment: Shaniqua Ruiz [address] [place] [address] ACUTE ILLNESS 10/27/2017 Patient Education: Patient Medication Summary Completed 10/27/2017 Visit Diagnosis Plan: Mixed hyperlipidemia Discussion: Hold on statins due to side effects 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 then check CMP, Lipids and fwup ICD-9 : 272.2 ICD-10 : E78.2 08/11/2017 Appointment: Chio Post WPt[facility]: [address] [place] [address] MEDICATION REVIEW 08/11/2017 Patient Education: Patient Medication Summary Completed 08/11/2017 Visit Diagnosis Plan: Mixed hyperlipidemia Discussion: Continue lipitor and check lipids with LFTs next month ICD-9 : 272.2 ICD-10 : E78.2 05/23/2017 Visit Diagnosis Plan: Encounter for [place] adult medical examination without abnormal findings Discussion: Will update lab next month D efers mammogram until next year--normal mammogram last year Pap due next year Tdap 3 yrs ago Colonoscopy up to date Discussed zostavax--will check on coverage ICD-9 : V70.9 ICD-10 : Z00.00 05/23/2017 Appointment: Chio Post WPtel: [address] [place] [address] Annual Well Visit 05/23/2017 Patient Education: Patient Medication Summary Completed 05/23/2017 Visit Diagnosis Plan: Mixed hyperlipidemia Discussion: Check CMP, Lipids ICD-9 : 272.2 ICD-10 : E78.2 03/10/2017 Visit Diagnosis Plan: Essential (primary) hypertension Follow Up: 6 months ICD-9 : 401.9 ICD-10 : I10 03/10/2017 Appointment: Chio Post WPtel: [facility] 03/09 confimed ~sl CHECK UP 03/10/2017 Patient Education: Patient Medication Summary Completed 03/10/2017 Appointment: [phone] [facility] 02/03 rescheduled ~sl RESCHEDULED 02/28/2017 Visit Plan: Lab discussed Continue lifes tyle modification Check full fasting lab in 6mos Monitor BP 1-2 times a week at home Discussed adding weights or yoga/sriram chi 3 times a week 08/30/2016 Appointment: Chio Post WPtel: [address] [place], [place] [phone] 08/26 lm`sl...confirmed~lb FOLLOW UP 08/30 Patient Education: Patient Medication Summary Completed 08/30/2016 Patient Education: Patient Medication Summary Completed 08/26/2016 Care Plan: COMPREHEN METABOLIC PANEL NINFA NC : 63638-1 Pending 08/26/2016 Care Plan: LIPID PANEL LOINC : 96048-7 Pending 08/26/2016 Visit Plan: Patient is very anxious abou t going back on any medication for her lipids right now Stressed diet and exercise changes she can try Continue higher dose of fish oil she is now taking Can recheck lipids and cmp in 3 months If not much better, will need rx started - discussed trying fenofibrate possibly 06/01/2016 Appointment: Ale Becerra [address] [place] [phone] 05/27 confirmed ~sl FOLLOW UP 06/01/2016 Patient [...] if negative) 04/30/2016 Appointment: Ale Becerra [address] [facility] FOLLOW UP 04/30/2016 Patient Education: Patient Medication Summary Completed 04/30/2016 Visit Plan: Steroid injection given toda y Muscle relaxer as well Continue daily meloxicam Start weaning back on oxycodone Can replace oxycodone dosing with otc tylenol Advised topical pain relievers, heat/ice, etc If oxycodone runs completely out and patient still needs some, can call for refill to [facility] or could consider replacing with tramadol 04/23/2016 Appointment: [facility] [facility] Follow UP 04/23/2016 Patient Education: Patient Medication Summary Completed 04/23/2016 Visit Plan: Continue inserts and stretch es for plantar fascia Add Vivlodex Return in 2-3 weeks for injection if pain persists Check Fasting Lab Update Mammogram 04/08/2016 Appointment: Chio [phone] [facility] 04/07 confirmed ~sl NEW PATIENT 04/08/2016 Patient Education: Patient Medication Summary Completed 04/08/2016 Patient Education: [facility] - Saving AutoInj - 18-64 - Dynamic [...] needs some, can call for refill to [facility] or could consider replacing with tramadol . [...]
--- OUTSIDE RECORDS SUMMARY | 2020-02-26 21:10 | XMS REPORT | CCD ---
Author Author Carola Post D.O. 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 PP Unavailable CCM Unavailable Summary Purpose Interface Exchange Insurance Providers Payer name Policy type / Coverage type Covered constitution party ID Effective Begin Date Effective End Date WPS MEDICARE PART B [place] Medicare Part B [id number] Unknown Apartment Adda Medicare Part B [id number] 2019 100 Unknown Family history Grandfather Diagnosis Age At Onset Cancer Unknown Social History Social History Element Codes Description Effective Dates Marital status Unknown 04/08/2016 Number of children Unknown 3 04/08/2016 Employment Unknown Currently employed [employer] 04/08/[address]: 640943212 Has never smoked or chewed tobacco 04/08/[address]: 278071 Currently drinks alcohol 04/08 Frequency of drinks SNOMED CT: 167344124 Drinks rarely 016 Has the patient ever used illegal drugs? Unknown Has nev er used illegal drugs 04/08/2016 Allergies, Adverse Reactions, Alerts Substance Reaction Codes Entered Date Inactivated Date Status * NO KNOWN FOOD ALLERGIES Unknown 04/08/2016 No Inactiv e Date Active * NO KNOWN ENVIRONMENTAL ALLERGIES Unknown 04/08/2016 N o Inactive Date Active * NO KNOWN DRUG ALLERGIES Unknown 04/08/2016 No Inactiv e Date Active Problems Condition Codes Effective Dates Condition Status Encounter for general adult medical examination withou t abnormal findings ICD-9: V70.9 ICD-10: Z00.00 04/07/2016 Active Essential (primary) hypertension ICD-9: 401.9 ICD-10: I10 08/29/2016 Active Mixed hyperlipidemia ICD-9: 272.2 ICD-10: E78.2 08/29/2016 Active Screening mammogram, encounter for ICD-9: [...] Start Date Stop Date Status Fill Instructions Livalo 1 mg tablet RxNorm: 384641 1 Tablet(s) Oral QD 12/03/2019 070 02/2020 Active Aleve 220 mg tablet RxNorm: 036214 Tablet(s) Oral as needed 019 No Stop Date Active Fish Oil 360 mg-1,200 mg capsule RxNorm: 1 Capsule(s) Or al two times a day 08/15/2019 No Stop Date Active Macrobid 100 mg capsule RxNorm: 410417 1 Capsule(s) Oral two ti mes a day 08/15/2019 08/22/2019 Inactive Crestor 5 mg tablet RxNorm: 951654 1/2 Tablet(s) PO twice a week 02/10/2020 Inactive Crestor 5 mg tablet RxNorm: 399954 1 Tablet(s) PO Tues, Thurs, Sat and Sun and 1/2 tablet (2.5mg) on Mon, Wed and Tue03/05/2019 03/11/2019 Inactive Crestor 5 mg tablet RxNorm: 708467 1 Tablet(s) PO QD 02/07/201903/05 Inactive Crestor 5 mg tablet RxNorm: 533937 1 Tablet(s) PO QD re check labwork in 6 months 08/21/2018 08/20/2018 Inactive Crestor 5 mg tablet RxNorm: 335664 1 Tablet(s) PO QD re check labwork in 6 months 08/21/2018 02/06/2019 Inactive Ventolin HFA 90 mcg/actuation aerosol inhaler RxNorm: 657169 2 Puff(s) INH Q4H as needed 11/03/2017 03/01/2018 Inactive please switch to proair if ventolin is not covered. thanks! Levaquin 500 mg tablet RxNorm: 633750 1 Tablet(s) PO QD 11/03/2017 Inactive Zithromax Z-Tlaat 250 mg tablet RxNorm: 932684 Tablet(s) PO 10/27/2017 03/01/2018 Inactive Lipitor 10 mg tablet RxNorm: 892020 1 TABLET(S) PO QD REPLACES PRAVASTATIN 06/08/2017 08/10/2017 Inactive Lipitor 10 mg tablet RxNorm: 941588 1 Tablet(s) PO QD replaces Pravastatin 03/16/2017 06/07/2017 Inactive pravastatin 10 mg tablet RxNorm: 008025 1 Tablet(s) PO QD 03/15/2017 03/14/2017 Inactive pravastatin 10 mg tablet RxNorm: 736714 1 Tablet(s) PO QD 03/15/2017 03/15/2017 Inactive Zorvolex 35 mg capsule RxNorm: 5750364 1 Capsule(s) PO TID HOLD MELOXICAM 05/03/2016 06/01/2016 Inactive Zorvolex 35 mg capsule RxNorm: 9180512 1 Capsule(s) PO TID HOLD MELOXICAM 04/30/2016 05/02/2016 Inactive prednisone 20 mg tablet RxNorm: 183461 1 Tablet(s) PO B ID and then decrease to 1 tab PO QD x 5 days 04/30/2016 05/04/2016 Inactive cyclobenzaprine 10 mg tablet RxNorm: 245002 1 Tablet(s) PO TID as needed for muscle spasm 04/23/2016 08/29/2016 Inactive pravastatin 20 mg tablet RxNorm: 054487 1 Tablet(s) PO QD 04/14/2016 08/29/2016 Inactive Vivlodex 10 mg capsule RxNorm: 2478642 1 Capsule(s) PO QD 04/08/2016 05/07/2016 Inactive Co Q-10 300 mg capsule RxNorm: 162529 1 Capsule(s) PO QD No Start Date Active Vitamin D3 5,000 unit tablet RxNorm: 708417 1 Tablet(s) PO QD No Star t Date Active melatonin 5 mg tablet RxNorm: 216584 1 Tablet(s) PO QHS as needed N o Start Date Active Multivitamin & Mineral Formula tablet RxNorm: 1 Tablet(s) PO Q D No Start Date Active Fish Oil 1,000 mg capsule RxNorm: 2 Capsule(s) PO QD No Start Date 08/29/2016 Inactive Metamucil 0.4 gram capsule RxNorm: 1811861 2 Capsule(s) PO BID No S tart Date 02/13/2019 Inactive Vitamin D3 2,000 unit tablet RxNorm: 746187 1 Tablet(s) PO QD No St art Date 03/26/2019 Inactive Lipitor 10 mg tablet RxNorm: 776815 1 Tablet(s) PO QD No Start Date 0 03/15/2017 Inactive Crestor 5 mg tablet RxNorm: 802583 1 Tablet(s) PO Tues, Thurs, Sat and Sun and 1/2 tablet (2.5mg) on Mon, Wed and Fri No Start Date 03/04/2019 Inactive Calcium with Vitamin D 600 mg (1,500 mg)-400 unit tablet RxN orm: 013617 1 Tablet(s) PO QD No Start Date 03/01/2018 Inactive krill oil 1,000 mg-170 mg-50 mg-80 mg capsule RxNorm: 1 Capsule(s) PO BID No Start Date 08/14/2019 Inactive Co Q-10 200 mg capsule RxNorm: 025184 1 Capsule(s) PO QD No Start D ate 03/01/2018 Inactive Co Q-10 oral RxNorm: 21746 oral No Start Date 07/24/2017 Inactive oxycodone-acetaminophen 5 mg-325 mg tablet RxNorm: 3694739 1 Tab let(s) PO Q6H No Start Date 08/29/2016 Inactive Krill Oil (Latexo 3 and 6) oral RxNorm: 40623 oral No Start Date 02/13/2019 Inactive Flexeril 10mg tablet RxNorm: 1 Tablet(s) PO Q8H No Start Date 12/2015 Inactive Vitamin D3 1,000 unit tablet RxNorm: 249131 1 Tablet(s) PO QD No St art Date 03/11/2019 Inactive Medication Administered No Medication Administered data Immunizations Vaccine Codes Date Status Shingrix Unknown 11/20/2019 Zoster Unknown 08/15/2019 Complete Influenza CVX: 141 07/03/2018 Complete Results Observation Observation Code Item Item Code Result Date S ervice Location [facility] 91489 Cholesterol 204 mg/dL 02/13/2020 Unkno wn [facility] 32266 Triglyceride 136 mg/dL 02/13/2020 Unkn own [facility] 85729 HDL CHOLESTEROL 40 mg/dL 02/13/2020 U nknown [facility] 02917 Chol/HDL Ratio 5.10 ratio 02/13/2020 U nknown [facility] 85931 NON-HDL Chol 164 mg/dL 02/13/2020 Unkn own [facility] 27474 LDL Cholesterol 137 mg/dL 02/13/2020 U nknown [facility] 73156 AST 20 U/L 2019 Unknown COMPREHENSIVE METABOLIC 78535 ALT 15 U/L 2019 Unknown [facility] 08161 BUN 11 mg/dL 2019 Unknown [facility] 53869 ALBUMIN 4.3 g/dL 2019 Unknown COMPREHENSIVE MET[facility]OLIC 01323 CHLORIDE 105 mmol/L 02/12 Unknown COMPREHENSIVE [facility]OLIC 31472 Bili Total 0.9 mg/dL 02/12 Unknown COMPREHENSIVE MET[facility]OLIC 44470 ALK PHOS 75 U/L 2019 Unknown [facility]HENS[facility] 64048 SODIUM 142 mmol/L 02/12 Unknown COMPREHENSIVE MET[facility]OLIC 35131 CREATININE 0.67 mg/dL 01/25 Unknown COMPREHENSIVE METABOLIC 32737 CALCIUM 9.3 mg/dL 2019 Unknown COMPREHENSIVE MET[facility]OLIC 91571 POTASSIUM 4.5 mmol/L 02/12 Unknown COMPREHENSIVE MET[facility]OLIC 40706 Total Protein 6.6 g/dL Unknown COM[facility] 79905 Glucose 90 mg/dL 2019 Unknown COMPREHENSIVE METABOLIC 79897 Bicarbonate 28 mmol/L 01/25 Unknown COMPREHENSIVE METABOLIC 46206 AGAP 9 mmol/L 2019 Unknown GFR CALC 8350349 GFR Non Afr Amr >60 mL/min 02/13/2020 Un known GFR CALC 4757583 GFR Afr Amr >60 mL/min 02/13/2020 Unknow n CULTURE, URINE, ROUTINE 395 CULTURE SEE NOTE 1 11/13/2018 [facility] [place] [address] [place] [address] CULTURE, URINE, ROUTINE 395 CULTURE, URINE, ROUTINE SEE NOTE 09/12/2019 [facility] [place] [address] [place] [address] URINALYSIS, COMPLETE 92702 Color YELLOW 08/26 [facility] [place] [address] [place] [address] URINALYSIS, COMPLETE 76381 APPEARANCE CLEAR 08/26 [facility] [place] [address] [place] [address] URINALYSIS, COMPLETE 44867 SPECIFIC GRAVITY 1.003 09/11/2019 [facility] [place] [address] [place] [address] URINALYSIS, COMPLETE 71784 PH 7.0 08/26 [facility] [place] [address] [place] [address] URINALYSIS, COMPLETE 63700 Glucose NEGATIVE 08/26 [facility] [place] [address] [place] [address] URINALYSIS, COMPLETE 65304 BILIRUBIN NEGATIVE 08/26 [facility] [place] [address] [place] [address] URINALYSIS, COMPLETE 24949 Ketones NEGATIVE 08/26 [facility] [place] [address] [place] [address] URINALYSIS, COMPLETE 96104 OCCULT BLOOD NEGATIVE [facility] [address] [place] [address] URINALYSIS, COMPLETE 94687 Protein NEGATIVE 08/26 [facility] [place] [address] URINALYSIS, COMPLETE 26768 LEUKOCYTE ESTERASE NEGATIV E 09/11/[address] [facility] [place] [address] URINALYSIS, COMPLETE 67295 WBC NONE SEEN /HPF 09/11/2019 [facility] [address] URINALYSIS, COMPLETE 54927 RBC NONE SEEN /HPF 09/11/2019 [facility] [place] [address] URINALYSIS, COMPLETE 25744 SQUAMOUS EPITHELIAL CELLS NONE SEEN /HPF 09/11/[address] [facility] [place] [address] URINALYSIS, COMPLETE 34876 TRANSITIONAL EPITHELIAL CELLS DNR /HPF 09/11/2019 [facility] [address] URINALYSIS, COMPLETE 21777 RENAL EPITHELIAL CELLS DNR /HPF 09/11/2019 [facility] [address] URINALYSIS, COMPLETE 02207 BACTERIA NONE SEEN /HPF 09/11/2019 [facility] [address] URINALYSIS, COMPLETE 72899 CALCIUM OXALATE CRYSTALS D NR /HPF 09/11/2019 [facility] [address] [address] URINALYSIS, COMPLETE 27986 TRIPLE PHOSPHATE CRYSTALS DNR /HPF 09/11/[address] [facility] [address] URINALYSIS, COMPLETE 01436 URIC ACID CRYSTALS DNR /HP F 09/11/2019 [facility] [address] [address] URINALYSIS, COMPLETE 62171 AMORPHOUS SEDIMENT DNR /HP F 09/11/2019 [facility] [address] [place] [address] URINALYSIS, COMPLETE 29261 CRYSTALS DNR /HPF 08/26 [facility] [address] URINALYSIS, COMPLETE 04955 HYALINE CAST NONE SEEN /LP F 09/11/2019 [facility] [address] [place] [address] URINALYSIS, COMPLETE 31974 GRANULAR CAST DNR /LPF 1 11/12/2018 [facility] [place] [address] URINALYSIS, COMPLETE 33383 CASTS DNR /LPF 08/26 [facility] [place] [address] URINALYSIS, COMPLETE 74544 YEAST DNR /HPF 08/26 [facility] [place] [address] URINALYSIS, COMPLETE 95356 COMMENTS DNR 08/26 [facility] [place] [address] URINALYSIS, COMPLETE 48864 NOTE DNR 08/26 [facility] [place] [address] URINALYSIS, COMPLETE 09587 NITRITE NEGATIVE 08/26 [facility] [place] [address] [place] [facility] [address] CULTURE, URINE, ROUTINE 395 CULTURE, URINE, ROUTINE SEE NOTE 08/16/2019 [facility] [place] [address] [place] [address] EXTRA LAVENDER-TOP TUBE XLKS EXTRA LAVENDER-TOP TUBE 08/10/2019 [facility] [place] [address] EXTRA LAVENDER-TOP TUBE XLKS COMMENT 1 10/10/2018 [facility] [place] [address] LIPID PANEL 43815 CHOLESTEROL, TOTAL 180 mg/dL 08/10 [facility] [place] [address] LIPID PANEL 28109 HDL CHOLESTEROL 35 mg/dL 08/10/20 19 [facility] [place] [address] [place] [address] LIPID PANEL 97803 TRIGLYCERIDES 200 mg/dL 08/10/2019 [facility] [place] Erin [place] [address] [place] [address] LIPID PANEL 91746 LDL-CHOLESTEROL 113 mg/dL(calc) [facility] [address] [address] LIPID PANEL 44105 CHOL/HDLC RATIO 5.1 (calc) 08/10/20 Mary [place] Erin [address] [address] LIPID PANEL 10432 NON HDL CHOLESTEROL 145 mg/dL(calc) 08/10/2019 [facility] [address] [address] COMPREHENSIVE METABOLIC PANEL 96664 Glucose 86 mg/ dL 08/10/2019 [facility] [address] [address] COMPREHENSIVE METABOLIC PANEL 09445 UREA NITROGEN (BUN) 11 mg/dL 08/10/2019 [facility] [place] [address] [place] [address] COMPREHENSIVE METABOLIC PANEL 82054 CREATININE 0.71 m g/dL 08/10/2019 Mary Jane Khan [address] [address] COMPREHENSIVE METABOLIC PANEL 89730 eGFR NON-AFR. GEORGIAN 90 mL/min/1.73m2 08/10/[address] [facility] [address] COMPREHENSIVE METABOLIC PANEL 38151 eGFR 104 mL/min/1.73m2 08/10/2019 [facility] [place] [address] [place] [address] COMPREHENSIVE METABOLIC PANEL 05745 BUN/CREATININE RATIO NOT APPLICABLE (calc) 08/10/2019 [facility] [place] [address] [place] [address] COMPREHENSIVE METABOLIC PANEL 68746 SODIUM 140 mm ol/L 08/10/2019 [facility] [place] [address] [place] [address] COMPREHENSIVE METABOLIC PANEL 49775 POTASSIUM 4.2 mm ol/L 08/10/2019 [facility] [place] [address] [place] [address] COMPREHENSIVE METABOLIC PANEL 72862 CHLORIDE 105 mm ol/L 08/10/2019 [facility] Erin [address] [address] COMPREHENSIVE METABOLIC PANEL 44071 CARBON DIOXIDE 28 mmol/L 08/10/[address] [facility] [address] COMPREHENSIVE METABOLIC PANEL 83192 CALCIUM 9.3 mg /dL 08/10/[address] [facility] [address] COMPREHENSIVE METABOLIC PANEL 76386 PROTEIN, TOTAL 6. 7 g/dL 08/10/2019 [facility] [address] COMPREHENSIVE METABOLIC PANEL 22760 ALBUMIN 4.3 g/ dL 08/10/[address] [facility] [address] COMPREHENSIVE METABOLIC PANEL 49685 GLOBULIN 2.4 g/ dL(calc) 08/10/[address] [facility] [address] COMPREHENSIVE METABOLIC PANEL 15814 ALBUMIN/GLOBULIN RATIO 1.8 (calc) 08/10/2019 [facility] [address] [address] COMPREHENSIVE METABOLIC PANEL 04480 BILIRUBIN, TOTAL 0.6 mg/dL 08/10/[address] [facility] [address] COMPREHENSIVE METABOLIC PANEL 78215 ALKALINE PHOSPHATASE 74 U/L 08/10/[address] [facility] [address] COMPREHENSIVE METABOLIC PANEL 81847 AST 21 U/L 08/10/[address] [facility] [address] COMPREHENSIVE METABOLIC PANEL 85887 ALT 15 U/L 08/10/[address] [facility] [address] COMPREHENSIVE METABOLIC 80448 AST 18 U/L 2018 Unknown COMPREHENSIVE METABOLIC 30848 ALT 12 U/L 2018 Unknown COMPREHENSIVE METABOLIC 75920 BUN 11 mg/dL 2018 Unknown COMPREHENSIVE METABOLIC 28412 ALBUMIN 4.6 g/dL 2018 Unknown COMPREHENSIVE METABOLIC 48456 CHLORIDE 106 mmol/L 02/14 Unknown COMPREHENSIVE METABOLIC 93408 Bili Total 0.9 mg/dL 02/14 Unknown COMPREHENSIVE METABOLIC 48744 ALK PHOS 76 U/L 2018 Unknown COMPREHENSIVE METABOLIC 45043 SODIUM 142 mmol/L 02/14 Unknown COMPREHENSIVE METABOLIC 06520 CREATININE 0.69 mg/dL 01/25 Unknown COMPREHENSIVE METABOLIC 22509 CALCIUM 9.5 mg/dL 2018 Unknown COMPREHENSIVE METABOLIC 23564 POTASSIUM 3.9 mmol/L 02/14 Unknown COMPREHENSIVE METABOLIC 61994 Total Protein 6.6 g/dL Unknown COMPREHENSIVE METABOLIC 17868 Glucose 86 mg/dL 2018 Unknown COMPREHENSIVE METABOLIC 05403 Bicarbonate 29 mmol/L 01/25 Unknown COMPREHENSIVE METABOLIC 78484 AGAP 7 mmol/L 2018 Unknown GFR CALC 4794812 GFR Non Afr Amr >60 mL/min 02/14/2019 Un known GFR CALC 9517046 GFR Afr Amr >60 mL/min 02/14/2019 Unknow n [facility] 94879 Cholesterol 127 mg/dL 02/14/2019 Unkno wn [facility] 46429 Triglyceride 156 mg/dL 02/14/2019 Unkn own [facility] 33840 HDL CHOLESTEROL 45 mg/dL 02/14/2019 U nknown [facility] 11606 Chol/HDL Ratio 2.82 ratio 02/14/2019 U nknown [facility] 50417 NON-HDL Chol 82 mg/dL 02/14/2019 Unkn own [facility] 19400 LDL Cholesterol 51 mg/dL 02/14/2019 U nknown COMPREHENSIVE METABOLIC PANEL 25337 Glucose 88 mg/ dL 08/16/2018 [facility] [place] [address] [place] [address] COMPREHENSIVE METABOLIC PANEL 89009 UREA NITROGEN (BUN) 11 mg/dL 08/16/2018 [facility] [place] [address] [place] [address] COMPREHENSIVE METABOLIC PANEL 82163 CREATININE 0.70 m g/dL 08/16/2018 [facility] [place] [address] [place] [address] COMPREHENSIVE METABOLIC PANEL 98769 eGFR NON-AFR. GEORGIAN 92 mL/min/1.73m2 08/16/2018 [facility] [place] [address] [place] [address] COMPREHENSIVE METABOLIC PANEL 29904 eGFR 107 mL/min/1.73m2 08/16/2018 [facility] [place] [address] [place] [address] COMPREHENSIVE METABOLIC PANEL 73692 BUN/CREATININE RATIO NOT APPLICABLE (calc) 08/16/2018 [facility] [place] [address] [place] [address] COMPREHENSIVE METABOLIC PANEL 93825 SODIUM 140 mm ol/L 08/16/2018 [facility] [address] [address] COMPREHENSIVE METABOLIC PANEL 41477 POTASSIUM 4.0 mm ol/L 08/16/2018 [facility] [address] [address] COMPREHENSIVE METABOLIC PANEL 39175 CHLORIDE 104 mm ol/L 08/16/2018 [facility] [address] [address] COMPREHENSIVE METABOLIC PANEL 66283 CARBON DIOXIDE 29 mmol/L 08/16/2018 [facility] [address] [address] COMPREHENSIVE METABOLIC PANEL 54001 CALCIUM 9.4 mg /dL 08/16/2018 [facility] [address] [address] COMPREHENSIVE METABOLIC PANEL 59650 PROTEIN, TOTAL 6. 7 g/dL 08/16/2018 [facility] [address] [address] COMPREHENSIVE METABOLIC PANEL 97674 ALBUMIN 4.4 g/ dL 08/16/2018 [facility] [address] [address] COMPREHENSIVE METABOLIC PANEL 93241 GLOBULIN 2.3 g/ dL(calc) 08/16/2018 [facility] [address] [address] COMPREHENSIVE METABOLIC PANEL 51586 ALBUMIN/GLOBULIN RATIO 1.9 (calc) 08/16/2018 [facility] [address] [address] COMPREHENSIVE METABOLIC PANEL 79791 BILIRUBIN, TOTAL 0.8 mg/dL 08/16/2018 [facility] [address] [address] COMPREHENSIVE METABOLIC PANEL 67188 ALKALINE PHOSPHATASE 72 U/L 08/16/2018 [facility] [address] [address] COMPREHENSIVE METABOLIC PANEL 72625 AST 19 U/L 08/16/2018 [facility] [address] [address] COMPREHENSIVE METABOLIC PANEL 50157 ALT 12 U/L 08/16/2018 [facility] [address] [address] LIPID PANEL 78927 CHOLESTEROL, TOTAL 228 mg/dL 08/16 [facility] [address] [place] [address] LIPID PANEL 43909 HDL CHOLESTEROL 42 mg/dL 08/16/20 18 [facility] [address] [place] [address] LIPID PANEL 98980 TRIGLYCERIDES 175 mg/dL 08/16/2018 [facility] [address] [place] [address] LIPID PANEL 44498 LDL-CHOLESTEROL 155 mg/dL(calc) [facility] [address] [place] [address] LIPID PANEL 21484 CHOL/HDLC RATIO 5.4 (calc) 08/16/20 18 [facility] [address] [place] [address] LIPID PANEL 91438 NON HDL CHOLESTEROL 186 mg/dL(calc) 08/16/[address] [facility] [address] EXTRA LAVENDER-TOP TUBE XLKS EXTRA LAVENDER-TOP TUBE 08/16/2018 [facility] [address] [place] [address] EXTRA LAVENDER-TOP TUBE XLKS COMMENT 1 10/16/[address] [facility] [address] Procedures Procedure Codes Date ROUTINE VENIPUNCTURE CPT-4: 68421 02/13/2020 COMPREHEN METABOLIC PANEL CPT-4: 44843 02/13/2020 LIPID PANEL CPT-4: 10558 02/13/2020 COMPLETE CBC W/AUTO DIFF WBC CPT-4: 81144 02/13/2020 ASSAY THYROID STIM HORMONE CPT-4: 21691 02/13/2020 ASSAY OF FREE THYROXINE CPT-4: 00180 02/13/2020 URINALYSIS, COMPLETE CPT-4: 69529 09/10/2019 CULTURE, URINE, ROUTINE CPT-4: 395 09/10/2019 URINALYSIS NONAUTO W/O SCOPE CPT-4: 37136 08/27/2019 CULTURE, URINE, ROUTINE CPT-4: 395 08/15/2019 URINALYSIS NONAUTO W/O SCOPE CPT-4: 42502 08/15/2019 SHINGRIX HZV VACC RECOMBINANT IM CPT-4: 07129 019 IMMUNIZATION ADMIN CPT-4: 46566 08/15/2019 COMPREHENSIVE METABOLIC PANEL CPT-4: 78354 08/09/2019 LIPID PANEL CPT-4: 43655 08/09/2019 ROUTINE VENIPUNCTURE CPT-4: 48721 08/09/2019 EXTRA LAVENDER-TOP TUBE CPT-4: XLKS 08/09/2019 ROUTINE VENIPUNCTURE CPT-4: 91308 02/14/2019 COMPREHEN METABOLIC PANEL CPT-4: 19778 02/14/2019 LIPID PANEL CPT-4: 33529 02/14/2019 ROUTINE VENIPUNCTURE CPT-4: 37801 08/15/2018 COMPREHENSIVE METABOLIC PANEL CPT-4: 65720 08/15/2018 EXTRA LAVENDER-TOP TUBE CPT-4: XLKS 08/15/2018 LIPID PANEL CPT-4: 72174 08/15/2018 IIV4 VACCINE 3 YRS+ IM AND UP CPT-4: 52874 07/03/2018 IMMUNIZATION ADMIN CPT-4: 43476 07/03/2018 SPECIMEN HANDLING OFFICE-LAB CPT-4: 60443 03/02/2018 OCCULT BLOOD FECES CPT-4: 08108 03/02/2018 THER/PROPH/DIAG INJ SC/IM CPT-4: 46283 11/03/2017 TRIAMCINOLONE ACET INJ NOS CPT-4: J3301 11/03/2017 INFLUENZA ASSAY W/OPTIC CPT-4: 68125 10/27/2017 THER/PROPH/DIAG INJ SC/IM CPT-4: 55377 10/27/2017 TRIAMCINOLONE ACET INJ NOS CPT-4: J3301 10/27/2017 THER/PROPH/DIAG INJ SC/IM CPT-4: 24793 04/23/2016 TRIAMCINOLONE ACET INJ NOS CPT-4: J3301 04/23/2016 DEXAMETHASONE SODIUM PHOS CPT-4: J1100 04/23/2016 Vital Signs Date Vital 08/27/2019 Blood Pressure 1: 128/80 Code: 8480-6 Heart Rate 1: 72 bpm Respiratory Rate: 18 bpm SpO2: 98% Temperature: 36.8 (C) / 98.2 (F) 08/15/2019 Blood Pressure 1: 128/74 Code: 8480-6 Heart Rate 1: 80 bpm Respiratory Rate: 16 bpm SpO2: 97% Temperature: 36.8 (C) / 98.2 (F) We ight: 162 lbs 02/14/2019 Blood Pressure 1: 126/70 Code: 8480-6 BMI: 26.7 Code: 06163-2 Heart Rate 1: 68 bpm Height: 5'6" Respiratory Rate: 18 bpm SpO2: 97% Tempera ture: 36.6 (C) / 97.9 (F) Weight: 168 lbs 08/15/2018 Blood Pressure 1: 122/78 Code: 8480-6 BMI: 25.9 Code: 28066-5 Heart Rate 1: 72 bpm Height: 5'6" Respiratory Rate: 20 bpm SpO2: 97% Tempera ture: 36.7 (C) / 98.0 (F) Weight: 163 lbs 03/02/2018 Blood Pressure 1: 126/74 Code: 8480-6 BMI: 26.1 Code: 32389-4 Heart Rate 1: 76 bpm Height: 5'6" Respiratory Rate: 20 bpm SpO2: 98% Tempera ture: 36.6 (C) / 97.8 (F) Weight: 164 lbs 11/03/2017 Blood Pressure 1: 124/82 Code: 8480-6 BMI: 25.3 Code: 99552-4 Heart Rate 1: 90 bpm Height: 5'6" Respiratory Rate: 22 bpm SpO2: 98% Tempera ture: 36.9 (C) / 98.4 (F) Weight: 159 lbs 10/27/2017 Blood Pressure 1: 122/84 Code: 8480-6 BMI: 25.6 Code: 88046-3 Heart Rate 1: 90 bpm Height: 5'6" Respiratory Rate: 22 bpm SpO2: 97% Tempera ture: 36.1 (C) / 97.0 (F) Weight: 161 lbs 08/11/2017 Blood Pressure 1: 132/76 Code: 8480-6 BMI: 26.4 Code: 42605-9 Heart Rate 1: 72 bpm Height: 5'6" Respiratory Rate: 20 bpm Temperature: 36 .6 (C) / 97.8 (F) Weight: 166 lbs 05/23/2017 Blood Pressure 1: 126/72 Code: 8480-6 BMI: 26.1 Code: 30759-9 Heart Rate 1: 72 bpm Height: 5'6" Respiratory Rate: 20 bpm SpO2: 98% Tempera ture: 37.1 (C) / 98.8 (F) Weight: 164 lbs 03/10/2017 Blood Pressure 1: 124/72 Code: 8480-6 BMI: 26.1 Code: 94718-9 Heart Rate 1: 92 bpm Height: 5'6" Respiratory Rate: 20 bpm SpO2: 97% Tempera ture: 37.2 (C) / 98.9 (F) Weight: 164 lbs 08/30/2016 Blood Pressure 1: 142/82 Code: 8480-6 BMI: 25.6 Code: 64554-5 Heart Rate 1: 72 bpm Height: 5'6" Respiratory Rate: 20 bpm Temperature: 36 .6 (C) / 97.9 (F) Weight: 161 lbs 06/01/2016 Blood Pressure 1: 156/88 Code: 8480-6 BMI: 26.4 Code: 12093-8 Heart Rate 1: 70 bpm Height: 5'6" Respiratory Rate: 18 bpm SpO2: 97% Tempera ture: 36.6 (C) / 97.8 (F) Weight: 166 lbs 04/30/2016 Blood Pressure 1: 122/70 Code: 8480-6 Heart Rate 1: 10 2 bpm Height: Respiratory Rate: 24 bpm SpO2: 95% Temperature: 36.4 (C) / 97.6 (F) We ight: 04/23/2016 Blood Pressure 1: 152/76 Code: 8480-6 BMI: 26.5 Code: 48950-1 Heart Rate 1: 106 bpm Height: 5'7" Respiratory Rate: 24 bpm SpO2: 96% Tempera ture: 36.8 (C) / 98.2 (F) Weight: 169 lbs 04/08/2016 Blood Pressure 1: 116/68 Code: 8480-6 BMI: 27.4 Code: 90907-1 Heart Rate 1: 76 bpm Height: 5'6" Respiratory Rate: 20 bpm Temperature: 36 .7 (C) / 98.1 (F) Weight: 170 lbs Functional Status No Functional Status data Reason For Visit Reason For Visit Effective Dates Notes follow up 08/27/2019 hyperlipidemia 08/15/2019 Patient had [...] visit Encounters Encounter Performer Location Codes Date ([id number]) NURSE/OUTPATIENT VISIT EST Diagnosis: Essential (primary) hypertension[ICD10: I10] Diagnosis: Mixed hyperlipidemia[ICD10: E78.2] Diagnosis: Encounter for general adult medical examination without abnormal findings[ICD10: Z00.00] Chio De Leónbeckyirene MORTENSEN Ara LabsHugo Quat-E CPT-4: 53277 02/13/2020 ([id number]) NURSE/OUTPATIENT VISIT EST Diagnosis: Hematuria[ICD10: R31.9] Chio Mancini NoFlo CPT-4: 03679 09/10/2019 ([id number]) OFFICE/OUTPATIENT VISIT EST Diagnosis: Hematuria[ICD10: R31.9] Chio MICHAEL Qik CPT-4: 95128 08/27/2019 ([id number]) PREV VISIT EST AGE 40-64 Diagnosis: Urinary tract infection[ICD10: N39.0] Diagnosis: Encounter for general adult medical examination without abnormal findings[ICD10: Z00.00] Diagnosis: Essential (primary) hypertension[ICD10: I10] Diagnosis: Mixed hyperlipidemia[ICD10: E78.2] Diagnosis: VACCIN FOR DISEASE NEC (HPV or Zostavax)[ICD10: Z23] Chioradha Mancini Quat-E CPT-4: 03511 08/15/2019 ([id number]) NURSE/OUTPATIENT VISIT EST Diagnosis: Mixed hyperlipidemia[ICD10: E78.2] Diagnosis: Essential (primary) hypertension[ICD10: I10] Chio POST DO [facility] CPT-4: 50641 08/09/2019 ([id number]) OFFICE/OUTPATIENT VISIT EST Diagnosis: Mixed hyperlipidemia[ICD10: E78.2] Diagnosis: Other specified counseling[ICD10: Z71.89] Chio POST DO [facility] CPT-4: 05285 02/14/2019 ([id number]) OFFICE/OUTPATIENT VISIT EST Diagnosis: Mixed hyperlipidemia[ICD10: E78.2] Chio BALLARD SHugo POST DO [facility] CPT-4: 80871 08/15/2018 ([id number]) NURSE/OUTPATIENT VISIT EST Diagnosis: FLU VACCINE[ICD10: Z23] Chio BONILLA DO [facility] CPT-4: 12523 07/03/2018 ([id number]) PREV VISIT EST AGE 40-64 Diagnosis: Encounter for general adult medical examination without abnormal findings[ICD10: Z00.00] Diagnosis: Encounter for gynecological examination (general) (routine) without abnormal findings[ICD10: Z01.419] Chio Holder [facility] CPT-4: 62265 03/02/2018 OFFICE/OUTPATIENT VISIT EST Diagnosis: Pneumonia, unspecified organism[ICD10: J18.9] Shaniqua POST DO [facility] CPT-4: 87488 11/03/2017 OFFICE/OUTPATIENT VISIT EST Diagnosis: Influenza due to other identified influenza virus with other respiratory manifestations[ICD10: J10.1] Diagnosis: Acute bronchitis, unspecified[ICD10: J20.9] Shaniqua POST DO [facility] CPT-4: 46260 10/27/2017 ([id number]) OFFICE/OUTPATIENT VISIT EST Diagnosis: Mixed hyperlipidemia[ICD10: E78.2] Chio BALLARD SHugo POST DO [facility] CPT-4: 92829 08/11/2017 ([id number]) PREV VISIT EST AGE 40-64 Diagnosis: Encounter for general adult medical examination without abnormal findings[ICD10: Z00.00] Diagnosis: Mixed hyperlipidemia[ICD10: E78.2] Chio PLUMMER NELLIE DE LEÓNNDIRENE CHOW [facility] CPT-4: 89688 05/23/2017 ([id number]) OFFICE/OUTPATIENT VISIT EST Diagnosis: Essential (primary) hypertension[ICD10: I10] Diagnosis: Mixed hyperlipidemia[ICD10: E78.2] Chio Sejal DE LEÓNNDIRENE [facility] CPT-4: 12710 03/10/2017 ([id number]) OFFICE/OUTPATIENT VISIT EST Diagnosis: Mixed hyperlipidemia[ICD10: E78.2] Diagnosis: Essential (primary) hypertension[ICD10: I10] Chio Sejal POST [facility] CPT-4: 52736 08/30/2016 ([id number]) OFFICE/OUTPATIENT VISIT EST Diagnosis: Mixed hyperlipidemia[ICD10: E78.2] Ale CHAVEZJOSE M BALLARD Addis DE LEÓNNDIRENE [facility] CPT-4: 41527 06/01/2016 ([id number]) OFFICE/OUTPATIENT VISIT EST Diagnosis: Strain of muscle, fascia and tendon of lower back, subsequent encounter[ICD10: S39.012D] Diagnosis: Sciatica, left side[ICD10: M54.32] Ale Becerra KAVITHA NELLIE Servin. MARIONDIRENE [facility] CPT-4: 60274 04/30/2016 ([id number]) OFFICE/OUTPATIENT VISIT EST Diagnosis: Strain of muscle, fascia and tendon of lower back, initial encounter[ICD10: S39.012A] Diagnosis: Sciatica, left side[ICD10: M54.32] Ale Becerra KAVITHA NELLIE Servin. MARIONDIRENE [facility] CPT-4: 44821 04/23/2016 ([id number]) PREV VISIT NEW AGE 40-64 Diagnosis: Encounter for general adult medical examination without abnormal findings[ICD10: Z00.00] Diagnosis: Plantar fascial fibromatosis[ICD10: M72.2] Chio MORTENSEN MalathiHugo SEJAL [facility] CPT-4: 98737 04/08/2016 Plan of Care Planned Activity Notes Codes Status Date Appointment: Chio Post WPtel: [phone] [facility] [id number] [facility] 09/10/2019 Visit Diagnosis Plan: Hematuria Discussion: Hold crest or No NSAIDs Push fluids/water Recheck urine microscopy in 2weeks and if still with microscopic blood then will need urology eval and cystoscope ICD-9 : 599.70 ICD-10 : R31.9 08/27/2019 Appointment: Chio Post WPtel: [address] [place], [place] [phone] ACUTE ILLNESS 08/27/2019 Visit Diagnosis Plan: Encounter for [facility] adult medical examination without abnormal [...] : E78.2 08/15/2019 Appointment: Chio Post WPtel: [address] [place], [place] [phone] [place] confirmed 08/09/19-- does not need reminder call Annual Well Visit 08/15/2019 Appointment: Chio Post WPtel: [address] [place], [place] [phone] 08/15/19 1330---added to office visit with Dr kwon () CANCELED 08/15/2019 Appointment: Chio Post WPtel: [address] [place], [place] [phone] [place] LAB 08/09/2019 Visit Diagnosis Plan: Mixed [...] : Z71.89 02/14/2019 Appointment: Chio Post WPtel: [address] [place] [address] FOLLOW UP 02/14/2019 Visit Diagnosis Plan: Mixed hyperlipidemia Discussion: Check CMP, Lipids Recommend Shingrix Had flu shot ICD-9 : 272.2 ICD-10 : E78.2 08/15/2018 Appointment: Chio Post WPtel: [address] [place] [address] FOLLOW UP 08/15/2018 Appointment: Chio Post WPtel: [address] [place] [address] [place] INJECTION 07/03/2018 Patient Education: Patient Medication Summary Completed 07/03/2018 Visit Diagnosis Plan: Encounter for gene ral adult medical examination without abnormal findings Discussion[facility] Recommend Shingrix ICD-9 : V70.9 ICD-10 : Z00.00 03/02/2018 Visit Diagnosis Plan: Encounter for gyne cological examination (general) (routine) without abnormal findings Discussion: Pap done Mammogram ordered ICD-9 : V72.31 ICD-10 : Z01.419 03/02/2018 Appointment: Chio Posttel: [address] [place] [address] Annual Well Visit 03/02/2018 Patient Education: Patient Medication Summary Completed 03/02/2018 Appointment: Chio Posttel: [address] [place] [address] RESCHEDULED 02/08/2018 Visit Diagnosis Plan: Pneumonia, unspecified [...] ICD-10 : J18.9 11/03/2017 Appointment: Shaniqua Ruiz [address] [place], [place] [phone] ACUTE ILLNESS 11/03/2017 Patient Education: Patient Medication [...] ICD-10 : J10.1 10/27/2017 Appointment: Shaniqua Ruiz [address] ACUTE ILLNESS 10/27/2017 Patient Education: Patient Medication Summary Completed 10/27/2017 Visit Diagnosis Plan: Mixed hyperlipidemia Discussion: Hold on statins due to side effects Lifestyle tacking stitch remover next 6mos then check CMP, Lipids and fwup ICD-9 : 272.2 ICD-10 : E78.2 08/11/2017 Appointment: Chio Post WPtel: [address] [place], [place] [phone] MEDICATION REVIEW 08/11/2017 Patient Education: Patient Medication Summary Completed 08/11/2017 Visit Diagnosis Plan: Mixed hyperlipidemia Discussion: Continue lipitor and check lipids with LFTs next month ICD-9 : 272.2 ICD-10 : E78.2 05/23/2017 Visit Diagnosis Plan: Encounter for gene [facility] adult medical examination without abnormal findings Discussion: Will update lab next month D efers mammogram until next year--normal mammogram last year Pap due next year Tdap 3 yrs ago Colonoscopy up to date Discussed zostavax--will check on coverage ICD-9 : V70.9 ICD-10 : Z00.00 05/23/2017 Appointment: Chio Post WPtel: [address] [place], [place] [phone] Annual Well Visit 05/23/2017 Patient Education: Patient Medication Summary Completed 05/23/2017 Visit Diagnosis Plan: Mixed hyperlipidemia Discussion: Check CMP, Lipids ICD-9 : 272.2 ICD-10 : E78.2 03/10/2017 Visit Diagnosis Plan: Essential (primary) hypertension Follow Up: 6 months ICD-9 : 401.9 ICD-10 : I10 03/10/2017 Appointment: Chio Post WPtel: [address] [place], [place] [phone] 03/09 confimed ~sl CHECK UP 03/10/2017 Patient Education: Patient Medication Summary Completed 03/10/2017 Appointment: Chio Post WPtel: [address] [place], [place] [phone] 02/03 rescheduled ~sl RESCHEDULED 02/28/2017 Visit Plan: Lab discussed Continue lifes tyle modification Check full fasting lab in 6mos Monitor BP 1-2 times a week at home Discussed adding weights or yoga/sriram chi 3 times a week 08/30/2016 Appointment: Chio Post WPtel: [address] [place], [place] [phone] [place] 08/26 lm`sl...confirmed~lb FOLLOW UP 08/30 Patient Education: Patient Medication Summary Completed 08/30/2016 Patient Education: Patient Medication Summary Completed 08/26/2016 Care Plan: COMPREHEN METABOLIC PANEL NINFA NC : 97353-8 Pending 08/26/2016 Care Plan: LIPID PANEL LOINC : 41783-1 Pending 08/26/2016 Visit Plan: Patient is very anxious abou t going back on any medication for her lipids right now Stressed diet and exercise changes she can try Continue higher dose of fish oil she is now taking Can recheck lipids and cmp in 3 months If not much better, will need rx started - discussed trying fenofibrate possibly 06/01/2016 Appointment: Ale Becerra [address] [place], [place] [phone] [place] 05/27 confirmed ~sl FOLLOW UP 06/01/2016 Patient [...] MRI if negative) 04/30/2016 Appointment: Ale Becerra [address] [phone] FOLLOW UP 04/30/2016 Patient Education: Patient Medication Summary Completed 04/30/2016 Visit Plan: Steroid injection given toda y Muscle relaxer as well Continue daily meloxicam Start weaning back on oxycodone Can replace oxycodone dosing with otc tylenol Advised topical pain relievers, heat/ice, etc If oxycodone runs completely out and patient still needs some, can call for refill to supervisor opening and picking or could consider replacing with tramadol 04/23/2016 Appointment: Ale Becerra [address] [place], [place] [phone] ER Follow UP 04/23/2016 Patient Education: Patient Medication Summary Completed 04/23/2016 Visit Plan: Continue inserts and stretch es for plantar fascia Add Vivlodex Return in 2-3 weeks for injection if pain persists Check Fasting Lab Update Mammogram 04/08/2016 Appointment: Chio Post WPtel: [address] [place], [place] [phone] 04/07 confirmed ~sl NEW PATIENT 04/08/2016 Patient Education: Patient Medication Summary Completed 04/08/2016 Patient Education: [facility] - Saving AutoInj - 18-64 - Dynamic [...] 3 days of zorvolex samples given - hol d meloxicam - if working well, can [...] needs some, can call for refill to supervisor opening and picking or could consider replacing with tramadol . [...]
--- OUTSIDE RECORDS SUMMARY | 2020-02-26 21:10 | XMS REPORT | CCD ---
Author Author Carola Post D.O. Organization [facility] Address [address] [place] [address] Phone Care Team Providers Care Editor Producer Name Role Phone Chio Post D.O. PP Unavailable CCM Unavailable Summary Purpose Interface Exchange Insurance Providers Payer name Policy type / Coverage type Covered republican ID Effective Begin Date Effective End Date WPS MEDICARE PART B [place] Medicare Part B [id number] Unknown [place] Medicare Part B [id number] 2019 100 Unknown Family history Grandfather Diagnosis Age At Onset Cancer Unknown Social History Social History Element Codes Description Effective Dates Marital status Unknown 04/08/2016 Number of children Unknown 3 04/08/2016 Employment Unknown Currently employed [employer] 249 04/08/[address]: 512669682 Has never smoked or chewed tobacco 04/08/[address]: 020285 Currently drinks alcohol 04/08 Frequency of drinks SNOMED CT: 307335308 Drinks rarely 016 Has the patient ever [...] Fill Instructions Livalo 1 mg tablet RxNorm: 761392 1 Tablet(s) Oral QD 12/03/2019 070 02/2020 Active Aleve 220 mg tablet RxNorm: 834787 Tablet(s) Oral as needed 019 No Stop Date Active Fish Oil 360 mg-1,200 mg capsule RxNorm: 1 Capsule(s) Or al two times a day 08/15/2019 No Stop Date Active Macrobid 100 mg capsule RxNorm: 599397 1 Capsule(s) Oral two ti mes a day 08/15/2019 08/22/2019 Inactive Crestor 5 mg tablet RxNorm: 005210 1/2 Tablet(s) PO twice a week 02/10/2020 Inactive Crestor 5 mg tablet RxNorm: 788361 1 Tablet(s) PO Tues, Thurs, Sat and Sun and 1/2 tablet (2.5mg) on Mon, Wed and Tue03/05/2019 03/11/2019 Inactive Crestor 5 mg tablet RxNorm: 810971 1 Tablet(s) PO QD 02/07/201903/05 Inactive Crestor 5 mg tablet RxNorm: 015304 1 Tablet(s) PO QD re check labwork in 6 months 08/21/2018 08/20/2018 Inactive Crestor 5 mg tablet RxNorm: 395111 1 Tablet(s) PO QD re check labwork in 6 months 08/21/2018 02/06/2019 Inactive Ventolin HFA 90 mcg/actuation aerosol inhaler RxNorm: 893354 2 Puff(s) INH Q4H as needed 11/03/2017 03/01/2018 Inactive please switch to proair if ventolin is not covered. thanks! Levaquin 500 mg tablet RxNorm: 360017 1 Tablet(s) PO QD 11/03/2017 Inactive Zithromax Z-Talat 250 mg tablet RxNorm: 925892 Tablet(s) PO 10/27/2017 03/01/2018 Inactive Lipitor 10 mg tablet RxNorm: 360557 1 TABLET(S) PO QD REPLACES PRAVASTATIN 06/08/2017 08/10/2017 Inactive Lipitor 10 mg tablet RxNorm: 845197 1 Tablet(s) PO QD replaces Pravastatin 03/16/2017 06/07/2017 Inactive pravastatin 10 mg tablet RxNorm: 320144 1 Tablet(s) PO QD 03/15/2017 03/14/2017 Inactive pravastatin 10 mg tablet RxNorm: 699790 1 Tablet(s) PO QD 03/15/2017 03/15/2017 Inactive Zorvolex 35 mg capsule RxNorm: 5145008 1 Capsule(s) PO TID HOLD MELOXICAM 05/03/2016 06/01/2016 Inactive Zorvolex 35 mg capsule RxNorm: 6897562 1 Capsule(s) PO TID HOLD MELOXICAM 04/30/2016 05/02/2016 Inactive prednisone 20 mg tablet RxNorm: 217172 1 Tablet(s) PO B ID and then decrease to 1 tab PO QD x 5 days 04/30/2016 05/04/2016 Inactive cyclobenzaprine 10 mg tablet RxNorm: 951452 1 Tablet(s) PO TID as needed for muscle spasm 04/23/2016 08/29/2016 Inactive pravastatin 20 mg tablet RxNorm: 995292 1 Tablet(s) PO QD 04/14/2016 08/29/2016 Inactive Vivlodex 10 mg capsule RxNorm: 3334807 1 Capsule(s) PO QD 04/08/2016 05/07/2016 Inactive Co Q-10 300 mg capsule RxNorm: 558694 1 Capsule(s) PO QD No Start Date Active Vitamin D3 5,000 unit tablet RxNorm: 111360 1 Tablet(s) PO QD No Star t Date Active melatonin 5 mg tablet RxNorm: 149596 1 Tablet(s) PO QHS as needed N o Start Date Active Multivitamin & Mineral Formula tablet RxNorm: 1 Tablet(s) PO Q D No Start Date Active Fish Oil 1,000 mg capsule RxNorm: 2 Capsule(s) PO QD No Start Date 08/29/2016 Inactive Metamucil 0.4 gram capsule RxNorm: 0056442 2 Capsule(s) PO BID No S tart Date 02/13/2019 Inactive Vitamin D3 2,000 unit tablet RxNorm: 614968 1 Tablet(s) PO QD No St art Date 03/26/2019 Inactive Lipitor 10 mg tablet RxNorm: 682310 1 Tablet(s) PO QD No Start Date 0 03/15/2017 Inactive Crestor 5 mg tablet RxNorm: 644879 1 Tablet(s) PO Tues, Thurs, Sat and Sun and 1/2 tablet (2.5mg) on Mon, Wed and Fri No Start Date 03/04/2019 Inactive Calcium with Vitamin D 600 mg (1,500 mg)-400 unit tablet RxN orm: 048661 1 Tablet(s) PO QD No Start Date 03/01/2018 Inactive krill oil 1,000 mg-170 mg-50 mg-80 mg capsule RxNorm: 1 Capsule(s) PO BID No Start Date 08/14/2019 Inactive Co Q-10 200 mg capsule RxNorm: 210616 1 Capsule(s) PO QD No Start D ate 03/01/2018 Inactive Co Q-10 oral RxNorm: 85807 oral No Start Date 07/24/2017 Inactive oxycodone-acetaminophen 5 mg-325 mg tablet RxNorm: 4884437 1 Tab let(s) PO Q6H No Start Date 08/29/2016 Inactive Krill Oil ([place] 3 and 6) oral RxNorm: 52395 oral No Start Date 02/13/2019 Inactive Flexeril 10mg tablet RxNorm: 1 Tablet(s) PO Q8H No Start Date 12/2015 Inactive Vitamin D3 1,000 unit tablet RxNorm: 396992 1 Tablet(s) PO QD No St art Date 03/11/2019 Inactive Medication Administered No Medication Administered data Immunizations Vaccine Codes Date Status Shingrix Unknown 11/20/2019 Zoster Unknown 08/15/2019 Complete Influenza CVX: 141 07/03/2018 Complete Results Observation Observation Code Item Item Code Result Date S ervice Location CULTURE, URINE, ROUTINE 395 CULTURE SEE NOTE 1 11/13/2018 [facility] [place] [address] [place] [address] CULTURE, URINE, ROUTINE 395 CULTURE, URINE, ROUTINE SEE NOTE 09/12/2019 [facility] [place] [address] [place] [address] URINALYSIS, COMPLETE 44796 Color YELLOW 08/26 [facility] [place] [address] [place] [address] URINALYSIS, COMPLETE 78476 APPEARANCE CLEAR 08/26 [facility] [place] [address] [place] [address] URINALYSIS, COMPLETE 29176 SPECIFIC GRAVITY 1.003 09/11/2019 [facility] [place] [address] [place] [address] URINALYSIS, COMPLETE 70184 PH 7.0 08/26 [facility] [place] [address] [place] [address] URINALYSIS, COMPLETE 76000 Glucose NEGATIVE 08/26 [facility] [address] [address] URINALYSIS, COMPLETE 56608 BILIRUBIN NEGATIVE 08/26 [facility] [address] URINALYSIS, COMPLETE 98159 Ketones NEGATIVE 08/26 [facility] [address] URINALYSIS, COMPLETE 13674 OCCULT BLOOD NEGATIVE [facility] [address] URINALYSIS, COMPLETE 49573 Protein NEGATIVE 08/26 [facility] [address] URINALYSIS, COMPLETE 09440 LEUKOCYTE ESTERASE NEGATIV E 09/11/2019 [facility] [address] URINALYSIS, COMPLETE 56224 WBC NONE SEEN /HPF 09/11/2019 [facility] [address] URINALYSIS, COMPLETE 66854 RBC NONE SEEN /HPF 09/11/2019 [facility] [address] URINALYSIS, COMPLETE 50886 SQUAMOUS EPITHELIAL CELLS NONE SEEN /HPF 09/11/2019 [facility] [address] URINALYSIS, COMPLETE 05825 TRANSITIONAL EPITHELIAL CELLS DNR /HPF 09/11/2019 [facility] [address] [address] URINALYSIS, COMPLETE 80064 RENAL EPITHELIAL CELLS DNR /HPF 09/11/2019 [facility] [address] URINALYSIS, COMPLETE 65603 BACTERIA NONE SEEN /HPF 09/11/2019 [facility] [address] URINALYSIS, COMPLETE 88122 CALCIUM OXALATE CRYSTALS D NR /HPF 09/11/2019 [facility] [address] URINALYSIS, COMPLETE 36835 TRIPLE PHOSPHATE CRYSTALS DNR /HPF 09/11/2019 [facility] [place] [address] URINALYSIS, COMPLETE 86254 URIC ACID CRYSTALS DNR /HP F 09/11/2019 [facility] [address] [place] [address] URINALYSIS, COMPLETE 17526 AMORPHOUS SEDIMENT DNR /HP F 09/11/2019 [facility] [place] [address] URINALYSIS, COMPLETE 74260 CRYSTALS DNR /HPF 08/26 [facility] [place] [address] [address] URINALYSIS, COMPLETE 35357 HYALINE CAST NONE SEEN /LP F 09/11/2019 [facility] [place] [address] URINALYSIS, COMPLETE 70415 GRANULAR CAST DNR /LPF 1 11/12/2018 [facility] [place] [address] URINALYSIS, COMPLETE 96255 CASTS DNR /LPF 08/26 [facility] [place] [address] URINALYSIS, COMPLETE 74892 YEAST DNR /HPF 08/26 [facility] [place] [address] URINALYSIS, COMPLETE 31098 COMMENTS DNR 08/26 [facility] [place] [address] URINALYSIS, COMPLETE 86383 NOTE DNR 08/26 [facility] [place] [address] URINALYSIS, COMPLETE 96145 NITRITE NEGATIVE 08/26 [facility] [place] [address] CULTURE, URINE, ROUTINE 395 CULTURE, URINE, ROUTINE SEE NOTE 08/16/2019 [facility] [place] [address] EXTRA LAVENDER-TOP TUBE XLKS EXTRA LAVENDER-TOP TUBE 08/10/2019 [facility] [place] [address] EXTRA LAVENDER-TOP TUBE XLKS COMMENT 1 10/10/2018 [facility] [place] [address] LIPID PANEL 44775 CHOLESTEROL, TOTAL 180 mg/dL 08/[address] [address] LIPID PANEL 55851 HDL CHOLESTEROL 35 mg/dL 08/10/[address] [address] LIPID PANEL 90974 TRIGLYCERIDES 200 mg/dL 08/10/[address] [address] LIPID PANEL 13019 LDL-CHOLESTEROL 113 mg/dL(calc) [facility] [address] LIPID PANEL 83928 CHOL/HDLC RATIO 5.1 (calc) 08/10/[address] [address] LIPID PANEL 27328 NON HDL CHOLESTEROL 145 mg/dL(calc) 08/10/[address] [address] COMPREHENSIVE METABOLIC PANEL 45889 Glucose 86 mg/ dL 08/10/[address] [address] COMPREHENSIVE METABOLIC PANEL 43719 UREA NITROGEN (BUN) 11 mg/dL 08/10/[address] [address] COMPREHENSIVE METABOLIC PANEL 86101 CREATININE 0.71 m g/dL 08/10/[address] [address] COMPREHENSIVE METABOLIC PANEL 68947 eGFR NON-AFR. TAIWANESE 90 mL/min/1.73m2 08/10/[address] [address] COMPREHENSIVE METABOLIC PANEL 33285 eGFR 104 mL/min/1.73m2 08/10/2019 [facility] [address] COMPREHENSIVE METABOLIC PANEL 48519 BUN/CREATININE RATIO NOT APPLICABLE (calc) 08/10/[facility] [address] [address] COMPREHENSIVE METABOLIC PANEL 20166 SODIUM 140 mm ol/L 08/10/[address] [address] COMPREHENSIVE METABOLIC PANEL 77166 POTASSIUM 4.2 mm ol/L 08/10/2019 [facility] [address] COMPREHENSIVE METABOLIC PANEL 71667 CHLORIDE 105 mm ol/L 08/10/[address] [facility] [address] COMPREHENSIVE METABOLIC PANEL 39632 CARBON DIOXIDE 28 mmol/L 08/10/2019 [facility] [address] COMPREHENSIVE METABOLIC PANEL 91265 CALCIUM 9.3 mg /dL 08/10/2019 [facility] [address] COMPREHENSIVE METABOLIC PANEL 69917 PROTEIN, TOTAL 6. 7 g/dL 08/10/2019 [facility] [address] COMPREHENSIVE METABOLIC PANEL 16590 ALBUMIN 4.3 g/ dL 08/10/2019 [facility] [address] COMPREHENSIVE METABOLIC PANEL 45305 GLOBULIN 2.4 g/ dL(calc) 08/10/2019 [facility] [address] COMPREHENSIVE METABOLIC PANEL 99789 ALBUMIN/GLOBULIN RATIO 1.8 (calc) 08/10/2019 [facility] [address] COMPREHENSIVE METABOLIC PANEL 71956 BILIRUBIN, TOTAL 0.6 mg/dL 08/10/2019 [facility] [address] COMPREHENSIVE METABOLIC PANEL 59597 ALKALINE PHOSPHATASE 74 U/L 08/10/2019 [facility] [address] COMPREHENSIVE METABOLIC PANEL 97162 AST 21 U/L 08/10/2019 [facility] [address] COMPREHENSIVE METABOLIC PANEL 59106 ALT 15 U/L 08/10/2019 [facility] [address] COMPREHENSIVE METABOLIC 13952 AST 18 U/L 2018 Unknown COMPREHENSIVE METABOLIC 32319 ALT 12 U/L 2018 Unknown COMPREHENSIVE METABOLIC 42775 BUN 11 mg/dL 2018 Unknown COMPREHENSIVE METABOLIC 22380 ALBUMIN 4.6 g/dL 2018 Unknown COMPREHENSIVE METABOLIC 12583 CHLORIDE 106 mmol/L 02/14 Unknown COMPREHENSIVE METABOLIC 04269 Bili Total 0.9 mg/dL 02/14 Unknown COMPREHENSIVE METABOLIC 14343 ALK PHOS 76 U/L 2018 Unknown COMPREHENSIVE METABOLIC 56979 SODIUM 142 mmol/L 02/14 Unknown COMPREHENSIVE METABOLIC 73817 CREATININE 0.69 mg/dL 01/25 Unknown COMPREHENSIVE METABOLIC 64591 CALCIUM 9.5 mg/dL 2018 Unknown COMPREHENSIVE METABOLIC 58707 POTASSIUM 3.9 mmol/L 02/14 Unknown COMPREHENSIVE METABOLIC 40348 Total Protein 6.6 g/dL Unknown COMPREHENSIVE METABOLIC 21302 Glucose 86 mg/dL 2018 Unknown COMPREHENSIVE METABOLIC 71970 Bicarbonate 29 mmol/L 01/25 Unknown COMPREHENSIVE METABOLIC 71437 AGAP 7 mmol/L 2018 Unknown GFR CALC 3585650 GFR Non Afr Amr >60 mL/min 02/14/2019 Un known GFR CALC [id number] GFR Afr Amr >60 mL/min 02/14/2019 Unknow n [facility] 56532 Cholesterol 127 mg/dL 02/14/2019 Unkno wn [facility] 12936 Triglyceride 156 mg/dL 02/14/2019 Unkn own [facility] 55345 HDL CHOLESTEROL 45 mg/dL 02/14/2019 U nknown [facility] 02026 Chol/HDL Ratio 2.82 ratio 02/14/2019 U nknown [facility] 76872 NON-HDL Chol 82 mg/dL 02/14/2019 Unkn own [facility] 71720 LDL Cholesterol 51 mg/dL 02/14/2019 U nknown COMPREHENSIVE METABOLIC PANEL 86017 Glucose 88 mg/ dL 08/16/2018 [facility] [place] [address] [place] [address] COMPREHENSIVE METABOLIC PANEL 71165 UREA NITROGEN (BUN) 11 mg/dL 08/16/2018 [facility] [place] [address] [place] [address] COMPREHENSIVE METABOLIC PANEL 14260 CREATININE 0.70 m g/dL 08/16/2018 [facility] [place] [address] [place] [address] COMPREHENSIVE METABOLIC PANEL 78749 eGFR NON-AFR. TAIWANESE 92 mL/min/1.73m2 08/16/[address] [address] COMPREHENSIVE METABOLIC PANEL 28487 eGFR 107 mL/min/1.73m2 08/16/2018 [facility] [address] COMPREHENSIVE METABOLIC PANEL 40546 BUN/CREATININE RATIO NOT APPLICABLE (calc) 08/16/2018 [facility] [address] COMPREHENSIVE METABOLIC PANEL 54282 SODIUM 140 mm ol/L 08/16/2018 [facility] [address] COMPREHENSIVE METABOLIC PANEL 73573 POTASSIUM 4.0 mm ol/L 08/16/2018 [facility] [address] COMPREHENSIVE METABOLIC PANEL 38528 CHLORIDE 104 mm ol/L 08/16/2018 [facility] [address] COMPREHENSIVE METABOLIC PANEL 23039 CARBON DIOXIDE 29 mmol/L 08/16/2018 [facility] [address] COMPREHENSIVE METABOLIC PANEL 03610 CALCIUM 9.4 mg /dL 08/16/2018 [facility] [address] COMPREHENSIVE METABOLIC PANEL 01576 PROTEIN, TOTAL 6. 7 g/dL 08/16/2018 [facility] [address] COMPREHENSIVE METABOLIC PANEL 36928 ALBUMIN 4.4 g/ dL 08/16/2018 [facility] [address] COMPREHENSIVE METABOLIC PANEL 38608 GLOBULIN 2.3 g/ dL(calc) 08/16/2018 [facility] [address] COMPREHENSIVE METABOLIC PANEL 54366 ALBUMIN/GLOBULIN RATIO 1.9 (calc) 08/16/2018 [facility] [address] COMPREHENSIVE METABOLIC PANEL 13421 BILIRUBIN, TOTAL 0.8 mg/dL 08/16/2018 [facility] [address] COMPREHENSIVE METABOLIC PANEL 07477 ALKALINE PHOSPHATASE 72 U/L 08/16/2018 [facility] [address] COMPREHENSIVE METABOLIC PANEL 03493 AST 19 U/L 08/16/2018 [facility] [address] COMPREHENSIVE METABOLIC PANEL 20126 ALT 12 U/L 08/16/2018 [facility] [address] LIPID PANEL 31436 CHOLESTEROL, TOTAL 228 mg/dL 08/[address] [address] LIPID PANEL 99447 HDL CHOLESTEROL 42 mg/dL 08/16/20 18 [facility] [address] LIPID PANEL 02052 TRIGLYCERIDES 175 mg/dL 08/16/2018 [facility] [address] LIPID PANEL 01920 LDL-CHOLESTEROL 155 mg/dL(calc) [address] [address] LIPID PANEL 33739 CHOL/HDLC RATIO 5.4 (calc) 08/16/[address] [address] LIPID PANEL 40988 NON HDL CHOLESTEROL 186 mg/dL(calc) 08/16/2018 [facility] [address] EXTRA LAVENDER-TOP TUBE XLKS EXTRA LAVENDER-TOP TUBE 08/16/[address] [address] EXTRA LAVENDER-TOP TUBE XLKS COMMENT 1 10/16/2017 [facility] [address] Procedures Procedure Codes Date ROUTINE VENIPUNCTURE CPT-4: 78940 02/13/2020 COMPREHEN METABOLIC PANEL CPT-4: 99588 02/13/2020 LIPID PANEL CPT-4: 15974 02/13/2020 COMPLETE CBC W/AUTO DIFF WBC CPT-4: 93913 02/13/2020 ASSAY THYROID STIM HORMONE CPT-4: 44852 02/13/2020 ASSAY OF FREE THYROXINE CPT-4: 50661 02/13/2020 URINALYSIS, COMPLETE CPT-4: 53866 09/10/2019 CULTURE, URINE, ROUTINE CPT-4: 395 09/10/2019 URINALYSIS NONAUTO W/O SCOPE CPT-4: 30363 08/27/2019 CULTURE, URINE, ROUTINE CPT-4: 395 08/15/2019 URINALYSIS NONAUTO W/O SCOPE CPT-4: 39923 08/15/2019 SHINGRIX HZV VACC RECOMBINANT IM CPT-4: 76457 019 IMMUNIZATION ADMIN CPT-4: 37346 08/15/2019 COMPREHENSIVE METABOLIC PANEL CPT-4: 05385 08/09/2019 LIPID PANEL CPT-4: 47862 08/09/2019 ROUTINE VENIPUNCTURE CPT-4: 82735 08/09/2019 EXTRA LAVENDER-TOP TUBE CPT-4: XLKS 08/09/2019 ROUTINE VENIPUNCTURE CPT-4: 11855 02/14/2019 COMPREHEN METABOLIC PANEL CPT-4: 79132 02/14/2019 LIPID PANEL CPT-4: 82706 02/14/2019 ROUTINE VENIPUNCTURE CPT-4: 43021 08/15/2018 COMPREHENSIVE METABOLIC PANEL CPT-4: 37029 08/15/2018 EXTRA LAVENDER-TOP TUBE CPT-4: XLKS 08/15/2018 LIPID PANEL CPT-4: 90032 08/15/2018 IIV4 VACCINE 3 YRS+ IM AND UP CPT-4: 33948 07/03/2018 IMMUNIZATION ADMIN CPT-4: 68257 07/03/2018 SPECIMEN HANDLING OFFICE-LAB CPT-4: 31297 03/02/2018 OCCULT BLOOD FECES CPT-4: 87043 03/02/2018 THER/PROPH/DIAG INJ SC/IM CPT-4: 42651 11/03/2017 TRIAMCINOLONE ACET INJ NOS CPT-4: J3301 11/03/2017 INFLUENZA ASSAY W/OPTIC CPT-4: 91868 10/27/2017 THER/PROPH/DIAG INJ SC/IM CPT-4: 36345 10/27/2017 TRIAMCINOLONE ACET INJ NOS CPT-4: J3301 10/27/2017 THER/PROPH/DIAG INJ SC/IM CPT-4: 59382 04/23/2016 TRIAMCINOLONE ACET INJ NOS CPT-4: J3301 [...] 1: 126/70 Code: 8480-6 BMI: 26.7 Code: 15896-1 Heart Rate 1: 68 bpm Height: 5'6" Respiratory Rate: 18 bpm SpO2: 97% Tempera ture: 36.6 (C) / 97.9 (F) Weight: 168 lbs 08/15/2018 Blood Pressure 1: 122/78 Code: 8480-6 BMI: 25.9 Code: 58740-9 Heart Rate 1: 72 bpm Height: 5'6" Respiratory Rate: 20 bpm SpO2: 97% Tempera ture: 36.7 (C) / 98.0 (F) Weight: 163 lbs 03/02/2018 Blood Pressure 1: 126/74 Code: 8480-6 BMI: 26.1 Code: 46633-4 Heart Rate 1: 76 bpm Height: 5'6" Respiratory Rate: 20 bpm SpO2: 98% Tempera ture: 36.6 (C) / 97.8 (F) Weight: 164 lbs 11/03/2017 Blood Pressure 1: 124/82 Code: 8480-6 BMI: 25.3 Code: 03117-4 Heart Rate 1: 90 bpm Height: 5'6" Respiratory Rate: 22 bpm SpO2: 98% Tempera ture: 36.9 (C) / 98.4 (F) Weight: 159 lbs 10/27/2017 Blood Pressure 1: 122/84 Code: 8480-6 BMI: 25.6 Code: 19054-2 Heart Rate 1: 90 bpm Height: 5'6" Respiratory Rate: 22 bpm SpO2: 97% Tempera ture: 36.1 (C) / 97.0 (F) Weight: 161 lbs 08/11/2017 Blood Pressure 1: 132/76 Code: 8480-6 BMI: 26.4 Code: 91864-1 Heart Rate 1: 72 bpm Height: 5'6" Respiratory Rate: 20 bpm Temperature: 36 .6 (C) / 97.8 (F) Weight: 166 lbs 05/23/2017 Blood Pressure 1: 126/72 Code: 8480-6 BMI: 26.1 Code: 92800-7 Heart Rate 1: 72 bpm Height: 5'6" Respiratory Rate: 20 bpm SpO2: 98% Tempera ture: 37.1 (C) / 98.8 (F) Weight: 164 lbs 03/10/2017 Blood Pressure 1: 124/72 Code: 8480-6 BMI: 26.1 Code: 48064-5 Heart Rate 1: 92 bpm Height: 5'6" Respiratory Rate: 20 bpm SpO2: 97% Tempera ture: 37.2 (C) / 98.9 (F) Weight: 164 lbs 08/30/2016 Blood Pressure 1: 142/82 Code: 8480-6 BMI: 25.6 Code: 46498-1 Heart Rate 1: 72 bpm Height: 5'6" Respiratory Rate: 20 bpm Temperature: 36 .6 (C) / 97.9 (F) Weight: 161 lbs 06/01/2016 Blood Pressure 1: 156/88 Code: 8480-6 BMI: 26.4 Code: 06574-9 Heart Rate 1: 70 bpm Height: 5'6" Respiratory Rate: 18 bpm SpO2: 97% Tempera ture: 36.6 (C) / 97.8 (F) Weight: 166 lbs 04/30/2016 Blood Pressure 1: 122/70 Code: 8480-6 Heart Rate 1: 10 2 bpm Height: Respiratory Rate: 24 bpm SpO2: 95% Temperature: 36.4 (C) / 97.6 (F) We ight: 04/23/2016 Blood Pressure 1: 152/76 Code: 8480-6 BMI: 26.5 Code: 63513-1 Heart Rate 1: 106 bpm Height: 5'7" Respiratory Rate: 24 bpm SpO2: 96% Tempera ture: 36.8 (C) / 98.2 (F) Weight: 169 lbs 04/08/2016 Blood Pressure 1: 116/68 Code: 8480-6 BMI: 27.4 Code: 67619-6 Heart Rate 1: 76 bpm Height: 5'6" [...] visit Encounters Encounter Performer Location Codes Date (93904) NURSE/OUTPATIENT VISIT EST Diagnosis: Essential (primary) hypertension[ICD10: I10] Diagnosis: Mixed hyperlipidemia[ICD10: E78.2] Diagnosis: Encounter for general adult medical examination without abnormal findings[ICD10: Z00.00] Chio MICHAELER [employer] CPT-4: 73247 02/13/2020 ([id number]) NURSE/OUTPATIENT VISIT EST Diagnosis: Hematuria[ICD10: R31.9] Chio Servin. MARIOND ER DO [employer] CPT-4: 43468 09/10/2019 ([id number]) OFFICE/OUTPATIENT VISIT EST Diagnosis: Hematuria[ICD10: R31.9] Chio Servin. MARIOND ER DO [facility] CPT-4: 71685 08/27/2019 ([id number]) PREV VISIT EST AGE 40-64 Diagnosis: Urinary tract infection[ICD10: N39.0] Diagnosis: Encounter for general adult medical examination without abnormal findings[ICD10: Z00.00] Diagnosis: Essential (primary) hypertension[ICD10: I10] Diagnosis: Mixed hyperlipidemia[ICD10: E78.2] Diagnosis: VACCIN FOR DISEASE NEC (HPV or Zostavax)[ICD10: Z23] Chio POST [facility] CPT-4: 06005 08/15/2019 ([id number]) NURSE/OUTPATIENT VISIT EST Diagnosis: Mixed hyperlipidemia[ICD10: E78.2] Diagnosis: Essential (primary) hypertension[ICD10: I10] Chio POST DO [facility] CPT-4: 38345 08/09/2019 ([id number]) OFFICE/OUTPATIENT VISIT EST Diagnosis: Mixed hyperlipidemia[ICD10: E78.2] Diagnosis: Other specified counseling[ICD10: Z71.89] Chio POST [facility] CPT-4: 04271 02/14/2019 ([id number]) OFFICE/OUTPATIENT VISIT EST Diagnosis: Mixed hyperlipidemia[ICD10: E78.2] Chio PLUMMER NELLIE MalathiHugo ALEC [employer] CPT-4: 71039 08/15/2018 ([id number]) NURSE/OUTPATIENT VISIT EST Diagnosis: FLU VACCINE[ICD10: Z23] Chio BONILLA [facility] CPT-4: 56907 07/03/2018 ([id number]) PREV VISIT EST AGE 40-64 Diagnosis: Encounter for general adult medical examination without abnormal findings[ICD10: Z00.00] Diagnosis: Encounter for gynecological examination (general) (routine) without abnormal findings[ICD10: Z01.419] Chio MORENOLINE MalathiHugo MATEO Holder [facility] CPT-4: 76774 03/02/2018 OFFICE/OUTPATIENT VISIT EST Diagnosis: Pneumonia, unspecified organism[ICD10: J18.9] Shaniqua MORENOLINE [employer]is [employer] DO [facility] CPT-4: 70679 11/03/2017 OFFICE/OUTPATIENT VISIT EST Diagnosis: Influenza due to other identified influenza virus with other respiratory manifestations[ICD10: J10.1] Diagnosis: Acute bronchitis, unspecified[ICD10: J20.9] Shaniqua MORENOLINE MalathiHugo ROMAN CHOW [facility] CPT-4: 69168 10/27/2017 ([id number]) OFFICE/OUTPATIENT VISIT EST Diagnosis: Mixed hyperlipidemia[ICD10: E78.2] Chio PLUMMER [place] Addis [employer] CPT-4: 32152 08/11/2017 ([id number]) PREV VISIT EST AGE 40-64 Diagnosis: Encounter for general adult medical examination without abnormal findings[ICD10: Z00.00] Diagnosis: Mixed hyperlipidemia[ICD10: E78.2] Chio PLUMMER RI Addis POST [employer] CPT-4: 96539 05/23/2017 ([id number]) OFFICE/OUTPATIENT VISIT EST Diagnosis: Essential (primary) hypertension[ICD10: I10] Diagnosis: Mixed hyperlipidemia[ICD10: E78.2] Chio PLUMMER RI Addis [employer] CPT-4: 49861 03/10/2017 ([id number]) OFFICE/OUTPATIENT VISIT EST Diagnosis: Mixed hyperlipidemia[ICD10: E78.2] Diagnosis: Essential (primary) hypertension[ICD10: I10] Chio POST [employer] CPT-4: 98842 08/30/2016 ([id number]) OFFICE/OUTPATIENT VISIT EST Diagnosis: Mixed hyperlipidemia[ICD10: E78.2] Ale Hernan PLUMMER [place] [employer]. [facility] [employer] [facility] CPT-4: 70975 06/01/2016 ([id number]) OFFICE/OUTPATIENT VISIT EST Diagnosis: Strain of muscle, fascia and tendon of lower back, subsequent encounter[ICD10: S39.012D] Diagnosis: Sciatica, left side[ICD10: M54.32] Ale [employer] [place] [employer] [facility] [employer] [facility] CPT-4: 25625 04/30/2016 ([id number]) OFFICE/OUTPATIENT VISIT EST Diagnosis: Strain of muscle, fascia and tendon of lower back, initial encounter[ICD10: S39.012A] Diagnosis: Sciatica, left side[ICD10: M54.32] Ale Hernan [employer] [place] [employer]. [place]ION[facility] [employer] [facility] CPT-4: 49867 04/23/2016 ([id number]) PREV VISIT NEW AGE 40-64 Diagnosis: Encounter for general adult medical examination without abnormal findings[ICD10: Z00.00] Diagnosis: Plantar fascial fibromatosis[ICD10: M72.2] [facility] [employer] [facility] [employer] CPT-4: 32140 04/08/2016 Plan of Care Planned Activity Notes Codes Status Date Appointment: Chio Posttel: [address] [place], [place] [phone] [place] UA 09/10/2019 Visit Diagnosis Plan: Hematuria Discussion: Hold crest or No NSAIDs Push fluids/water Recheck urine microscopy in 2weeks and if still with microscopic blood then will need urology eval and cystoscope ICD-9 : 599.70 ICD-10 : R31.9 08/27/2019 Appointment: Chio Post WPtel: [address] [place], [place] [phone] ACUTE ILLNESS 08/27/2019 Visit Diagnosis Plan: Encounter for [facility] adult medical examination without abnormal findings Discussion: [...] : E78.2 08/15/2019 Appointment: Chio Post WPtel: [address] [place], [place] [phone] [place] confirmed 08/09/19-- does not need reminder call Annual Well Visit 08/15/2019 Appointment: Chio [facility]: [address] [place], [place] [phone] 08/15/19 1330---added to office visit with Dr kwon (elsy) CANCELED 08/15/2019 Appointment: Chio [facility]: [address] [place], [place] [phone] [place] LAB 08/09/2019 Visit Diagnosis Plan: Mixed [...] : Z71.89 02/14/2019 Appointment: Chio Post WPtel: [address] [place], [place] [phone] FOLLOW UP 02/14/2019 Visit Diagnosis Plan: Mixed hyperlipidemia Discussion: Check CMP, Lipids Recommend Shingrix Had flu shot ICD-9 : 272.2 ICD-10 : E78.2 08/15/2018 Appointment: Chio Post WPtel: [address] [place] [address] FOLLOW UP 08/15/2018 Appointment: Chio Post WPtel: [address] [place], [place] [phone] [place] INJECTION 07/03/2018 Patient Education: Patient Medication [...] ICD-10 : Z01.419 03/02/2018 Appointment: Chio [facility]: [address] [place] [address] Annual Well Visit 03/02/2018 Patient Education: Patient Medication Summary Completed 03/02/2018 Appointment: Chio [facility]: [address] [place] [employer], [place] [phone] RESCHEDULED 02/08/2018 Visit Diagnosis Plan: Pneumonia, unspecified [...] ICD-10 : J18.9 11/03/2017 Appointment: Shaniqua Ruiz [address] [place], [place] [phone] ACUTE ILLNESS 11/03/2017 Patient Education: Patient Medication [...] ICD-10 : J10.1 10/27/2017 Appointment: Shaniqua Ruiz [address] [place], [place] [phone] ACUTE ILLNESS 10/27/2017 Patient Education: Patient Medication Summary Completed 10/27/2017 Visit Diagnosis Plan: Mixed hyperlipidemia Discussion: Hold on statins due to side effects Lifestyle mold insert changer next 6mos then check CMP, Lipids and fwup ICD-9 : 272.2 ICD-10 : E78.2 08/11/2017 Appointment: Chio Post WPtel: [phone] [facility] MEDICATION REVIEW 08/11/2017 Patient Education: Patient Medication Summary Completed 08/11/2017 Visit Diagnosis Plan: Mixed hyperlipidemia Discussion: Continue lipitor and check lipids with LFTs next month ICD-9 : 272.2 ICD-10 : E78.2 05/23/2017 Visit Diagnosis Plan: Encounter for gene ral adult medical examination without abnormal findings Discussion: Will update lab next month D efers mammogram until next year--normal mammogram last year Pap due next year Tdap 3 yrs ago Colonoscopy up to date Discussed zostavax--will check on coverage ICD-9 : V70.9 ICD-10 : Z00.00 05/23/2017 Appointment: Chio Post WPtel: [address] [place] [address] Annual Well Visit 05/23/2017 Patient Education: Patient Medication Summary Completed 05/23/2017 Visit Diagnosis Plan: Mixed hyperlipidemia Discussion: Check CMP, Lipids ICD-9 : 272.2 ICD-10 : E78.2 03/10/2017 Visit Diagnosis Plan: Essential (primary) hypertension Follow Up: 6 months ICD-9 : 401.9 ICD-10 : I10 03/10/2017 Appointment: Chio Post WPtel: [address] [place] [address] 03/09 confimed ~sl CHECK UP 03/10/2017 Patient Education: Patient Medication Summary Completed 03/10/2017 Appointment: Chio Post WPtel: [address] [place] [address] 02/03 rescheduled ~sl RESCHEDULED 02/28/2017 Visit Plan: Lab discussed Continue lifes tyle modification Check full fasting lab in 6mos Monitor BP 1-2 times a week at home Discussed adding weights or yoga/sriram chi 3 times a week 08/30/2016 Appointment: Chio Post WPtel: [address] [place], [place] [phone] 08/26 lm`sl...confirmed~lb FOLLOW UP 08/30 Patient Education: Patient Medication Summary Completed 08/30/2016 Patient Education: Patient Medication Summary Completed 08/26/2016 Care Plan: COMPREHEN METABOLIC PANEL NINFA NC : 02964-2 Pending 08/26/2016 Care Plan: LIPID PANEL LOINC : 45403-4 Pending 08/26/2016 Visit Plan: Patient is very anxious abou t going back on any medication for her lipids right now Stressed diet and exercise changes she can try Continue higher dose of fish oil she is now taking Can recheck lipids and cmp in 3 months If not much better, will need rx started - discussed trying fenofibrate possibly 06/01/2016 Appointment: Hernan Ale [address] [phone] 05/27 confirmed ~sl FOLLOW UP 06/01/2016 Patient [...] MRI if negative) 04/30/2016 Appointment: Ale Becerra Blayne[address] [place] [address] FOLLOW UP 04/30/2016 Patient Education: Patient Medication Summary Completed 04/30/2016 Visit Plan: Steroid injection given toda y Muscle relaxer as well Continue daily meloxicam Start weaning back on oxycodone Can replace oxycodone dosing with otc tylenol Advised topical pain relievers, heat/ice, etc If oxycodone runs completely out and patient still needs some, can call for refill to lease picker or could consider replacing with tramadol 04/23/2016 Appointment: Ale Becerra Jas [address] ER Follow UP 04/23/2016 Patient Education: Patient Medication Summary Completed 04/23/2016 Visit Plan: Continue inserts and stretch es for plantar fascia Add Vivlodex Return in 2-3 weeks for injection if pain persists Check Fasting Lab Update Mammogram 04/08/2016 Appointment: Chio Post WPtel: [address] [place], [place] [phone] [place] 04/07 confirmed ~sl NEW PATIENT 04/08/2016 Patient Education: Patient Medication Summary Completed 04/08/2016 Patient Education: [facility] - Saving AutoInj - 18-64 - [...] needs some, can call for refill to lease picker or could consider replacing with tramadol [...]
--- OUTSIDE RECORDS SUMMARY | 2020-02-26 21:11 | XMS REPORT | CCD ---
Author Author Carola Post D.O. Organization [facility] Address [address] [place] [address] Phone Care Team Providers Care Manager Budget Name Role Phone Chio Post D.O. PP Unavailable CCM Unavailable Summary Purpose Interface Exchange Insurance Providers Payer name Policy type / Coverage type Covered libertarian ID Effective Begin Date Effective End Date WPS MEDICARE PART B [place] Medicare Part B [id number] Unknown [employer] Medicare Part B [id number] 2019 100 Unknown Family history Grandfather Diagnosis Age At Onset Cancer Unknown Social History Social History Element Codes Description Effective Dates Marital status Unknown 04/08/2016 Number of children Unknown 3 04/08/2016 Employment Unknown Currently employed [employer] 249 04/08/[address]: 864366628 Has never smoked or chewed tobacco 04/08/[address]: 897265 Currently drinks alcohol 04/08 Frequency of drinks SNOMED CT: 634232835 Drinks rarely 016 Has the patient ever [...] Fill Instructions Livalo 1 mg tablet RxNorm: 209665 1 Tablet(s) Oral QD 12/03/2019 070 02/2020 Active Aleve 220 mg tablet RxNorm: 580614 Tablet(s) Oral as needed 019 No Stop Date Active Fish Oil 360 mg-1,200 mg capsule RxNorm: 1 Capsule(s) Or al two times a day 08/15/2019 No Stop Date Active Macrobid 100 mg capsule RxNorm: 546678 1 Capsule(s) Oral two ti mes a day 08/15/2019 08/22/2019 Inactive Crestor 5 mg tablet RxNorm: 339184 1/2 Tablet(s) PO twice a week 02/10/2020 Inactive Crestor 5 mg tablet RxNorm: 206971 1 Tablet(s) PO Tues, Thurs, Sat and Sun and 1/2 tablet (2.5mg) on Mon, Wed and Tue03/05/2019 03/11/2019 Inactive Crestor 5 mg tablet RxNorm: 344109 1 Tablet(s) PO QD 02/07/201903/05 Inactive Crestor 5 mg tablet RxNorm: 572027 1 Tablet(s) PO QD re check labwork in 6 months 08/21/2018 08/20/2018 Inactive Crestor 5 mg tablet RxNorm: 992465 1 Tablet(s) PO QD re check labwork in 6 months 08/21/2018 02/06/2019 Inactive Ventolin HFA 90 mcg/actuation aerosol inhaler RxNorm: 225298 2 Puff(s) INH Q4H as needed 11/03/2017 03/01/2018 Inactive please switch to proair if ventolin is not covered. thanks! Levaquin 500 mg tablet RxNorm: 679867 1 Tablet(s) PO QD 11/03/2017 Inactive Zithromax Z-Talat 250 mg tablet RxNorm: 457925 Tablet(s) PO 10/27/2017 03/01/2018 Inactive Lipitor 10 mg tablet RxNorm: 350596 1 TABLET(S) PO QD REPLACES PRAVASTATIN 06/08/2017 08/10/2017 Inactive Lipitor 10 mg tablet RxNorm: 175718 1 Tablet(s) PO QD replaces Pravastatin 03/16/2017 06/07/2017 Inactive pravastatin 10 mg tablet RxNorm: 214286 1 Tablet(s) PO QD 03/15/2017 03/14/2017 Inactive pravastatin 10 mg tablet RxNorm: 083078 1 Tablet(s) PO QD 03/15/2017 03/15/2017 Inactive Zorvolex 35 mg capsule RxNorm: 4484606 1 Capsule(s) PO TID HOLD MELOXICAM 05/03/2016 06/01/2016 Inactive Zorvolex 35 mg capsule RxNorm: 6335801 1 Capsule(s) PO TID HOLD MELOXICAM 04/30/2016 05/02/2016 Inactive prednisone 20 mg tablet RxNorm: 996953 1 Tablet(s) PO B ID and then decrease to 1 tab PO QD x 5 days 04/30/2016 05/04/2016 Inactive cyclobenzaprine 10 mg tablet RxNorm: 180299 1 Tablet(s) PO TID as needed for muscle spasm 04/23/2016 08/29/2016 Inactive pravastatin 20 mg tablet RxNorm: 624577 1 Tablet(s) PO QD 04/14/2016 08/29/2016 Inactive Vivlodex 10 mg capsule RxNorm: 4363310 1 Capsule(s) PO QD 04/08/2016 05/07/2016 Inactive Co Q-10 300 mg capsule RxNorm: 430339 1 Capsule(s) PO QD No Start Date Active Vitamin D3 5,000 unit tablet RxNorm: 231495 1 Tablet(s) PO QD No Star t Date Active melatonin 5 mg tablet RxNorm: 232319 1 Tablet(s) PO QHS as needed N o Start Date Active Multivitamin & Mineral Formula tablet RxNorm: 1 Tablet(s) PO Q D No Start Date Active Fish Oil 1,000 mg capsule RxNorm: 2 Capsule(s) PO QD No Start Date 08/29/2016 Inactive Metamucil 0.4 gram capsule RxNorm: 4438036 2 Capsule(s) PO BID No S tart Date 02/13/2019 Inactive Vitamin D3 2,000 unit tablet RxNorm: 862695 1 Tablet(s) PO QD No St art Date 03/26/2019 Inactive Lipitor 10 mg tablet RxNorm: 582579 1 Tablet(s) PO QD No Start Date 0 03/15/2017 Inactive Crestor 5 mg tablet RxNorm: 927575 1 Tablet(s) PO Tues, Thurs, Sat and Sun and 1/2 tablet (2.5mg) on Mon, Wed and Fri No Start Date 03/04/2019 Inactive Calcium with Vitamin D 600 mg (1,500 mg)-400 unit tablet RxN orm: 246698 1 Tablet(s) PO QD No Start Date 03/01/2018 Inactive krill oil 1,000 mg-170 mg-50 mg-80 mg capsule RxNorm: 1 Capsule(s) PO BID No Start Date 08/14/2019 Inactive Co Q-10 200 mg capsule RxNorm: 681888 1 Capsule(s) PO QD No Start D ate 03/01/2018 Inactive Co Q-10 oral RxNorm: 77536 oral No Start Date 07/24/2017 Inactive oxycodone-acetaminophen 5 mg-325 mg tablet RxNorm: 8007422 1 Tab let(s) PO Q6H No Start Date 08/29/2016 Inactive Krill Oil ([place] 3 and 6) oral RxNorm: 16046 oral No Start Date 02/13/2019 Inactive Flexeril 10mg tablet RxNorm: 1 Tablet(s) PO Q8H No Start Date 12/2015 Inactive Vitamin D3 1,000 unit tablet RxNorm: 368787 1 Tablet(s) PO QD No St art Date 03/11/2019 Inactive Medication Administered No Medication Administered data Immunizations Vaccine Codes Date Status Shingrix Unknown 11/20/2019 Zoster Unknown 08/15/2019 Complete Influenza CVX: 141 07/03/2018 Complete Results Observation Observation Code Item Item Code Result Date S ervice Location CULTURE, URINE, ROUTINE 395 CULTURE SEE NOTE 1 11/13/2018 [facility] [place] [address] [place] [address] CULTURE, URINE, ROUTINE 395 CULTURE, URINE, ROUTINE SEE NOTE 09/12/2019 [facility] [place] [address] [place] [address] URINALYSIS, COMPLETE 10210 Color YELLOW 08/26 [facility] [place] [address] [place] [address] URINALYSIS, COMPLETE 96438 APPEARANCE CLEAR 08/26 [place] [address] [place] [address] URINALYSIS, COMPLETE 82737 SPECIFIC GRAVITY 1.003 09/11/2019 [facility] [place] [address] [place] [address] URINALYSIS, COMPLETE 06946 PH 7.0 08/26 [facility] [place] [address] [place] [address] URINALYSIS, COMPLETE 38489 Glucose NEGATIVE 08/26 [facility] [address] [address] URINALYSIS, COMPLETE 27053 BILIRUBIN NEGATIVE 08/26 [facility] [address] URINALYSIS, COMPLETE 20619 Ketones NEGATIVE 08/26 [facility] [address] URINALYSIS, COMPLETE 29000 OCCULT BLOOD NEGATIVE [facility] [address] URINALYSIS, COMPLETE 36988 Protein NEGATIVE 08/26 [facility] [address] URINALYSIS, COMPLETE 91307 LEUKOCYTE ESTERASE NEGATIV E 09/11/2019 [facility] [address] URINALYSIS, COMPLETE 14826 WBC NONE SEEN /HPF 09/11/2019 [facility] [address] URINALYSIS, COMPLETE 86550 RBC NONE SEEN /HPF 09/11/2019 [facility] [address] URINALYSIS, COMPLETE 49937 SQUAMOUS EPITHELIAL CELLS NONE SEEN /HPF 09/11/2019 [facility] [address] URINALYSIS, COMPLETE 78474 TRANSITIONAL EPITHELIAL CELLS DNR /HPF 09/11/2019 [facility] [address] [address] URINALYSIS, COMPLETE 17780 RENAL EPITHELIAL CELLS DNR /HPF 09/11/2019 [facility] [address] URINALYSIS, COMPLETE 24044 BACTERIA NONE SEEN /HPF 09/11/2019 [facility] [address] URINALYSIS, COMPLETE 78887 CALCIUM OXALATE CRYSTALS D NR /HPF 09/11/2019 [facility] [address] URINALYSIS, COMPLETE 83663 TRIPLE PHOSPHATE CRYSTALS DNR /HPF 09/11/2019 [facility] [place] [address] URINALYSIS, COMPLETE 54345 URIC ACID CRYSTALS DNR /HP F 09/11/2019 [facility] [address] [place] [address] URINALYSIS, COMPLETE 37016 AMORPHOUS SEDIMENT DNR /HP F 09/11/2019 [facility] [place] [address] URINALYSIS, COMPLETE 98932 CRYSTALS DNR /HPF 08/26 [facility] [place] [address] [place] [address] URINALYSIS, COMPLETE 25437 HYALINE CAST NONE SEEN /LP F 09/11/2019 [facility] [place] [address] URINALYSIS, COMPLETE 20898 GRANULAR CAST DNR /LPF 1 11/12/2018 [facility] [place] [address] URINALYSIS, COMPLETE 93994 CASTS DNR /LPF 08/26 [facility] [place] [address] URINALYSIS, COMPLETE 73815 YEAST DNR /HPF 08/26 [facility] [place] [address] URINALYSIS, COMPLETE 76342 COMMENTS DNR 08/26 [facility] [place] [address] URINALYSIS, COMPLETE 60737 NOTE DNR 08/26 [facility] [place] [address] URINALYSIS, COMPLETE 77171 NITRITE NEGATIVE 08/26 [facility] [place] [address] CULTURE, URINE, ROUTINE 395 CULTURE, URINE, ROUTINE SEE NOTE 08/16/2019 [place] [address] EXTRA LAVENDER-TOP TUBE XLKS EXTRA LAVENDER-TOP TUBE 08/10/2019 [facility] [place] [address] EXTRA LAVENDER-TOP TUBE XLKS COMMENT 1 10/10/2018 [facility] [place] [address] LIPID PANEL 20691 CHOLESTEROL, TOTAL 180 mg/dL 08/10 [facility] [address] LIPID PANEL 42884 HDL CHOLESTEROL 35 mg/dL 08/10/20 [facility] [address] LIPID PANEL 04529 TRIGLYCERIDES 200 mg/dL 08/10/2019 [facility] [address] LIPID PANEL 28458 LDL-CHOLESTEROL 113 mg/dL(calc) [facility] [address] LIPID PANEL 58019 CHOL/HDLC RATIO 5.1 (calc) 08/10/20 [facility] [address] LIPID PANEL 34648 NON HDL CHOLESTEROL 145 mg/dL(calc) 08/10/2019 [facility] [address] COMPREHENSIVE METABOLIC PANEL 03986 Glucose 86 mg/ dL 08/10/2019 [facility] [address] COMPREHENSIVE METABOLIC PANEL 89014 UREA NITROGEN (BUN) 11 mg/dL 08/10/2019 [facility] [address] COMPREHENSIVE METABOLIC PANEL 66561 CREATININE 0.71 m g/dL 08/10/2019 [facility] [address] COMPREHENSIVE METABOLIC PANEL 92670 eGFR NON-AFR. MOSOTHO 90 mL/min/1.73m2 08/10/2019 [facility] [address] COMPREHENSIVE METABOLIC PANEL 38382 eGFR 104 mL/min/1.73m2 08/10/[address] [facility] [address] COMPREHENSIVE METABOLIC PANEL 37946 BUN/CREATININE RATIO NOT APPLICABLE (calc) 08/10/2019 [facility] [address] [address] COMPREHENSIVE METABOLIC PANEL 62230 SODIUM 140 mm ol/L 08/10/2019 [facility] [address] COMPREHENSIVE METABOLIC PANEL 46872 POTASSIUM 4.2 mm ol/L 08/10/2019 [facility] [address] COMPREHENSIVE METABOLIC PANEL 69077 CHLORIDE 105 mm ol/L 08/10/2019 [facility] [address] COMPREHENSIVE METABOLIC PANEL 03274 CARBON DIOXIDE 28 mmol/L 08/10/2019 [facility] [address] COMPREHENSIVE METABOLIC PANEL 33677 CALCIUM 9.3 mg /dL 08/10/2019 [facility] [address] COMPREHENSIVE METABOLIC PANEL 15180 PROTEIN, TOTAL 6. 7 g/dL 08/10/[address] [facility] [address] COMPREHENSIVE METABOLIC PANEL 15925 ALBUMIN 4.3 g/ dL 08/10/[address] [facility] [address] COMPREHENSIVE METABOLIC PANEL 94245 GLOBULIN 2.4 g/ dL(calc) 08/10/2019 [facility] [address] COMPREHENSIVE METABOLIC PANEL 33316 ALBUMIN/GLOBULIN RATIO 1.8 (calc) 08/10/[address] [facility] [address] COMPREHENSIVE METABOLIC PANEL 09379 BILIRUBIN, TOTAL 0.6 mg/dL 08/10/[address] [facility] [address] COMPREHENSIVE METABOLIC PANEL 40018 ALKALINE PHOSPHATASE 74 U/L 08/10/2019 [facility] [address] COMPREHENSIVE METABOLIC PANEL 79253 AST 21 U/L 08/10/[address] [facility] [address] COMPREHENSIVE METABOLIC PANEL 93370 ALT 15 U/L 08/10/[address] [facility] [address] COMPREHENSIVE METABOLIC 15403 AST 18 U/L 2018 Unknown COMPREHENSIVE METABOLIC 35386 ALT 12 U/L 2018 Unknown COMPREHENSIVE METABOLIC 70947 BUN 11 mg/dL 2018 Unknown COMPREHENSIVE METABOLIC 10449 ALBUMIN 4.6 g/dL 2018 Unknown COMPREHENSIVE METABOLIC 75187 CHLORIDE 106 mmol/L 02/14 Unknown COMPREHENSIVE METABOLIC 36776 Bili Total 0.9 mg/dL 02/14 Unknown COMPREHENSIVE METABOLIC 22448 ALK PHOS 76 U/L 2018 Unknown COMPREHENSIVE METABOLIC 29484 SODIUM 142 mmol/L 02/14 Unknown COMPREHENSIVE METABOLIC 43060 CREATININE 0.69 mg/dL 01/25 Unknown COMPREHENSIVE METABOLIC 37941 CALCIUM 9.5 mg/dL 2018 Unknown COMPREHENSIVE METABOLIC 99628 POTASSIUM 3.9 mmol/L 02/14 Unknown COMPREHENSIVE METABOLIC 20997 Total Protein 6.6 g/dL Unknown COMPREHENSIVE METABOLIC 11958 Glucose 86 mg/dL 2018 Unknown COMPREHENSIVE METABOLIC 21857 Bicarbonate 29 mmol/L 01/25 Unknown COMPREHENSIVE METABOLIC 38737 AGAP 7 mmol/L 2018 Unknown GFR CALC 5230640 GFR Non Afr Amr >60 mL/min 02/14/2019 Un known GFR CALC 0534384 GFR Afr Amr >60 mL/min 02/14/2019 Unknow n [facility] 48390 Cholesterol 127 mg/dL 02/14/2019 Unkno wn [facility] 77222 Triglyceride 156 mg/dL 02/14/2019 Unkn own [facility] 19318 HDL CHOLESTEROL 45 mg/dL 02/14/2019 U nknown [facility] 93272 Chol/HDL Ratio 2.82 ratio 02/14/2019 U nknown [facility] 78540 NON-HDL Chol 82 mg/dL 02/14/2019 Unkn own [facility] 14172 LDL Cholesterol 51 mg/dL 02/14/2019 U nknown COMPREHENSIVE METABOLIC PANEL 94478 Glucose 88 mg/ dL 08/16/2018 [facility] [place] [address] [place] [address] COMPREHENSIVE METABOLIC PANEL 24037 UREA NITROGEN (BUN) 11 mg/dL 08/16/2018 [facility] [place] [address] [place] [address] COMPREHENSIVE METABOLIC PANEL 79031 CREATININE 0.70 m g/dL 08/16/2018 [facility] [place] [address] [place] [address] COMPREHENSIVE METABOLIC PANEL 64945 eGFR NON-AFR. MOSOTHO 92 mL/min/1.73m2 08/16/2018 [facility] [address] COMPREHENSIVE METABOLIC PANEL 34125 eGFR 107 mL/min/1.73m2 08/16/2018 [facility] [address] COMPREHENSIVE METABOLIC PANEL 69571 BUN/CREATININE RATIO NOT APPLICABLE (calc) 08/16/2018 [facility] [address] COMPREHENSIVE METABOLIC PANEL 92847 SODIUM 140 mm ol/L 08/16/[address] [facility] [address] COMPREHENSIVE METABOLIC PANEL 82087 POTASSIUM 4.0 mm ol/L 08/16/2018 [facility] [address] COMPREHENSIVE METABOLIC PANEL 81147 CHLORIDE 104 mm ol/L 08/16/2018 [facility] [address] COMPREHENSIVE METABOLIC PANEL 84127 CARBON DIOXIDE 29 mmol/L 08/16/2018 [facility] [address] COMPREHENSIVE METABOLIC PANEL 13890 CALCIUM 9.4 mg /dL 08/16/2018 [facility] [address] COMPREHENSIVE METABOLIC PANEL 41583 PROTEIN, TOTAL 6. 7 g/dL 08/16/2018 [facility] [address] COMPREHENSIVE METABOLIC PANEL 46267 ALBUMIN 4.4 g/ dL 08/16/[address] [facility] [address] COMPREHENSIVE METABOLIC PANEL 89159 GLOBULIN 2.3 g/ dL(calc) 08/16/[address] [facility] [address] COMPREHENSIVE METABOLIC PANEL 12825 ALBUMIN/GLOBULIN RATIO 1.9 (calc) 08/16/[address] [facility] [address] COMPREHENSIVE METABOLIC PANEL 32990 BILIRUBIN, TOTAL 0.8 mg/dL 08/16/2018 [facility] [address] COMPREHENSIVE METABOLIC PANEL 82609 ALKALINE PHOSPHATASE 72 U/L 08/16/2018 [facility] [address] COMPREHENSIVE METABOLIC PANEL 80180 AST 19 U/L 08/16/2018 [facility] [address] COMPREHENSIVE METABOLIC PANEL 60520 ALT 12 U/L 08/16/2018 [facility] [address] LIPID PANEL 70662 CHOLESTEROL, TOTAL 228 mg/dL 08/[address] [address] LIPID PANEL 91708 HDL CHOLESTEROL 42 mg/dL 08/16/20 18 [facility] [address] LIPID PANEL 32804 TRIGLYCERIDES 175 mg/dL 08/16/2018 [facility] [address] LIPID PANEL 91317 LDL-CHOLESTEROL 155 mg/dL(calc) [address] [address] LIPID PANEL 92426 CHOL/HDLC RATIO 5.4 (calc) 08/16/[address] [address] LIPID PANEL 19066 NON HDL CHOLESTEROL 186 mg/dL(calc) 08/16/2018 [facility] [address] EXTRA LAVENDER-TOP TUBE XLKS EXTRA LAVENDER-TOP TUBE 08/16/[address] [address] EXTRA LAVENDER-TOP TUBE XLKS COMMENT 1 10/16/2017 [facility] [address] Procedures Procedure Codes Date ROUTINE VENIPUNCTURE CPT-4: 71753 02/13/2020 COMPREHEN METABOLIC PANEL CPT-4: 57679 02/13/2020 LIPID PANEL CPT-4: 57385 02/13/2020 COMPLETE CBC W/AUTO DIFF WBC CPT-4: 65927 02/13/2020 ASSAY THYROID STIM HORMONE CPT-4: 95272 02/13/2020 ASSAY OF FREE THYROXINE CPT-4: 20917 02/13/2020 URINALYSIS, COMPLETE CPT-4: 90165 09/10/2019 CULTURE, URINE, ROUTINE CPT-4: 395 09/10/2019 URINALYSIS NONAUTO W/O SCOPE CPT-4: 82247 08/27/2019 CULTURE, URINE, ROUTINE CPT-4: 395 08/15/2019 URINALYSIS NONAUTO W/O SCOPE CPT-4: 89698 08/15/2019 SHINGRIX HZV VACC RECOMBINANT IM CPT-4: 32141 019 IMMUNIZATION ADMIN CPT-4: 21060 08/15/2019 COMPREHENSIVE METABOLIC PANEL CPT-4: 18175 08/09/2019 LIPID PANEL CPT-4: 67600 08/09/2019 ROUTINE VENIPUNCTURE CPT-4: 32224 08/09/2019 EXTRA LAVENDER-TOP TUBE CPT-4: XLKS 08/09/2019 ROUTINE VENIPUNCTURE CPT-4: 79382 02/14/2019 COMPREHEN METABOLIC PANEL CPT-4: 94949 02/14/2019 LIPID PANEL CPT-4: 29529 02/14/2019 ROUTINE VENIPUNCTURE CPT-4: 32174 08/15/2018 COMPREHENSIVE METABOLIC PANEL CPT-4: 35869 08/15/2018 EXTRA LAVENDER-TOP TUBE CPT-4: XLKS 08/15/2018 LIPID PANEL CPT-4: 31300 08/15/2018 IIV4 VACCINE 3 YRS+ IM AND UP CPT-4: 24667 07/03/2018 IMMUNIZATION ADMIN CPT-4: 52109 07/03/2018 SPECIMEN HANDLING OFFICE-LAB CPT-4: 77079 03/02/2018 OCCULT BLOOD FECES CPT-4: 33928 03/02/2018 THER/PROPH/DIAG INJ SC/IM CPT-4: 27440 11/03/2017 TRIAMCINOLONE ACET INJ NOS CPT-4: J3301 11/03/2017 INFLUENZA ASSAY W/OPTIC CPT-4: 28412 10/27/2017 THER/PROPH/DIAG INJ SC/IM CPT-4: 77648 10/27/2017 TRIAMCINOLONE ACET INJ NOS CPT-4: J3301 10/27/2017 THER/PROPH/DIAG INJ SC/IM CPT-4: 10300 04/23/2016 TRIAMCINOLONE ACET INJ NOS CPT-4: J3301 [...] 1: 126/70 Code: 8480-6 BMI: 26.7 Code: 35446-8 Heart Rate 1: 68 bpm Height: 5'6" Respiratory Rate: 18 bpm SpO2: 97% Tempera ture: 36.6 (C) / 97.9 (F) Weight: 168 lbs 08/15/2018 Blood Pressure 1: 122/78 Code: 8480-6 BMI: 25.9 Code: 36295-8 Heart Rate 1: 72 bpm Height: 5'6" Respiratory Rate: 20 bpm SpO2: 97% Tempera ture: 36.7 (C) / 98.0 (F) Weight: 163 lbs 03/02/2018 Blood Pressure 1: 126/74 Code: 8480-6 BMI: 26.1 Code: 40852-8 Heart Rate 1: 76 bpm Height: 5'6" Respiratory Rate: 20 bpm SpO2: 98% Tempera ture: 36.6 (C) / 97.8 (F) Weight: 164 lbs 11/03/2017 Blood Pressure 1: 124/82 Code: 8480-6 BMI: 25.3 Code: 38881-3 Heart Rate 1: 90 bpm Height: 5'6" Respiratory Rate: 22 bpm SpO2: 98% Tempera ture: 36.9 (C) / 98.4 (F) Weight: 159 lbs 10/27/2017 Blood Pressure 1: 122/84 Code: 8480-6 BMI: 25.6 Code: 62284-7 Heart Rate 1: 90 bpm Height: 5'6" Respiratory Rate: 22 bpm SpO2: 97% Tempera ture: 36.1 (C) / 97.0 (F) Weight: 161 lbs 08/11/2017 Blood Pressure 1: 132/76 Code: 8480-6 BMI: 26.4 Code: 42291-3 Heart Rate 1: 72 bpm Height: 5'6" Respiratory Rate: 20 bpm Temperature: 36 .6 (C) / 97.8 (F) Weight: 166 lbs 05/23/2017 Blood Pressure 1: 126/72 Code: 8480-6 BMI: 26.1 Code: 81867-3 Heart Rate 1: 72 bpm Height: 5'6" Respiratory Rate: 20 bpm SpO2: 98% Tempera ture: 37.1 (C) / 98.8 (F) Weight: 164 lbs 03/10/2017 Blood Pressure 1: 124/72 Code: 8480-6 BMI: 26.1 Code: 45074-5 Heart Rate 1: 92 bpm Height: 5'6" Respiratory Rate: 20 bpm SpO2: 97% Tempera ture: 37.2 (C) / 98.9 (F) Weight: 164 lbs 08/30/2016 Blood Pressure 1: 142/82 Code: 8480-6 BMI: 25.6 Code: 62338-4 Heart Rate 1: 72 bpm Height: 5'6" Respiratory Rate: 20 bpm Temperature: 36 .6 (C) / 97.9 (F) Weight: 161 lbs 06/01/2016 Blood Pressure 1: 156/88 Code: 8480-6 BMI: 26.4 Code: 91848-8 Heart Rate 1: 70 bpm Height: 5'6" Respiratory Rate: 18 bpm SpO2: 97% Tempera ture: 36.6 (C) / 97.8 (F) Weight: 166 lbs 04/30/2016 Blood Pressure 1: 122/70 Code: 8480-6 Heart Rate 1: 10 2 bpm Height: Respiratory Rate: 24 bpm SpO2: 95% Temperature: 36.4 (C) / 97.6 (F) We ight: 04/23/2016 Blood Pressure 1: 152/76 Code: 8480-6 BMI: 26.5 Code: 71191-0 Heart Rate 1: 106 bpm Height: 5'7" Respiratory Rate: 24 bpm SpO2: 96% Tempera ture: 36.8 (C) / 98.2 (F) Weight: 169 lbs 04/08/2016 Blood Pressure 1: 116/68 Code: 8480-6 BMI: 27.4 Code: 83259-2 Heart Rate 1: 76 bpm Height: 5'6" [...] visit Encounters Encounter Performer Location Codes Date ([id number]) NURSE/OUTPATIENT VISIT EST Diagnosis: Essential (primary) hypertension[ICD10: I10] Diagnosis: Mixed hyperlipidemia[ICD10: E78.2] Diagnosis: Encounter for general adult medical examination without abnormal findings[ICD10: Z00.00] Chio MICHAELER GOVECS CPT-4: 66579 02/13/2020 ([id number]) NURSE/OUTPATIENT VISIT EST Diagnosis: Hematuria[ICD10: R31.9] Chio Servin. MARIOND ER DO [facility] CPT-4: 15132 09/10/2019 ([id number]) OFFICE/OUTPATIENT VISIT EST Diagnosis: Hematuria[ICD10: R31.9] Chio Servin. MARIOND ER DO [facility] CPT-4: 33634 08/27/2019 ([id number]) PREV VISIT EST AGE 40-64 Diagnosis: Urinary tract infection[ICD10: N39.0] Diagnosis: Encounter for general adult medical examination without abnormal findings[ICD10: Z00.00] Diagnosis: Essential (primary) hypertension[ICD10: I10] Diagnosis: Mixed hyperlipidemia[ICD10: E78.2] Diagnosis: VACCIN FOR DISEASE NEC (HPV or Zostavax)[ICD10: Z23] [facility]io [employer] [facility] CPT-4: 17691 08/15/2019 ([id number]) NURSE/OUTPATIENT VISIT EST Diagnosis: Mixed hyperlipidemia[ICD10: E78.2] Diagnosis: Essential (primary) hypertension[ICD10: I10] Chio POST DO [facility] CPT-4: 36596 08/09/2019 ([id number]) OFFICE/OUTPATIENT VISIT EST Diagnosis: Mixed hyperlipidemia[ICD10: E78.2] Diagnosis: Other specified counseling[ICD10: Z71.89] [employer]io [employer] [facility] CPT-4: 50859 02/14/2019 ([id number]) OFFICE/OUTPATIENT VISIT EST Diagnosis: Mixed hyperlipidemia[ICD10: E78.2] Chio PLUMMER NELLIE MalathiHugo [employer] [facility] CPT-4: 18100 08/15/2018 ([id number]) NURSE/OUTPATIENT VISIT EST Diagnosis: FLU VACCINE[ICD10: Z23] Chio BONILLA [employer] [facility] CPT-4: 51898 07/03/2018 ([id number]) PREV VISIT EST AGE 40-64 Diagnosis: Encounter for general adult medical examination without abnormal findings[ICD10: Z00.00] Diagnosis: Encounter for gynecological examination (general) (routine) without abnormal findings[ICD10: Z01.419] Chio MORENOLINE MalathiHugo MATEO [employer] [facility] CPT-4: 94426 03/02/2018 OFFICE/OUTPATIENT VISIT EST Diagnosis: Pneumonia, unspecified organism[ICD10: J18.9] Shaniqua MORENOLINE Addis [employer] [facility] CPT-4: 60531 11/03/2017 OFFICE/OUTPATIENT VISIT EST Diagnosis: Influenza due to other identified influenza virus with other respiratory manifestations[ICD10: J10.1] Diagnosis: Acute bronchitis, unspecified[ICD10: J20.9] Shaniqua MORENOLINE MalathiHugo ROMAN CHOW [facility] CPT-4: 07634 10/27/2017 ([id number]) OFFICE/OUTPATIENT VISIT EST Diagnosis: Mixed hyperlipidemia[ICD10: E78.2] Chio PLUMMER [place] [employer] [facility] CPT-4: 68781 08/11/2017 ([id number]) PREV VISIT EST AGE 40-64 Diagnosis: Encounter for general adult medical examination without abnormal findings[ICD10: Z00.00] Diagnosis: Mixed hyperlipidemia[ICD10: E78.2] Chio PLUMMER [place] [employer] [facility] CPT-4: 77868 05/23/2017 ([id number]) OFFICE/OUTPATIENT VISIT EST Diagnosis: Essential (primary) hypertension[ICD10: I10] Diagnosis: Mixed hyperlipidemia[ICD10: E78.2] Chio PLUMMER [place] [employer] [facility] CPT-4: 10716 03/10/2017 ([id number]) OFFICE/OUTPATIENT VISIT EST Diagnosis: Mixed hyperlipidemia[ICD10: E78.2] Diagnosis: Essential (primary) hypertension[ICD10: I10] [employer] [facility] CPT-4: 16266 08/30/2016 ([id number]) OFFICE/OUTPATIENT VISIT EST Diagnosis: Mixed hyperlipidemia[ICD10: E78.2] Ale Hernan [employer] [facility] CPT-4: 19589 06/01/2016 ([id number]) OFFICE/OUTPATIENT VISIT EST Diagnosis: Strain of muscle, fascia and tendon of lower back, subsequent encounter[ICD10: S39.012D] Diagnosis: Sciatica, left side[ICD10: M54.32] Ale [employer] [facility] CPT-4: 87030 04/30/2016 ([id number]) OFFICE/OUTPATIENT VISIT EST Diagnosis: Strain of muscle, fascia and tendon of lower back, initial encounter[ICD10: S39.012A] Diagnosis: Sciatica, left side[ICD10: M54.32] Ale Hernan [employer] [facility] CPT-4: 08878 04/23/2016 ([id number]) PREV VISIT NEW AGE 40-64 Diagnosis: Encounter for general adult medical examination without abnormal findings[ICD10: Z00.00] Diagnosis: Plantar fascial fibromatosis[ICD10: M72.2] [employer] CPT-4: 31113 04/08/2016 Plan of Care Planned Activity Notes Codes Status Date Appointment: Chio Posttel: [address] [place], [place] [phone] [place] UA 09/10/2019 Visit Diagnosis Plan: Hematuria Discussion: Hold crest or No NSAIDs Push fluids/water Recheck urine microscopy in 2weeks and if still with microscopic blood then will need urology eval and cystoscope ICD-9 : 599.70 ICD-10 : R31.9 08/27/2019 Appointment: Chio Post WPtel: [address] [place], [place] [phone] ACUTE ILLNESS 08/27/2019 Visit Diagnosis Plan: Encounter for [facility] adult medical examination without abnormal findings [...] : E78.2 08/15/2019 Appointment: Chio Post WPtel: [address] [place], [place] [phone] [place] confirmed 08/09/19-- does not need reminder call Annual Well Visit 08/15/2019 Appointment: [facility]: [address] [place], [place] [phone] 08/15/19 1330---added to office visit with Dr kwon (elsy) CANCELED 08/15/2019 Appointment: [facility]io [facility]: [address] [place], [place] [phone] [place] LAB 08/09/2019 Visit Diagnosis Plan: Mixed [...] : Z71.89 02/14/2019 Appointment: Chio Post WPtel: [address] [place], [place] [phone] [place] FOLLOW UP 02/14/2019 Visit Diagnosis Plan: Mixed hyperlipidemia Discussion: Check CMP, Lipids Recommend Shingrix Had flu shot ICD-9 : 272.2 ICD-10 : E78.2 08/15/2018 Appointment: Chio Post WPtel: [address] [place] [address] FOLLOW UP 08/15/2018 Appointment: Chio Post WPtel: [address] [place], [place] [phone] [place] INJECTION 07/03/2018 Patient Education: Patient Medication [...] ICD-10 : Z01.419 03/02/2018 Appointment: [facility] [employer]: [address] [place] [address] Annual Well Visit 03/02/2018 Patient Education: Patient Medication Summary Completed 03/02/2018 Appointment: [facility]io [employer]: [address] [place], [place] [phone] RESCHEDULED 02/08/2018 Visit Diagnosis Plan: Pneumonia, unspecified [...] ICD-10 : J18.9 11/03/2017 Appointment: Shaniqua Ruiz [address] [place], [place] [phone] ACUTE ILLNESS 11/03/2017 Patient Education: Patient Medication [...] ICD-10 : J10.1 10/27/2017 Appointment: Shaniqua Ruiz [address] [place], [place] [phone] ACUTE ILLNESS 10/27/2017 Patient Education: Patient Medication Summary Completed 10/27/2017 Visit Diagnosis Plan: Mixed hyperlipidemia Discussion: Hold on statins due to side effects 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, 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 and fwup ICD-9 : 272.2 ICD-10 : E78.2 08/11/2017 Appointment: Chio Post WPtel: [phone] [id number] MEDICATION REVIEW 08/11/2017 Patient Education: Patient [...] : Z00.00 05/23/2017 Appointment: Chio Post WPtel: [address] [place] [address] Annual Well Visit 05/23/2017 Patient Education: Patient Medication Summary Completed 05/23/2017 Visit Diagnosis Plan: Mixed hyperlipidemia Discussion: Check CMP, Lipids ICD-9 : 272.2 ICD-10 : E78.2 03/10/2017 Visit Diagnosis Plan: Essential (primary) hypertension Follow Up: 6 months ICD-9 : 401.9 ICD-10 : I10 03/10/2017 Appointment: Chio Post WPtel: [address] [place] [address] 03/09 confimed ~sl CHECK UP 03/10/2017 Patient Education: Patient Medication Summary Completed 03/10/2017 Appointment: Chio Post WPtel: [address] [place] [address] 02/03 rescheduled ~sl RESCHEDULED 02/28/2017 Visit Plan: Lab discussed Continue lifes tyle modification Check full fasting lab in 6mos Monitor BP 1-2 times a week at home Discussed adding weights or yoga/sriram chi 3 times a week 08/30/2016 Appointment: hCio Post WPtel: [address] [place], [place] [phone] 08/26 lm`sl...confirmed~lb FOLLOW UP 08/30 Patient Education: Patient Medication Summary Completed 08/30/2016 Patient Education: Patient Medication Summary Completed 08/26/2016 Care Plan: COMPREHEN METABOLIC PANEL NINFA NC : 59112-6 Pending 08/26/2016 Care Plan: LIPID PANEL LOINC : 16995-2 Pending 08/26/2016 Visit Plan: Patient is very [...] fenofibrate possibly 06/01/2016 Appointment: Hernan Ale [address] [phone] 05/27 confirmed ~sl FOLLOW UP 06/01/2016 Patient [...] if negative) 04/30/2016 Appointment: Ale Becerra Blayne[address] [place] [address] FOLLOW UP 04/30/2016 Patient Education: Patient Medication Summary Completed 04/30/2016 Visit Plan: Steroid injection given toda y Muscle relaxer as well Continue daily meloxicam Start weaning back on oxycodone Can replace oxycodone dosing with otc tylenol Advised topical pain relievers, heat/ice, etc If oxycodone runs completely out and patient still needs some, can call for refill to hand picker or could consider replacing with tramadol 04/23/2016 Appointment: Ale Becerra Jas [address] ER Follow UP 04/23/2016 Patient Education: Patient Medication Summary Completed 04/23/2016 Visit Plan: Continue inserts and stretch es for plantar fascia Add Vivlodex Return in 2-3 weeks for injection if pain persists Check Fasting Lab Update Mammogram 04/08/2016 Appointment: Chio Post WPtel: [address] [place], [place] [phone] [place] 04/07 confirmed ~sl NEW PATIENT 04/08/2016 Patient Education: Patient Medication Summary Completed 04/08/2016 Patient Education: [facility] - Saving AutoInj - 18-64 - [...] needs some, can call for refill to hand picker or could consider replacing with tramadol [...]
--- OUTSIDE RECORDS SUMMARY | 2020-02-26 21:11 | XMS REPORT | CCD ---
Author Author Carola Post D.O. Organization [facility] Address [address] [place] [address] Phone Care Team Providers Care Sales Service Manager Name Role Phone Chio Post D.O. PP Unavailable CCM Unavailable Summary Purpose Interface Exchange Insurance Providers Payer name Policy type / Coverage type Covered alliance party ID Effective Begin Date Effective End Date WPS MEDICARE PART B [place] Medicare Part B [id number] Unknown [place] Medicare Part B [id number] 2019 100 Unknown Family history Grandfather Diagnosis Age At Onset Cancer Unknown Social History Social History Element Codes Description Effective Dates Marital status Unknown 04/08/2016 Number of children Unknown 3 04/08/2016 Employment Unknown Currently employed [employer] 249 04/08/[address]: 335791652 Has never smoked or chewed tobacco 04/08/[address]: 635398 Currently drinks alcohol 04/08 Frequency of drinks SNOMED CT: 077127735 Drinks rarely 016 Has the patient ever [...] Fill Instructions Livalo 1 mg tablet RxNorm: 048422 1 Tablet(s) Oral QD 12/03/2019 070 02/2020 Active Aleve 220 mg tablet RxNorm: 345528 Tablet(s) Oral as needed 019 No Stop Date Active Fish Oil 360 mg-1,200 mg capsule RxNorm: 1 Capsule(s) Or al two times a day 08/15/2019 No Stop Date Active Macrobid 100 mg capsule RxNorm: 759397 1 Capsule(s) Oral two ti mes a day 08/15/2019 08/22/2019 Inactive Crestor 5 mg tablet RxNorm: 028355 1/2 Tablet(s) PO twice a week 02/10/2020 Inactive Crestor 5 mg tablet RxNorm: 100992 1 Tablet(s) PO Tues, Thurs, Sat and Sun and 1/2 tablet (2.5mg) on Mon, Wed and Tue03/05/2019 03/11/2019 Inactive Crestor 5 mg tablet RxNorm: 824679 1 Tablet(s) PO QD 02/07/201903/05 Inactive Crestor 5 mg tablet RxNorm: 198408 1 Tablet(s) PO QD re check labwork in 6 months 08/21/2018 08/20/2018 Inactive Crestor 5 mg tablet RxNorm: 196778 1 Tablet(s) PO QD re check labwork in 6 months 08/21/2018 02/06/2019 Inactive Ventolin HFA 90 mcg/actuation aerosol inhaler RxNorm: 898038 2 Puff(s) INH Q4H as needed 11/03/2017 03/01/2018 Inactive please switch to proair if ventolin is not covered. thanks! Levaquin 500 mg tablet RxNorm: 411055 1 Tablet(s) PO QD 11/03/2017 Inactive Zithromax Z-Talat 250 mg tablet RxNorm: 428807 Tablet(s) PO 10/27/2017 03/01/2018 Inactive Lipitor 10 mg tablet RxNorm: 685251 1 TABLET(S) PO QD REPLACES PRAVASTATIN 06/08/2017 08/10/2017 Inactive Lipitor 10 mg tablet RxNorm: 389576 1 Tablet(s) PO QD replaces Pravastatin 03/16/2017 06/07/2017 Inactive pravastatin 10 mg tablet RxNorm: 851509 1 Tablet(s) PO QD 03/15/2017 03/14/2017 Inactive pravastatin 10 mg tablet RxNorm: 220930 1 Tablet(s) PO QD 03/15/2017 03/15/2017 Inactive Zorvolex 35 mg capsule RxNorm: 4829885 1 Capsule(s) PO TID HOLD MELOXICAM 05/03/2016 06/01/2016 Inactive Zorvolex 35 mg capsule RxNorm: 4008991 1 Capsule(s) PO TID HOLD MELOXICAM 04/30/2016 05/02/2016 Inactive prednisone 20 mg tablet RxNorm: 896367 1 Tablet(s) PO B ID and then decrease to 1 tab PO QD x 5 days 04/30/2016 05/04/2016 Inactive cyclobenzaprine 10 mg tablet RxNorm: 522603 1 Tablet(s) PO TID as needed for muscle spasm 04/23/2016 08/29/2016 Inactive pravastatin 20 mg tablet RxNorm: 149180 1 Tablet(s) PO QD 04/14/2016 08/29/2016 Inactive Vivlodex 10 mg capsule RxNorm: 3956032 1 Capsule(s) PO QD 04/08/2016 05/07/2016 Inactive Co Q-10 300 mg capsule RxNorm: 988953 1 Capsule(s) PO QD No Start Date Active Vitamin D3 5,000 unit tablet RxNorm: 620153 1 Tablet(s) PO QD No Star t Date Active melatonin 5 mg tablet RxNorm: 344165 1 Tablet(s) PO QHS as needed N o Start Date Active Multivitamin & Mineral Formula tablet RxNorm: 1 Tablet(s) PO Q D No Start Date Active Fish Oil 1,000 mg capsule RxNorm: 2 Capsule(s) PO QD No Start Date 08/29/2016 Inactive Metamucil 0.4 gram capsule RxNorm: 2534906 2 Capsule(s) PO BID No S tart Date 02/13/2019 Inactive Vitamin D3 2,000 unit tablet RxNorm: 959298 1 Tablet(s) PO QD No St art Date 03/26/2019 Inactive Lipitor 10 mg tablet RxNorm: 225375 1 Tablet(s) PO QD No Start Date 0 03/15/2017 Inactive Crestor 5 mg tablet RxNorm: 141101 1 Tablet(s) PO Tues, Thurs, Sat and Sun and 1/2 tablet (2.5mg) on Mon, Wed and Fri No Start Date 03/04/2019 Inactive Calcium with Vitamin D 600 mg (1,500 mg)-400 unit tablet RxN orm: 445665 1 Tablet(s) PO QD No Start Date 03/01/2018 Inactive krill oil 1,000 mg-170 mg-50 mg-80 mg capsule RxNorm: 1 Capsule(s) PO BID No Start Date 08/14/2019 Inactive Co Q-10 200 mg capsule RxNorm: 487727 1 Capsule(s) PO QD No Start D ate 03/01/2018 Inactive Co Q-10 oral RxNorm: 34075 oral No Start Date 07/24/2017 Inactive oxycodone-acetaminophen 5 mg-325 mg tablet RxNorm: 8736485 1 Tab let(s) PO Q6H No Start Date 08/29/2016 Inactive Krill Oil ([place] 3 and 6) oral RxNorm: 50807 oral No Start Date 02/13/2019 Inactive Flexeril 10mg tablet RxNorm: 1 Tablet(s) PO Q8H No Start Date 12/2015 Inactive Vitamin D3 1,000 unit tablet RxNorm: 773229 1 Tablet(s) PO QD No St art Date 03/11/2019 Inactive Medication Administered No Medication Administered data Immunizations Vaccine Codes Date Status Shingrix Unknown 11/20/2019 Zoster Unknown 08/15/2019 Complete Influenza CVX: 141 07/03/2018 Complete Results Observation Observation Code Item Item Code Result Date S ervice Location CULTURE, URINE, ROUTINE 395 CULTURE SEE NOTE 1 11/13/2018 [facility] [place] [address] [place] [address] CULTURE, URINE, ROUTINE 395 CULTURE, URINE, ROUTINE SEE NOTE 09/12/2019 [facility] [place] [address] [place] [address] URINALYSIS, COMPLETE 70514 Color YELLOW 08/26 [facility] [place] [address] [place] [address] URINALYSIS, COMPLETE 02386 APPEARANCE CLEAR 08/26 [place] [address] [place] [address] URINALYSIS, COMPLETE 80632 SPECIFIC GRAVITY 1.003 09/11/2019 [facility] [place] [address] [place] [address] URINALYSIS, COMPLETE 35348 PH 7.0 08/26 [facility] [place] [address] [place] [address] URINALYSIS, COMPLETE 32593 Glucose NEGATIVE 08/26 [facility] [address] [address] URINALYSIS, COMPLETE 59409 BILIRUBIN NEGATIVE 08/26 [facility] [address] URINALYSIS, COMPLETE 79981 Ketones NEGATIVE 08/26 [facility] [address] URINALYSIS, COMPLETE 11058 OCCULT BLOOD NEGATIVE [facility] [address] URINALYSIS, COMPLETE 51514 Protein NEGATIVE 08/26 [facility] [address] URINALYSIS, COMPLETE 76204 LEUKOCYTE ESTERASE NEGATIV E 09/11/2019 [facility] [address] URINALYSIS, COMPLETE 55504 WBC NONE SEEN /HPF 09/11/2019 [facility] [address] URINALYSIS, COMPLETE 23629 RBC NONE SEEN /HPF 09/11/2019 [facility] [address] URINALYSIS, COMPLETE 00280 SQUAMOUS EPITHELIAL CELLS NONE SEEN /HPF 09/11/2019 [facility] [address] URINALYSIS, COMPLETE 48012 TRANSITIONAL EPITHELIAL CELLS DNR /HPF 09/11/2019 [facility] [address] [address] URINALYSIS, COMPLETE 91043 RENAL EPITHELIAL CELLS DNR /HPF 09/11/2019 [facility] [address] URINALYSIS, COMPLETE 67851 BACTERIA NONE SEEN /HPF 09/11/2019 [facility] [address] URINALYSIS, COMPLETE 06739 CALCIUM OXALATE CRYSTALS D NR /HPF 09/11/2019 [facility] [address] URINALYSIS, COMPLETE 56283 TRIPLE PHOSPHATE CRYSTALS DNR /HPF 09/11/2019 [facility] [place] [address] URINALYSIS, COMPLETE 62108 URIC ACID CRYSTALS DNR /HP F 09/11/2019 [facility] [address] [place] [address] URINALYSIS, COMPLETE 60816 AMORPHOUS SEDIMENT DNR /HP F 09/11/2019 [facility] [place] [address] URINALYSIS, COMPLETE 44366 CRYSTALS DNR /HPF 08/26 [facility] [place] [address] [place] [address] URINALYSIS, COMPLETE 40936 HYALINE CAST NONE SEEN /LP F 09/11/2019 [facility] [place] [address] URINALYSIS, COMPLETE 86492 GRANULAR CAST DNR /LPF 1 11/12/2018 [facility] [place] [address] URINALYSIS, COMPLETE 92575 CASTS DNR /LPF 08/26 [facility] [place] [address] URINALYSIS, COMPLETE 89462 YEAST DNR /HPF 08/26 [facility] [place] [address] URINALYSIS, COMPLETE 38550 COMMENTS DNR 08/26 [facility] [place] [address] URINALYSIS, COMPLETE 33588 NOTE DNR 08/26 [facility] [place] [address] URINALYSIS, COMPLETE 19365 NITRITE NEGATIVE 08/26 [facility] [place] [address] CULTURE, URINE, ROUTINE 395 CULTURE, URINE, ROUTINE SEE NOTE 08/16/2019 [facility] [place] [address] EXTRA LAVENDER-TOP TUBE XLKS EXTRA LAVENDER-TOP TUBE 08/10/2019 [facility] [place] [address] EXTRA LAVENDER-TOP TUBE XLKS COMMENT 1 10/10/2018 [facility] [place] [address] LIPID PANEL 96420 CHOLESTEROL, TOTAL 180 mg/dL 08/10 [facility] [address] LIPID PANEL 91853 HDL CHOLESTEROL 35 mg/dL 08/10/20 [facility] [address] LIPID PANEL 20584 TRIGLYCERIDES 200 mg/dL 08/10/2019 [facility] [address] LIPID PANEL 71018 LDL-CHOLESTEROL 113 mg/dL(calc) [facility] [address] LIPID PANEL 77939 CHOL/HDLC RATIO 5.1 (calc) 08/10/20 [facility] [address] LIPID PANEL 82974 NON HDL CHOLESTEROL 145 mg/dL(calc) 08/10/2019 [facility] [address] COMPREHENSIVE METABOLIC PANEL 21067 Glucose 86 mg/ dL 08/10/2019 [facility] [address] COMPREHENSIVE METABOLIC PANEL 65423 UREA NITROGEN (BUN) 11 mg/dL 08/10/2019 [facility] [address] COMPREHENSIVE METABOLIC PANEL 77829 CREATININE 0.71 m g/dL 08/10/2019 [facility] [address] COMPREHENSIVE METABOLIC PANEL 35277 eGFR NON-AFR. GREEK 90 mL/min/1.73m2 08/10/2019 [facility] [address] COMPREHENSIVE METABOLIC PANEL 49622 eGFR 104 mL/min/1.73m2 08/10/2019 [facility] [address] COMPREHENSIVE METABOLIC PANEL 86473 BUN/CREATININE RATIO NOT APPLICABLE (calc) 08/10/2019 [facility] [address] [address] COMPREHENSIVE METABOLIC PANEL 45324 SODIUM 140 mm ol/L 08/10/2019 [facility] [address] COMPREHENSIVE METABOLIC PANEL 05372 POTASSIUM 4.2 mm ol/L 08/10/2019 [facility] [address] COMPREHENSIVE METABOLIC PANEL 63632 CHLORIDE 105 mm ol/L 08/10/2019 [facility] [address] COMPREHENSIVE METABOLIC PANEL 28480 CARBON DIOXIDE 28 mmol/L 08/10/2019 [facility] [address] COMPREHENSIVE METABOLIC PANEL 66175 CALCIUM 9.3 mg /dL 08/10/2019 [facility] [address] COMPREHENSIVE METABOLIC PANEL 75046 PROTEIN, TOTAL 6. 7 g/dL 08/10/2019 [facility] [address] COMPREHENSIVE METABOLIC PANEL 77930 ALBUMIN 4.3 g/ dL 08/10/2019 [facility] [address] COMPREHENSIVE METABOLIC PANEL 32887 GLOBULIN 2.4 g/ dL(calc) 08/10/2019 [facility] [address] COMPREHENSIVE METABOLIC PANEL 96397 ALBUMIN/GLOBULIN RATIO 1.8 (calc) 08/10/2019 [facility] [address] COMPREHENSIVE METABOLIC PANEL 01130 BILIRUBIN, TOTAL 0.6 mg/dL 08/10/2019 [facility] [address] COMPREHENSIVE METABOLIC PANEL 30575 ALKALINE PHOSPHATASE 74 U/L 08/10/2019 [facility] [address] COMPREHENSIVE METABOLIC PANEL 12498 AST 21 U/L 08/10/2019 [facility] [address] COMPREHENSIVE METABOLIC PANEL 52458 ALT 15 U/L 08/10/2019 [facility] [address] COMPREHENSIVE METABOLIC 56261 AST 18 U/L 2018 Unknown COMPREHENSIVE METABOLIC 62621 ALT 12 U/L 2018 Unknown COMPREHENSIVE METABOLIC 02637 BUN 11 mg/dL 2018 Unknown COMPREHENSIVE METABOLIC 82617 ALBUMIN 4.6 g/dL 2018 Unknown COMPREHENSIVE METABOLIC 35415 CHLORIDE 106 mmol/L 02/14 Unknown COMPREHENSIVE METABOLIC 50819 Bili Total 0.9 mg/dL 02/14 Unknown COMPREHENSIVE METABOLIC 63342 ALK PHOS 76 U/L 2018 Unknown COMPREHENSIVE METABOLIC 40531 SODIUM 142 mmol/L 02/14 Unknown COMPREHENSIVE METABOLIC 40973 CREATININE 0.69 mg/dL 01/25 Unknown COMPREHENSIVE METABOLIC 91992 CALCIUM 9.5 mg/dL 2018 Unknown COMPREHENSIVE METABOLIC 44528 POTASSIUM 3.9 mmol/L 02/14 Unknown COMPREHENSIVE METABOLIC 23591 Total Protein 6.6 g/dL Unknown COMPREHENSIVE METABOLIC 84367 Glucose 86 mg/dL 2018 Unknown COMPREHENSIVE METABOLIC 95054 Bicarbonate 29 mmol/L 01/25 Unknown COMPREHENSIVE METABOLIC 13806 AGAP 7 mmol/L 2018 Unknown GFR CALC 1518263 GFR Non Afr Amr >60 mL/min 02/14/2019 Un known GFR CALC [id number] GFR Afr Amr >60 mL/min 02/14/2019 Unknow n [facility] 48721 Cholesterol 127 mg/dL 02/14/2019 Unkno wn [facility] 81907 Triglyceride 156 mg/dL 02/14/2019 Unkn own [facility] 24846 HDL CHOLESTEROL 45 mg/dL 02/14/2019 U nknown [facility] 66453 Chol/HDL Ratio 2.82 ratio 02/14/2019 U nknown [facility] 01502 NON-HDL Chol 82 mg/dL 02/14/2019 Unkn own [facility] 73737 LDL Cholesterol 51 mg/dL 02/14/2019 U nknown COMPREHENSIVE METABOLIC PANEL 08543 Glucose 88 mg/ dL 08/16/2018 [facility] [place] [address] [place] [address] COMPREHENSIVE METABOLIC PANEL 62945 UREA NITROGEN (BUN) 11 mg/dL 08/16/2018 [facility] [place] [address] [place] [address] COMPREHENSIVE METABOLIC PANEL 95661 CREATININE 0.70 m g/dL 08/16/2018 [facility] [place] [address] [place] [address] COMPREHENSIVE METABOLIC PANEL 68708 eGFR NON-AFR. GREEK 92 mL/min/1.73m2 08/16/2018 [facility] [address] COMPREHENSIVE METABOLIC PANEL 83343 eGFR 107 mL/min/1.73m2 08/16/2018 [facility] [address] COMPREHENSIVE METABOLIC PANEL 83810 BUN/CREATININE RATIO NOT APPLICABLE (calc) 08/16/2018 [facility] [address] COMPREHENSIVE METABOLIC PANEL 70222 SODIUM 140 mm ol/L 08/16/2018 [facility] [address] COMPREHENSIVE METABOLIC PANEL 89082 POTASSIUM 4.0 mm ol/L 08/16/2018 [facility] [address] COMPREHENSIVE METABOLIC PANEL 98459 CHLORIDE 104 mm ol/L 08/16/2018 [facility] [address] COMPREHENSIVE METABOLIC PANEL 33627 CARBON DIOXIDE 29 mmol/L 08/16/2018 [facility] [address] COMPREHENSIVE METABOLIC PANEL 14189 CALCIUM 9.4 mg /dL 08/16/2018 [facility] [address] COMPREHENSIVE METABOLIC PANEL 39348 PROTEIN, TOTAL 6. 7 g/dL 08/16/2018 [facility] [address] COMPREHENSIVE METABOLIC PANEL 49969 ALBUMIN 4.4 g/ dL 08/16/2018 [facility] [address] COMPREHENSIVE METABOLIC PANEL 03495 GLOBULIN 2.3 g/ dL(calc) 08/16/2018 [facility] [address] COMPREHENSIVE METABOLIC PANEL 37935 ALBUMIN/GLOBULIN RATIO 1.9 (calc) 08/16/2018 [facility] [address] COMPREHENSIVE METABOLIC PANEL 03090 BILIRUBIN, TOTAL 0.8 mg/dL 08/16/2018 [facility] [address] COMPREHENSIVE METABOLIC PANEL 79589 ALKALINE PHOSPHATASE 72 U/L 08/16/2018 [facility] [address] COMPREHENSIVE METABOLIC PANEL 45724 AST 19 U/L 08/16/2018 [facility] [address] COMPREHENSIVE METABOLIC PANEL 19128 ALT 12 U/L 08/16/2018 [facility] [address] LIPID PANEL 87988 CHOLESTEROL, TOTAL 228 mg/dL 08/[address] [address] LIPID PANEL 53270 HDL CHOLESTEROL 42 mg/dL 08/16/20 18 [facility] [address] LIPID PANEL 33538 TRIGLYCERIDES 175 mg/dL 08/16/2018 [facility] [address] LIPID PANEL 31593 LDL-CHOLESTEROL 155 mg/dL(calc) [address] [address] LIPID PANEL 30020 CHOL/HDLC RATIO 5.4 (calc) 08/16/[address] [address] LIPID PANEL 17623 NON HDL CHOLESTEROL 186 mg/dL(calc) 08/16/2018 [facility] [address] EXTRA LAVENDER-TOP TUBE XLKS EXTRA LAVENDER-TOP TUBE 08/16/[address] [address] EXTRA LAVENDER-TOP TUBE XLKS COMMENT 1 10/16/2017 [facility] [employer] [address] Procedures Procedure Codes Date ROUTINE VENIPUNCTURE CPT-4: 80191 02/13/2020 COMPREHEN METABOLIC PANEL CPT-4: 02427 02/13/2020 LIPID PANEL CPT-4: 41726 02/13/2020 COMPLETE CBC W/AUTO DIFF WBC CPT-4: 37945 02/13/2020 ASSAY THYROID STIM HORMONE CPT-4: 36304 02/13/2020 ASSAY OF FREE THYROXINE CPT-4: 95415 02/13/2020 URINALYSIS, COMPLETE CPT-4: 23016 09/10/2019 CULTURE, URINE, ROUTINE CPT-4: 395 09/10/2019 URINALYSIS NONAUTO W/O SCOPE CPT-4: 58958 08/27/2019 CULTURE, URINE, ROUTINE CPT-4: 395 08/15/2019 URINALYSIS NONAUTO W/O SCOPE CPT-4: 12365 08/15/2019 SHINGRIX HZV VACC RECOMBINANT IM CPT-4: 12604 019 IMMUNIZATION ADMIN CPT-4: 47376 08/15/2019 COMPREHENSIVE METABOLIC PANEL CPT-4: 19392 08/09/2019 LIPID PANEL CPT-4: 95711 08/09/2019 ROUTINE VENIPUNCTURE CPT-4: 40949 08/09/2019 EXTRA LAVENDER-TOP TUBE CPT-4: XLKS 08/09/2019 ROUTINE VENIPUNCTURE CPT-4: 95156 02/14/2019 COMPREHEN METABOLIC PANEL CPT-4: 07687 02/14/2019 LIPID PANEL CPT-4: 84176 02/14/2019 ROUTINE VENIPUNCTURE CPT-4: 28694 08/15/2018 COMPREHENSIVE METABOLIC PANEL CPT-4: 92552 08/15/2018 EXTRA LAVENDER-TOP TUBE CPT-4: XLKS 08/15/2018 LIPID PANEL CPT-4: 77514 08/15/2018 IIV4 VACCINE 3 YRS+ IM AND UP CPT-4: 56220 07/03/2018 IMMUNIZATION ADMIN CPT-4: 54857 07/03/2018 SPECIMEN HANDLING OFFICE-LAB CPT-4: 67861 03/02/2018 OCCULT BLOOD FECES CPT-4: 16145 03/02/2018 THER/PROPH/DIAG INJ SC/IM CPT-4: 80842 11/03/2017 TRIAMCINOLONE ACET INJ NOS CPT-4: J3301 11/03/2017 INFLUENZA ASSAY W/OPTIC CPT-4: 00014 10/27/2017 THER/PROPH/DIAG INJ SC/IM CPT-4: 20848 10/27/2017 TRIAMCINOLONE ACET INJ NOS CPT-4: J3301 10/27/2017 THER/PROPH/DIAG INJ SC/IM CPT-4: 89099 04/23/2016 TRIAMCINOLONE ACET INJ NOS CPT-4: J3301 [...] 1: 126/70 Code: 8480-6 BMI: 26.7 Code: 87799-4 Heart Rate 1: 68 bpm Height: 5'6" Respiratory Rate: 18 bpm SpO2: 97% Tempera ture: 36.6 (C) / 97.9 (F) Weight: 168 lbs 08/15/2018 Blood Pressure 1: 122/78 Code: 8480-6 BMI: 25.9 Code: 24319-2 Heart Rate 1: 72 bpm Height: 5'6" Respiratory Rate: 20 bpm SpO2: 97% Tempera ture: 36.7 (C) / 98.0 (F) Weight: 163 lbs 03/02/2018 Blood Pressure 1: 126/74 Code: 8480-6 BMI: 26.1 Code: 46654-1 Heart Rate 1: 76 bpm Height: 5'6" Respiratory Rate: 20 bpm SpO2: 98% Tempera ture: 36.6 (C) / 97.8 (F) Weight: 164 lbs 11/03/2017 Blood Pressure 1: 124/82 Code: 8480-6 BMI: 25.3 Code: 69633-7 Heart Rate 1: 90 bpm Height: 5'6" Respiratory Rate: 22 bpm SpO2: 98% Tempera ture: 36.9 (C) / 98.4 (F) Weight: 159 lbs 10/27/2017 Blood Pressure 1: 122/84 Code: 8480-6 BMI: 25.6 Code: 15169-1 Heart Rate 1: 90 bpm Height: 5'6" Respiratory Rate: 22 bpm SpO2: 97% Tempera ture: 36.1 (C) / 97.0 (F) Weight: 161 lbs 08/11/2017 Blood Pressure 1: 132/76 Code: 8480-6 BMI: 26.4 Code: 40241-8 Heart Rate 1: 72 bpm Height: 5'6" Respiratory Rate: 20 bpm Temperature: 36 .6 (C) / 97.8 (F) Weight: 166 lbs 05/23/2017 Blood Pressure 1: 126/72 Code: 8480-6 BMI: 26.1 Code: 67507-2 Heart Rate 1: 72 bpm Height: 5'6" Respiratory Rate: 20 bpm SpO2: 98% Tempera ture: 37.1 (C) / 98.8 (F) Weight: 164 lbs 03/10/2017 Blood Pressure 1: 124/72 Code: 8480-6 BMI: 26.1 Code: 55265-2 Heart Rate 1: 92 bpm Height: 5'6" Respiratory Rate: 20 bpm SpO2: 97% Tempera ture: 37.2 (C) / 98.9 (F) Weight: 164 lbs 08/30/2016 Blood Pressure 1: 142/82 Code: 8480-6 BMI: 25.6 Code: 74513-2 Heart Rate 1: 72 bpm Height: 5'6" Respiratory Rate: 20 bpm Temperature: 36 .6 (C) / 97.9 (F) Weight: 161 lbs 06/01/2016 Blood Pressure 1: 156/88 Code: 8480-6 BMI: 26.4 Code: 42627-9 Heart Rate 1: 70 bpm Height: 5'6" Respiratory Rate: 18 bpm SpO2: 97% Tempera ture: 36.6 (C) / 97.8 (F) Weight: 166 lbs 04/30/2016 Blood Pressure 1: 122/70 Code: 8480-6 Heart Rate 1: 10 2 bpm Height: Respiratory Rate: 24 bpm SpO2: 95% Temperature: 36.4 (C) / 97.6 (F) We ight: 04/23/2016 Blood Pressure 1: 152/76 Code: 8480-6 BMI: 26.5 Code: 30719-6 Heart Rate 1: 106 bpm Height: 5'7" Respiratory Rate: 24 bpm SpO2: 96% Tempera ture: 36.8 (C) / 98.2 (F) Weight: 169 lbs 04/08/2016 Blood Pressure 1: 116/68 Code: 8480-6 BMI: 27.4 Code: 92787-9 Heart Rate 1: 76 bpm Height: 5'6" [...] visit Encounters Encounter Performer Location Codes Date ([id number]) NURSE/OUTPATIENT VISIT EST Diagnosis: Essential (primary) hypertension[ICD10: I10] Diagnosis: Mixed hyperlipidemia[ICD10: E78.2] Diagnosis: Encounter for general adult medical examination without abnormal findings[ICD10: Z00.00] Chio MICHAELER [employer] CPT-4: 34538 02/13/2020 ([id number]) NURSE/OUTPATIENT VISIT EST Diagnosis: Hematuria[ICD10: R31.9] Chio Servin. MARIOND ER DO [employer] CPT-4: 92409 09/10/2019 ([id number]) OFFICE/OUTPATIENT VISIT EST Diagnosis: Hematuria[ICD10: R31.9] Chio Servin. MARIOND ER DO [facility] CPT-4: 86978 08/27/2019 ([id number]) PREV VISIT EST AGE 40-64 Diagnosis: Urinary tract infection[ICD10: N39.0] Diagnosis: Encounter for general adult medical examination without abnormal findings[ICD10: Z00.00] Diagnosis: Essential (primary) hypertension[ICD10: I10] Diagnosis: Mixed hyperlipidemia[ICD10: E78.2] Diagnosis: VACCIN FOR DISEASE NEC (HPV or Zostavax)[ICD10: Z23] Chio POST [employer] [facility] CPT-4: 61194 08/15/2019 ([id number]) NURSE/OUTPATIENT VISIT EST Diagnosis: Mixed hyperlipidemia[ICD10: E78.2] Diagnosis: Essential (primary) hypertension[ICD10: I10] Chio POST DO [facility] CPT-4: 78741 08/09/2019 ([id number]) OFFICE/OUTPATIENT VISIT EST Diagnosis: Mixed hyperlipidemia[ICD10: E78.2] Diagnosis: Other specified counseling[ICD10: Z71.89] Chio POST [employer] [facility] CPT-4: 58711 02/14/2019 ([id number]) OFFICE/OUTPATIENT VISIT EST Diagnosis: Mixed hyperlipidemia[ICD10: E78.2] Chio PLUMMER NELLIE MalathiHugo ALEC [employer] [facility] CPT-4: 87898 08/15/2018 ([id number]) NURSE/OUTPATIENT VISIT EST Diagnosis: FLU VACCINE[ICD10: Z23] Chio BONILLA [employer] [facility] CPT-4: 98503 07/03/2018 ([id number]) PREV VISIT EST AGE 40-64 Diagnosis: Encounter for general adult medical examination without abnormal findings[ICD10: Z00.00] Diagnosis: Encounter for gynecological examination (general) (routine) without abnormal findings[ICD10: Z01.419] Chio MORENOLINE MalathiHugo MATEO Holder [employer] [facility] CPT-4: 08643 03/02/2018 OFFICE/OUTPATIENT VISIT EST Diagnosis: Pneumonia, unspecified organism[ICD10: J18.9] Shaniqua MORENOLINE Addis POST DO [facility] CPT-4: 20372 11/03/2017 OFFICE/OUTPATIENT VISIT EST Diagnosis: Influenza due to other identified influenza virus with other respiratory manifestations[ICD10: J10.1] Diagnosis: Acute bronchitis, unspecified[ICD10: J20.9] Shaniqua MORENOLINE MalathiHugo ROMAN CHOW [facility] CPT-4: 19433 10/27/2017 ([id number]) OFFICE/OUTPATIENT VISIT EST Diagnosis: Mixed hyperlipidemia[ICD10: E78.2] Chio PLUMMER [place] Addis POST [employer] [facility] CPT-4: 49376 08/11/2017 ([id number]) PREV VISIT EST AGE 40-64 Diagnosis: Encounter for general adult medical examination without abnormal findings[ICD10: Z00.00] Diagnosis: Mixed hyperlipidemia[ICD10: E78.2] Chio [employer] [place] [employer] [facility] CPT-4: 81596 05/23/2017 ([id number]) OFFICE/OUTPATIENT VISIT EST Diagnosis: Essential (primary) hypertension[ICD10: I10] Diagnosis: Mixed hyperlipidemia[ICD10: E78.2] Chio [place] [employer] [facility] CPT-4: 37921 03/10/2017 ([id number]) OFFICE/OUTPATIENT VISIT EST Diagnosis: Mixed hyperlipidemia[ICD10: E78.2] Diagnosis: Essential (primary) hypertension[ICD10: I10] [employer] [facility] CPT-4: 90104 08/30/2016 ([id number]) OFFICE/OUTPATIENT VISIT EST Diagnosis: Mixed hyperlipidemia[ICD10: E78.2] Ale Hernan [place] [employer] [facility] CPT-4: 21701 06/01/2016 ([id number]) OFFICE/OUTPATIENT VISIT EST Diagnosis: Strain of muscle, fascia and tendon of lower back, subsequent encounter[ICD10: S39.012D] Diagnosis: Sciatica, left side[ICD10: M54.32] Ale [place] [employer] [facility] CPT-4: 27273 04/30/2016 ([id number]) OFFICE/OUTPATIENT VISIT EST Diagnosis: Strain of muscle, fascia and tendon of lower back, initial encounter[ICD10: S39.012A] Diagnosis: Sciatica, left side[ICD10: M54.32] Ale Hernan [place] [employer] [place] [employer] [facility] CPT-4: 40973 04/23/2016 ([id number]) PREV VISIT NEW AGE 40-64 Diagnosis: Encounter for general adult medical examination without abnormal findings[ICD10: Z00.00] Diagnosis: Plantar fascial fibromatosis[ICD10: M72.2] [employer] CPT-4: 30156 04/08/2016 Plan of Care Planned Activity Notes Codes Status Date Appointment: Chio Posttel: [address] [place], [place] [phone] [place] UA 09/10/2019 Visit Diagnosis Plan: Hematuria Discussion: Hold crest or No NSAIDs Push fluids/water Recheck urine microscopy in 2weeks and if still with microscopic blood then will need urology eval and cystoscope ICD-9 : 599.70 ICD-10 : R31.9 08/27/2019 Appointment: Chio Post WPtel: [address] [place], [place] [phone] ACUTE ILLNESS 08/27/2019 Visit Diagnosis Plan: Encounter for [facility] adult medical examination without abnormal findings Discussion: Mediterranean diet Combinati on of cardio and weight bearing exercise Lab discussed Had Tdap about 1 year ago Had flu shot Shingrix #1 given ICD-9 : V70.9 ICD-10 : Z00.00 08/15/2019 Visit Diagnosis Plan: Mixed hyperlipidemia Discussion: Increase Crestor to 1/2 tablet daily 3 times a week and check lipids in 6mos ICD-9 : 272.2 ICD-10 : E78.2 08/15/2019 Visit Diagnosis Plan: Essential (primary) hypertension Discussion: Stable ICD-9 : 401.9 ICD-10 : I10 08/15/2019 Appointment: Chio Posttel: [address] [place], [place] [phone] [place] confirmed 08/09/19-- does not need reminder call Annual Well Visit 08/15/2019 Appointment: Chio Posttel: [address] [place], [place] [phone] 08/15/19 1330---added to office visit with Dr kwon (elsy) CANCELED 08/15/2019 Appointment: Chio Posttel: [address] [place], [place] [phone] [place] LAB 08/09/2019 Visit Diagnosis Plan: Other specified counseling Discu ssion: Discussed upcoming travel and using compression socks as well as aspirin 81mg starting 2 days prior to travel and continuing for 1 week after ICD-9 : V65.49 ICD-10 : Z71.89 02/14/2019 Visit Diagnosis Plan: Mixed hyperlipidemia Discussion: Check CMP, Lipids Doing well with Crestor Restart Vitamin D ICD-9 : 272.2 ICD-10 : E78.2 02/14/2019 Appointment: Chio Post WPtel: [address] [place] [address] FOLLOW UP 02/14/2019 Visit Diagnosis Plan: Mixed hyperlipidemia Discussion: Check CMP, Lipids Recommend Shingrix Had flu shot ICD-9 : 272.2 ICD-10 : E78.2 08/15/2018 Appointment: Chio Post WPtel: [address] [place] [address] FOLLOW UP 08/15/2018 Appointment: Chio Post WPtel: [address] [place], [place] [phone] [place] INJECTION 07/03/2018 Patient Education: Patient Medication [...] ICD-10 : Z01.419 03/02/2018 Appointment: Chio Posttel: [address] [place] [address] Annual Well Visit 03/02/2018 Patient Education: Patient Medication Summary Completed 03/02/2018 Appointment: Chio Posttel: [address] [place] [address] RESCHEDULED 02/08/2018 Visit Diagnosis Plan: Pneumonia, unspecified [...] ICD-10 : J18.9 11/03/2017 Appointment: Shaniqua Ruiz [address] [place], [place] [phone] ACUTE ILLNESS 11/03/2017 Patient Education: Patient Medication [...] ICD-10 : J10.1 10/27/2017 Appointment: Shaniqua Ruiz [address] [place], [place] [phone] ACUTE ILLNESS 10/27/2017 Patient Education: Patient Medication Summary Completed 10/27/2017 Visit Diagnosis Plan: Mixed hyperlipidemia Discussion: Hold on statins due to side effects Lifestyle traveler changer next 6mos then check CMP, Lipids and fwup ICD-9 : 272.2 ICD-10 : E78.2 08/11/2017 Appointment: Chio Post WPtel: [phone] [facility] MEDICATION REVIEW 08/11/2017 Patient Education: Patient Medication Summary Completed 08/11/2017 Visit Diagnosis Plan: Encounter for [facility] adult medical examination without abnormal findings Discussion: Will update lab next month D efers mammogram until next year--normal mammogram last year Pap due next year Tdap 3 yrs ago Colonoscopy up to date Discussed zostavax--will check on coverage ICD-9 : V70.9 ICD-10 : Z00.00 05/23/2017 Visit Diagnosis Plan: Mixed hyperlipidemia Discussion: Continue lipitor and check lipids with LFTs next month ICD-9 : 272.2 ICD-10 : E78.2 05/23/2017 Appointment: Chio Post WPtel: [address] [place] [address] Annual Well Visit 05/23/2017 Patient Education: Patient Medication Summary Completed 05/23/2017 Visit Diagnosis Plan: Mixed hyperlipidemia Discussion: Check CMP, Lipids ICD-9 : 272.2 ICD-10 : E78.2 03/10/2017 Visit Diagnosis Plan: Essential (primary) hypertension Follow Up: 6 months ICD-9 : 401.9 ICD-10 : I10 03/10/2017 Appointment: Chio Post WPtel: [address] [place] [address] 03/09 confimed ~sl CHECK UP 03/10/2017 Patient Education: Patient Medication Summary Completed 03/10/2017 Appointment: Chio Post WPtel: [address] [place] [address] 02/03 rescheduled ~sl RESCHEDULED 02/28/2017 Visit Plan: Lab discussed Continue lifes tyle modification Check full fasting lab in 6mos Monitor BP 1-2 times a week at home Discussed adding weights or yoga/sriram chi 3 times a week 08/30/2016 Appointment: Chio Post WPtel: [address] [place], [place] [phone] 08/26 lm`sl...confirmed~lb FOLLOW UP 08/30 Patient Education: Patient Medication Summary Completed 08/30/2016 Patient Education: Patient Medication Summary Completed 08/26/2016 Care Plan: COMPREHEN METABOLIC PANEL NINFA NC : 89190-3 Pending 08/26/2016 Care Plan: LIPID PANEL LOINC : 82409-6 Pending 08/26/2016 Visit Plan: Patient is very [...] fenofibrate possibly 06/01/2016 Appointment: Hernan Ale [address] [phone] 05/27 confirmed ~sl FOLLOW UP 06/01/2016 Patient [...] MRI if negative) 04/30/2016 Appointment: Ale Becerra Blayne[address] [place] [address] FOLLOW UP 04/30/2016 Patient Education: Patient Medication Summary Completed 04/30/2016 Visit Plan: Steroid injection given toda y Muscle relaxer as well Continue daily meloxicam Start weaning back on oxycodone Can replace oxycodone dosing with otc tylenol Advised topical pain relievers, heat/ice, etc If oxycodone runs completely out and patient still needs some, can call for refill to [facility] or could consider replacing with tramadol 04/23/2016 Appointment: Ale Becerra Jas [address] ER Follow UP 04/23/2016 Patient Education: Patient Medication Summary Completed 04/23/2016 Visit Plan: Continue inserts and stretch es for plantar fascia Add Vivlodex Return in 2-3 weeks for injection if pain persists Check Fasting Lab Update Mammogram 04/08/2016 Appointment: Chio Post WPtel: [address] [place], [place] [phone] [place] 04/07 confirmed ~sl NEW PATIENT 04/08/2016 Patient Education: Patient Medication Summary Completed 04/08/2016 Patient Education: [facility] - [employer] - 18-64 [...] needs some, can call for refill to [facility] or could consider replacing with tramadol [...]
--- OUTSIDE RECORDS SUMMARY | 2020-02-26 21:11 | XMS REPORT | CCD ---
Author Author Carola Post D.O. Organization [facility] Address [address] [place] [address] Phone Care Team Providers Care Event Set Up Specialist Name Role Phone Chio Post D.O. PP Unavailable CCM Unavailable Summary Purpose Interface Exchange Insurance Providers Payer name Policy type / Coverage type Covered constitution party ID Effective Begin Date Effective End Date WPS MEDICARE PART B [place] Medicare Part B [id number] Unknown [email or web address] Medicare Part B [id number] 2019 100 Unknown Family history Grandfather Diagnosis Age At Onset Cancer Unknown Social History Social History Element Codes Description Effective Dates Marital status Unknown 04/08/2016 Number of children Unknown 3 04/08/2016 Employment Unknown Currently employed [employer] 249 04/08/[address]: 812055371 Has never smoked or chewed tobacco 04/08/[address]: 063202 Currently drinks alcohol 04/08 Frequency of drinks SNOMED CT: 778572966 Drinks rarely 016 Has the patient ever [...] Fill Instructions Livalo 1 mg tablet RxNorm: 283555 1 Tablet(s) Oral QD 12/03/2019 070 02/2020 Active Aleve 220 mg tablet RxNorm: 972650 Tablet(s) Oral as needed 019 No Stop Date Active Fish Oil 360 mg-1,200 mg capsule RxNorm: 1 Capsule(s) Or al two times a day 08/15/2019 No Stop Date Active Macrobid 100 mg capsule RxNorm: 696907 1 Capsule(s) Oral two ti mes a day 08/15/2019 08/22/2019 Inactive Crestor 5 mg tablet RxNorm: 739137 1/2 Tablet(s) PO twice a week 02/10/2020 Inactive Crestor 5 mg tablet RxNorm: 652250 1 Tablet(s) PO Tues, Thurs, Sat and Sun and 1/2 tablet (2.5mg) on Mon, Wed and Tue03/05/2019 03/11/2019 Inactive Crestor 5 mg tablet RxNorm: 166834 1 Tablet(s) PO QD 02/07/201903/05 Inactive Crestor 5 mg tablet RxNorm: 007539 1 Tablet(s) PO QD re check labwork in 6 months 08/21/2018 08/20/2018 Inactive Crestor 5 mg tablet RxNorm: 335888 1 Tablet(s) PO QD re check labwork in 6 months 08/21/2018 02/06/2019 Inactive Ventolin HFA 90 mcg/actuation aerosol inhaler RxNorm: 062358 2 Puff(s) INH Q4H as needed 11/03/2017 03/01/2018 Inactive please switch to proair if ventolin is not covered. thanks! Levaquin 500 mg tablet RxNorm: 519983 1 Tablet(s) PO QD 11/03/2017 Inactive Zithromax Z-Talat 250 mg tablet RxNorm: 459992 Tablet(s) PO 10/27/2017 03/01/2018 Inactive Lipitor 10 mg tablet RxNorm: 418650 1 TABLET(S) PO QD REPLACES PRAVASTATIN 06/08/2017 08/10/2017 Inactive Lipitor 10 mg tablet RxNorm: 773859 1 Tablet(s) PO QD replaces Pravastatin 03/16/2017 06/07/2017 Inactive pravastatin 10 mg tablet RxNorm: 778848 1 Tablet(s) PO QD 03/15/2017 03/14/2017 Inactive pravastatin 10 mg tablet RxNorm: 922750 1 Tablet(s) PO QD 03/15/2017 03/15/2017 Inactive Zorvolex 35 mg capsule RxNorm: 2083618 1 Capsule(s) PO TID HOLD MELOXICAM 05/03/2016 06/01/2016 Inactive Zorvolex 35 mg capsule RxNorm: 9036530 1 Capsule(s) PO TID HOLD MELOXICAM 04/30/2016 05/02/2016 Inactive prednisone 20 mg tablet RxNorm: 648703 1 Tablet(s) PO B ID and then decrease to 1 tab PO QD x 5 days 04/30/2016 05/04/2016 Inactive cyclobenzaprine 10 mg tablet RxNorm: 881613 1 Tablet(s) PO TID as needed for muscle spasm 04/23/2016 08/29/2016 Inactive pravastatin 20 mg tablet RxNorm: 788494 1 Tablet(s) PO QD 04/14/2016 08/29/2016 Inactive Vivlodex 10 mg capsule RxNorm: 3159837 1 Capsule(s) PO QD 04/08/2016 05/07/2016 Inactive Co Q-10 300 mg capsule RxNorm: 201473 1 Capsule(s) PO QD No Start Date Active Vitamin D3 5,000 unit tablet RxNorm: 179558 1 Tablet(s) PO QD No Star t Date Active melatonin 5 mg tablet RxNorm: 047795 1 Tablet(s) PO QHS as needed N o Start Date Active Multivitamin & Mineral Formula tablet RxNorm: 1 Tablet(s) PO Q D No Start Date Active Fish Oil 1,000 mg capsule RxNorm: 2 Capsule(s) PO QD No Start Date 08/29/2016 Inactive Metamucil 0.4 gram capsule RxNorm: 6311312 2 Capsule(s) PO BID No S tart Date 02/13/2019 Inactive Vitamin D3 2,000 unit tablet RxNorm: 859184 1 Tablet(s) PO QD No St art Date 03/26/2019 Inactive Lipitor 10 mg tablet RxNorm: 088347 1 Tablet(s) PO QD No Start Date 0 03/15/2017 Inactive Crestor 5 mg tablet RxNorm: 804067 1 Tablet(s) PO Tues, Thurs, Sat and Sun and 1/2 tablet (2.5mg) on Mon, Wed and Fri No Start Date 03/04/2019 Inactive Calcium with Vitamin D 600 mg (1,500 mg)-400 unit tablet RxN orm: 551780 1 Tablet(s) PO QD No Start Date 03/01/2018 Inactive krill oil 1,000 mg-170 mg-50 mg-80 mg capsule RxNorm: 1 Capsule(s) PO BID No Start Date 08/14/2019 Inactive Co Q-10 200 mg capsule RxNorm: 729942 1 Capsule(s) PO QD No Start D ate 03/01/2018 Inactive Co Q-10 oral RxNorm: 13050 oral No Start Date 07/24/2017 Inactive oxycodone-acetaminophen 5 mg-325 mg tablet RxNorm: 1325337 1 Tab let(s) PO Q6H No Start Date 08/29/2016 Inactive Krill Oil ([place] 3 and 6) oral RxNorm: 10467 oral No Start Date 02/13/2019 Inactive Flexeril 10mg tablet RxNorm: 1 Tablet(s) PO Q8H No Start Date 12/2015 Inactive Vitamin D3 1,000 unit tablet RxNorm: 206707 1 Tablet(s) PO QD No St art Date 03/11/2019 Inactive Medication Administered No Medication Administered data Immunizations Vaccine Codes Date Status Shingrix Unknown 11/20/2019 Zoster Unknown 08/15/2019 Complete Influenza CVX: 141 07/03/2018 Complete Results Observation Observation Code Item Item Code Result Date S ervice Location CULTURE, URINE, ROUTINE 395 CULTURE SEE NOTE 1 11/13/2018 [facility] [place] [address] [place] [address] CULTURE, URINE, ROUTINE 395 CULTURE, URINE, ROUTINE SEE NOTE 09/12/2019 [facility] [place] [address] [place] [address] URINALYSIS, COMPLETE 66753 Color YELLOW 08/26 [facility] [place] [address] [place] [address] URINALYSIS, COMPLETE 65801 APPEARANCE CLEAR 08/26 [place] [address] [place] [address] URINALYSIS, COMPLETE 14527 SPECIFIC GRAVITY 1.003 09/11/2019 [facility] [place] [address] [place] [address] URINALYSIS, COMPLETE 72472 PH 7.0 08/26 [facility] [place] [address] [place] [address] URINALYSIS, COMPLETE 64064 Glucose NEGATIVE 08/26 [facility] [address] [address] URINALYSIS, COMPLETE 79429 BILIRUBIN NEGATIVE 08/26 [facility] [address] URINALYSIS, COMPLETE 20097 Ketones NEGATIVE 08/26 [facility] [address] URINALYSIS, COMPLETE 83250 OCCULT BLOOD NEGATIVE [facility] [address] URINALYSIS, COMPLETE 25306 Protein NEGATIVE 08/26 [facility] [address] URINALYSIS, COMPLETE 83893 LEUKOCYTE ESTERASE NEGATIV E 09/11/2019 [facility] [address] URINALYSIS, COMPLETE 52592 WBC NONE SEEN /HPF 09/11/2019 [facility] [address] URINALYSIS, COMPLETE 94296 RBC NONE SEEN /HPF 09/11/2019 [facility] [address] URINALYSIS, COMPLETE 85215 SQUAMOUS EPITHELIAL CELLS NONE SEEN /HPF 09/11/2019 [facility] [address] URINALYSIS, COMPLETE 40903 TRANSITIONAL EPITHELIAL CELLS DNR /HPF 09/11/2019 [facility] [address] [address] URINALYSIS, COMPLETE 26710 RENAL EPITHELIAL CELLS DNR /HPF 09/11/2019 [facility] [address] URINALYSIS, COMPLETE 54083 BACTERIA NONE SEEN /HPF 09/11/2019 [facility] [address] URINALYSIS, COMPLETE 99085 CALCIUM OXALATE CRYSTALS D NR /HPF 09/11/2019 [facility] [address] URINALYSIS, COMPLETE 50235 TRIPLE PHOSPHATE CRYSTALS DNR /HPF 09/11/2019 [facility] [place] [address] URINALYSIS, COMPLETE 15781 URIC ACID CRYSTALS DNR /HP F 09/11/2019 [facility] [address] [place] [address] URINALYSIS, COMPLETE 97732 AMORPHOUS SEDIMENT DNR /HP F 09/11/2019 [facility] [place] [address] URINALYSIS, COMPLETE 17211 CRYSTALS DNR /HPF 08/26 [facility] [place] [address] [place] [address] URINALYSIS, COMPLETE 38748 HYALINE CAST NONE SEEN /LP F 09/11/2019 [facility] [place] [address] URINALYSIS, COMPLETE 56145 GRANULAR CAST DNR /LPF 1 11/12/2018 [facility] [place] [address] URINALYSIS, COMPLETE 94231 CASTS DNR /LPF 08/26 [facility] [place] [address] URINALYSIS, COMPLETE 65469 YEAST DNR /HPF 08/26 [facility] [place] [address] URINALYSIS, COMPLETE 52906 COMMENTS DNR 08/26 [facility] [place] [address] URINALYSIS, COMPLETE 09655 NOTE DNR 08/26 [place] [address] URINALYSIS, COMPLETE 99230 NITRITE NEGATIVE 08/26 [facility] [place] [address] CULTURE, URINE, ROUTINE 395 CULTURE, URINE, ROUTINE SEE NOTE 08/16/2019 [facility] [place] [address] EXTRA LAVENDER-TOP TUBE XLKS EXTRA LAVENDER-TOP TUBE 08/10/2019 [facility] [place] [address] EXTRA LAVENDER-TOP TUBE XLKS COMMENT 1 10/10/2018 [facility] [place] [address] LIPID PANEL 28598 CHOLESTEROL, TOTAL 180 mg/dL 08/[address] [address] LIPID PANEL 37331 HDL CHOLESTEROL 35 mg/dL 08/10/[address] [address] LIPID PANEL 40418 TRIGLYCERIDES 200 mg/dL 08/10/[address] [address] LIPID PANEL 26294 LDL-CHOLESTEROL 113 mg/dL(calc) [facility] [address] LIPID PANEL 84708 CHOL/HDLC RATIO 5.1 (calc) 08/10/[address] [address] LIPID PANEL 17071 NON HDL CHOLESTEROL 145 mg/dL(calc) 08/10/[address] [facility] [address] COMPREHENSIVE METABOLIC PANEL 02570 Glucose 86 mg/ dL 08/10/[address] [facility] [address] [address] COMPREHENSIVE METABOLIC PANEL 59381 UREA NITROGEN (BUN) 11 mg/dL 08/10/[address] [address] COMPREHENSIVE METABOLIC PANEL 87611 CREATININE 0.71 m g/dL 08/10/[address] [facility] [address] [address] COMPREHENSIVE METABOLIC PANEL 98632 eGFR NON-AFR. TUNISIAN 90 mL/min/1.73m2 08/10/[address] [address] COMPREHENSIVE METABOLIC PANEL 76817 eGFR 104 mL/min/1.73m2 08/10/[address] [facility] [address] COMPREHENSIVE METABOLIC PANEL 06786 BUN/CREATININE RATIO NOT APPLICABLE (calc) 08/10/[facility] [address] [address] COMPREHENSIVE METABOLIC PANEL 54440 SODIUM 140 mm ol/L 08/10/[address] [address] COMPREHENSIVE METABOLIC PANEL 19264 POTASSIUM 4.2 mm ol/L 08/10/2019 [facility] [address] COMPREHENSIVE METABOLIC PANEL 14625 CHLORIDE 105 mm ol/L 08/10/[address] [facility] [address] COMPREHENSIVE METABOLIC PANEL 57045 CARBON DIOXIDE 28 mmol/L 08/10/2019 [facility] [address] COMPREHENSIVE METABOLIC PANEL 03763 CALCIUM 9.3 mg /dL 08/10/2019 [facility] [address] COMPREHENSIVE METABOLIC PANEL 74283 PROTEIN, TOTAL 6. 7 g/dL 08/10/[address] [facility] [address] COMPREHENSIVE METABOLIC PANEL 92987 ALBUMIN 4.3 g/ dL 08/10/[address] [facility] [address] COMPREHENSIVE METABOLIC PANEL 47638 GLOBULIN 2.4 g/ dL(calc) 08/10/2019 [facility] [address] COMPREHENSIVE METABOLIC PANEL 58915 ALBUMIN/GLOBULIN RATIO 1.8 (calc) 08/10/2019 [facility] [address] COMPREHENSIVE METABOLIC PANEL 39806 BILIRUBIN, TOTAL 0.6 mg/dL 08/10/[address] [facility] [address] COMPREHENSIVE METABOLIC PANEL 15705 ALKALINE PHOSPHATASE 74 U/L 08/10/2019 [facility] [address] COMPREHENSIVE METABOLIC PANEL 88632 AST 21 U/L 08/10/[address] [facility] [address] COMPREHENSIVE METABOLIC PANEL 45208 ALT 15 U/L 08/10/[address] [facility] [address] COMPREHENSIVE METABOLIC 42229 AST 18 U/L 2018 Unknown COMPREHENSIVE METABOLIC 03368 ALT 12 U/L 2018 Unknown COMPREHENSIVE METABOLIC 51721 BUN 11 mg/dL 2018 Unknown COMPREHENSIVE METABOLIC 68626 ALBUMIN 4.6 g/dL 2018 Unknown COMPREHENSIVE METABOLIC 45988 CHLORIDE 106 mmol/L 02/14 Unknown COMPREHENSIVE METABOLIC 86189 Bili Total 0.9 mg/dL 02/14 Unknown COMPREHENSIVE METABOLIC 15177 ALK PHOS 76 U/L 2018 Unknown COMPREHENSIVE METABOLIC 10024 SODIUM 142 mmol/L 02/14 Unknown COMPREHENSIVE METABOLIC 36077 CREATININE 0.69 mg/dL 01/25 Unknown COMPREHENSIVE METABOLIC 99540 CALCIUM 9.5 mg/dL 2018 Unknown COMPREHENSIVE METABOLIC 71878 POTASSIUM 3.9 mmol/L 02/14 Unknown COMPREHENSIVE METABOLIC 18779 Total Protein 6.6 g/dL Unknown COMPREHENSIVE METABOLIC 78638 Glucose 86 mg/dL 2018 Unknown COMPREHENSIVE METABOLIC 28338 Bicarbonate 29 mmol/L 01/25 Unknown COMPREHENSIVE METABOLIC 40669 AGAP 7 mmol/L 2018 Unknown GFR CALC [id number] GFR Non Afr Amr >60 mL/min 02/14/2019 Un known GFR CALC [id number] GFR Afr Amr >60 mL/min 02/14/2019 Unknow n [facility] 10595 Cholesterol 127 mg/dL 02/14/2019 Unkno wn [facility] 77853 Triglyceride 156 mg/dL 02/14/2019 Unkn own [facility] 37078 HDL CHOLESTEROL 45 mg/dL 02/14/2019 U nknown [facility] 06619 Chol/HDL Ratio 2.82 ratio 02/14/2019 U nknown [facility] 54572 NON-HDL Chol 82 mg/dL 02/14/2019 Unkn own [facility] 73467 LDL Cholesterol 51 mg/dL 02/14/2019 U nknown COMPREHENSIVE METABOLIC PANEL 66188 Glucose 88 mg/ dL 08/16/2018 [facility] [place] [address] [place] [address] COMPREHENSIVE METABOLIC PANEL 12511 UREA NITROGEN (BUN) 11 mg/dL 08/16/2018 [facility] [place] [address] [place] [address] COMPREHENSIVE METABOLIC PANEL 90939 CREATININE 0.70 m g/dL 08/16/2018 [facility] [place] [address] [place] [address] COMPREHENSIVE METABOLIC PANEL 18658 eGFR NON-AFR. TUNISIAN 92 mL/min/1.73m2 08/16/[address] [address] COMPREHENSIVE METABOLIC PANEL 15352 eGFR 107 mL/min/1.73m2 08/16/2018 [facility] [address] COMPREHENSIVE METABOLIC PANEL 16854 BUN/CREATININE RATIO NOT APPLICABLE (calc) 08/16/2018 [facility] [address] COMPREHENSIVE METABOLIC PANEL 99274 SODIUM 140 mm ol/L 08/16/2018 [facility] [address] COMPREHENSIVE METABOLIC PANEL 49296 POTASSIUM 4.0 mm ol/L 08/16/2018 [facility] [address] COMPREHENSIVE METABOLIC PANEL 93427 CHLORIDE 104 mm ol/L 08/16/2018 [facility] [address] COMPREHENSIVE METABOLIC PANEL 71634 CARBON DIOXIDE 29 mmol/L 08/16/2018 [facility] [address] COMPREHENSIVE METABOLIC PANEL 87775 CALCIUM 9.4 mg /dL 08/16/2018 [facility] [address] COMPREHENSIVE METABOLIC PANEL 02880 PROTEIN, TOTAL 6. 7 g/dL 08/16/2018 [facility] [address] COMPREHENSIVE METABOLIC PANEL 80496 ALBUMIN 4.4 g/ dL 08/16/[address] [facility] [address] COMPREHENSIVE METABOLIC PANEL 31595 GLOBULIN 2.3 g/ dL(calc) 08/16/2018 [facility] [address] COMPREHENSIVE METABOLIC PANEL 50762 ALBUMIN/GLOBULIN RATIO 1.9 (calc) 08/16/2018 [facility] [address] COMPREHENSIVE METABOLIC PANEL 17163 BILIRUBIN, TOTAL 0.8 mg/dL 08/16/2018 [facility] [address] COMPREHENSIVE METABOLIC PANEL 19941 ALKALINE PHOSPHATASE 72 U/L 08/16/2018 [facility] [address] COMPREHENSIVE METABOLIC PANEL 21112 AST 19 U/L 08/16/2018 [facility] [address] COMPREHENSIVE METABOLIC PANEL 91886 ALT 12 U/L 08/16/2018 [facility] [address] LIPID PANEL 70991 CHOLESTEROL, TOTAL 228 mg/dL 08/[address] [address] LIPID PANEL 04880 HDL CHOLESTEROL 42 mg/dL 08/16/20 18 [facility] [address] LIPID PANEL 28565 TRIGLYCERIDES 175 mg/dL 08/16/2018 [facility] [address] LIPID PANEL 46291 LDL-CHOLESTEROL 155 mg/dL(calc) [address] [address] LIPID PANEL 25645 CHOL/HDLC RATIO 5.4 (calc) 08/16/[address] [address] LIPID PANEL 77889 NON HDL CHOLESTEROL 186 mg/dL(calc) 08/16/2018 [facility] [address] EXTRA LAVENDER-TOP TUBE XLKS EXTRA LAVENDER-TOP TUBE 08/16/[address] [address] EXTRA LAVENDER-TOP TUBE XLKS COMMENT 1 10/16/2017 [facility] [address] Procedures Procedure Codes Date ROUTINE VENIPUNCTURE CPT-4: 95777 02/13/2020 COMPREHEN METABOLIC PANEL CPT-4: 06613 02/13/2020 LIPID PANEL CPT-4: 63738 02/13/2020 COMPLETE CBC W/AUTO DIFF WBC CPT-4: 81195 02/13/2020 ASSAY THYROID STIM HORMONE CPT-4: 67924 02/13/2020 ASSAY OF FREE THYROXINE CPT-4: 18240 02/13/2020 URINALYSIS, COMPLETE CPT-4: 54845 09/10/2019 CULTURE, URINE, ROUTINE CPT-4: 395 09/10/2019 URINALYSIS NONAUTO W/O SCOPE CPT-4: 29046 08/27/2019 CULTURE, URINE, ROUTINE CPT-4: 395 08/15/2019 URINALYSIS NONAUTO W/O SCOPE CPT-4: 34016 08/15/2019 SHINGRIX HZV VACC RECOMBINANT IM CPT-4: 23874 019 IMMUNIZATION ADMIN CPT-4: 17967 08/15/2019 COMPREHENSIVE METABOLIC PANEL CPT-4: 92229 08/09/2019 LIPID PANEL CPT-4: 17638 08/09/2019 ROUTINE VENIPUNCTURE CPT-4: 28569 08/09/2019 EXTRA LAVENDER-TOP TUBE CPT-4: XLKS 08/09/2019 ROUTINE VENIPUNCTURE CPT-4: 17557 02/14/2019 COMPREHEN METABOLIC PANEL CPT-4: 72319 02/14/2019 LIPID PANEL CPT-4: 73337 02/14/2019 ROUTINE VENIPUNCTURE CPT-4: 44852 08/15/2018 COMPREHENSIVE METABOLIC PANEL CPT-4: 34680 08/15/2018 EXTRA LAVENDER-TOP TUBE CPT-4: XLKS 08/15/2018 LIPID PANEL CPT-4: 46663 08/15/2018 IIV4 VACCINE 3 YRS+ IM AND UP CPT-4: 36049 07/03/2018 IMMUNIZATION ADMIN CPT-4: 42033 07/03/2018 SPECIMEN HANDLING OFFICE-LAB CPT-4: 81553 03/02/2018 OCCULT BLOOD FECES CPT-4: 79123 03/02/2018 THER/PROPH/DIAG INJ SC/IM CPT-4: 81363 11/03/2017 TRIAMCINOLONE ACET INJ NOS CPT-4: J3301 11/03/2017 INFLUENZA ASSAY W/OPTIC CPT-4: 53158 10/27/2017 THER/PROPH/DIAG INJ SC/IM CPT-4: 29364 10/27/2017 TRIAMCINOLONE ACET INJ NOS CPT-4: J3301 10/27/2017 THER/PROPH/DIAG INJ SC/IM CPT-4: 00142 04/23/2016 TRIAMCINOLONE ACET INJ NOS CPT-4: J3301 [...] 1: 126/70 Code: 8480-6 BMI: 26.7 Code: 33166-8 Heart Rate 1: 68 bpm Height: 5'6" Respiratory Rate: 18 bpm SpO2: 97% Tempera ture: 36.6 (C) / 97.9 (F) Weight: 168 lbs 08/15/2018 Blood Pressure 1: 122/78 Code: 8480-6 BMI: 25.9 Code: 17362-6 Heart Rate 1: 72 bpm Height: 5'6" Respiratory Rate: 20 bpm SpO2: 97% Tempera ture: 36.7 (C) / 98.0 (F) Weight: 163 lbs 03/02/2018 Blood Pressure 1: 126/74 Code: 8480-6 BMI: 26.1 Code: 57834-6 Heart Rate 1: 76 bpm Height: 5'6" Respiratory Rate: 20 bpm SpO2: 98% Tempera ture: 36.6 (C) / 97.8 (F) Weight: 164 lbs 11/03/2017 Blood Pressure 1: 124/82 Code: 8480-6 BMI: 25.3 Code: 43096-7 Heart Rate 1: 90 bpm Height: 5'6" Respiratory Rate: 22 bpm SpO2: 98% Tempera ture: 36.9 (C) / 98.4 (F) Weight: 159 lbs 10/27/2017 Blood Pressure 1: 122/84 Code: 8480-6 BMI: 25.6 Code: 24733-2 Heart Rate 1: 90 bpm Height: 5'6" Respiratory Rate: 22 bpm SpO2: 97% Tempera ture: 36.1 (C) / 97.0 (F) Weight: 161 lbs 08/11/2017 Blood Pressure 1: 132/76 Code: 8480-6 BMI: 26.4 Code: 60290-5 Heart Rate 1: 72 bpm Height: 5'6" Respiratory Rate: 20 bpm Temperature: 36 .6 (C) / 97.8 (F) Weight: 166 lbs 05/23/2017 Blood Pressure 1: 126/72 Code: 8480-6 BMI: 26.1 Code: 41085-8 Heart Rate 1: 72 bpm Height: 5'6" Respiratory Rate: 20 bpm SpO2: 98% Tempera ture: 37.1 (C) / 98.8 (F) Weight: 164 lbs 03/10/2017 Blood Pressure 1: 124/72 Code: 8480-6 BMI: 26.1 Code: 63920-3 Heart Rate 1: 92 bpm Height: 5'6" Respiratory Rate: 20 bpm SpO2: 97% Tempera ture: 37.2 (C) / 98.9 (F) Weight: 164 lbs 08/30/2016 Blood Pressure 1: 142/82 Code: 8480-6 BMI: 25.6 Code: 70192-7 Heart Rate 1: 72 bpm Height: 5'6" Respiratory Rate: 20 bpm Temperature: 36 .6 (C) / 97.9 (F) Weight: 161 lbs 06/01/2016 Blood Pressure 1: 156/88 Code: 8480-6 BMI: 26.4 Code: 50605-0 Heart Rate 1: 70 bpm Height: 5'6" Respiratory Rate: 18 bpm SpO2: 97% Tempera ture: 36.6 (C) / 97.8 (F) Weight: 166 lbs 04/30/2016 Blood Pressure 1: 122/70 Code: 8480-6 Heart Rate 1: 10 2 bpm Height: Respiratory Rate: 24 bpm SpO2: 95% Temperature: 36.4 (C) / 97.6 (F) We ight: 04/23/2016 Blood Pressure 1: 152/76 Code: 8480-6 BMI: 26.5 Code: 55929-5 Heart Rate 1: 106 bpm Height: 5'7" Respiratory Rate: 24 bpm SpO2: 96% Tempera ture: 36.8 (C) / 98.2 (F) Weight: 169 lbs 04/08/2016 Blood Pressure 1: 116/68 Code: 8480-6 BMI: 27.4 Code: 23733-3 Heart Rate 1: 76 bpm Height: 5'6" [...] visit Encounters Encounter Performer Location Codes Date ([id number]) NURSE/OUTPATIENT VISIT EST Diagnosis: Essential (primary) hypertension[ICD10: I10] Diagnosis: Mixed hyperlipidemia[ICD10: E78.2] Diagnosis: Encounter for general adult medical examination without abnormal findings[ICD10: Z00.00] Chio MICHAELER [employer] CPT-4: 45384 02/13/2020 ([id number]) NURSE/OUTPATIENT VISIT EST Diagnosis: Hematuria[ICD10: R31.9] Chio Servin. MARIOND ER DO [facility] [facility] CPT-4: 78446 09/10/2019 ([id number]) OFFICE/OUTPATIENT VISIT EST Diagnosis: Hematuria[ICD10: R31.9] Chio Servin. MARIOND ER DO [facility] CPT-4: 09758 08/27/2019 ([id number]) PREV VISIT EST AGE 40-64 Diagnosis: Urinary tract infection[ICD10: N39.0] Diagnosis: Encounter for general adult medical examination without abnormal findings[ICD10: Z00.00] Diagnosis: Essential (primary) hypertension[ICD10: I10] Diagnosis: Mixed hyperlipidemia[ICD10: E78.2] Diagnosis: VACCIN FOR DISEASE NEC (HPV or Zostavax)[ICD10: Z23] Chio POST [facility] CPT-4: 73101 08/15/2019 ([id number]) NURSE/OUTPATIENT VISIT EST Diagnosis: Mixed hyperlipidemia[ICD10: E78.2] Diagnosis: Essential (primary) hypertension[ICD10: I10] Chio POST DO [facility] CPT-4: 52508 08/09/2019 ([id number]) OFFICE/OUTPATIENT VISIT EST Diagnosis: Mixed hyperlipidemia[ICD10: E78.2] Diagnosis: Other specified counseling[ICD10: Z71.89] Chio POST [facility] CPT-4: 10855 02/14/2019 ([id number]) OFFICE/OUTPATIENT VISIT EST Diagnosis: Mixed hyperlipidemia[ICD10: E78.2] Chio PLUMMER NELLIE MalathiHugo ALEC [facility] CPT-4: 28809 08/15/2018 ([id number]) NURSE/OUTPATIENT VISIT EST Diagnosis: FLU VACCINE[ICD10: Z23] Chio BONILLA [facility] CPT-4: 61355 07/03/2018 ([id number]) PREV VISIT EST AGE 40-64 Diagnosis: Encounter for general adult medical examination without abnormal findings[ICD10: Z00.00] Diagnosis: Encounter for gynecological examination (general) (routine) without abnormal findings[ICD10: Z01.419] Chio MORENOLINE MalathiHugo MATEO Holder [facility] CPT-4: 22200 03/02/2018 OFFICE/OUTPATIENT VISIT EST Diagnosis: Pneumonia, unspecified organism[ICD10: J18.9] Shaniqua MORENOLINE [facility] CPT-4: 72926 11/03/2017 OFFICE/OUTPATIENT VISIT EST Diagnosis: Influenza due to other identified influenza virus with other respiratory manifestations[ICD10: J10.1] Diagnosis: Acute bronchitis, unspecified[ICD10: J20.9] Shaniqua MORENOLINE MalathiHugo ROMAN CHOW [facility] CPT-4: 94802 10/27/2017 ([id number]) OFFICE/OUTPATIENT VISIT EST Diagnosis: Mixed hyperlipidemia[ICD10: E78.2] Chio PLUMMER AL [facility] CPT-4: 48728 08/11/2017 ([id number]) PREV VISIT EST AGE 40-64 Diagnosis: Encounter for general adult medical examination without abnormal findings[ICD10: Z00.00] Diagnosis: Mixed hyperlipidemia[ICD10: E78.2] Chio PLUMMER AL Addis [facility] CPT-4: 19612 05/23/2017 ([id number]) OFFICE/OUTPATIENT VISIT EST Diagnosis: Essential (primary) hypertension[ICD10: I10] Diagnosis: Mixed hyperlipidemia[ICD10: E78.2] Chio PLUMMER AL Addis [facility] CPT-4: 70175 03/10/2017 ([id number]) OFFICE/OUTPATIENT VISIT EST Diagnosis: Mixed hyperlipidemia[ICD10: E78.2] Diagnosis: Essential (primary) hypertension[ICD10: I10] Chio POST [facility] CPT-4: 31536 08/30/2016 ([id number]) OFFICE/OUTPATIENT VISIT EST Diagnosis: Mixed hyperlipidemia[ICD10: E78.2] Ale Hernan PLUMMER AL Wug[employer]. ROMAN [facility] CPT-4: 00310 06/01/2016 ([id number]) OFFICE/OUTPATIENT VISIT EST Diagnosis: Strain of muscle, fascia and tendon of lower back, subsequent encounter[ICD10: S39.012D] Diagnosis: Sciatica, left side[ICD10: M54.32] Ale PLUMMER AL Wugly. ROMAN [facility] CPT-4: 12084 04/30/2016 ([id number]) OFFICE/OUTPATIENT VISIT EST Diagnosis: Strain of muscle, fascia and tendon of lower back, initial encounter[ICD10: S39.012A] Diagnosis: Sciatica, left side[ICD10: M54.32] Ale Hernan PLUMMER AL Wugly. MARIONDIRENE [facility] CPT-4: 42917 04/23/2016 ([id number]) PREV VISIT NEW AGE 40-64 Diagnosis: Encounter for general adult medical examination without abnormal findings[ICD10: Z00.00] Diagnosis: Plantar fascial fibromatosis[ICD10: M72.2] [facility] CPT-4: 49500 04/08/2016 Plan of Care Planned Activity Notes Codes Status Date Appointment: Chio Post[facility]: [address] [place], [place] [phone] [place] UA 09/10/2019 Visit Diagnosis Plan: Hematuria Discussion: Hold crest or No NSAIDs Push fluids/water Recheck urine microscopy in 2weeks and if still with microscopic blood then will need urology eval and cystoscope ICD-9 : 599.70 ICD-10 : R31.9 08/27/2019 Appointment: [facility]io [facility] WPtel: [address] [place], [place] [phone] ACUTE ILLNESS 08/27/2019 Visit Diagnosis Plan: Encounter for [facility] adult medical examination without abnormal findings [...] : E78.2 08/15/2019 Appointment: Chio Post WPtel: [address] [place], [place] [phone] [place] confirmed 08/09/19-- does not need reminder call Annual Well Visit 08/15/2019 Appointment: Chio [facility]: [address] [place], [place] [phone] 08/15/19 1330---added to office visit with Dr kwon (elsy) CANCELED 08/15/2019 Appointment: [facility]io [facility]: [address] [place], [place] [phone] [place] LAB 08/09/2019 Visit Diagnosis Plan: Mixed [...] : Z71.89 02/14/2019 Appointment: Chio [facility] WPtel: [address] [place], [place] [id number] FOLLOW UP 02/14/2019 Visit Diagnosis Plan: Mixed hyperlipidemia Discussion: Check CMP, Lipids Recommend Shingrix Had flu shot ICD-9 : 272.2 ICD-10 : E78.2 08/15/2018 Appointment: Chio Post WPtel: [address] [place] [address] FOLLOW UP 08/15/2018 Appointment: [facility] WPtel: [address] [place], [place] [phone] [place] INJECTION 07/03/2018 Patient Education: Patient Medication [...] ICD-10 : Z01.419 03/02/2018 Appointment: [facility]: [address] [place] [address] Annual Well Visit 03/02/2018 Patient Education: Patient Medication Summary Completed 03/02/2018 Appointment: Chio [facility]: [address] [place], [place] [phone] RESCHEDULED 02/08/2018 Visit Diagnosis Plan: Pneumonia, unspecified [...] ICD-10 : J18.9 11/03/2017 Appointment: Shaniqua Ruiz [address] [place], [place] [phone] ACUTE ILLNESS 11/03/2017 Patient Education: Patient Medication [...] ICD-10 : J10.1 10/27/2017 Appointment: Shaniqua Ruiz [address] [place], [place] [phone] ACUTE ILLNESS 10/27/2017 Patient Education: Patient Medication Summary Completed 10/27/2017 Visit Diagnosis Plan: Mixed hyperlipidemia Discussion: Hold on statins due to side effects 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 then check CMP, Lipids and fwup ICD-9 : 272.2 ICD-10 : E78.2 08/11/2017 Appointment: Chio Post WPtel: [phone] [id number] MEDICATION REVIEW 08/11/2017 Patient Education: Patient Medication Summary Completed 08/11/2017 Visit Diagnosis Plan: Encounter for [facility] adult medical examination without abnormal findings [...] : E78.2 05/23/2017 Appointment: Chio Post WPtel: [address] [place] [address] Annual Well Visit 05/23/2017 Patient Education: Patient Medication Summary Completed 05/23/2017 Visit Diagnosis Plan: Mixed hyperlipidemia Discussion: Check CMP, Lipids ICD-9 : 272.2 ICD-10 : E78.2 03/10/2017 Visit Diagnosis Plan: Essential (primary) hypertension Follow Up: 6 months ICD-9 : 401.9 ICD-10 : I10 03/10/2017 Appointment: Chio Post WPtel: [address] [place] [address] 03/09 confimed ~sl CHECK UP 03/10/2017 Patient Education: Patient Medication Summary Completed 03/10/2017 Appointment: Chio Post WPtel: [address] [place] [address] 02/03 rescheduled ~sl RESCHEDULED 02/28/2017 Visit Plan: Lab discussed Continue lifes tyle modification Check full fasting lab in 6mos Monitor BP 1-2 times a week at home Discussed adding weights or yoga/sriram chi 3 times a week 08/30/2016 Appointment: Chio Post WPtel: [address] [place], [place] [phone] 08/26 lm`sl...confirmed~lb FOLLOW UP 08/30 Patient Education: Patient Medication Summary Completed 08/30/2016 Patient Education: Patient Medication Summary Completed 08/26/2016 Care Plan: COMPREHEN METABOLIC PANEL NINFA NC : 46163-4 Pending 08/26/2016 Care Plan: LIPID PANEL LOINC : 47281-9 Pending 08/26/2016 Visit Plan: Patient is very [...] fenofibrate possibly 06/01/2016 Appointment: Hernan Ale [address] [phone] 05/27 confirmed ~sl FOLLOW UP 06/01/2016 Patient [...] MRI if negative) 04/30/2016 Appointment: Ale Becerra Blayne[address] [place] [address] FOLLOW UP 04/30/2016 Patient Education: Patient Medication Summary Completed 04/30/2016 Visit Plan: Steroid injection given toda y Muscle relaxer as well Continue daily meloxicam Start weaning back on oxycodone Can replace oxycodone dosing with otc tylenol Advised topical pain relievers, heat/ice, etc If oxycodone runs completely out and patient still needs some, can call for refill to knot picker [facility] or could consider replacing with tramadol 04/23/2016 Appointment: Ale Becerra Jas [address] ER Follow UP 04/23/2016 Patient Education: Patient Medication Summary Completed 04/23/2016 Visit Plan: Continue inserts and stretch es for plantar fascia Add Vivlodex Return in 2-3 weeks for injection if pain persists Check Fasting Lab Update Mammogram 04/08/2016 Appointment: Chio Post WPtel: [address] [place], [place] [phone] [place] 04/07 confirmed ~sl NEW PATIENT 04/08/2016 Patient Education: Patient Medication Summary Completed 04/08/2016 Patient Education: [facility] - Saving AutoInj - 18-64 - Dynamic [...] needs some, can call for refill to [facility] picker [facility] or could consider replacing with tramadol . [...]
--- OUTSIDE RECORDS SUMMARY | 2020-02-26 21:12 | XMS REPORT | CCD ---
Author Author Carola Post D.O. Organization [facility] Address [address] [place] [address] Phone Care Team Providers Care Avionic Technician Name Role Phone Chio Post D.O., PP Unavailable CCM Unavailable Summary Purpose Interface Exchange Insurance Providers Payer name Policy type / Coverage type Covered democrat ID Effective Begin Date Effective End Date [employer] [id number] Unknown Family history Grandfather Diagnosis Age At Onset Cancer Unknown Social History Social History Element Codes Description Effective Dates Marital status Unknown 04/08/2016 Number of children Unknown 3 04/08/2016 Employment Unknown Currently employed [employer] 04/08/[address]: 364119594 Has never smoked or chewed tobacco 04/08/[address]: 320603 Currently drinks alcohol 04/08 Frequency of drinks SNOMED CT: 887882157 Drinks rarely 016 Has the patient ever [...] Problems Condition Codes Effective Dates Condition Status Screening mammogram, encounter for ICD-9: V76.12 ICD-10: Z12.31 10/31/2019 Active Hematuria ICD-9: 599.70 ICD-10: R31.9 08/27/2019 Active Encounter for general adult medical examination withou t abnormal findings ICD-9: V70.9 ICD-10: Z00.00 04/07/2016 Active Essential (primary) hypertension ICD-9: 401.9 ICD-10: I10 08/29/2016 Active Mixed hyperlipidemia ICD-9: 272.2 ICD-10: E78.2 08/29/2016 Active Urinary tract infection ICD-9: 599.0 ICD-10: [...] Fill Instructions Livalo 1 mg tablet RxNorm: 776657 1 Tablet(s) Oral QD 12/03/2019 0702/2020 Active Aleve 220 mg tablet RxNorm: 393686 Tablet(s) Oral as needed 019 No Stop Date Active Fish Oil 360 mg-1,200 mg capsule RxNorm: 1 Capsule(s) Or al two times a day 08/15/2019 No Stop Date Active Macrobid 100 mg capsule RxNorm: 042966 1 Capsule(s) Oral two ti mes a day 08/15/2019 08/22/2019 Inactive Crestor 5 mg tablet RxNorm: 228380 1/2 Tablet(s) PO twice a week 04/10/2019 Inactive Crestor 5 mg tablet RxNorm: 077796 1 Tablet(s) PO Tues, Thurs, Sat and Sun and 1/2 tablet (2.5mg) on Mon, Tue and Tue03/05/2019 03/11/2019 Inactive Crestor 5 mg tablet RxNorm: 951807 1 Tablet(s) PO QD 02/07/201903/05 Inactive Crestor 5 mg tablet RxNorm: 012673 1 Tablet(s) PO QD re check labwork in 6 months 08/21/2018 08/20/2018 Inactive Crestor 5 mg tablet RxNorm: 511590 1 Tablet(s) PO QD re check labwork in 6 months 08/21/2018 02/06/2019 Inactive Ventolin HFA 90 mcg/actuation aerosol inhaler RxNorm: 868479 2 Puff(s) INH Q4H as needed 11/03/2017 03/01/2018 Inactive please switch to proair if ventolin is not covered. thanks! Levaquin 500 mg tablet RxNorm: 656811 1 Tablet(s) PO QD 11/03/2017 Inactive Zithromax Z-Talat 250 mg tablet RxNorm: 888282 Tablet(s) PO 10/27/2017 03/01/2018 Inactive Lipitor 10 mg tablet RxNorm: 509092 1 TABLET(S) PO QD REPLACES PRAVASTATIN 06/08/2017 08/10/2017 Inactive Lipitor 10 mg tablet RxNorm: 447516 1 Tablet(s) PO QD replaces Pravastatin 03/16/2017 06/07/2017 Inactive pravastatin 10 mg tablet RxNorm: 371744 1 Tablet(s) PO QD 03/15/2017 03/14/2017 Inactive pravastatin 10 mg tablet RxNorm: 267102 1 Tablet(s) PO QD 03/15/2017 03/15/2017 Inactive Zorvolex 35 mg capsule RxNorm: 3781025 1 Capsule(s) PO TID HOLD MELOXICAM 05/03/2016 06/01/2016 Inactive Zorvolex 35 mg capsule RxNorm: 0509597 1 Capsule(s) PO TID HOLD MELOXICAM 04/30/2016 05/02/2016 Inactive prednisone 20 mg tablet RxNorm: 716908 1 Tablet(s) PO B ID and then decrease to 1 tab PO QD x 5 days 04/30/2016 05/04/2016 Inactive cyclobenzaprine 10 mg tablet RxNorm: 733772 1 Tablet(s) PO TID as needed for muscle spasm 04/23/2016 08/29/2016 Inactive pravastatin 20 mg tablet RxNorm: 732113 1 Tablet(s) PO QD 04/14/2016 08/29/2016 Inactive Vivlodex 10 mg capsule RxNorm: 3332869 1 Capsule(s) PO QD 04/08/2016 05/07/2016 Inactive Co Q-10 300 mg capsule RxNorm: 759924 1 Capsule(s) PO QD No Start Date Active Vitamin D3 5,000 unit tablet RxNorm: 977180 1 Tablet(s) PO QD No Star t Date Active melatonin 5 mg tablet RxNorm: 545152 1 Tablet(s) PO QHS as needed N o Start Date Active Multivitamin & Mineral Formula tablet RxNorm: 1 Tablet(s) PO Q D No Start Date Active Fish Oil 1,000 mg capsule RxNorm: 2 Capsule(s) PO QD No Start Date 08/29/2016 Inactive Metamucil 0.4 gram capsule RxNorm: 0314062 2 Capsule(s) PO BID No S tart Date 02/13/2019 Inactive Vitamin D3 2,000 unit tablet RxNorm: 251152 1 Tablet(s) PO QD No St art Date 03/26/2019 Inactive Lipitor 10 mg tablet RxNorm: 594811 1 Tablet(s) PO QD No Start Date 0 03/15/2017 Inactive Crestor 5 mg tablet RxNorm: 979296 1 Tablet(s) PO Tues, Thurs, Sat and Sun and 1/2 tablet (2.5mg) on Mon, Wed and Fri No Start Date 03/04/2019 Inactive Calcium with Vitamin D 600 mg (1,500 mg)-400 unit tablet RxN orm: 167543 1 Tablet(s) PO QD No Start Date 03/01/2018 Inactive krill oil 1,000 mg-170 mg-50 mg-80 mg capsule RxNorm: 1 Capsule(s) PO BID No Start Date 08/14/2019 Inactive Co Q-10 200 mg capsule RxNorm: 307301 1 Capsule(s) PO QD No Start D ate 03/01/2018 Inactive Co Q-10 oral RxNorm: 76324 oral No Start Date 07/24/2017 Inactive oxycodone-acetaminophen 5 mg-325 mg tablet RxNorm: 2183723 1 Tab let(s) PO Q6H No Start Date 08/29/2016 Inactive Krill Oil ([place] 3 and 6) oral RxNorm: 44804 oral No Start Date 02/13/2019 Inactive Flexeril 10mg tablet RxNorm: 1 Tablet(s) PO Q8H No Start Date 12/2015 Inactive Vitamin D3 1,000 unit tablet RxNorm: 871743 1 Tablet(s) PO QD No St art Date 03/11/2019 Inactive Medication Administered No Medication Administered data Immunizations Vaccine Codes Date Status Shingrix Unknown 11/20/2019 Zoster Unknown 08/15/2019 Complete Influenza CVX: 141 07/03/2018 Complete Results Observation Observation Code Item Item Code Result Date S ervice Location CULTURE, URINE, ROUTINE 395 CULTURE SEE NOTE 1 11/13/2018 [facility] [address] [place] [address] CULTURE, URINE, ROUTINE 395 CULTURE, URINE, ROUTINE SEE NOTE 09/12/2019 [facility] [place] [address] [place] [address] URINALYSIS, COMPLETE 80415 Color YELLOW 08/26 [facility] [address] [place] [address] URINALYSIS, COMPLETE 50411 APPEARANCE CLEAR 08/26 [facility] [address] [place] [address] URINALYSIS, COMPLETE 68545 SPECIFIC GRAVITY 1.003 09/11/2019 [facility] [address] [place] [address] URINALYSIS, COMPLETE 23406 PH 7.0 08/26 [facility] Erin [place] [address] [place] [address] URINALYSIS, COMPLETE 33692 Glucose NEGATIVE 08/26 [facility] [address] [place] [address] URINALYSIS, COMPLETE 97894 BILIRUBIN NEGATIVE 08/26 [facility] [address] URINALYSIS, COMPLETE 00805 Ketones NEGATIVE 08/26 [facility] [address] URINALYSIS, COMPLETE 92021 OCCULT BLOOD NEGATIVE [facility] [address] URINALYSIS, COMPLETE 18299 Protein NEGATIVE 08/26 [facility] [address] URINALYSIS, COMPLETE 64700 LEUKOCYTE ESTERASE NEGATIV E 09/11/[address] [facility] [address] URINALYSIS, COMPLETE 67155 WBC NONE SEEN /HPF 09/11/[address] [facility] [address] URINALYSIS, COMPLETE 49906 RBC NONE SEEN /HPF 09/11/2019 [facility] [address] URINALYSIS, COMPLETE 75006 SQUAMOUS EPITHELIAL CELLS NONE SEEN /HPF 09/11/[address] [facility] [address] URINALYSIS, COMPLETE 73522 TRANSITIONAL EPITHELIAL CELLS DNR /HPF 09/11/[address] [facility] [address] URINALYSIS, COMPLETE 25880 RENAL EPITHELIAL CELLS DNR /HPF 09/11/[address] [facility] [address] URINALYSIS, COMPLETE 36930 BACTERIA NONE SEEN /HPF 09/11/[address] [facility] [address] URINALYSIS, COMPLETE 76135 CALCIUM OXALATE CRYSTALS D NR /HPF 09/11/[address] [facility] [address] URINALYSIS, COMPLETE 63626 TRIPLE PHOSPHATE CRYSTALS DNR /HPF 09/11/[address] [facility] [address] URINALYSIS, COMPLETE 16556 URIC ACID CRYSTALS DNR /HP F 09/11/2019 [facility] [place] [address] URINALYSIS, COMPLETE 42721 AMORPHOUS SEDIMENT DNR /HP F 09/11/2019 [facility] [address] [place] [address] URINALYSIS, COMPLETE 14636 CRYSTALS DNR /HPF 08/26 [facility] [place] [address] URINALYSIS, COMPLETE 99064 HYALINE CAST NONE SEEN /LP F 09/11/2019 [facility] [address] URINALYSIS, COMPLETE 32552 GRANULAR CAST DNR /LPF 1 11/12/2018 [facility] [place] [address] URINALYSIS, COMPLETE 17969 CASTS DNR /LPF 08/26 [facility] [place] [address] URINALYSIS, COMPLETE 55820 YEAST DNR /HPF 08/26 [facility] [place] [address] URINALYSIS, COMPLETE 42629 COMMENTS DNR 08/26 [facility] [place] [address] URINALYSIS, COMPLETE 04630 NOTE DNR 08/26 [facility] [place] [address] URINALYSIS, COMPLETE 67222 NITRITE NEGATIVE 08/26 [facility] [place] [address] CULTURE, URINE, ROUTINE 395 CULTURE, URINE, ROUTINE SEE NOTE 08/16/2019 [facility] [place] [address] EXTRA LAVENDER-TOP TUBE XLKS EXTRA LAVENDER-TOP TUBE 08/10/2019 [facility] [place] [address] EXTRA LAVENDER-TOP TUBE XLKS COMMENT 1 10/10/2018 [facility] [place] [address] LIPID PANEL 21131 CHOLESTEROL, TOTAL 180 mg/dL 08/10 [facility] [address] LIPID PANEL 78590 HDL CHOLESTEROL 35 mg/dL 08/10/20 [facility] [address] LIPID PANEL 47775 TRIGLYCERIDES 200 mg/dL 08/10/2019 [facility] [address] [address] LIPID PANEL 21538 LDL-CHOLESTEROL 113 mg/dL(calc) [facility] [address] LIPID PANEL 77893 CHOL/HDLC RATIO 5.1 (calc) 08/10/20 [facility] [address] LIPID PANEL 59258 NON HDL CHOLESTEROL 145 mg/dL(calc) 08/10/[address] [facility] [address] COMPREHENSIVE METABOLIC PANEL 22770 Glucose 86 mg/ dL 08/10/2019 [facility] [address] COMPREHENSIVE METABOLIC PANEL 90976 UREA NITROGEN (BUN) 11 mg/dL 08/10/2019 [facility] [address] COMPREHENSIVE METABOLIC PANEL 48598 CREATININE 0.71 m g/dL 08/10/[address] [facility] [address] COMPREHENSIVE METABOLIC PANEL 63858 eGFR NON-AFR. ECUADOREAN 90 mL/min/1.73m2 08/10/2019 [facility] [address] COMPREHENSIVE METABOLIC PANEL 62862 eGFR 104 mL/min/1.73m2 08/10/2019 [facility] [address] COMPREHENSIVE METABOLIC PANEL 31241 BUN/CREATININE RATIO NOT APPLICABLE (calc) 08/10/2019 [facility] [address] [address] COMPREHENSIVE METABOLIC PANEL 64317 SODIUM 140 mm ol/L 08/10/2019 [facility] [address] [address] COMPREHENSIVE METABOLIC PANEL 15413 POTASSIUM 4.2 mm ol/L 08/10/2019 [facility] [address] COMPREHENSIVE METABOLIC PANEL 49702 CHLORIDE 105 mm ol/L 08/10/2019 [facility] [address] COMPREHENSIVE METABOLIC PANEL 78825 CARBON DIOXIDE 28 mmol/L 08/10/2019 [facility] [address] COMPREHENSIVE METABOLIC PANEL 17776 CALCIUM 9.3 mg /dL 08/10/2019 [facility] [address] COMPREHENSIVE METABOLIC PANEL 65280 PROTEIN, TOTAL 6. 7 g/dL 08/10/2019 [facility] [address] COMPREHENSIVE METABOLIC PANEL 17602 ALBUMIN 4.3 g/ dL 08/10/2019 [facility] [address] COMPREHENSIVE METABOLIC PANEL 37433 GLOBULIN 2.4 g/ dL(calc) 08/10/[address] [address] COMPREHENSIVE METABOLIC PANEL 97672 ALBUMIN/GLOBULIN RATIO 1.8 (calc) 08/10/2019 [facility] [address] COMPREHENSIVE METABOLIC PANEL 27811 BILIRUBIN, TOTAL 0.6 mg/dL 08/10/2019 [facility] [address] COMPREHENSIVE METABOLIC PANEL 34095 ALKALINE PHOSPHATASE 74 U/L 08/10/2019 [facility] [address] COMPREHENSIVE METABOLIC PANEL 08065 AST 21 U/L 08/10/2019 [facility] [address] COMPREHENSIVE METABOLIC PANEL 97910 ALT 15 U/L 08/10/2019 [facility] [address] COMPREHENSIVE METABOLIC 53855 AST 18 U/L 2018 Unknown COMPREHENSIVE METABOLIC 39654 ALT 12 U/L 2018 Unknown COMPREHENSIVE METABOLIC 39262 BUN 11 mg/dL 2018 Unknown COMPREHENSIVE METABOLIC 52430 ALBUMIN 4.6 g/dL 2018 Unknown COMPREHENSIVE METABOLIC 51207 CHLORIDE 106 mmol/L 02/14 Unknown COMPREHENSIVE METABOLIC 03766 Bili Total 0.9 mg/dL 02/14 Unknown COMPREHENSIVE METABOLIC 92101 ALK PHOS 76 U/L 2018 Unknown COMPREHENSIVE METABOLIC 20913 SODIUM 142 mmol/L 02/14 Unknown COMPREHENSIVE METABOLIC 04618 CREATININE 0.69 mg/dL 01/25 Unknown COMPREHENSIVE METABOLIC 50382 CALCIUM 9.5 mg/dL 2018 Unknown COMPREHENSIVE METABOLIC 05296 POTASSIUM 3.9 mmol/L 02/14 Unknown COMPREHENSIVE METABOLIC 88011 Total Protein 6.6 g/dL Unknown COMPREHENSIVE METABOLIC 75414 Glucose 86 mg/dL 2018 Unknown COMPREHENSIVE METABOLIC 61452 Bicarbonate 29 mmol/L 01/25 Unknown COMPREHENSIVE METABOLIC 68555 AGAP 7 mmol/L 2018 Unknown GFR CALC [id number] GFR Non Afr Amr >60 mL/min 02/14/2019 Un known GFR CALC [id number] GFR Afr Amr >60 mL/min 02/14/2019 Unknow n [facility] 83611 Cholesterol 127 mg/dL 02/14/2019 Unkno wn [facility] 66953 Triglyceride 156 mg/dL 02/14/2019 Unkn own [facility] 43297 HDL CHOLESTEROL 45 mg/dL 02/14/2019 U nknown [facility] 78502 Chol/HDL Ratio 2.82 ratio 02/14/2019 U nknown [facility] 53418 NON-HDL Chol 82 mg/dL 02/14/2019 Unkn own [facility] 02063 LDL Cholesterol 51 mg/dL 02/14/2019 U nknown COMPREHENSIVE METABOLIC PANEL 35989 Glucose 88 mg/ dL 08/16/2018 [facility]osticsCustomerXPs SoftwareWallssamreen [facility] [address] [place] [address] COMPREHENSIVE METABOLIC PANEL 89527 UREA NITROGEN (BUN) 11 mg/dL 08/16/2018 [facility] [address] [place] [address] COMPREHENSIVE METABOLIC PANEL 40408 CREATININE 0.70 m g/dL 08/16/2018 [facility] [address] [place] [address] COMPREHENSIVE METABOLIC PANEL 51458 eGFR NON-AFR. ECUADOREAN 92 mL/min/1.73m2 08/16/2018 [facility] [address] [place] [address] COMPREHENSIVE METABOLIC PANEL 22088 eGFR 107 mL/min/1.73m2 08/16/2018 [facility] [address] [address] COMPREHENSIVE METABOLIC PANEL 06478 BUN/CREATININE RATIO NOT APPLICABLE (calc) 08/16/2018 [facility] [address] [address] COMPREHENSIVE METABOLIC PANEL 75659 SODIUM 140 mm ol/L 08/16/2018 [facility] [address] [address] COMPREHENSIVE METABOLIC PANEL 69229 POTASSIUM 4.0 mm ol/L 08/16/2018 [facility] [address] [address] COMPREHENSIVE METABOLIC PANEL 75158 CHLORIDE 104 mm ol/L 08/16/2018 [facility] [address] [address] COMPREHENSIVE METABOLIC PANEL 69435 CARBON DIOXIDE 29 mmol/L 08/16/2018 [facility] [address] [address] COMPREHENSIVE METABOLIC PANEL 17920 CALCIUM 9.4 mg /dL 08/16/2018 [facility] [address] [address] COMPREHENSIVE METABOLIC PANEL 73422 PROTEIN, TOTAL 6. 7 g/dL 08/16/2018 [facility] [address] [address] COMPREHENSIVE METABOLIC PANEL 45802 ALBUMIN 4.4 g/ dL 08/16/2018 [facility] [address] [place] [address] COMPREHENSIVE METABOLIC PANEL 04215 GLOBULIN 2.3 g/ dL(calc) 08/16/2018 [facility] [address] [address] COMPREHENSIVE METABOLIC PANEL 82227 ALBUMIN/GLOBULIN RATIO 1.9 (calc) 08/16/2018 [facility] [address] COMPREHENSIVE METABOLIC PANEL 90460 BILIRUBIN, TOTAL 0.8 mg/dL 08/16/2018 [facility] [address] [address] COMPREHENSIVE METABOLIC PANEL 09530 ALKALINE PHOSPHATASE 72 U/L 08/16/2018 [facility] [address] [address] COMPREHENSIVE METABOLIC PANEL 36349 AST 19 U/L 08/16/[address] [facility] [address] COMPREHENSIVE METABOLIC PANEL 07033 ALT 12 U/L 08/16/2018 [facility] [address] LIPID PANEL 36217 CHOLESTEROL, TOTAL 228 mg/dL 08/16 [facility] [address] LIPID PANEL 40228 HDL CHOLESTEROL 42 mg/dL 08/16/20 18 [facility] [address] LIPID PANEL 10484 TRIGLYCERIDES 175 mg/dL 08/16/2018 [facility] [address] LIPID PANEL 61876 LDL-CHOLESTEROL 155 mg/dL(calc) [facility] Matthew[address] [address] LIPID PANEL 26069 CHOL/HDLC RATIO 5.4 (calc) 08/16/[address] [address] LIPID PANEL 53930 NON HDL CHOLESTEROL 186 mg/dL(calc) 08/16/2018 [facility] [address] EXTRA LAVENDER-TOP TUBE XLKS EXTRA LAVENDER-TOP TUBE 08/16/[address] [address] EXTRA LAVENDER-TOP TUBE XLKS COMMENT 1 10/16/[address] [address] Procedures Procedure Codes Date URINALYSIS, COMPLETE CPT-4: 43198 09/10/2019 CULTURE, URINE, ROUTINE CPT-4: 395 09/10/2019 URINALYSIS NONAUTO W/O SCOPE CPT-4: 31648 08/27/2019 CULTURE, URINE, ROUTINE CPT-4: 395 08/15/2019 URINALYSIS NONAUTO W/O SCOPE CPT-4: 92642 08/15/2019 SHINGRIX HZV VACC RECOMBINANT IM CPT-4: 07606 019 IMMUNIZATION ADMIN CPT-4: 09751 08/15/2019 COMPREHENSIVE METABOLIC PANEL CPT-4: 56136 08/09/2019 LIPID PANEL CPT-4: 96153 08/09/2019 ROUTINE VENIPUNCTURE CPT-4: 20581 08/09/2019 EXTRA LAVENDER-TOP TUBE CPT-4: XLKS 08/09/2019 ROUTINE VENIPUNCTURE CPT-4: 55574 02/14/2019 COMPREHEN METABOLIC PANEL CPT-4: 38110 02/14/2019 LIPID PANEL CPT-4: 79250 02/14/2019 ROUTINE VENIPUNCTURE CPT-4: 98395 08/15/2018 COMPREHENSIVE METABOLIC PANEL CPT-4: 38473 08/15/2018 EXTRA LAVENDER-TOP TUBE CPT-4: XLKS 08/15/2018 LIPID PANEL CPT-4: 23332 08/15/2018 IIV4 VACCINE 3 YRS+ IM AND UP CPT-4: 78360 07/03/2018 IMMUNIZATION ADMIN CPT-4: 70878 07/03/2018 SPECIMEN HANDLING OFFICE-LAB CPT-4: 20281 03/02/2018 OCCULT BLOOD FECES CPT-4: 38074 03/02/2018 THER/PROPH/DIAG INJ SC/IM CPT-4: 38319 11/03/2017 TRIAMCINOLONE ACET INJ NOS CPT-4: J3301 11/03/2017 INFLUENZA ASSAY W/OPTIC CPT-4: 12331 10/27/2017 THER/PROPH/DIAG INJ SC/IM CPT-4: 38700 10/27/2017 TRIAMCINOLONE ACET INJ NOS CPT-4: J3301 10/27/2017 THER/PROPH/DIAG INJ SC/IM CPT-4: 65144 04/23/2016 TRIAMCINOLONE ACET INJ NOS CPT-4: J3301 [...] 1: 126/70 Code: 8480-6 BMI: 26.7 Code: 77248-0 Heart Rate 1: 68 bpm Height: 5'6" Respiratory Rate: 18 bpm SpO2: 97% Tempera ture: 36.6 (C) / 97.9 (F) Weight: 168 lbs 08/15/2018 Blood Pressure 1: 122/78 Code: 8480-6 BMI: 25.9 Code: 79810-2 Heart Rate 1: 72 bpm Height: 5'6" Respiratory Rate: 20 bpm SpO2: 97% Tempera ture: 36.7 (C) / 98.0 (F) Weight: 163 lbs 03/02/2018 Blood Pressure 1: 126/74 Code: 8480-6 BMI: 26.1 Code: 96619-2 Heart Rate 1: 76 bpm Height: 5'6" Respiratory Rate: 20 bpm SpO2: 98% Tempera ture: 36.6 (C) / 97.8 (F) Weight: 164 lbs 11/03/2017 Blood Pressure 1: 124/82 Code: 8480-6 BMI: 25.3 Code: 47098-0 Heart Rate 1: 90 bpm Height: 5'6" Respiratory Rate: 22 bpm SpO2: 98% Tempera ture: 36.9 (C) / 98.4 (F) Weight: 159 lbs 10/27/2017 Blood Pressure 1: 122/84 Code: 8480-6 BMI: 25.6 Code: 54838-5 Heart Rate 1: 90 bpm Height: 5'6" Respiratory Rate: 22 bpm SpO2: 97% Tempera ture: 36.1 (C) / 97.0 (F) Weight: 161 lbs 08/11/2017 Blood Pressure 1: 132/76 Code: 8480-6 BMI: 26.4 Code: 75568-5 Heart Rate 1: 72 bpm Height: 5'6" Respiratory Rate: 20 bpm Temperature: 36 .6 (C) / 97.8 (F) Weight: 166 lbs 05/23/2017 Blood Pressure 1: 126/72 Code: 8480-6 BMI: 26.1 Code: 76106-0 Heart Rate 1: 72 bpm Height: 5'6" Respiratory Rate: 20 bpm SpO2: 98% Tempera ture: 37.1 (C) / 98.8 (F) Weight: 164 lbs 03/10/2017 Blood Pressure 1: 124/72 Code: 8480-6 BMI: 26.1 Code: 18618-4 Heart Rate 1: 92 bpm Height: 5'6" Respiratory Rate: 20 bpm SpO2: 97% Tempera ture: 37.2 (C) / 98.9 (F) Weight: 164 lbs 08/30/2016 Blood Pressure 1: 142/82 Code: 8480-6 BMI: 25.6 Code: 76684-1 Heart Rate 1: 72 bpm Height: 5'6" Respiratory Rate: 20 bpm Temperature: 36 .6 (C) / 97.9 (F) Weight: 161 lbs 06/01/2016 Blood Pressure 1: 156/88 Code: 8480-6 BMI: 26.4 Code: 25368-8 Heart Rate 1: 70 bpm Height: 5'6" Respiratory Rate: 18 bpm SpO2: 97% Tempera ture: 36.6 (C) / 97.8 (F) Weight: 166 lbs 04/30/2016 Blood Pressure 1: 122/70 Code: 8480-6 Heart Rate 1: 10 2 bpm Height: Respiratory Rate: 24 bpm SpO2: 95% Temperature: 36.4 (C) / 97.6 (F) We ight: 04/23/2016 Blood Pressure 1: 152/76 Code: 8480-6 BMI: 26.5 Code: 00142-5 Heart Rate 1: 106 bpm Height: 5'7" Respiratory Rate: 24 bpm SpO2: 96% Tempera ture: 36.8 (C) / 98.2 (F) Weight: 169 lbs 04/08/2016 Blood Pressure 1: 116/68 Code: 8480-6 BMI: 27.4 Code: 46720-4 Heart Rate 1: 76 bpm Height: 5'6" [...] visit Encounters Encounter Performer Location Codes Date (84788) NURSE/OUTPATIENT VISIT EST Diagnosis: Hematuria[ICD10: R31.9] Chio Post [facility] MICHAEL Roamz CPT-4: 55143 09/10/2019 ([id number]) OFFICE/OUTPATIENT VISIT EST Diagnosis: Hematuria[ICD10: R31.9] [facility]io Post [facility] CPT-4: 86122 08/27/2019 ([id number]) PREV VISIT EST AGE 40-64 Diagnosis: Urinary tract infection[ICD10: N39.0] Diagnosis: Encounter for general adult medical examination without abnormal findings[ICD10: Z00.00] Diagnosis: Essential (primary) hypertension[ICD10: I10] Diagnosis: Mixed hyperlipidemia[ICD10: E78.2] Diagnosis: VACCIN FOR DISEASE NEC (HPV or Zostavax)[ICD10: Z23] [facility]io Sarthakandreas [facility]athiHugo [employer]RE[employer] CPT-4: 48360 08/15/2019 ([id number]) NURSE/OUTPATIENT VISIT EST Diagnosis: Mixed hyperlipidemia[ICD10: E78.2] Diagnosis: Essential (primary) hypertension[ICD10: I10] Chio Sarthakbeckysarina MORENOCHIO Addis POST [employer] CPT-4: 72720 08/09/2019 ([id number]) OFFICE/OUTPATIENT VISIT EST Diagnosis: Mixed hyperlipidemia[ICD10: E78.2] Diagnosis: Other specified counseling[ICD10: Z71.89] Chio CHAVEZQUELINE MalathiHugo [email or web address] CPT-4: 32813 02/14/2019 ([id number]) OFFICE/OUTPATIENT VISIT EST Diagnosis: Mixed hyperlipidemia[ICD10: E78.2] Chio BALLARD S. SARTHAKNDER DO [employer] CPT-4: 28931 08/15/2018 ([id number]) NURSE/OUTPATIENT VISIT EST Diagnosis: FLU VACCINE[ICD10: Z23] Chio MARTINND ER DO [facility] CPT-4: 15205 07/03/2018 ([id number]) PREV VISIT EST AGE 40-64 Diagnosis: Encounter for general adult medical examination without abnormal findings[ICD10: Z00.00] Diagnosis: Encounter for gynecological examination (general) (routine) without abnormal findings[ICD10: Z01.419] Chio Holder DO [facility] CPT-4: 94453 03/02/2018 OFFICE/OUTPATIENT VISIT EST Diagnosis: Pneumonia, unspecified organism[ICD10: J18.9] Shaniqua MORTENSEN SHugo MARTINNDER DO [facility] CPT-4: 23799 11/03/2017 OFFICE/OUTPATIENT VISIT EST Diagnosis: Influenza due to other identified influenza virus with other respiratory manifestations[ICD10: J10.1] Diagnosis: Acute bronchitis, unspecified[ICD10: J20.9] Shaniqua MORTENSEN SHugo MARTINNDER DO [facility] CPT-4: 13620 10/27/2017 ([id number]) OFFICE/OUTPATIENT VISIT EST Diagnosis: Mixed hyperlipidemia[ICD10: E78.2] Chio PLUMMER NELLIE S. SARTHAKNDER DO [facility] CPT-4: 64321 08/11/2017 ([id number]) PREV VISIT EST AGE 40-64 Diagnosis: Encounter for general adult medical examination without abnormal findings[ICD10: Z00.00] Diagnosis: Mixed hyperlipidemia[ICD10: E78.2] Chio BALLARD S. ORENDER DO [facility] CPT-4: 57257 05/23/2017 ([id number]) OFFICE/OUTPATIENT VISIT EST Diagnosis: Essential (primary) hypertension[ICD10: I10] Diagnosis: Mixed hyperlipidemia[ICD10: E78.2] Chio BALLARD S. ORENDER DO [facility] CPT-4: 93559 03/10/2017 ([id number]) OFFICE/OUTPATIENT VISIT EST Diagnosis: Mixed hyperlipidemia[ICD10: E78.2] Diagnosis: Essential (primary) hypertension[ICD10: I10] Chio CHAVEZTL POST [facility] CPT-4: 52182 08/30/2016 ([id number]) OFFICE/OUTPATIENT VISIT EST Diagnosis: Mixed hyperlipidemia[ICD10: E78.2] Ale CHAVEZADONAYLIAM POST [facility] CPT-4: 16537 06/01/2016 ([id number]) OFFICE/OUTPATIENT VISIT EST Diagnosis: Strain of muscle, fascia and tendon of lower back, subsequent encounter[ICD10: S39.012D] Diagnosis: Sciatica, left side[ICD10: M54.32] Ale PLUMMER [place] Malathi. ROMAN [facility] CPT-4: 86941 04/30/2016 ([id number]) OFFICE/OUTPATIENT VISIT EST Diagnosis: Strain of muscle, fascia and tendon of lower back, initial encounter[ICD10: S39.012A] Diagnosis: Sciatica, left side[ICD10: M54.32] Ale CHAVEZJOSE M [place] Mal[place]. ROMAN [facility] CPT-4: 12970 04/23/2016 ([id number]) PREV VISIT NEW AGE 40-64 Diagnosis: Encounter for general adult medical examination without abnormal findings[ICD10: Z00.00] Diagnosis: Plantar fascial fibromatosis[ICD10: M72.2] Chio CHAVEZQUELINE Addis POST [facility] CPT-4: 36133 04/08/2016 Plan of Care Planned Activity Notes Codes Status Date Appointment: Chio Post WPtel: [address] [place], [place] [phone] UA 09/10/2019 Visit Diagnosis Plan: Hematuria Discussion: Hold crest or No NSAIDs Push fluids/water Recheck urine microscopy in 2weeks and if still with microscopic blood then will need urology eval and cystoscope ICD-9 : 599.70 ICD-10 : R31.9 08/27/2019 Appointment: Chio Post WPtel: [address] [place], [place] [phone] ACUTE ILLNESS 08/27/2019 Visit Diagnosis Plan: Encounter [...] : E78.2 08/15/2019 Appointment: Chio Post WPtel: [address] [place], [place] [phone] [place] confirmed 08/09/19-- does not need reminder call Annual Well Visit 08/15/2019 Appointment: Chio Post WPtel: [address] [place], [place] [phone] 08/15/19 1330---added to office visit with Dr kwon () CANCELED 08/15/2019 Appointment: Chio Post WPtel: [address] [place], [place] [phone] 08/09/2019 Visit Diagnosis Plan: Mixed hyperlipidemia [...] : Z71.89 02/14/2019 Appointment: Chio Post WPtel: [address] [place], [place] [phone] [place] FOLLOW UP 02/14/2019 Visit Diagnosis Plan: Mixed hyperlipidemia Discussion: Check CMP, Lipids Recommend Shingrix Had flu shot ICD-9 : 272.2 ICD-10 : E78.2 08/15/2018 Appointment: Chio Post WPtel: [address] [place] [address] FOLLOW UP 08/15/2018 Appointment: Chio Post WPtel: [address] [place] [address] [place] INJECTION 07/03/2018 Patient Education: Patient Medication Summary Completed 07/03/2018 Visit Diagnosis Plan: Encounter for gyne cological examination (general) (routine) without abnormal findings Discussion: Pap done Mammogram ordered ICD-9 : V72.31 ICD-10 : Z01.419 03/02/2018 Visit Diagnosis Plan: Encounter for gene ral adult medical examination without abnormal findings Discussion: Update fasting lab in Novemb er then fwup Recommend Shingrix ICD-9 : V70.9 ICD-10 : Z00.00 03/02/2018 Appointment: Chio Post WPtel: [address] [place] [address] Annual Well Visit 03/02/2018 Patient Education: Patient Medication Summary Completed 03/02/2018 Appointment: Chio Post WPtel: [address] [place] [address] RESCHEDULED 02/08/2018 Visit Diagnosis Plan: Pneumonia, unspecified [...] ICD-10 : J18.9 11/03/2017 Appointment: Shaniqua Ruiz [address] [place] [address] ACUTE ILLNESS 11/03/2017 Patient Education: Patient Medication [...] ICD-10 : J10.1 10/27/2017 Appointment: Shaniqua Ruiz [address] [place] [address] ACUTE ILLNESS 10/27/2017 Patient Education: Patient Medication Summary Completed 10/27/2017 Visit Diagnosis Plan: Mixed hyperlipidemia Discussion: Hold on statins due to side effects 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 then check CMP, Lipids and fwup ICD-9 : 272.2 ICD-10 : E78.2 08/11/2017 Appointment: Ciho Post WPtel: [facility] [address] MEDICATION REVIEW 08/11/2017 Patient Education: Patient Medication Summary Completed 08/11/2017 Visit Diagnosis Plan: Mixed hyperlipidemia Discussion: Continue lipitor and check lipids with LFTs next month ICD-9 : 272.2 ICD-10 : E78.2 05/23/2017 Visit Diagnosis Plan: Encounter for [facility] adult medical examination without abnormal findings Discussion: Will update lab next month D efers mammogram until next year--normal mammogram last year Pap due next year Tdap 3 yrs ago Colonoscopy up to date Discussed zostavax--will check on coverage ICD-9 : V70.9 ICD-10 : Z00.00 05/23/2017 Appointment: Chio Post WPtel: [phone] Annual Well Visit 05/23/2017 Patient Education: Patient Medication Summary Completed 05/23/2017 Visit Diagnosis Plan: Mixed hyperlipidemia Discussion: Check CMP, Lipids ICD-9 : 272.2 ICD-10 : E78.2 03/10/2017 Visit Diagnosis Plan: Essential (primary) hypertension Follow Up: 6 months ICD-9 : 401.9 ICD-10 : I10 03/10/2017 Appointment: Chio Post WPtel: [address] [place], [place] [phone] [place] 03/09 confimed ~sl CHECK UP 03/10/2017 Patient Education: Patient Medication Summary Completed 03/10/2017 Appointment: Chio Post WPtel: [address] [place], [place] [phone] [place] 02/03 rescheduled ~sl RESCHEDULED 02/28/2017 Visit Plan: Lab discussed Continue lifes tyle modification Check full fasting lab in 6mos Monitor BP 1-2 times a week at home Discussed adding weights or yoga/sriram chi 3 times a week 08/30/2016 Appointment: Chio Post WPtel: [address] [place], [place] [phone] [place] 08/26 lm`sl...confirmed~lb FOLLOW UP 08/30 Patient Education: Patient Medication Summary Completed 08/30/2016 Patient Education: Patient Medication Summary Completed 08/26/2016 Care Plan: COMPREHEN METABOLIC PANEL NINFA [place] : 81261-0 Pending 08/26/2016 Care Plan: LIPID PANEL LOINC : 65852-7 Pending 08/26/2016 Visit Plan: Patient is very anxious abou t going back on any medication for her lipids right now Stressed diet and exercise changes she can try Continue higher dose of fish oil she is now taking Can recheck lipids and cmp in 3 months If not much better, will need rx started - discussed trying fenofibrate possibly 06/01/2016 Appointment: Ale Becerra [address] [place], [place] [phone] 05/27 confirmed ~sl FOLLOW UP 06/01/2016 Patient [...] MRI if negative) 04/30/2016 Appointment: Ale Becerra [address] [place], [place] [phone] FOLLOW UP 04/30/2016 Patient Education: Patient Medication Summary Completed 04/30/2016 Visit Plan: Steroid injection given toda y Muscle relaxer as well Continue daily meloxicam Start weaning back on oxycodone Can replace oxycodone dosing with otc tylenol Advised topical pain relievers, heat/ice, etc If oxycodone runs completely out and patient still needs some, can call for refill to waste picker or could consider replacing with tramadol 04/23/2016 Appointment: [facility] [address] [id number] [facility] 04/23/2016 Patient Education: Patient Medication Summary Completed 04/23/2016 Visit Plan: Continue inserts and stretch es for plantar fascia Add Vivlodex Return in 2-3 weeks for injection if pain persists Check Fasting Lab Update Mammogram 04/08/2016 Appointment: Chio Post WPtel: [address] [place], [place] [id number] 04/07 confirmed ~sl NEW PATIENT 04/08/2016 Patient Education: Patient Medication Summary Completed 04/08/2016 Patient Education: [facility] - Saving AutoInj - 18-64 - Dynamic [...] needs some, can call for refill to waste picker or could consider replacing with tramadol [...]
--- OUTSIDE RECORDS SUMMARY | 2020-02-26 21:12 | XMS REPORT | CCD ---
Author Author Carola Post D.O. Organization [facility] Address [address] [place] [address] Phone Care Team Providers Care Filenet P8 Developer Name Role Phone Chio Post D.O. PP Unavailable CCM Unavailable Summary Purpose Interface Exchange Insurance Providers Payer name Policy type / Coverage type Covered democrat ID Effective Begin Date Effective End Date Uptake Insurance [id number] Unknown Family history Grandfather Diagnosis Age At Onset Cancer Unknown Social History Social History Element Codes Description Effective Dates Marital status Unknown 04/08/2016 Number of children Unknown 3 04/08/2016 Employment Unknown Currently employed [employer] 249 04/08/[address]: 520426861 Has never smoked or chewed tobacco 04/08/[address]: 657838 Currently drinks alcohol 04/08 Frequency of drinks SNOMED CT: 342494622 Drinks rarely 016 Has the patient ever [...] Start Date Stop Date Status Fill Instructions Aleve 220 mg tablet RxNorm: 299790 Tablet(s) Oral as needed 019 No Stop Date Active Fish Oil 360 mg-1,200 mg capsule RxNorm: 1 Capsule(s) Or al two times a day 08/15/2019 No Stop Date Active Macrobid 100 mg capsule RxNorm: 739145 1 Capsule(s) Oral two ti mes a day 08/15/2019 08/22/2019 Inactive Crestor 5 mg tablet RxNorm: 708147 1/2 Tablet(s) PO twice a week 04/10/2019 Inactive Crestor 5 mg tablet RxNorm: 029994 1 Tablet(s) PO Tues, Thurs, Sat and Sun and 1/2 tablet (2.5mg) on Mon, Wed and Fri 03/05/2019 03/11/2019 Inactive Crestor 5 mg tablet RxNorm: 169273 1 Tablet(s) PO QD 02/07/201903/05 Inactive Crestor 5 mg tablet RxNorm: 089980 1 Tablet(s) PO QD re check labwork in 6 months 08/21/2018 08/20/2018 Inactive Crestor 5 mg tablet RxNorm: 467992 1 Tablet(s) PO QD re check labwork in 6 months 08/21/2018 02/06/2019 Inactive Ventolin HFA 90 mcg/actuation aerosol inhaler RxNorm: 690946 2 Puff(s) INH Q4H as needed 11/03/2017 03/01/2018 Inactive please switch to proair if ventolin is not covered. thanks! Levaquin 500 mg tablet RxNorm: 889756 1 Tablet(s) PO QD 11/03/2017 Inactive Zithromax Z-Talat 250 mg tablet RxNorm: 968409 Tablet(s) PO 10/27/2017 03/01/2018 Inactive Lipitor 10 mg tablet RxNorm: 876541 1 TABLET(S) PO QD REPLACES PRAVASTATIN 06/08/2017 08/10/2017 Inactive Lipitor 10 mg tablet RxNorm: 965319 1 Tablet(s) PO QD replaces Pravastatin 03/16/2017 06/07/2017 Inactive pravastatin 10 mg tablet RxNorm: 515431 1 Tablet(s) PO QD 03/15/2017 03/14/2017 Inactive pravastatin 10 mg tablet RxNorm: 071593 1 Tablet(s) PO QD 03/15/2017 03/15/2017 Inactive Zorvolex 35 mg capsule RxNorm: 2766903 1 Capsule(s) PO TID HOLD MELOXICAM 05/03/2016 06/01/2016 Inactive Zorvolex 35 mg capsule RxNorm: 5095053 1 Capsule(s) PO TID HOLD MELOXICAM 04/30/2016 05/02/2016 Inactive prednisone 20 mg tablet RxNorm: 349627 1 Tablet(s) PO B ID and then decrease to 1 tab PO QD x 5 days 04/30/2016 05/04/2016 Inactive cyclobenzaprine 10 mg tablet RxNorm: 745296 1 Tablet(s) PO TID as needed for muscle spasm 04/23/2016 08/29/2016 Inactive pravastatin 20 mg tablet RxNorm: 494317 1 Tablet(s) PO QD 04/14/2016 08/29/2016 Inactive Vivlodex 10 mg capsule RxNorm: 0843269 1 Capsule(s) PO QD 04/08/2016 05/07/2016 Inactive Co Q-10 300 mg capsule RxNorm: 465880 1 Capsule(s) PO QD No Start Date Active Vitamin D3 5,000 unit tablet RxNorm: 601021 1 Tablet(s) PO QD No Star t Date Active melatonin 5 mg tablet RxNorm: 572616 1 Tablet(s) PO QHS as needed N o Start Date Active Multivitamin & Mineral Formula tablet RxNorm: 1 Tablet(s) PO Q D No Start Date Active Fish Oil 1,000 mg capsule RxNorm: 2 Capsule(s) PO QD No Start Date 08/29/2016 Inactive Metamucil 0.4 gram capsule RxNorm: 3298504 2 Capsule(s) PO BID No S tart Date 02/13/2019 Inactive Vitamin D3 2,000 unit tablet RxNorm: 213419 1 Tablet(s) PO QD No St art Date 03/26/2019 Inactive Lipitor 10 mg tablet RxNorm: 854509 1 Tablet(s) PO QD No Start Date 0 03/15/2017 Inactive Crestor 5 mg tablet RxNorm: 762187 1 Tablet(s) PO Tues, Thurs, Sat and Sun and 1/2 tablet (2.5mg) on Mon, Wed and Fri No Start Date 03/04/2019 Inactive Calcium with Vitamin D 600 mg (1,500 mg)-400 unit tablet RxN orm: 824235 1 Tablet(s) PO QD No Start Date 03/01/2018 Inactive krill oil 1,000 mg-170 mg-50 mg-80 mg capsule RxNorm: 1 Capsule(s) PO BID No Start Date 08/14/2019 Inactive Co Q-10 200 mg capsule RxNorm: 593062 1 Capsule(s) PO QD No Start D ate 03/01/2018 Inactive Co Q-10 oral RxNorm: 38179 oral No Start Date 07/24/2017 Inactive oxycodone-acetaminophen 5 mg-325 mg tablet RxNorm: 8198684 1 Tab let(s) PO Q6H No Start Date 08/29/2016 Inactive Krill Oil ([place] 3 and 6) oral RxNorm: 15523 oral No Start Date 02/13/2019 Inactive Flexeril 10mg tablet RxNorm: 1 Tablet(s) PO Q8H No Start Date 12/2015 Inactive Vitamin D3 1,000 unit tablet RxNorm: 852630 1 Tablet(s) PO QD No St art Date 03/11/2019 Inactive Medication Administered No Medication Administered data Immunizations Vaccine Codes Date Status Zoster Unknown 08/15/2019 Complete Influenza CVX: 141 07/03/2018 Complete Results Observation Observation Code Item Item Code Result Date S ervice Location CULTURE, URINE, ROUTINE 395 CULTURE SEE NOTE 1 11/13/2018 [facility] [address] [place] [phone] CULTURE, URINE, ROUTINE 395 CULTURE, URINE, ROUTINE SEE NOTE 09/12/2019 [facility] Erin [facility] [address] [place] [address] URINALYSIS, COMPLETE 10727 Color YELLOW 08/26 [facility] Jane Barreto [id number] [place] [phone] URINALYSIS, COMPLETE 86788 APPEARANCE CLEAR 08/26 [facility] Erin [facility] [address] [place] [address] URINALYSIS, COMPLETE 71768 SPECIFIC GRAVITY 1.003 09/11/2019 [facility] Erin [facility] [address] [place] [address] URINALYSIS, COMPLETE 66945 PH 7.0 08/26 [facility] [address] [place] [address] URINALYSIS, COMPLETE 65835 Glucose NEGATIVE 08/26 [facility] [address] [place] [phone] URINALYSIS, COMPLETE 56114 BILIRUBIN NEGATIVE 08/26 [facility] [address] [place] [phone] URINALYSIS, COMPLETE 06289 Ketones NEGATIVE 08/26 [facility] [address] [place] [address] URINALYSIS, COMPLETE 21169 OCCULT BLOOD NEGATIVE [facility] [address] URINALYSIS, COMPLETE 20598 Protein NEGATIVE 08/[address] [facility] [place] [address] URINALYSIS, COMPLETE 33572 LEUKOCYTE ESTERASE NEGATIV E 09/11/2019 [facility] [place] [address] URINALYSIS, COMPLETE 49924 WBC NONE SEEN /HPF 09/11/2019 [facility] [place] [address] URINALYSIS, COMPLETE 22659 RBC NONE SEEN /HPF 09/11/2019 [facility] [address] URINALYSIS, COMPLETE 19348 SQUAMOUS EPITHELIAL CELLS NONE SEEN /HPF 09/11/2019 [facility] [address] URINALYSIS, COMPLETE 03701 TRANSITIONAL EPITHELIAL CELLS DNR /HPF 09/11/2019 [facility] [address] URINALYSIS, COMPLETE 93535 RENAL EPITHELIAL CELLS DNR /HPF 09/11/[address] [facility] [address] URINALYSIS, COMPLETE 14363 BACTERIA NONE SEEN /HPF 09/11/[address] [facility] [address] URINALYSIS, COMPLETE 47540 CALCIUM OXALATE CRYSTALS D NR /HPF 09/11/[address] [facility] [address] URINALYSIS, COMPLETE 75396 TRIPLE PHOSPHATE CRYSTALS DNR /HPF 09/11/2019 [facility] [address] URINALYSIS, COMPLETE 19089 URIC ACID CRYSTALS DNR /HP F 09/11/[address] [facility] [address] URINALYSIS, COMPLETE 95027 AMORPHOUS SEDIMENT DNR /HP F 09/11/2019 [facility] [address] [place] [address] URINALYSIS, COMPLETE 28868 CRYSTALS DNR /HPF 08/26 [facility] [address] [address] URINALYSIS, COMPLETE 16508 HYALINE CAST NONE SEEN /LP F 09/11/2019 [facility] [place] [address] URINALYSIS, COMPLETE 15837 GRANULAR CAST DNR /LPF 1 11/12/2018 [facility] [address] [place] [address] URINALYSIS, COMPLETE 64728 CASTS DNR /LPF 08/26 [facility] [address] [place] [address] URINALYSIS, COMPLETE 12595 YEAST DNR /HPF 08/26 [facility] [place] [address] URINALYSIS, COMPLETE 66545 COMMENTS DNR 08/26 [facility] [place] [address] URINALYSIS, COMPLETE 58412 NOTE DNR 08/26 [facility] [place] [address] URINALYSIS, COMPLETE 69606 NITRITE NEGATIVE 08/26 [facility] [place] [address] CULTURE, URINE, ROUTINE 395 CULTURE, URINE, ROUTINE SEE NOTE 08/16/2019 [facility] [place] [address] EXTRA LAVENDER-TOP TUBE XLKS EXTRA LAVENDER-TOP TUBE 08/10/2019 [facility] [place] [address] EXTRA LAVENDER-TOP TUBE XLKS COMMENT 1 10/10/2018 [facility] [place] [address] LIPID PANEL 30389 CHOLESTEROL, TOTAL 180 mg/dL 08/10 [facility] [place] [address] LIPID PANEL 60805 HDL CHOLESTEROL 35 mg/dL 08/10/20 19 [facility] [address] [address] LIPID PANEL 41367 TRIGLYCERIDES 200 mg/dL 08/10/[address] [facility] [address] LIPID PANEL 06776 LDL-CHOLESTEROL 113 mg/dL(calc) [facility] [address] LIPID PANEL 30188 CHOL/HDLC RATIO 5.1 (calc) 08/10/[address] [facility] [address] [address] LIPID PANEL 80139 NON HDL CHOLESTEROL 145 mg/dL(calc) 08/10/[address] [facility] [address] COMPREHENSIVE METABOLIC PANEL 00076 Glucose 86 mg/ dL 08/10/[address] [facility] [address] COMPREHENSIVE METABOLIC PANEL 67518 UREA NITROGEN (BUN) 11 mg/dL 08/10/[address] [facility] [address] COMPREHENSIVE METABOLIC PANEL 85912 CREATININE 0.71 m g/dL 08/10/[address] [facility] [address] COMPREHENSIVE METABOLIC PANEL 96698 eGFR NON-AFR. SAO TOMEAN 90 mL/min/1.73m2 08/10/2019 [facility] [address] COMPREHENSIVE METABOLIC PANEL 71197 eGFR 104 mL/min/1.73m2 08/10/2019 [facility] [address] [address] COMPREHENSIVE METABOLIC PANEL 45625 BUN/CREATININE RATIO NOT APPLICABLE (calc) 08/10/2019 [facility] [address] [address] COMPREHENSIVE METABOLIC PANEL 09504 SODIUM 140 mm ol/L 08/10/2019 [facility] [address] [address] COMPREHENSIVE METABOLIC PANEL 16670 POTASSIUM 4.2 mm ol/L 08/10/2019 [facility] [address] [address] COMPREHENSIVE METABOLIC PANEL 48775 CHLORIDE 105 mm ol/L 08/10/[address] [facility] [address] COMPREHENSIVE METABOLIC PANEL 27713 CARBON DIOXIDE 28 mmol/L 08/10/[address] [facility] [address] COMPREHENSIVE METABOLIC PANEL 23202 CALCIUM 9.3 mg /dL 08/10/[address] [facility] [address] COMPREHENSIVE METABOLIC PANEL 61763 PROTEIN, TOTAL 6. 7 g/dL 08/10/2019 [facility] [address] COMPREHENSIVE METABOLIC PANEL 71936 ALBUMIN 4.3 g/ dL 08/10/[address] [facility] [address] COMPREHENSIVE METABOLIC PANEL 52158 GLOBULIN 2.4 g/ dL(calc) 08/10/[address] [facility] [address] COMPREHENSIVE METABOLIC PANEL 45551 ALBUMIN/GLOBULIN RATIO 1.8 (calc) 08/10/[address] [facility] [address] COMPREHENSIVE METABOLIC PANEL 50578 BILIRUBIN, TOTAL 0.6 mg/dL 08/10/[address] [facility] [address] COMPREHENSIVE METABOLIC PANEL 10787 ALKALINE PHOSPHATASE 74 U/L 08/10/[address] [facility] [address] COMPREHENSIVE METABOLIC PANEL 54709 AST 21 U/L 08/10/[address] [facility] [address] COMPREHENSIVE METABOLIC PANEL 33631 ALT 15 U/L 08/10/[address] [facility] [address] COMPREHENSIVE METABOLIC 97424 AST 18 U/L 2018 Unknown COMPREHENSIVE METABOLIC 78704 ALT 12 U/L 2018 Unknown COMPREHENSIVE METABOLIC 57717 BUN 11 mg/dL 2018 Unknown COMPREHENSIVE METABOLIC 85798 ALBUMIN 4.6 g/dL 2018 Unknown COMPREHENSIVE METABOLIC 70358 CHLORIDE 106 mmol/L 02/14 Unknown COMPREHENSIVE METABOLIC 14281 Bili Total 0.9 mg/dL 02/14 Unknown COMPREHENSIVE METABOLIC 27041 ALK PHOS 76 U/L 2018 Unknown COMPREHENSIVE METABOLIC 69258 SODIUM 142 mmol/L 02/14 Unknown COMPREHENSIVE METABOLIC 89304 CREATININE 0.69 mg/dL 01/25 Unknown COMPREHENSIVE METABOLIC 70554 CALCIUM 9.5 mg/dL 2018 Unknown COMPREHENSIVE METABOLIC 75980 POTASSIUM 3.9 mmol/L 02/14 Unknown COMPREHENSIVE METABOLIC 28219 Total Protein 6.6 g/dL Unknown COMPREHENSIVE METABOLIC 44030 Glucose 86 mg/dL 2018 Unknown COMPREHENSIVE METABOLIC 63359 Bicarbonate 29 mmol/L 01/25 Unknown COMPREHENSIVE METABOLIC 76363 AGAP 7 mmol/L 2018 Unknown GFR CALC [id number] GFR Afr Amr >60 mL/min 02/14/2019 Unknow n GFR CALC [id number] GFR Non Afr Amr >60 mL/min 02/14/2019 Un known [facility] 72990 Cholesterol 127 mg/dL 02/14/2019 Unkno wn [facility] 80027 Triglyceride 156 mg/dL 02/14/2019 Unkn own [facility] 98648 HDL CHOLESTEROL 45 mg/dL 02/14/2019 U nknown [facility] 33090 Chol/HDL Ratio 2.82 ratio 02/14/2019 U nknown [facility] 82158 NON-HDL Chol 82 mg/dL 02/14/2019 Unkn own [facility] 39656 LDL Cholesterol 51 mg/dL 02/14/2019 U nknown COMPREHENSIVE METABOLIC PANEL 83128 Glucose 88 mg/ dL 08/16/2018 [facility] [address] [place] [address] COMPREHENSIVE METABOLIC PANEL 14110 UREA NITROGEN (BUN) 11 mg/dL 08/16/2018 [facility] [address] [place] [address] COMPREHENSIVE METABOLIC PANEL 76433 CREATININE 0.70 m g/dL 08/16/2018 [facility] [address] [place] [address] COMPREHENSIVE METABOLIC PANEL 50797 eGFR NON-AFR. SAO TOMEAN 92 mL/min/1.73m2 08/16/2018 [facility] [address] [place] [address] COMPREHENSIVE METABOLIC PANEL 00441 eGFR 107 mL/min/1.73m2 08/16/2018 [facility] [address] [place] [address] COMPREHENSIVE METABOLIC PANEL 28091 BUN/CREATININE RATIO NOT APPLICABLE (calc) 08/16/2018 [facility] [address] COMPREHENSIVE METABOLIC PANEL 74055 SODIUM 140 mm ol/L 08/16/[address] [facility] [address] COMPREHENSIVE METABOLIC PANEL 95387 POTASSIUM 4.0 mm ol/L 08/16/[address] [facility] [address] COMPREHENSIVE METABOLIC PANEL 49533 CHLORIDE 104 mm ol/L 08/16/2018 [facility] [address] COMPREHENSIVE METABOLIC PANEL 40821 CARBON DIOXIDE 29 mmol/L 08/16/[address] [facility] [address] COMPREHENSIVE METABOLIC PANEL 86218 CALCIUM 9.4 mg /dL 08/16/2018 [facility] [address] COMPREHENSIVE METABOLIC PANEL 10928 PROTEIN, TOTAL 6. 7 g/dL 08/16/2018 [facility] [address] COMPREHENSIVE METABOLIC PANEL 04712 ALBUMIN 4.4 g/ dL 08/16/2018 [facility] [address] COMPREHENSIVE METABOLIC PANEL 52913 GLOBULIN 2.3 g/ dL(calc) 08/16/2018 [facility] [address] COMPREHENSIVE METABOLIC PANEL 29701 ALBUMIN/GLOBULIN RATIO 1.9 (calc) 08/16/2018 [facility] [address] COMPREHENSIVE METABOLIC PANEL 64384 BILIRUBIN, TOTAL 0.8 mg/dL 08/16/2018 [facility] [address] COMPREHENSIVE METABOLIC PANEL 97075 ALKALINE PHOSPHATASE 72 U/L 08/16/2018 [facility] [address] COMPREHENSIVE METABOLIC PANEL 29919 AST 19 U/L 08/16/[address] [facility] [address] COMPREHENSIVE METABOLIC PANEL 11633 ALT 12 U/L 08/16/[address] [facility] [address] [address] LIPID PANEL 25551 CHOLESTEROL, TOTAL 228 mg/dL 08/[address] [address] LIPID PANEL 59419 HDL CHOLESTEROL 42 mg/dL 08/16/[address] [address] LIPID PANEL 73481 TRIGLYCERIDES 175 mg/dL 08/16/[address] [facility] [address] LIPID PANEL 44168 LDL-CHOLESTEROL 155 mg/dL(calc) [facility] [address] LIPID PANEL 05644 CHOL/HDLC RATIO 5.4 (calc) 08/16/[address] [facility] [address] LIPID PANEL 95361 NON HDL CHOLESTEROL 186 mg/dL(calc) 08/16/[address] [address] EXTRA LAVENDER-TOP TUBE XLKS EXTRA LAVENDER-TOP TUBE 08/16/[address] [facility] [address] EXTRA LAVENDER-TOP TUBE XLKS COMMENT 1 10/16/[address] [facility] [address] Procedures Procedure Codes Date URINALYSIS, COMPLETE CPT-4: 22864 09/10/2019 CULTURE, URINE, ROUTINE CPT-4: 395 09/10/2019 URINALYSIS NONAUTO W/O SCOPE CPT-4: 52539 08/27/2019 CULTURE, URINE, ROUTINE CPT-4: 395 08/15/2019 URINALYSIS NONAUTO W/O SCOPE CPT-4: 08818 08/15/2019 SHINGRIX HZV VACC RECOMBINANT IM CPT-4: 94603 019 IMMUNIZATION ADMIN CPT-4: 95635 08/15/2019 COMPREHENSIVE METABOLIC PANEL CPT-4: 81393 08/09/2019 LIPID PANEL CPT-4: 90196 08/09/2019 ROUTINE VENIPUNCTURE CPT-4: 33182 08/09/2019 EXTRA LAVENDER-TOP TUBE CPT-4: XLKS 08/09/2019 ROUTINE VENIPUNCTURE CPT-4: 90491 02/14/2019 COMPREHEN METABOLIC PANEL CPT-4: 70401 02/14/2019 LIPID PANEL CPT-4: 73835 02/14/2019 ROUTINE VENIPUNCTURE CPT-4: 21265 08/15/2018 COMPREHENSIVE METABOLIC PANEL CPT-4: 45531 08/15/2018 EXTRA LAVENDER-TOP TUBE CPT-4: XLKS 08/15/2018 LIPID PANEL CPT-4: 64241 08/15/2018 IIV4 VACCINE 3 YRS+ IM AND UP CPT-4: 63070 07/03/2018 IMMUNIZATION ADMIN CPT-4: 74242 07/03/2018 SPECIMEN HANDLING OFFICE-LAB CPT-4: 14819 03/02/2018 OCCULT BLOOD FECES CPT-4: 25560 03/02/2018 THER/PROPH/DIAG INJ SC/IM CPT-4: 89048 11/03/2017 TRIAMCINOLONE ACET INJ NOS CPT-4: J3301 11/03/2017 INFLUENZA ASSAY W/OPTIC CPT-4: 04840 10/27/2017 THER/PROPH/DIAG INJ SC/IM CPT-4: 95210 10/27/2017 TRIAMCINOLONE ACET INJ NOS CPT-4: J3301 10/27/2017 THER/PROPH/DIAG INJ SC/IM CPT-4: 44510 04/23/2016 TRIAMCINOLONE ACET INJ NOS CPT-4: J3301 [...] 1: 126/70 Code: 8480-6 BMI: 26.7 Code: 68485-4 Heart Rate 1: 68 bpm Height: 5'6" Respiratory Rate: 18 bpm SpO2: 97% Tempera ture: 36.6 (C) / 97.9 (F) Weight: 168 lbs 08/15/2018 Blood Pressure 1: 122/78 Code: 8480-6 BMI: 25.9 Code: 29233-8 Heart Rate 1: 72 bpm Height: 5'6" Respiratory Rate: 20 bpm SpO2: 97% Tempera ture: 36.7 (C) / 98.0 (F) Weight: 163 lbs 03/02/2018 Blood Pressure 1: 126/74 Code: 8480-6 BMI: 26.1 Code: 61085-9 Heart Rate 1: 76 bpm Height: 5'6" Respiratory Rate: 20 bpm SpO2: 98% Tempera ture: 36.6 (C) / 97.8 (F) Weight: 164 lbs 11/03/2017 Blood Pressure 1: 124/82 Code: 8480-6 BMI: 25.3 Code: 67448-7 Heart Rate 1: 90 bpm Height: 5'6" Respiratory Rate: 22 bpm SpO2: 98% Tempera ture: 36.9 (C) / 98.4 (F) Weight: 159 lbs 10/27/2017 Blood Pressure 1: 122/84 Code: 8480-6 BMI: 25.6 Code: 76457-6 Heart Rate 1: 90 bpm Height: 5'6" Respiratory Rate: 22 bpm SpO2: 97% Tempera ture: 36.1 (C) / 97.0 (F) Weight: 161 lbs 08/11/2017 Blood Pressure 1: 132/76 Code: 8480-6 BMI: 26.4 Code: 18980-3 Heart Rate 1: 72 bpm Height: 5'6" Respiratory Rate: 20 bpm Temperature: 36 .6 (C) / 97.8 (F) Weight: 166 lbs 05/23/2017 Blood Pressure 1: 126/72 Code: 8480-6 BMI: 26.1 Code: 27096-4 Heart Rate 1: 72 bpm Height: 5'6" Respiratory Rate: 20 bpm SpO2: 98% Tempera ture: 37.1 (C) / 98.8 (F) Weight: 164 lbs 03/10/2017 Blood Pressure 1: 124/72 Code: 8480-6 BMI: 26.1 Code: 60975-3 Heart Rate 1: 92 bpm Height: 5'6" Respiratory Rate: 20 bpm SpO2: 97% Tempera ture: 37.2 (C) / 98.9 (F) Weight: 164 lbs 08/30/2016 Blood Pressure 1: 142/82 Code: 8480-6 BMI: 25.6 Code: 61252-6 Heart Rate 1: 72 bpm Height: 5'6" Respiratory Rate: 20 bpm Temperature: 36 .6 (C) / 97.9 (F) Weight: 161 lbs 06/01/2016 Blood Pressure 1: 156/88 Code: 8480-6 BMI: 26.4 Code: 47236-1 Heart Rate 1: 70 bpm Height: 5'6" Respiratory Rate: 18 bpm SpO2: 97% Tempera ture: 36.6 (C) / 97.8 (F) Weight: 166 lbs 04/30/2016 Blood Pressure 1: 122/70 Code: 8480-6 Heart Rate 1: 10 2 bpm Height: Respiratory Rate: 24 bpm SpO2: 95% Temperature: 36.4 (C) / 97.6 (F) We ight: 04/23/2016 Blood Pressure 1: 152/76 Code: 8480-6 BMI: 26.5 Code: 39603-3 Heart Rate 1: 106 bpm Height: 5'7" Respiratory Rate: 24 bpm SpO2: 96% Tempera ture: 36.8 (C) / 98.2 (F) Weight: 169 lbs 04/08/2016 Blood Pressure 1: 116/68 Code: 8480-6 BMI: 27.4 Code: 82374-6 Heart Rate 1: 76 bpm Height: 5'6" [...] visit Encounters Encounter Performer Location Codes Date ([id number]) NURSE/OUTPATIENT VISIT EST Diagnosis: Hematuria[ICD10: R31.9] Chio MORTENSEN MalathiHugo ALEC BON[facility]A [facility] CPT-4: 05722 09/10/2019 ([id number]) OFFICE/OUTPATIENT VISIT EST Diagnosis: Hematuria[ICD10: R31.9] Chio MORTENSEN MalathiHugo ALEC B[facility] CPT-4: 93533 08/27/2019 ([id number]) PREV VISIT EST AGE 40-64 Diagnosis: Urinary tract infection[ICD10: N39.0] Diagnosis: Encounter for general adult medical examination without abnormal findings[ICD10: Z00.00] Diagnosis: Essential (primary) hypertension[ICD10: I10] Diagnosis: Mixed hyperlipidemia[ICD10: E78.2] Diagnosis: VACCIN FOR DISEASE NEC (HPV or Zostavax)[ICD10: Z23] Chio MORTENSEN MalathiHugo ROMAN [facility] CPT-4: 04061 08/15/2019 ([id number]) NURSE/OUTPATIENT VISIT EST Diagnosis: Mixed hyperlipidemia[ICD10: E78.2] Diagnosis: Essential (primary) hypertension[ICD10: I10] Chio MORTENSEN MalathiHugo [facility] CPT-4: 35884 08/09/2019 ([id number]) OFFICE/OUTPATIENT VISIT EST Diagnosis: Mixed hyperlipidemia[ICD10: E78.2] Diagnosis: Other specified counseling[ICD10: Z71.89] Chio MORTENSEN MalathiHugo MARIOАННАIRENE [facility] CPT-4: 88350 02/14/2019 ([id number]) OFFICE/OUTPATIENT VISIT EST Diagnosis: Mixed hyperlipidemia[ICD10: E78.2] Chio Mancini MARIOАННАIRENE [facility] CPT-4: 99219 08/15/2018 ([id number]) NURSE/OUTPATIENT VISIT EST Diagnosis: FLU VACCINE[ICD10: Z23] Chio BONILLA [facility] CPT-4: 59679 07/03/2018 ([id number]) PREV VISIT EST AGE 40-64 Diagnosis: Encounter for general adult medical examination without abnormal findings[ICD10: Z00.00] Diagnosis: Encounter for gynecological examination (general) (routine) without abnormal findings[ICD10: Z01.419] Chioradha MORTENSEN Addis Holder Skout CPT-4: 16975 03/02/2018 OFFICE/OUTPATIENT VISIT EST Diagnosis: Pneumonia, unspecified organism[ICD10: J18.9] Shaniqua MORENOLINE Addis POST Skout CPT-4: 12471 11/03/2017 OFFICE/OUTPATIENT VISIT EST Diagnosis: Influenza due to other identified influenza virus with other respiratory manifestations[ICD10: J10.1] Diagnosis: Acute bronchitis, unspecified[ICD10: J20.9] Shaniqua POST Skout CPT-4: 41512 10/27/2017 ([id number]) OFFICE/OUTPATIENT VISIT EST Diagnosis: Mixed hyperlipidemia[ICD10: E78.2] Chio BALLARD SHugo POST Skout CPT-4: 05786 08/11/2017 ([id number]) PREV VISIT EST AGE 40-64 Diagnosis: Encounter for general adult medical examination without abnormal findings[ICD10: Z00.00] Diagnosis: Mixed hyperlipidemia[ICD10: E78.2] Chio BALLARD S. MARIONDER Skout CPT-4: 05849 05/23/2017 ([id number]) OFFICE/OUTPATIENT VISIT EST Diagnosis: Essential (primary) hypertension[ICD10: I10] Diagnosis: Mixed hyperlipidemia[ICD10: E78.2] Chio BALLARD SHugo MARTINNDIRENE Skout CPT-4: 50111 03/10/2017 ([id number]) OFFICE/OUTPATIENT VISIT EST Diagnosis: Mixed hyperlipidemia[ICD10: E78.2] Diagnosis: Essential (primary) hypertension[ICD10: I10] Chio MORTENSEN MalathiHugo ROMAN Skout CPT-4: 19204 08/30/2016 ([id number]) OFFICE/OUTPATIENT VISIT EST Diagnosis: Mixed hyperlipidemia[ICD10: E78.2] Ale POST DO [facility] CPT-4: 48557 06/01/2016 ([id number]) OFFICE/OUTPATIENT VISIT EST Diagnosis: Strain of muscle, fascia and tendon of lower back, subsequent encounter[ICD10: S39.012D] Diagnosis: Sciatica, left side[ICD10: M54.32] Ale POST DO [facility] CPT-4: 22394 04/30/2016 ([id number]) OFFICE/OUTPATIENT VISIT EST Diagnosis: Strain of muscle, fascia and tendon of lower back, initial encounter[ICD10: S39.012A] Diagnosis: Sciatica, left side[ICD10: M54.32] Ale POST DO [employer] CPT-4: 35712 04/23/2016 (18008) PREV VISIT NEW AGE 40-64 Diagnosis: Encounter for general adult medical examination without abnormal findings[ICD10: Z00.00] Diagnosis: Plantar fascial fibromatosis[ICD10: M72.2] Chio MORTENSEN Addis POST [address] [facility] CPT-4: 83394 04/08/2016 Plan of Care Planned Activity Notes Codes Status Date Care Plan: MAMMOGRAM SCREENING LOINC : 2 6347-5 Pending 10/31/2019 Appointment: Chio Post WPtel: [address] [place], [place] [phone] UA 09/10/2019 Visit Diagnosis Plan: Hematuria Discussion: Hold crest or No NSAIDs Push fluids/water Recheck urine microscopy in 2weeks and if still with microscopic blood then will need urology eval and cystoscope ICD-9 : 599.70 ICD-10 : R31.9 08/27/2019 Appointment: Chio Post WPtel: [address] [place], [place] [phone] ACUTE ILLNESS 08/27/2019 Visit Diagnosis Plan: Encounter [...] E78.2 08/15/2019 Appointment: Chio Post WPtel: [address] [place], [place] [phone] [place] confirmed 08/09/19-- does not need reminder call Annual Well Visit 08/15/2019 Appointment: Chio Post WPtel: [address] [place], [place] [phone] 08/15/19 1330---added to office visit with Dr kwon () CANCELED 08/15/2019 Appointment: Chio Post WPtel: [address] [place], [place] [phone] US LAB 08/09/2019 Visit Diagnosis Plan: Mixed [...] Z71.89 02/14/2019 Appointment: Chio Post WPtel: [address] [place], [place] [phone] [place] FOLLOW UP 02/14/2019 Visit Diagnosis Plan: Mixed hyperlipidemia Discussion: Check CMP, Lipids Recommend Shingrix Had flu shot ICD-9 : 272.2 ICD-10 : E78.2 08/15/2018 Appointment: Chio Post WPtel: [phone] FOLLOW UP 08/15/2018 Appointment: Chio Post WPtel: [address] [place] [address] [place] INJECTION 07/03/2018 Patient Education: Patient Medication [...] : Z00.00 03/02/2018 Appointment: Chio Post WPtel: [address] [place] [address] Annual Well Visit 03/02/2018 Patient Education: Patient Medication Summary Completed 03/02/2018 Appointment: Chio Post WPtel: [address] [place] [address] RESCHEDULED 02/08/2018 Visit Diagnosis Plan: Pneumonia, unspecified [...] ICD-10 : J18.9 11/03/2017 Appointment: Shaniqua Ruiz [address] [place] [address] ACUTE ILLNESS 11/03/2017 Patient Education: Patient Medication [...] ICD-10 : J10.1 10/27/2017 Appointment: Shaniqua Ruiz [address] [place] [address] ACUTE ILLNESS 10/27/2017 Patient Education: Patient Medication Summary Completed 10/27/2017 Visit Diagnosis Plan: Mixed hyperlipidemia Discussion: Hold on statins due to side effects 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 next 6mos then check CMP, Lipids and fwup ICD-9 : 272.2 ICD-10 : E78.2 08/11/2017 Appointment: Chio Post WPtel: [phone] MEDICATION REVIEW 08/11/2017 Patient Education: Patient Medication Summary Completed 08/11/2017 Visit Diagnosis Plan: Mixed hyperlipidemia Discussion: Continue lipitor and check lipids with LFTs next month ICD-9 : 272.2 ICD-10 : E78.2 05/23/2017 Visit Diagnosis Plan: Encounter for [facility] adult medical examination without abnormal findings Discussion: Will update lab next month D efers mammogram until next year--normal mammogram last year Pap due next year Tdap 3 yrs ago Colonoscopy up to date Discussed zostavax--will check on coverage ICD-9 : V70.9 ICD-10 : Z00.00 05/23/2017 Appointment: Chio Post WPtel: [phone] Annual Well Visit 05/23/2017 Patient Education: Patient Medication Summary Completed 05/23/2017 Visit Diagnosis Plan: Essential (primary) hypertension Follow Up: 6 months ICD-9 : 401.9 ICD-10 : I10 03/10/2017 Visit Diagnosis Plan: Mixed hyperlipidemia Discussion: Check CMP, Lipids ICD-9 : 272.2 ICD-10 : E78.2 03/10/2017 [facility]ment[facility] [phone] [facility] 03/09 confimed ~sl CHECK UP 03/10/2017 Patient Education: Patient Medication Summary Completed 03/10/2017 Appointment: [facility]el[facility] [phone] [facility] 02/03 rescheduled ~sl RESCHEDULED 02/28/2017 Visit Plan: Lab discussed Continue lifes tyle modification Check full fasting lab in 6mos Monitor BP 1-2 times a week at home Discussed adding weights or yoga/sriram chi 3 times a week 08/30/2016 Appointment: Chio Post WPtel: [facility] 08/26 lm`sl...confirmed~lb FOLLOW UP 08/30 Patient Education: Patient Medication Summary Completed 08/30/2016 Patient Education: Patient Medication Summary Completed 08/26/2016 Care Plan: COMPREHEN METABOLIC PANEL NINFA [place] : 92204-4 Pending 08/26/2016 Care Plan: LIPID PANEL LOINC : 26005-4 Pending 08/26/2016 Visit Plan: Patient is very anxious abou t going back on any medication for her lipids right now Stressed diet and exercise changes she can try Continue higher dose of fish oil she is now taking Can recheck lipids and cmp in 3 months If not much better, will need rx started - discussed trying fenofibrate possibly 06/01/2016 [facility]ment: [facility] [facility] 05/27 confirmed ~sl FOLLOW UP 06/01/2016 Patient [...] if negative) 04/30/2016 Appointment: Ale [facility]erra [phone] [facility] [facility] 04/30/2016 Patient Education: Patient Medication Summary Completed 04/30/2016 Visit Plan: Steroid injection given toda y Muscle relaxer as well Continue daily meloxicam Start weaning back on oxycodone Can replace oxycodone dosing with otc tylenol Advised topical pain relievers, heat/ice, etc If oxycodone runs completely out and patient still needs some, can call for refill to strip picker or could consider replacing with tramadol 04/23/2016 Appointment: Ale [facility]erra [phone] [facility] [facility] Follow UP 04/23/2016 Patient Education: Patient Medication Summary Completed 04/23/2016 Visit Plan: Continue inserts and stretch es for plantar fascia Add Vivlodex Return in 2-3 weeks for injection if pain persists Check Fasting Lab Update Mammogram 04/08/2016 Appointment: Chio Post WPtel: [address] [place], [place] [address] 04/07 confirmed ~sl NEW PATIENT 04/08/2016 Patient [...] needs some, can call for refill to strip picker or could consider replacing with tramadol [...]
--- OUTSIDE RECORDS SUMMARY | 2020-02-26 21:12 | XMS REPORT | CCD ---
Author Author Carola Post D.O. Organization [facility] Address [address] [place] [address] Phone Care Team Providers Care Cardroom Supervisor Name Role Phone Chio Post D.O., PP Unavailable CCM Unavailable Summary Purpose Interface Exchange Insurance Providers Payer name Policy type / Coverage type Covered libertarian ID Effective Begin Date Effective End Date [employer] Insurance [id number] Unknown Family history Grandfather Diagnosis Age At Onset Cancer Unknown Social History Social History Element Codes Description Effective Dates Marital status Unknown 04/08/2016 Number of children Unknown 3 04/08/2016 Employment Unknown Currently employed [employer] 04/08/[address]: 013360624 Has never smoked or chewed tobacco 04/08/[address]: 749270 Currently drinks alcohol 04/08 Frequency of drinks SNOMED CT: 823872422 Drinks rarely 016 Has the patient ever [...] Problems Condition Codes Effective Dates Condition Status Hematuria ICD-9: 599.70 ICD-10: R31.9 08/27/2019 Active [...] Fill Instructions Aleve 220 mg tablet RxNorm: 932196 Tablet(s) Oral as needed 019 No Stop Date Active Fish Oil 360 mg-1,200 mg capsule RxNorm: 1 Capsule(s) Or al two times a day 08/15/2019 No Stop Date Active Macrobid 100 mg capsule RxNorm: 959276 1 Capsule(s) Oral two ti mes a day 08/15/2019 08/22/2019 Inactive Crestor 5 mg tablet RxNorm: 896234 1/2 Tablet(s) PO twice a week 04/10/2019 Inactive Crestor 5 mg tablet RxNorm: 847049 1 Tablet(s) PO Tues, Thurs, Sat and Sun and 1/2 tablet (2.5mg) on Mon, Tue and Tue03/05/2019 03/11/2019 Inactive Crestor 5 mg tablet RxNorm: 009761 1 Tablet(s) PO QD 02/07/201903/05 Inactive Crestor 5 mg tablet RxNorm: 350528 1 Tablet(s) PO QD re check labwork in 6 months 08/21/2018 08/20/2018 Inactive Crestor 5 mg tablet RxNorm: 538271 1 Tablet(s) PO QD re check labwork in 6 months 08/21/2018 02/06/2019 Inactive Ventolin HFA 90 mcg/actuation aerosol inhaler RxNorm: 885366 2 Puff(s) INH Q4H as needed 11/03/2017 03/01/2018 Inactive please switch to proair if ventolin is not covered. thanks! Levaquin 500 mg tablet RxNorm: 701065 1 Tablet(s) PO QD 11/03/2017 Inactive Zithromax Z-Talat 250 mg tablet RxNorm: 360248 Tablet(s) PO 10/27/2017 03/01/2018 Inactive Lipitor 10 mg tablet RxNorm: 633976 1 TABLET(S) PO QD REPLACES PRAVASTATIN 06/08/2017 08/10/2017 Inactive Lipitor 10 mg tablet RxNorm: 190129 1 Tablet(s) PO QD replaces Pravastatin 03/16/2017 06/07/2017 Inactive pravastatin 10 mg tablet RxNorm: 975423 1 Tablet(s) PO QD 03/15/2017 03/14/2017 Inactive pravastatin 10 mg tablet RxNorm: 491523 1 Tablet(s) PO QD 03/15/2017 03/15/2017 Inactive Zorvolex 35 mg capsule RxNorm: 4457050 1 Capsule(s) PO TID HOLD MELOXICAM 05/03/2016 06/01/2016 Inactive Zorvolex 35 mg capsule RxNorm: 5285886 1 Capsule(s) PO TID HOLD MELOXICAM 04/30/2016 05/02/2016 Inactive prednisone 20 mg tablet RxNorm: 068456 1 Tablet(s) PO B ID and then decrease to 1 tab PO QD x 5 days 04/30/2016 05/04/2016 Inactive cyclobenzaprine 10 mg tablet RxNorm: 368787 1 Tablet(s) PO TID as needed for muscle spasm 04/23/2016 08/29/2016 Inactive pravastatin 20 mg tablet RxNorm: 570426 1 Tablet(s) PO QD 04/14/2016 08/29/2016 Inactive Vivlodex 10 mg capsule RxNorm: 7326308 1 Capsule(s) PO QD 04/08/2016 05/07/2016 Inactive Co Q-10 300 mg capsule RxNorm: 551745 1 Capsule(s) PO QD No Start Date Active Vitamin D3 5,000 unit tablet RxNorm: 358982 1 Tablet(s) PO QD No Star t Date Active melatonin 5 mg tablet RxNorm: 783663 1 Tablet(s) PO QHS as needed N o Start Date Active Multivitamin & Mineral Formula tablet RxNorm: 1 Tablet(s) PO Q D No Start Date Active Fish Oil 1,000 mg capsule RxNorm: 2 Capsule(s) PO QD No Start Date 08/29/2016 Inactive Metamucil 0.4 gram capsule RxNorm: 9369233 2 Capsule(s) PO BID No S tart Date 02/13/2019 Inactive Vitamin D3 2,000 unit tablet RxNorm: 916638 1 Tablet(s) PO QD No St art Date 03/26/2019 Inactive Lipitor 10 mg tablet RxNorm: 224505 1 Tablet(s) PO QD No Start Date 0 03/15/2017 Inactive Crestor 5 mg tablet RxNorm: 942211 1 Tablet(s) PO Tu, Th, Sat and Sun and 1/2 tablet (2.5mg) on Mon, Wed and Fri No Start Date 03/04/2019 Inactive Calcium with Vitamin D 600 mg (1,500 mg)-400 unit tablet RxN orm: 882634 1 Tablet(s) PO QD No Start Date 03/01/2018 Inactive krill oil 1,000 mg-170 mg-50 mg-80 mg capsule RxNorm: 1 Capsule(s) PO BID No Start Date 08/14/2019 Inactive Co Q-10 200 mg capsule RxNorm: 982107 1 Capsule(s) PO QD No Start D ate 03/01/2018 Inactive Co Q-10 oral RxNorm: 08604 oral No Start Date 07/24/2017 Inactive oxycodone-acetaminophen 5 mg-325 mg tablet RxNorm: 9764207 1 Tab let(s) PO Q6H No Start Date 08/29/2016 Inactive Krill Oil ([place] 3 and 6) oral RxNorm: 86209 oral No Start Date 02/13/2019 Inactive Flexeril 10mg tablet RxNorm: 1 Tablet(s) PO Q8H No Start Date 12/2015 Inactive Vitamin D3 1,000 unit tablet RxNorm: 593513 1 Tablet(s) PO QD No St art Date 03/11/2019 Inactive Medication Administered No Medication Administered data Immunizations Vaccine Codes Date Status Zoster Unknown 08/15/2019 Complete Influenza CVX: 141 07/03/2018 Complete Results Observation Observation Code Item Item Code Result Date S ervice Location CULTURE, URINE, ROUTINE 395 CULTURE SEE NOTE 1 11/13/2018 [facility] [place] [address] [place] [phone] CULTURE, URINE, ROUTINE 395 CULTURE, URINE, ROUTINE SEE NOTE 09/12/2019 [facility] [place] [address] [place] [address] URINALYSIS, COMPLETE 09977 Color YELLOW 08/26 [facility] [place] [address] [place] [address] URINALYSIS, COMPLETE 25013 APPEARANCE CLEAR 08/26 Mary Jane [place] [address] [place] [address] URINALYSIS, COMPLETE 73860 SPECIFIC GRAVITY 1.003 09/11/2019 [facility] [place] [address] [place] [address] URINALYSIS, COMPLETE 62295 PH 7.0 08/26 [facility] [place] [address] [place] [address] URINALYSIS, COMPLETE 94941 Glucose NEGATIVE 08/26 [facility] [place] [address] [place] [address] URINALYSIS, COMPLETE 61562 BILIRUBIN NEGATIVE 08/26 [facility] Erin [place] [address] [place] [address] URINALYSIS, COMPLETE 16373 Ketones NEGATIVE 08/26 [facility] [place] [address] [place] [address] URINALYSIS, COMPLETE 24664 OCCULT BLOOD NEGATIVE [facility] [address] [place] [address] URINALYSIS, COMPLETE 47707 Protein NEGATIVE 08/26 [facility] [address] [address] URINALYSIS, COMPLETE 11516 LEUKOCYTE ESTERASE NEGATIV E 09/11/2019 [facility] [place] [address] URINALYSIS, COMPLETE 79144 WBC NONE SEEN /HPF 09/11/2019 [facility] [place] [address] URINALYSIS, COMPLETE 29801 RBC NONE SEEN /HPF 09/11/2019 [facility] [place] [address] URINALYSIS, COMPLETE 48213 SQUAMOUS EPITHELIAL CELLS NONE SEEN /HPF 09/11/[address] [facility] [address] URINALYSIS, COMPLETE 27504 TRANSITIONAL EPITHELIAL CELLS DNR /HPF 09/11/2019 [facility] [place] [address] URINALYSIS, COMPLETE 96217 RENAL EPITHELIAL CELLS DNR /HPF 09/11/2019 [facility] [address] URINALYSIS, COMPLETE 41782 BACTERIA NONE SEEN /HPF 09/11/2019 [facility] [address] URINALYSIS, COMPLETE 92405 CALCIUM OXALATE CRYSTALS D NR /HPF 09/11/2019 [facility] [address] [address] URINALYSIS, COMPLETE 23065 TRIPLE PHOSPHATE CRYSTALS DNR /HPF 09/11/[address] [facility] [address] URINALYSIS, COMPLETE 44215 URIC ACID CRYSTALS DNR /HP F 09/11/2019 [facility] [address] URINALYSIS, COMPLETE 98147 AMORPHOUS SEDIMENT DNR /HP F 09/11/[address] [facility] [address] URINALYSIS, COMPLETE 29923 CRYSTALS DNR /HPF 08/26 [facility] [address] URINALYSIS, COMPLETE 11324 HYALINE CAST NONE SEEN /LP F 09/11/2019 [facility] [address] URINALYSIS, COMPLETE 33182 GRANULAR CAST DNR /LPF 1 11/12/2018 [facility] [place] [address] URINALYSIS, COMPLETE 42204 CASTS DNR /LPF 08/26 [facility] [place] [address] URINALYSIS, COMPLETE 21319 YEAST DNR /HPF 08/26 [facility] [address] URINALYSIS, COMPLETE 74388 COMMENTS DNR 08/26 [facility] [place] [address] URINALYSIS, COMPLETE 86095 NOTE DNR 08/26 [facility] [place] [address] URINALYSIS, COMPLETE 25116 NITRITE NEGATIVE 08/26 [facility] [place] [address] CULTURE, URINE, ROUTINE 395 CULTURE, URINE, ROUTINE SEE NOTE 08/16/2019 Mary Jane [place] [address] EXTRA LAVENDER-TOP TUBE XLKS EXTRA LAVENDER-TOP TUBE 08/10/2019 [facility] [place] [address] EXTRA LAVENDER-TOP TUBE XLKS COMMENT 1 10/10/2018 [facility] [place] [address] LIPID PANEL 46320 CHOLESTEROL, TOTAL 180 mg/dL 08/10 [facility] [place] [address] LIPID PANEL 38102 HDL CHOLESTEROL 35 mg/dL 08/10/20 19 Mary Jane [place] [address] LIPID PANEL 00814 TRIGLYCERIDES 200 mg/dL 08/10/2019 [facility] [place] [address] [place] [address] LIPID PANEL 46204 LDL-CHOLESTEROL 113 mg/dL(calc) [facility] [address] [address] LIPID PANEL 34412 CHOL/HDLC RATIO 5.1 (calc) 08/10/20 [facility] [address] [address] LIPID PANEL 67078 NON HDL CHOLESTEROL 145 mg/dL(calc) 08/10/2019 [facility] [address] [address] COMPREHENSIVE METABOLIC PANEL 80252 Glucose 86 mg/ dL 08/10/2019 [facility] [address] [address] COMPREHENSIVE METABOLIC PANEL 84630 UREA NITROGEN (BUN) 11 mg/dL 08/10/2019 [facility] [address] [address] COMPREHENSIVE METABOLIC PANEL 40575 CREATININE 0.71 m g/dL 08/10/2019 [facility] [address] [address] COMPREHENSIVE METABOLIC PANEL 72046 eGFR NON-AFR. BAHRAINI 90 mL/min/1.73m2 08/10/2019 [facility] [address] [address] COMPREHENSIVE METABOLIC PANEL 19919 eGFR 104 mL/min/1.73m2 08/10/2019 [facility] [address] [address] COMPREHENSIVE METABOLIC PANEL 62356 BUN/CREATININE RATIO NOT APPLICABLE (calc) 08/10/[address] [facility] [address] [address] COMPREHENSIVE METABOLIC PANEL 77502 SODIUM 140 mm ol/L 08/10/2019 [facility] [address] [address] COMPREHENSIVE METABOLIC PANEL 30972 POTASSIUM 4.2 mm ol/L 08/10/2019 [facility] [address] [address] COMPREHENSIVE METABOLIC PANEL 21020 CHLORIDE 105 mm ol/L 08/10/2019 [facility] [address] [address] COMPREHENSIVE METABOLIC PANEL 16260 CARBON DIOXIDE 28 mmol/L 08/10/[address] [facility] [address] [address] COMPREHENSIVE METABOLIC PANEL 43792 CALCIUM 9.3 mg /dL 08/10/[address] [facility] [address] COMPREHENSIVE METABOLIC PANEL 91664 PROTEIN, TOTAL 6. 7 g/dL 08/10/2019 [facility] [address] COMPREHENSIVE METABOLIC PANEL 48023 ALBUMIN 4.3 g/ dL 08/10/[address] [facility] [address] COMPREHENSIVE METABOLIC PANEL 30001 GLOBULIN 2.4 g/ dL(calc) 08/10/[address] [facility] [address] COMPREHENSIVE METABOLIC PANEL 69509 ALBUMIN/GLOBULIN RATIO 1.8 (calc) 08/10/2019 [facility] [address] COMPREHENSIVE METABOLIC PANEL 30847 BILIRUBIN, TOTAL 0.6 mg/dL 08/10/2019 [facility] [address] COMPREHENSIVE METABOLIC PANEL 17347 ALKALINE PHOSPHATASE 74 U/L 08/10/2019 [facility] [address] COMPREHENSIVE METABOLIC PANEL 63723 AST 21 U/L 08/10/2019 [facility] [address] COMPREHENSIVE METABOLIC PANEL 24688 ALT 15 U/L 08/10/2019 [facility] [address] COMPREHENSIVE METABOLIC 31812 AST 18 U/L 2018 Unknown COMPREHENSIVE METABOLIC 80457 ALT 12 U/L 2018 Unknown COMPREHENSIVE METABOLIC 72581 BUN 11 mg/dL 2018 Unknown COMPREHENSIVE METABOLIC 14783 ALBUMIN 4.6 g/dL 2018 Unknown COMPREHENSIVE METABOLIC 49603 CHLORIDE 106 mmol/L 02/14 Unknown COMPREHENSIVE METABOLIC 63484 Bili Total 0.9 mg/dL 02/14 Unknown COMPREHENSIVE METABOLIC 60457 ALK PHOS 76 U/L 2018 Unknown COMPREHENSIVE METABOLIC 46107 SODIUM 142 mmol/L 02/14 Unknown COMPREHENSIVE METABOLIC 00123 CREATININE 0.69 mg/dL 01/25 Unknown COMPREHENSIVE METABOLIC 29659 CALCIUM 9.5 mg/dL 2018 Unknown COMPREHENSIVE METABOLIC 06138 POTASSIUM 3.9 mmol/L 02/14 Unknown COMPREHENSIVE METABOLIC 91350 Total Protein 6.6 g/dL Unknown COMPREHENSIVE METABOLIC 01711 Glucose 86 mg/dL 2018 Unknown COMPREHENSIVE METABOLIC 12651 Bicarbonate 29 mmol/L 01/25 Unknown COMPREHENSIVE METABOLIC 16266 AGAP 7 mmol/L 2018 Unknown GFR CALC [id number] GFR Non Afr Amr >60 mL/min 02/14/2019 Un known GFR CALC [id number] GFR Afr Amr >60 mL/min 02/14/2019 Unknow n [facility] 05307 Cholesterol 127 mg/dL 02/14/2019 Unkno wn [facility] 58165 Triglyceride 156 mg/dL 02/14/2019 Unkn own [facility] 09031 HDL CHOLESTEROL 45 mg/dL 02/14/2019 U nknown [facility] 20087 Chol/HDL Ratio 2.82 ratio 02/14/2019 U nknown [facility] 44802 NON-HDL Chol 82 mg/dL 02/14/2019 Unkn own [facility] 06931 LDL Cholesterol 51 mg/dL 02/14/2019 U nknown COMPREHENSIVE METABOLIC PANEL 25210 Glucose 88 mg/ dL 08/16/2018 [employer] [place] [address] [place] [address] COMPREHENSIVE METABOLIC PANEL 75666 UREA NITROGEN (BUN) 11 mg/dL 08/16/2018 [facility] [place] [address] [place] [address] COMPREHENSIVE METABOLIC PANEL 60396 CREATININE 0.70 m g/dL 08/16/2018 [facility] [place] [address] [place] [address] COMPREHENSIVE METABOLIC PANEL 01527 eGFR NON-AFR. BAHRAINI 92 mL/min/1.73m2 08/16/2018 [facility] [place] [address] [place] [address] COMPREHENSIVE METABOLIC PANEL 24736 eGFR 107 mL/min/1.73m2 08/16/2018 [facility] [place] [address] [place] [address] COMPREHENSIVE METABOLIC PANEL 14263 BUN/CREATININE RATIO NOT APPLICABLE (calc) 08/16/2018 [facility] [place] [address] [place] [address] COMPREHENSIVE METABOLIC PANEL 29347 SODIUM 140 mm ol/L 08/16/2018 [facility] [address] COMPREHENSIVE METABOLIC PANEL 95450 POTASSIUM 4.0 mm ol/L 08/16/2018 [facility] [address] COMPREHENSIVE METABOLIC PANEL 81189 CHLORIDE 104 mm ol/L 08/16/2018 [facility] [address] COMPREHENSIVE METABOLIC PANEL 04434 CARBON DIOXIDE 29 mmol/L 08/16/2018 [facility] [address] COMPREHENSIVE METABOLIC PANEL 25719 CALCIUM 9.4 mg /dL 08/16/2018 [facility] [address] COMPREHENSIVE METABOLIC PANEL 55541 PROTEIN, TOTAL 6. 7 g/dL 08/16/2018 [facility] [address] COMPREHENSIVE METABOLIC PANEL 77733 ALBUMIN 4.4 g/ dL 08/16/[address] [facility] [address] COMPREHENSIVE METABOLIC PANEL 88437 GLOBULIN 2.3 g/ dL(calc) 08/16/2018 [facility] [address] COMPREHENSIVE METABOLIC PANEL 92616 ALBUMIN/GLOBULIN RATIO 1.9 (calc) 08/16/2018 [facility] [address] COMPREHENSIVE METABOLIC PANEL 77068 BILIRUBIN, TOTAL 0.8 mg/dL 08/16/2018 [facility] [address] COMPREHENSIVE METABOLIC PANEL 85376 ALKALINE PHOSPHATASE 72 U/L 08/16/2018 [facility] [address] COMPREHENSIVE METABOLIC PANEL 25161 AST 19 U/L 08/16/2018 [facility] [address] COMPREHENSIVE METABOLIC PANEL 48406 ALT 12 U/L 08/16/2018 [facility] [address] LIPID PANEL 90782 CHOLESTEROL, TOTAL 228 mg/dL 08/16 [facility] [address] [place] [address] LIPID PANEL 82501 HDL CHOLESTEROL 42 mg/dL 08/16/20 18 [facility] [address] LIPID PANEL 49903 TRIGLYCERIDES 175 mg/dL 08/16/2018 [facility] [address] LIPID PANEL 82580 LDL-CHOLESTEROL 155 mg/dL(calc) [facility] [address] [address] LIPID PANEL 69449 CHOL/HDLC RATIO 5.4 (calc) 08/16/[address] [address] LIPID PANEL 41922 NON HDL CHOLESTEROL 186 mg/dL(calc) 08/16/[address] [address] EXTRA LAVENDER-TOP TUBE XLKS EXTRA LAVENDER-TOP TUBE 08/16/[address] [address] EXTRA LAVENDER-TOP TUBE XLKS COMMENT 1 10/16/[address] [address] Procedures Procedure Codes Date URINALYSIS, COMPLETE CPT-4: 26359 09/10/2019 CULTURE, URINE, ROUTINE CPT-4: 395 09/10/2019 URINALYSIS NONAUTO W/O SCOPE CPT-4: 50864 08/27/2019 CULTURE, URINE, ROUTINE CPT-4: 395 08/15/2019 URINALYSIS NONAUTO W/O SCOPE CPT-4: 71226 08/15/2019 SHINGRIX HZV VACC RECOMBINANT IM CPT-4: 97776 019 IMMUNIZATION ADMIN CPT-4: 33448 08/15/2019 COMPREHENSIVE METABOLIC PANEL CPT-4: 05368 08/09/2019 LIPID PANEL CPT-4: 58618 08/09/2019 ROUTINE VENIPUNCTURE CPT-4: 72738 08/09/2019 EXTRA LAVENDER-TOP TUBE CPT-4: XLKS 08/09/2019 ROUTINE VENIPUNCTURE CPT-4: 86809 02/14/2019 COMPREHEN METABOLIC PANEL CPT-4: 68679 02/14/2019 LIPID PANEL CPT-4: 91389 02/14/2019 ROUTINE VENIPUNCTURE CPT-4: 43124 08/15/2018 COMPREHENSIVE METABOLIC PANEL CPT-4: 03343 08/15/2018 EXTRA LAVENDER-TOP TUBE CPT-4: XLKS 08/15/2018 LIPID PANEL CPT-4: 68110 08/15/2018 IIV4 VACCINE 3 YRS+ IM AND UP CPT-4: 99992 07/03/2018 IMMUNIZATION ADMIN CPT-4: 89828 07/03/2018 SPECIMEN HANDLING OFFICE-LAB CPT-4: 63778 03/02/2018 OCCULT BLOOD FECES CPT-4: 88955 03/02/2018 THER/PROPH/DIAG INJ SC/IM CPT-4: 47446 11/03/2017 TRIAMCINOLONE ACET INJ NOS CPT-4: J3301 11/03/2017 INFLUENZA ASSAY W/OPTIC CPT-4: 94401 10/27/2017 THER/PROPH/DIAG INJ SC/IM CPT-4: 87499 10/27/2017 TRIAMCINOLONE ACET INJ NOS CPT-4: J3301 10/27/2017 THER/PROPH/DIAG INJ SC/IM CPT-4: 14310 04/23/2016 TRIAMCINOLONE ACET INJ NOS CPT-4: J3301 [...] 1: 126/70 Code: 8480-6 BMI: 26.7 Code: 22922-1 Heart Rate 1: 68 bpm Height: 5'6" Respiratory Rate: 18 bpm SpO2: 97% Tempera ture: 36.6 (C) / 97.9 (F) Weight: 168 lbs 08/15/2018 Blood Pressure 1: 122/78 Code: 8480-6 BMI: 25.9 Code: 81507-7 Heart Rate 1: 72 bpm Height: 5'6" Respiratory Rate: 20 bpm SpO2: 97% Tempera ture: 36.7 (C) / 98.0 (F) Weight: 163 lbs 03/02/2018 Blood Pressure 1: 126/74 Code: 8480-6 BMI: 26.1 Code: 34749-4 Heart Rate 1: 76 bpm Height: 5'6" Respiratory Rate: 20 bpm SpO2: 98% Tempera ture: 36.6 (C) / 97.8 (F) Weight: 164 lbs 11/03/2017 Blood Pressure 1: 124/82 Code: 8480-6 BMI: 25.3 Code: 54520-5 Heart Rate 1: 90 bpm Height: 5'6" Respiratory Rate: 22 bpm SpO2: 98% Tempera ture: 36.9 (C) / 98.4 (F) Weight: 159 lbs 10/27/2017 Blood Pressure 1: 122/84 Code: 8480-6 BMI: 25.6 Code: 60675-0 Heart Rate 1: 90 bpm Height: 5'6" Respiratory Rate: 22 bpm SpO2: 97% Tempera ture: 36.1 (C) / 97.0 (F) Weight: 161 lbs 08/11/2017 Blood Pressure 1: 132/76 Code: 8480-6 BMI: 26.4 Code: 78645-2 Heart Rate 1: 72 bpm Height: 5'6" Respiratory Rate: 20 bpm Temperature: 36 .6 (C) / 97.8 (F) Weight: 166 lbs 05/23/2017 Blood Pressure 1: 126/72 Code: 8480-6 BMI: 26.1 Code: 73441-6 Heart Rate 1: 72 bpm Height: 5'6" Respiratory Rate: 20 bpm SpO2: 98% Tempera ture: 37.1 (C) / 98.8 (F) Weight: 164 lbs 03/10/2017 Blood Pressure 1: 124/72 Code: 8480-6 BMI: 26.1 Code: 59287-6 Heart Rate 1: 92 bpm Height: 5'6" Respiratory Rate: 20 bpm SpO2: 97% Tempera ture: 37.2 (C) / 98.9 (F) Weight: 164 lbs 08/30/2016 Blood Pressure 1: 142/82 Code: 8480-6 BMI: 25.6 Code: 13454-9 Heart Rate 1: 72 bpm Height: 5'6" Respiratory Rate: 20 bpm Temperature: 36 .6 (C) / 97.9 (F) Weight: 161 lbs 06/01/2016 Blood Pressure 1: 156/88 Code: 8480-6 BMI: 26.4 Code: 18234-4 Heart Rate 1: 70 bpm Height: 5'6" Respiratory Rate: 18 bpm SpO2: 97% Tempera ture: 36.6 (C) / 97.8 (F) Weight: 166 lbs 04/30/2016 Blood Pressure 1: 122/70 Code: 8480-6 Heart Rate 1: 10 2 bpm Height: Respiratory Rate: 24 bpm SpO2: 95% Temperature: 36.4 (C) / 97.6 (F) We ight: 04/23/2016 Blood Pressure 1: 152/76 Code: 8480-6 BMI: 26.5 Code: 90402-8 Heart Rate 1: 106 bpm Height: 5'7" Respiratory Rate: 24 bpm SpO2: 96% Tempera ture: 36.8 (C) / 98.2 (F) Weight: 169 lbs 04/08/2016 Blood Pressure 1: 116/68 Code: 8480-6 BMI: 27.4 Code: 25515-7 Heart Rate 1: 76 bpm Height: 5'6" [...] visit Encounters Encounter Performer Location Codes Date ([id number]) NURSE/OUTPATIENT VISIT EST Diagnosis: Hematuria[ICD10: R31.9] Chio MORTENSEN MalathiHugo SARTHAKND ER DO [employer] CPT-4: 38913 09/10/2019 ([id number]) OFFICE/OUTPATIENT VISIT EST Diagnosis: Hematuria[ICD10: R31.9] Chiovivienne MORTENSEN MalathiHugo SARHTAKND ER DO [employer] CPT-4: 96585 08/27/2019 ([id number]) PREV VISIT EST AGE 40-64 Diagnosis: Urinary tract infection[ICD10: N39.0] Diagnosis: Encounter for general adult medical examination without abnormal findings[ICD10: Z00.00] Diagnosis: Essential (primary) hypertension[ICD10: I10] Diagnosis: Mixed hyperlipidemia[ICD10: E78.2] Diagnosis: VACCIN FOR DISEASE NEC (HPV or Zostavax)[ICD10: Z23] Chio MORTENSEN MalathiHugo SARTHAKNDER DO [employer] CPT-4: 41454 08/15/2019 ([id number]) NURSE/OUTPATIENT VISIT EST Diagnosis: Mixed hyperlipidemia[ICD10: E78.2] Diagnosis: Essential (primary) hypertension[ICD10: I10] Chio Sarthakjeimy MORTENSEN MalathiHugo SARTHAKNDIRENE DO [employer] CPT-4: 54056 08/09/2019 ([id number]) OFFICE/OUTPATIENT VISIT EST Diagnosis: Mixed hyperlipidemia[ICD10: E78.2] Diagnosis: Other specified counseling[ICD10: Z71.89] Chio MORTENSEN MalathiHugo SARTHAKNDER DO [employer] CPT-4: 14604 02/14/2019 ([id number]) OFFICE/OUTPATIENT VISIT EST Diagnosis: Mixed hyperlipidemia[ICD10: E78.2] Chio BALLARD SHugo SARTHAKNDER DO [employer] CPT-4: 19781 08/15/2018 ([id number]) NURSE/OUTPATIENT VISIT EST Diagnosis: FLU VACCINE[ICD10: Z23] Chio MORTENSEN SHugo DE LEÓNND ER [facility] CPT-4: 66255 07/03/2018 ([id number]) PREV VISIT EST AGE 40-64 Diagnosis: Encounter for general adult medical examination without abnormal findings[ICD10: Z00.00] Diagnosis: Encounter for gynecological examination (general) (routine) without abnormal findings[ICD10: Z01.419] Chio Holder DO [facility] CPT-4: 19099 03/02/2018 OFFICE/OUTPATIENT VISIT EST Diagnosis: Pneumonia, unspecified organism[ICD10: J18.9] Shaniqua POST DO [facility] CPT-4: 91682 11/03/2017 OFFICE/OUTPATIENT VISIT EST Diagnosis: Influenza due to other identified influenza virus with other respiratory manifestations[ICD10: J10.1] Diagnosis: Acute bronchitis, unspecified[ICD10: J20.9] Shaniqua MICHAELER [employer] [facility] CPT-4: 48921 10/27/2017 ([id number]) OFFICE/OUTPATIENT VISIT EST Diagnosis: Mixed hyperlipidemia[ICD10: E78.2] Chio Sarthakbeckyirene BALLARD S. SARTHAKNDER [employer] [facility] CPT-4: 02947 08/11/2017 ([id number]) PREV VISIT EST AGE 40-64 Diagnosis: Encounter for general adult medical examination without abnormal findings[ICD10: Z00.00] Diagnosis: Mixed hyperlipidemia[ICD10: E78.2] Chio De Leónbeckyirene KAVITHA NELLIE S. SARTHAKNDER [employer] CPT-4: 50074 05/23/2017 ([id number]) OFFICE/OUTPATIENT VISIT EST Diagnosis: Essential (primary) hypertension[ICD10: I10] Diagnosis: Mixed hyperlipidemia[ICD10: E78.2] Chio Sarthakbeckyirene KAVITHA NELLIE S. SARTHAKNDER DO [employer] CPT-4: 30952 03/10/2017 ([id number]) OFFICE/OUTPATIENT VISIT EST Diagnosis: Mixed hyperlipidemia[ICD10: E78.2] Diagnosis: Essential (primary) hypertension[ICD10: I10] Chio Sarthakjeimy MORTENSEN Addis DE LEÓNNDER Tudou [facility] CPT-4: 90552 08/30/2016 ([id number]) OFFICE/OUTPATIENT VISIT EST Diagnosis: Mixed hyperlipidemia[ICD10: E78.2] Ale CHAVEZADONAYLIAM NELLIE globa.lyHugo POST Tudou [facility] CPT-4: 89495 06/01/2016 ([id number]) OFFICE/OUTPATIENT VISIT EST Diagnosis: Strain of muscle, fascia and tendon of lower back, subsequent encounter[ICD10: S39.012D] Diagnosis: Sciatica, left side[ICD10: M54.32] Ale PLUMMER NELLIE globa[employer]lyHugo [employer] [facility] CPT-4: 31363 04/30/2016 ([id number]) OFFICE/OUTPATIENT VISIT EST Diagnosis: Strain of muscle, fascia and tendon of lower back, initial encounter[ICD10: S39.012A] Diagnosis: Sciatica, left side[ICD10: M54.32] Ale PLUMMER [place] globa.ly. [employer] [facility] CPT-4: 29404 04/23/2016 ([id number]) PREV VISIT NEW AGE 40-64 Diagnosis: Encounter for general adult medical examination without abnormal findings[ICD10: Z00.00] Diagnosis: Plantar fascial fibromatosis[ICD10: M72.2] Chio MORTENSEN globa.lyHugo [facility] CPT-4: 05055 04/08/2016 Plan of Care Planned Activity Notes Codes Status Date Appointment: Chio Post WPtel: [address] [place] [address] UA 09/10/2019 Visit Diagnosis Plan: Hematuria Discussion: Hold crest or No NSAIDs Push fluids/water Recheck urine microscopy in 2weeks and if still with microscopic blood then will need urology eval and cystoscope ICD-9 : 599.70 ICD-10 : R31.9 08/27/2019 Appointment: Chio Post WPtel: [facility] [place] ACUTE ILLNESS 08/27/2019 Visit Diagnosis Plan: Encounter for [facility] adult medical examination without abnormal findings [...] : E78.2 08/15/2019 Appointment: Chio Post WPtel: [address] [place], [place] [phone] [place] confirmed 08/09/19-- does not need reminder call Annual Well Visit 08/15/2019 Appointment: Chio Post WPtel: [address] [place] [address] 08/15/19 1330---added to office visit with Dr kwon () CANCELED 08/15/2019 Appointment: Chio Post WPtel: [address] [place] [address] US LAB 08/09/2019 Visit Diagnosis Plan: Mixed [...] : Z71.89 02/14/2019 Appointment: Chio Post WPtel: [address] [place], [place] [phone] [place] FOLLOW UP 02/14/2019 Visit Diagnosis Plan: Mixed hyperlipidemia Discussion: Check CMP, Lipids Recommend Shingrix Had flu shot ICD-9 : 272.2 ICD-10 : E78.2 08/15/2018 Appointment: Chio Post WPtel: [address] [place], [place] [address] FOLLOW UP 08/15/2018 Appointment: Chio Post WPtel: [address] [place] [address] [place] INJECTION 07/03/2018 Patient Education: Patient Medication [...] : Z00.00 03/02/2018 Appointment: Chio Post WPtel: [phone] Annual Well Visit 03/02/2018 Patient Education: Patient Medication Summary Completed 03/02/2018 Appointment: Chio Post WPtel: [phone] RESCHEDULED 02/08/2018 Visit Diagnosis Plan: Pneumonia, [...] : J18.9 11/03/2017 Appointment: Shaniqua Ruiz [address] [place] [address] ACUTE ILLNESS 11/03/2017 Patient Education: Patient Medication [...] : J10.1 10/27/2017 Appointment: Shaniqua Ruiz [address] [place] [address] ACUTE ILLNESS 10/27/2017 Patient Education: Patient Medication Summary Completed 10/27/2017 Visit Diagnosis Plan: Mixed hyperlipidemia Discussion: Hold on statins due to side effects Lifestyle exchange consultant next 6mos then check CMP, Lipids and fwup ICD-9 : 272.2 ICD-10 : E78.2 08/11/2017 Appointment: Chio Post WPtel: [address] [place] [address] MEDICATION REVIEW 08/11/2017 Patient Education: Patient Medication Summary Completed 08/11/2017 Visit Diagnosis Plan: Mixed hyperlipidemia Discussion: Continue lipitor and check lipids with LFTs next month ICD-9 : 272.2 ICD-10 : E78.2 05/23/2017 Visit Diagnosis Plan: Encounter for [facility] adult medical examination without abnormal findings Discussion: Will update lab next month D efers mammogram until next year--normal mammogram last year Pap due next year Tdap 3 yrs ago Colonoscopy up to date Discussed zostavax--will check on coverage ICD-9 : V70.9 ICD-10 : Z00.00 05/23/2017 Appointment: Chio Post WPtel: [address] [place] [address] Annual Well Visit 05/23/2017 Patient Education: Patient Medication Summary Completed 05/23/2017 Visit Diagnosis Plan: Mixed hyperlipidemia Discussion: Check CMP, Lipids ICD-9 : 272.2 ICD-10 : E78.2 03/10/2017 Visit Diagnosis Plan: Essential (primary) hypertension Follow Up: 6 months ICD-9 : 401.9 ICD-10 : I10 03/10/2017 Appointment: Chio Post WPtel: [facility] [place]66[facility] 03/09 confimed ~sl CHECK UP 03/10/2017 Patient Education: Patient Medication Summary Completed 03/10/2017 Appointment[phone] [facility] 02/03 rescheduled ~sl RESCHEDULED 02/28/2017 Visit Plan: Lab discussed Continue lifes tyle modification Check full fasting lab in 6mos Monitor BP 1-2 times a week at home Discussed adding weights or yoga/sriram chi 3 times a week 08/30/2016 Appointment: Chio Post WPtel: [address] [place], [place] [phone] 08/26 lm`sl...confirmed~lb FOLLOW UP 08/30 Patient Education: Patient Medication Summary Completed 08/30/2016 Patient Education: Patient Medication Summary Completed 08/26/2016 Care Plan: COMPREHEN METAB[place]IC PAN[place] : 62080-7 Pending 08/26/2016 Care Plan: LIPID PANEL LOINC : 93033-5 Pending 08/26/2016 Visit Plan: Patient is very anxious abou t going back on any medication for her lipids right now Stressed diet and exercise changes she can try Continue higher dose of fish oil she is now taking Can recheck lipids and cmp in 3 months If not much better, will need rx started - discussed trying fenofibrate possibly 06/01/2016 Appointment: Ale Becerra [address] [place], [place] [phone] 05/27 confirmed ~sl FOLLOW UP 06/01/2016 Patient [...] if negative) 04/30/2016 Appointment: Ale Becerra [address] [facility] FOLLOW UP 04/30/2016 Patient Education: Patient Medication Summary Completed 04/30/2016 Visit Plan: Steroid injection given toda y Muscle relaxer as well Continue daily meloxicam Start weaning back on oxycodone Can replace oxycodone dosing with otc tylenol Advised topical pain relievers, heat/ice, etc If oxycodone runs completely out and patient still needs some, can call for refill to [facility] or could consider replacing with tramadol 04/23/2016 Appointment: Hernan Ale [facility] [facility] [facility] Follow UP 04/23/2016 Patient Education: Patient Medication Summary Completed 04/23/2016 Visit Plan: Continue inserts and stretch es for plantar fascia Add Vivlodex Return in 2-3 weeks for injection if pain persists Check Fasting Lab Update Mammogram 04/08/2016 Appointment: Chio [facility]Ptel[facility] [phone] [facility] 04/07 confirmed ~sl NEW PATIENT 04/08/2016 Patient Education: Patient Medication Summary Completed 04/08/2016 Patient Education: [facility] [place] - [employer]aving [employer] - 18-64 - Dynamic Juan dowell ID Completed 04/08/2016 Care Plan: MAMMOGRAM SCREENING [...] some, can call for refill to [facility] or could consider replacing with tramadol . [...]
--- OUTSIDE RECORDS SUMMARY | 2020-02-26 21:13 | XMS REPORT | CCD ---
Author Author Carola Post D.O. 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 Role Phone Chio Post D.O., PP Unavailable CCM Unavailable Summary Purpose Interface Exchange Insurance Providers Payer name Policy type / Coverage type Covered republican ID Effective Begin Date Effective End Date [employer] Insurance [id number] Unknown Family history Grandfather Diagnosis Age At Onset Cancer Unknown Social History Social History Element Codes Description Effective Dates Marital status Unknown 04/08/2016 Number of children Unknown 3 04/08/2016 Employment Unknown Currently employed [employer] 04/08/[address]: 712289551 Has never smoked or chewed tobacco 04/08/[address]: 533589 Currently drinks alcohol 04/08 Frequency of drinks SNOMED CT: 332523405 Drinks rarely 016 Has the patient ever [...] Fill Instructions Aleve 220 mg tablet RxNorm: 575348 Tablet(s) Oral as needed 019 No Stop Date Active Fish Oil 360 mg-1,200 mg capsule RxNorm: 1 Capsule(s) Or al two times a day 08/15/2019 No Stop Date Active Macrobid 100 mg capsule RxNorm: 115623 1 Capsule(s) Oral two ti mes a day 08/15/2019 08/22/2019 Inactive Crestor 5 mg tablet RxNorm: 899991 1/2 Tablet(s) PO twice a week 04/10/2019 Inactive Crestor 5 mg tablet RxNorm: 021028 1 Tablet(s) PO Tues, Thurs, Sat and Sun and 1/2 tablet (2.5mg) on Mon, Tue and Tue03/05/2019 03/11/2019 Inactive Crestor 5 mg tablet RxNorm: 375274 1 Tablet(s) PO QD 02/07/201903/05 Inactive Crestor 5 mg tablet RxNorm: 585898 1 Tablet(s) PO QD re check labwork in 6 months 08/21/2018 08/20/2018 Inactive Crestor 5 mg tablet RxNorm: 335070 1 Tablet(s) PO QD re check labwork in 6 months 08/21/2018 02/06/2019 Inactive Ventolin HFA 90 mcg/actuation aerosol inhaler RxNorm: 410581 2 Puff(s) INH Q4H as needed 11/03/2017 03/01/2018 Inactive please switch to proair if ventolin is not covered. thanks! Levaquin 500 mg tablet RxNorm: 309674 1 Tablet(s) PO QD 11/03/2017 Inactive Zithromax Z-Talat 250 mg tablet RxNorm: 413921 Tablet(s) PO 10/27/2017 03/01/2018 Inactive Lipitor 10 mg tablet RxNorm: 756644 1 TABLET(S) PO QD REPLACES PRAVASTATIN 06/08/2017 08/10/2017 Inactive Lipitor 10 mg tablet RxNorm: 167279 1 Tablet(s) PO QD replaces Pravastatin 03/16/2017 06/07/2017 Inactive pravastatin 10 mg tablet RxNorm: 998096 1 Tablet(s) PO QD 03/15/2017 03/14/2017 Inactive pravastatin 10 mg tablet RxNorm: 052799 1 Tablet(s) PO QD 03/15/2017 03/15/2017 Inactive Zorvolex 35 mg capsule RxNorm: 1384433 1 Capsule(s) PO TID HOLD MELOXICAM 05/03/2016 06/01/2016 Inactive Zorvolex 35 mg capsule RxNorm: 2345801 1 Capsule(s) PO TID HOLD MELOXICAM 04/30/2016 05/02/2016 Inactive prednisone 20 mg tablet RxNorm: 857479 1 Tablet(s) PO B ID and then decrease to 1 tab PO QD x 5 days 04/30/2016 05/04/2016 Inactive cyclobenzaprine 10 mg tablet RxNorm: 662966 1 Tablet(s) PO TID as needed for muscle spasm 04/23/2016 08/29/2016 Inactive pravastatin 20 mg tablet RxNorm: 232747 1 Tablet(s) PO QD 04/14/2016 08/29/2016 Inactive Vivlodex 10 mg capsule RxNorm: 3680992 1 Capsule(s) PO QD 04/08/2016 05/07/2016 Inactive Co Q-10 300 mg capsule RxNorm: 833970 1 Capsule(s) PO QD No Start Date Active Vitamin D3 5,000 unit tablet RxNorm: 361143 1 Tablet(s) PO QD No Star t Date Active melatonin 5 mg tablet RxNorm: 568616 1 Tablet(s) PO QHS as needed N o Start Date Active Multivitamin & Mineral Formula tablet RxNorm: 1 Tablet(s) PO Q D No Start Date Active Fish Oil 1,000 mg capsule RxNorm: 2 Capsule(s) PO QD No Start Date 08/29/2016 Inactive Metamucil 0.4 gram capsule RxNorm: 7675745 2 Capsule(s) PO BID No S tart Date 02/13/2019 Inactive Vitamin D3 2,000 unit tablet RxNorm: 782195 1 Tablet(s) PO QD No St art Date 03/26/2019 Inactive Lipitor 10 mg tablet RxNorm: 359301 1 Tablet(s) PO QD No Start Date 0 03/15/2017 Inactive Crestor 5 mg tablet RxNorm: 158372 1 Tablet(s) PO Tu, Th, Sat and Sun and 1/2 tablet (2.5mg) on Mon, Wed and Fri No Start Date 03/04/2019 Inactive Calcium with Vitamin D 600 mg (1,500 mg)-400 unit tablet RxN orm: 552126 1 Tablet(s) PO QD No Start Date 03/01/2018 Inactive krill oil 1,000 mg-170 mg-50 mg-80 mg capsule RxNorm: 1 Capsule(s) PO BID No Start Date 08/14/2019 Inactive Co Q-10 200 mg capsule RxNorm: 298944 1 Capsule(s) PO QD No Start D ate 03/01/2018 Inactive Co Q-10 oral RxNorm: 88760 oral No Start Date 07/24/2017 Inactive oxycodone-acetaminophen 5 mg-325 mg tablet RxNorm: 6093035 1 Tab let(s) PO Q6H No Start Date 08/29/2016 Inactive Krill Oil (Henrietta 3 and 6) oral RxNorm: 25699 oral No Start Date 02/13/2019 Inactive Flexeril 10mg tablet RxNorm: 1 Tablet(s) PO Q8H No Start Date 12/2015 Inactive Vitamin D3 1,000 unit tablet RxNorm: 804314 1 Tablet(s) PO QD No St art Date 03/11/2019 Inactive Medication Administered No Medication Administered data Immunizations Vaccine Codes Date Status Zoster Unknown 08/15/2019 Complete Influenza CVX: 141 07/03/2018 Complete Results Observation Observation Code Item Item Code Result Date S ervice Location CULTURE, URINE, ROUTINE 395 CULTURE, URINE, ROUTINE SEE NOTE 08/16/2019 Mary Jane [place] [address] [place] [phone] EXTRA LAVENDER-TOP TUBE XLKS EXTRA LAVENDER-TOP TUBE 08/10/2019 Mary Jane [place] [id number] [place] [phone] EXTRA LAVENDER-TOP TUBE XLKS COMMENT 1 10/10/2018 Mary Jane [place] [address] [place] [phone] LIPID PANEL 82674 CHOLESTEROL, TOTAL 180 mg/dL 08/10 Mary Jane [place] [address] [place] [phone] LIPID PANEL 93098 HDL CHOLESTEROL 35 mg/dL 08/10/20 19 Mary Jane [place] [address] [place] [phone] LIPID PANEL 28764 TRIGLYCERIDES 200 mg/dL 08/10/2019 Mary Jane [place] [address] [place] [phone] LIPID PANEL 21743 LDL-CHOLESTEROL 113 mg/dL(calc) Mary Jane [place] [address] [place] [phone] LIPID PANEL 58268 CHOL/HDLC RATIO 5.1 (calc) 08/10/20 19 Mary Jane [place] [address] [place] [phone] LIPID PANEL 06136 NON HDL CHOLESTEROL 145 mg/dL(calc) 08/10/2019 Mary Jane Khan [place] [address] [place] [phone] COMPREHENSIVE METABOLIC PANEL 93474 Glucose 86 mg/ dL 08/10/2019 [facility] [address] [address] COMPREHENSIVE METABOLIC PANEL 21474 UREA NITROGEN (BUN) 11 mg/dL 08/10/2019 [facility] [address] [address] COMPREHENSIVE METABOLIC PANEL 91184 CREATININE 0.71 m g/dL 08/10/2019 [facility] [address] [address] COMPREHENSIVE METABOLIC PANEL 74514 eGFR NON-AFR. SAUDI ARABIAN 90 mL/min/1.73m2 08/10/2019 [facility] [address] [address] COMPREHENSIVE METABOLIC PANEL 84778 eGFR 104 mL/min/1.73m2 08/10/2019 [facility] [address] [address] COMPREHENSIVE METABOLIC PANEL 64300 BUN/CREATININE RATIO NOT APPLICABLE (calc) 08/10/2019 [facility] [address] [address] COMPREHENSIVE METABOLIC PANEL 67662 SODIUM 140 mm ol/L 08/10/2019 [facility] [address] [address] COMPREHENSIVE METABOLIC PANEL 99384 POTASSIUM 4.2 mm ol/L 08/10/2019 [facility] [address] [address] COMPREHENSIVE METABOLIC PANEL 44992 CHLORIDE 105 mm ol/L 08/10/2019 [facility] [address] [address] COMPREHENSIVE METABOLIC PANEL 59522 CARBON DIOXIDE 28 mmol/L 08/10/2019 [facility] [address] [address] COMPREHENSIVE METABOLIC PANEL 92509 CALCIUM 9.3 mg /dL 08/10/2019 [facility] [address] [address] COMPREHENSIVE METABOLIC PANEL 09193 PROTEIN, TOTAL 6. 7 g/dL 08/10/2019 [facility] [address] [address] COMPREHENSIVE METABOLIC PANEL 59039 ALBUMIN 4.3 g/ dL 08/10/[address] [employer] [address] COMPREHENSIVE METABOLIC PANEL 98321 GLOBULIN 2.4 g/ dL(calc) 08/10/2019 [facility] [address] COMPREHENSIVE METABOLIC PANEL 45402 ALBUMIN/GLOBULIN RATIO 1.8 (calc) 08/10/2019 [facility] [address] COMPREHENSIVE METABOLIC PANEL 63776 BILIRUBIN, TOTAL 0.6 mg/dL 08/10/[address] [employer] [address] COMPREHENSIVE METABOLIC PANEL 85631 ALKALINE PHOSPHATASE 74 U/L 08/10/[address] [employer] [address] COMPREHENSIVE METABOLIC PANEL 47267 AST 21 U/L 08/10/[address] [employer] [address] COMPREHENSIVE METABOLIC PANEL 27132 ALT 15 U/L 08/10/[address] [employer] [address] COMPREHENSIVE METABOLIC 54234 AST 18 U/L 2018 Unknown COMPREHENSIVE METABOLIC 62675 ALT 12 U/L 2018 Unknown COMPREHENSIVE METABOLIC 18693 BUN 11 mg/dL 2018 Unknown COMPREHENSIVE METABOLIC 08180 ALBUMIN 4.6 g/dL 2018 Unknown COMPREHENSIVE METABOLIC 36708 CHLORIDE 106 mmol/L 02/14 Unknown COMPREHENSIVE METABOLIC 69917 Bili Total 0.9 mg/dL 02/14 Unknown COMPREHENSIVE METABOLIC 92709 ALK PHOS 76 U/L 2018 Unknown COMPREHENSIVE METABOLIC 50856 SODIUM 142 mmol/L 02/14 Unknown COMPREHENSIVE METABOLIC 16278 CREATININE 0.69 mg/dL 01/25 Unknown COMPREHENSIVE METABOLIC 09957 CALCIUM 9.5 mg/dL 2018 Unknown COMPREHENSIVE METABOLIC 26709 POTASSIUM 3.9 mmol/L 02/14 Unknown COMPREHENSIVE METABOLIC 66437 Total Protein 6.6 g/dL Unknown COMPREHENSIVE METABOLIC 09607 Glucose 86 mg/dL 2018 Unknown COMPREHENSIVE METABOLIC 70477 Bicarbonate 29 mmol/L 01/25 Unknown COMPREHENSIVE METABOLIC 74887 AGAP 7 mmol/L 2018 Unknown GFR CALC 1330550 GFR Non Afr Amr >60 mL/min 02/14/2019 Un known GFR CALC [id number] GFR Afr Amr >60 mL/min 02/14/2019 Unknow n [facility] 30722 Cholesterol 127 mg/dL 02/14/2019 Unkno wn [facility] 28175 Triglyceride 156 mg/dL 02/14/2019 Unkn own [facility] 45422 HDL CHOLESTEROL 45 mg/dL 02/14/2019 U nknown [facility] 12826 Chol/HDL Ratio 2.82 ratio 02/14/2019 U nknown [facility] 99273 NON-HDL Chol 82 mg/dL 02/14/2019 Unkn own [facility] 38202 LDL Cholesterol 51 mg/dL 02/14/2019 U nknown COMPREHENSIVE METABOLIC PANEL 97143 Glucose 88 mg/ dL 08/16/[address] [address] COMPREHENSIVE METABOLIC PANEL 41588 UREA NITROGEN (BUN) 11 mg/dL 08/16/[address] [employer] [address] COMPREHENSIVE METABOLIC PANEL 23898 CREATININE 0.70 m g/dL 08/16/[address] [employer] [address] COMPREHENSIVE METABOLIC PANEL 73408 eGFR NON-AFR. SAUDI ARABIAN 92 mL/min/1.73m2 08/16/2018 [facility] [address] COMPREHENSIVE METABOLIC PANEL 38005 eGFR 107 mL/min/1.73m2 08/16/2018 [employer] [address] COMPREHENSIVE METABOLIC PANEL 68995 BUN/CREATININE RATIO NOT APPLICABLE (calc) 08/16/2018 [employer] [address] COMPREHENSIVE METABOLIC PANEL 30162 SODIUM 140 mm ol/L 08/16/2018 [facility] [address] COMPREHENSIVE METABOLIC PANEL 86973 POTASSIUM 4.0 mm ol/L 08/16/2018 [facility] [address] COMPREHENSIVE METABOLIC PANEL 22605 CHLORIDE 104 mm ol/L 08/16/2018 [employer] [address] COMPREHENSIVE METABOLIC PANEL 28237 CARBON DIOXIDE 29 mmol/L 08/16/2018 [facility] [address] [address] COMPREHENSIVE METABOLIC PANEL 23354 CALCIUM 9.4 mg /dL 08/16/2018 [facility] [address] [address] COMPREHENSIVE METABOLIC PANEL 92568 PROTEIN, TOTAL 6. 7 g/dL 08/16/2018 [facility] [address] [address] COMPREHENSIVE METABOLIC PANEL 17060 ALBUMIN 4.4 g/ dL 08/16/2018 [facility] [address] [address] COMPREHENSIVE METABOLIC PANEL 32043 GLOBULIN 2.3 g/ dL(calc) 08/16/2018 [facility] [address] [address] COMPREHENSIVE METABOLIC PANEL 33433 ALBUMIN/GLOBULIN RATIO 1.9 (calc) 08/16/2018 [facility] [address] [address] COMPREHENSIVE METABOLIC PANEL 46176 BILIRUBIN, TOTAL 0.8 mg/dL 08/16/2018 [facility] [address] [address] COMPREHENSIVE METABOLIC PANEL 00315 ALKALINE PHOSPHATASE 72 U/L 08/16/2018 [facility] [address] [address] COMPREHENSIVE METABOLIC PANEL 09692 AST 19 U/L 08/16/2018 [facility] [address] [address] COMPREHENSIVE METABOLIC PANEL 19549 ALT 12 U/L 08/16/2018 [facility] [address] [address] LIPID PANEL 65376 CHOLESTEROL, TOTAL 228 mg/dL 08/16 [facility] [address] [address] LIPID PANEL 18121 HDL CHOLESTEROL 42 mg/dL 08/16/20 18 [facility] [address] [address] LIPID PANEL 15088 TRIGLYCERIDES 175 mg/dL 08/16/2018 [facility] [address] [address] LIPID PANEL 54897 LDL-CHOLESTEROL 155 mg/dL(calc) [facility] [address] [place] [address] LIPID PANEL 30863 CHOL/HDLC RATIO 5.4 (calc) 08/16/20 [facility] [place] [address] [place] [address] LIPID PANEL 86663 NON HDL CHOLESTEROL 186 mg/dL(calc) 08/16/2018 [facility] [place] [address] [place] [address] EXTRA LAVENDER-TOP TUBE XLKS EXTRA LAVENDER-TOP TUBE 08/16/2018 [facility] [address] [place] [address] EXTRA LAVENDER-TOP TUBE XLKS COMMENT 1 10/16/2017 [facility] [place] [address] Procedures Procedure Codes Date URINALYSIS, COMPLETE CPT-4: 16242 09/10/2019 URINALYSIS NONAUTO W/O SCOPE CPT-4: 28170 08/27/2019 CULTURE, URINE, ROUTINE CPT-4: 395 08/15/2019 URINALYSIS NONAUTO W/O SCOPE CPT-4: 80264 08/15/2019 SHINGRIX HZV VACC RECOMBINANT IM CPT-4: 73167 019 IMMUNIZATION ADMIN CPT-4: 26194 08/15/2019 COMPREHENSIVE METABOLIC PANEL CPT-4: 25760 08/09/2019 LIPID PANEL CPT-4: 46263 08/09/2019 ROUTINE VENIPUNCTURE CPT-4: 41580 08/09/2019 EXTRA LAVENDER-TOP TUBE CPT-4: XLKS 08/09/2019 ROUTINE VENIPUNCTURE CPT-4: 33447 02/14/2019 COMPREHEN METABOLIC PANEL CPT-4: 14253 02/14/2019 LIPID PANEL CPT-4: 68949 02/14/2019 ROUTINE VENIPUNCTURE CPT-4: 15334 08/15/2018 COMPREHENSIVE METABOLIC PANEL CPT-4: 47963 08/15/2018 EXTRA LAVENDER-TOP TUBE CPT-4: XLKS 08/15/2018 LIPID PANEL CPT-4: 74101 08/15/2018 IIV4 VACCINE 3 YRS+ IM AND UP CPT-4: 87514 07/03/2018 IMMUNIZATION ADMIN CPT-4: 67863 07/03/2018 SPECIMEN HANDLING OFFICE-LAB CPT-4: 76281 03/02/2018 OCCULT BLOOD FECES CPT-4: 27479 03/02/2018 THER/PROPH/DIAG INJ SC/IM CPT-4: 79060 11/03/2017 TRIAMCINOLONE ACET INJ NOS CPT-4: J3301 11/03/2017 INFLUENZA ASSAY W/OPTIC CPT-4: 52268 10/27/2017 THER/PROPH/DIAG INJ SC/IM CPT-4: 93077 10/27/2017 TRIAMCINOLONE ACET INJ NOS CPT-4: J3301 10/27/2017 THER/PROPH/DIAG INJ SC/IM CPT-4: 20913 04/23/2016 TRIAMCINOLONE ACET INJ NOS CPT-4: J3301 04/23/2016 DEXAMETHASONE SODIUM PHOS CPT-4: J1100 04/23/2016 Vital Signs Date Vital 08/27/2019 Blood Pressure 1: 128/80 Code: 8480-6 Heart Rate 1: 72 bpm Respiratory Rate: 18 bpm SpO2: 98% Temperature: 36.8 (C) / 98.2 (F) 08/15/2019 Blood Pressure 1: 12874 Code: 8480-6 Heart Rate 1: 80 bpm Respiratory Rate: 16 bpm SpO2: 97% Temperature: 36.8 (C) / 98.2 (F) We ight: 162 lbs 02/14/2019 Blood Pressure 1: 126/70 Code: 8480-6 BMI: 26.7 Code: 66593-3 Heart Rate 1: 68 bpm Height: 5'6" Respiratory Rate: 18 bpm SpO2: 97% Tempera ture: 36.6 (C) / 97.9 (F) Weight: 168 lbs 08/15/2018 Blood Pressure 1: 122/78 Code: 8480-6 BMI: 25.9 Code: 09037-1 Heart Rate 1: 72 bpm Height: 5'6" Respiratory Rate: 20 bpm SpO2: 97% Tempera ture: 36.7 (C) / 98.0 (F) Weight: 163 lbs 03/02/2018 Blood Pressure 1: 126/74 Code: 8480-6 BMI: 26.1 Code: 25042-2 Heart Rate 1: 76 bpm Height: 5'6" Respiratory Rate: 20 bpm SpO2: 98% Tempera ture: 36.6 (C) / 97.8 (F) Weight: 164 lbs 11/03/2017 Blood Pressure 1: 124/82 Code: 8480-6 BMI: 25.3 Code: 41517-0 Heart Rate 1: 90 bpm Height: 5'6" Respiratory Rate: 22 bpm SpO2: 98% Tempera ture: 36.9 (C) / 98.4 (F) Weight: 159 lbs 10/27/2017 Blood Pressure 1: 122/84 Code: 8480-6 BMI: 25.6 Code: 25738-0 Heart Rate 1: 90 bpm Height: 5'6" Respiratory Rate: 22 bpm SpO2: 97% Tempera ture: 36.1 (C) / 97.0 (F) Weight: 161 lbs 08/11/2017 Blood Pressure 1: 132/76 Code: 8480-6 BMI: 26.4 Code: 01411-0 Heart Rate 1: 72 bpm Height: 5'6" Respiratory Rate: 20 bpm Temperature: 36 .6 (C) / 97.8 (F) Weight: 166 lbs 05/23/2017 Blood Pressure 1: 126/72 Code: 8480-6 BMI: 26.1 Code: 03210-4 Heart Rate 1: 72 bpm Height: 5'6" Respiratory Rate: 20 bpm SpO2: 98% Tempera ture: 37.1 (C) / 98.8 (F) Weight: 164 lbs 03/10/2017 Blood Pressure 1: 124/72 Code: 8480-6 BMI: 26.1 Code: 87663-5 Heart Rate 1: 92 bpm Height: 5'6" Respiratory Rate: 20 bpm SpO2: 97% Tempera ture: 37.2 (C) / 98.9 (F) Weight: 164 lbs 08/30/2016 Blood Pressure 1: 142/82 Code: 8480-6 BMI: 25.6 Code: 18494-7 Heart Rate 1: 72 bpm Height: 5'6" Respiratory Rate: 20 bpm Temperature: 36 .6 (C) / 97.9 (F) Weight: 161 lbs 06/01/2016 Blood Pressure 1: 156/88 Code: 8480-6 BMI: 26.4 Code: 85633-7 Heart Rate 1: 70 bpm Height: 5'6" Respiratory Rate: 18 bpm SpO2: 97% Tempera ture: 36.6 (C) / 97.8 (F) Weight: 166 lbs 04/30/2016 Blood Pressure 1: 122/70 Code: 8480-6 Heart Rate 1: 10 2 bpm Height: Respiratory Rate: 24 bpm SpO2: 95% Temperature: 36.4 (C) / 97.6 (F) We ight: 04/23/2016 Blood Pressure 1: 152/76 Code: 8480-6 BMI: 26.5 Code: 34706-8 Heart Rate 1: 106 bpm Height: 5'7" Respiratory Rate: 24 bpm SpO2: 96% Tempera ture: 36.8 (C) / 98.2 (F) Weight: 169 lbs 04/08/2016 Blood Pressure 1: 116/68 Code: 8480-6 BMI: 27.4 Code: 01995-2 Heart Rate 1: 76 bpm Height: 5'6" [...] persistent lower back/hip pain. ~generic 04/08/2016 New Patient---breonna mckeon visit Encounters Encounter Performer Location Codes Date () NURSE/OUTPATIENT VISIT EST Diagnosis: Hematuria[ICD10: R31.9] [facility] CPT-4: 10184 09/10/2019 ([id number]) OFFICE/OUTPATIENT VISIT EST Diagnosis: Hematuria[ICD10: R31.9] Chio Orebeckyirene CHAVEZCHIO MalathiHugo [facility] CPT-4: 14556 08/27/2019 ([id number]) PREV VISIT EST AGE 40-64 Diagnosis: Urinary tract infection[ICD10: N39.0] Diagnosis: Encounter for general adult medical examination without abnormal findings[ICD10: Z00.00] Diagnosis: Essential (primary) hypertension[ICD10: I10] Diagnosis: Mixed hyperlipidemia[ICD10: E78.2] Diagnosis: VACCIN FOR DISEASE NEC (HPV or Zostavax)[ICD10: Z23] Chio Sarthakjeimy MORTENSEN MalathiHugo [facility] CPT-4: 37073 08/15/2019 ([id number]) NURSE/OUTPATIENT VISIT EST Diagnosis: Mixed hyperlipidemia[ICD10: E78.2] Diagnosis: Essential (primary) hypertension[ICD10: I10] Chio Sarthakjeimy MORTENSEN MalathiHugo [facility] CPT-4: 92239 08/09/2019 ([id number]) OFFICE/OUTPATIENT VISIT EST Diagnosis: Mixed hyperlipidemia[ICD10: E78.2] Diagnosis: Other specified counseling[ICD10: Z71.89] Chioradha MORTENSEN MalathiHugo [facility] CPT-4: 99101 02/14/2019 ([id number]) OFFICE/OUTPATIENT VISIT EST Diagnosis: Mixed hyperlipidemia[ICD10: E78.2] Chio BALLARD SHugo [facility] CPT-4: 11813 08/15/2018 ([id number]) NURSE/OUTPATIENT VISIT EST Diagnosis: FLU VACCINE[ICD10: Z23] Chio MORTENSEN MalathiHugo [facility] CPT-4: 03333 07/03/2018 ([id number]) PREV VISIT EST AGE 40-64 Diagnosis: Encounter for general adult medical examination without abnormal findings[ICD10: Z00.00] Diagnosis: Encounter for gynecological examination (general) (routine) without abnormal findings[ICD10: Z01.419] [facility] Mancini [facility] CPT-4: 02980 03/02/2018 OFFICE/OUTPATIENT VISIT EST Diagnosis: Pneumonia, unspecified organism[ICD10: J18.9] Shaniqua Sara POST [facility] CPT-4: 56328 11/03/2017 OFFICE/OUTPATIENT VISIT EST Diagnosis: Influenza due to other identified influenza virus with other respiratory manifestations[ICD10: J10.1] Diagnosis: Acute bronchitis, unspecified[ICD10: J20.9] Shaniqua [facility] CPT-4: 08348 10/27/2017 ([id number]) OFFICE/OUTPATIENT VISIT EST Diagnosis: Mixed hyperlipidemia[ICD10: E78.2] Chio BALLARD SHugo DE LEÓNNDIRENE [facility] CPT-4: 81878 08/11/2017 ([id number]) PREV VISIT EST AGE 40-64 Diagnosis: Encounter for general adult medical examination without abnormal findings[ICD10: Z00.00] Diagnosis: Mixed hyperlipidemia[ICD10: E78.2] Chio DE LEÓNNDIRENE [employer] CPT-4: 02828 05/23/2017 ([id number]) OFFICE/OUTPATIENT VISIT EST Diagnosis: Essential (primary) hypertension[ICD10: I10] Diagnosis: Mixed hyperlipidemia[ICD10: E78.2] Chio BALLARD SHugo POST [facility] CPT-4: 35118 03/10/2017 ([id number]) OFFICE/OUTPATIENT VISIT EST Diagnosis: Mixed hyperlipidemia[ICD10: E78.2] Diagnosis: Essential (primary) hypertension[ICD10: I10] Chio POST [facility] CPT-4: 19418 08/30/2016 ([id number]) OFFICE/OUTPATIENT VISIT EST Diagnosis: Mixed hyperlipidemia[ICD10: E78.2] Ale BALLARD S. SARTHAKNDER [facility] CPT-4: 42964 06/01/2016 ([id number]) OFFICE/OUTPATIENT VISIT EST Diagnosis: Strain of muscle, fascia and tendon of lower back, subsequent encounter[ICD10: S39.012D] Diagnosis: Sciatica, left side[ICD10: M54.32] Ale CHAVEZJOSE M NELLIE S. SARTHAKNDER [facility] CPT-4: 94199 04/30/2016 ([id number]) OFFICE/OUTPATIENT VISIT EST Diagnosis: Strain of muscle, fascia and tendon of lower back, initial encounter[ICD10: S39.012A] Diagnosis: Sciatica, left side[ICD10: M54.32] Ale Becerra KAVITHA POST [employer] CPT-4: 75729 04/23/2016 ([id number]) PREV VISIT NEW AGE 40-64 Diagnosis: Encounter for general adult medical examination without abnormal findings[ICD10: Z00.00] Diagnosis: Plantar fascial fibromatosis[ICD10: M72.2] Chio POST [employer] CPT-4: 58402 04/08/2016 Plan of Care Planned Activity Notes Codes Status Date Visit Diagnosis Plan: Hematuria Discussion: Hold crest or No NSAIDs Push fluids/water Recheck urine microscopy in 2weeks and if still with microscopic blood then will need urology eval and cystoscope ICD-9 : 599.70 ICD-10 : R31.9 08/27/2019 Appointment: Chio Post WPtel: [address] [place] [address] ACUTE ILLNESS 08/27/2019 Visit Diagnosis Plan: Encounter for [facility] adult medical examination without abnormal [...] : E78.2 08/15/2019 Appointment: Chio Post WPtel: [address] [place], [place] [phone] confirmed 08/09/19-- does not need reminder call Annual Well Visit 08/15/2019 Appointment: Chio Post WPtel: [address] [place], [place] [phone] 08/15/19 1330---added to office visit with Dr kwon (elsy) CANCELED 08/15/2019 Appointment: Chio Post WPtel: [address] [place] [address] US LAB 08/09/2019 Visit Diagnosis Plan: Mixed [...] : Z71.89 02/14/2019 Appointment: [facility]: [address] [place] [address] FOLLOW UP 02/14/2019 Visit Diagnosis Plan: Mixed hyperlipidemia Discussion: Check CMP, Lipids Recommend Shingrix Had flu shot ICD-9 : 272.2 ICD-10 : E78.2 08/15/2018 Appointment: [facility]: [address] [place] [address] FOLLOW UP 08/15/2018 Appointment: [facility]: [address] [place] [address] US INJECTION 07/03/2018 Patient Education: Patient Medication [...] : Z00.00 03/02/2018 Appointment: [facility]: [address] [place] [address] Annual Well Visit 03/02/2018 Patient Education: Patient Medication Summary Completed 03/02/2018 Appointment: [facility]: [phone] [phone] RESCHEDULED 02/08/2018 Visit Diagnosis Plan: Pneumonia, unspecified [...] ICD-10 : J18.9 11/03/2017 Appointment: Shaniqua Ruiz [address] [place] [address] ACUTE ILLNESS 11/03/2017 Patient Education: Patient Medication [...] ICD-10 : J10.1 10/27/2017 Appointment: Shaniqua Ruiz [address] [place] [address] ACUTE ILLNESS 10/27/2017 Patient Education: Patient Medication Summary Completed 10/27/2017 Visit Diagnosis Plan: Mixed hyperlipidemia Discussion: Hold on statins due to side effects 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 next 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 then check CMP, Lipids and fwup ICD-9 : 272.2 ICD-10 : E78.2 08/11/2017 Appointment: Chio Post WPtel: [phone] [facility] MEDICATION REVIEW 08/11/2017 Patient Education: Patient Medication Summary Completed 08/11/2017 Visit Diagnosis Plan: Mixed hyperlipidemia Discussion: Continue lipitor and check lipids with LFTs next month ICD-9 : 272.2 ICD-10 : E78.2 05/23/2017 Visit Diagnosis Plan: Encounter for [facility] adult medical examination without abnormal findings Discussion: Will update lab next month D efers mammogram until next year--normal mammogram last year Pap due next year Tdap 3 yrs ago Colonoscopy up to date Discussed zostavax--will check on coverage ICD-9 : V70.9 ICD-10 : Z00.00 05/23/2017 Appointment: Chio Post WPtel: [address] [place] [address] Annual Well Visit 05/23/2017 Patient Education: Patient Medication Summary Completed 05/23/2017 Visit Diagnosis Plan: Mixed hyperlipidemia Discussion: Check CMP, Lipids ICD-9 : 272.2 ICD-10 : E78.2 03/10/2017 Visit Diagnosis Plan: Essential (primary) hypertension Follow Up: 6 months ICD-9 : 401.9 ICD-10 : I10 03/10/2017 Appointment: Chio Post WPtel: [address] [place] [address] 03/09 confimed ~sl CHECK UP 03/10/2017 Patient Education: Patient Medication Summary Completed 03/10/2017 Appointment: Chio Post WPtel: [address] [place] [address] 02/03 rescheduled ~sl RESCHEDULED 02/28/2017 Visit Plan: Lab discussed Continue lifes tyle modification Check full fasting lab in 6mos Monitor BP 1-2 times a week at home Discussed adding weights or yoga/sriram chi 3 times a week 08/30/2016 Appointment: Chio Post WPtel: [address] [place] [address] 08/26 lm`sl...confirmed~lb FOLLOW UP 08/30 Patient Education: Patient Medication Summary Completed 08/30/2016 Patient Education: Patient Medication Summary Completed 08/26/2016 Care Plan: COMPREHEN METABOLIC PANEL NINFA NC : [id number] Pending 08/26/2016 Care Plan: LIPID PANEL LOINC : [id number] Pending 08/26/2016 Visit Plan: Patient is very [...] fenofibrate possibly 06/01/2016 [id number] 05/27 confirmed ~sl FOLLOW UP 06/01/2016 [...] if negative) 04/30/2016 [facility]ment[id number] FOLLOW UP 04/30/2016 Patient Education: Patient Medication Summary Completed 04/30/2016 Visit Plan: Steroid injection given toda y Muscle relaxer as well Continue daily meloxicam Start weaning back on oxycodone Can replace oxycodone dosing with otc tylenol Advised topical pain relievers, heat/ice, etc If oxycodone runs completely out and patient still needs some, can call for refill to [facility] or could consider replacing with tramadol 04/23/2016 [facility]ment[facility] [facility] UP 04/23/2016 Patient Education: Patient Medication Summary Completed 04/23/2016 Visit Plan: Continue inserts and stretch es for plantar fascia Add Vivlodex Return in 2-3 weeks for injection if pain persists Check Fasting Lab Update Mammogram 04/08/2016 Appointment: Chio Post WPtel: [address] [place], [place] [id number] 04/07 confirmed ~sl NEW PATIENT 04/08/2016 Patient Education: Patient Medication Summary Completed 04/08/2016 Patient Education: [facility] - [employer] - 18-64 [...] needs some, can call for refill to [facility] or could consider replacing with tramadol [...]
--- OUTSIDE RECORDS SUMMARY | 2020-02-26 21:13 | XMS REPORT | CCD ---
Author Author Carola Post D.O. 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 Role Phone Chio Post D.O., PP Unavailable CCM Unavailable Summary Purpose Interface Exchange Insurance Providers Payer name Policy type / Coverage type Covered green party ID Effective Begin Date Effective End Date [employer] Insurance [id number] Unknown Family history Grandfather Diagnosis Age At Onset Cancer Unknown Social History Social History Element Codes Description Effective Dates Marital status Unknown 04/08/2016 Number of children Unknown 3 04/08/2016 Employment Unknown Currently employed [employer] 04/08/[address]: 313872148 Has never smoked or chewed tobacco 04/08/[address]: 961165 Currently drinks alcohol 04/08 Frequency of drinks SNOMED CT: 027453055 Drinks rarely 016 Has the patient ever [...] Fill Instructions Aleve 220 mg tablet RxNorm: 510475 Tablet(s) Oral as needed 019 No Stop Date Active Fish Oil 360 mg-1,200 mg capsule RxNorm: 1 Capsule(s) Or al two times a day 08/15/2019 No Stop Date Active Macrobid 100 mg capsule RxNorm: 482676 1 Capsule(s) Oral two ti mes a day 08/15/2019 08/22/2019 Inactive Crestor 5 mg tablet RxNorm: 906660 1/2 Tablet(s) PO twice a week 04/10/2019 Inactive Crestor 5 mg tablet RxNorm: 913894 1 Tablet(s) PO Tues, Thurs, Sat and Sun and 1/2 tablet (2.5mg) on Mon, Tue and Tue03/05/2019 03/11/2019 Inactive Crestor 5 mg tablet RxNorm: 374341 1 Tablet(s) PO QD 02/07/201903/05 Inactive Crestor 5 mg tablet RxNorm: 264277 1 Tablet(s) PO QD re check labwork in 6 months 08/21/2018 08/20/2018 Inactive Crestor 5 mg tablet RxNorm: 930358 1 Tablet(s) PO QD re check labwork in 6 months 08/21/2018 02/06/2019 Inactive Ventolin HFA 90 mcg/actuation aerosol inhaler RxNorm: 703391 2 Puff(s) INH Q4H as needed 11/03/2017 03/01/2018 Inactive please switch to proair if ventolin is not covered. thanks! Levaquin 500 mg tablet RxNorm: 876598 1 Tablet(s) PO QD 11/03/2017 Inactive Zithromax Z-Talat 250 mg tablet RxNorm: 925256 Tablet(s) PO 10/27/2017 03/01/2018 Inactive Lipitor 10 mg tablet RxNorm: 162658 1 TABLET(S) PO QD REPLACES PRAVASTATIN 06/08/2017 08/10/2017 Inactive Lipitor 10 mg tablet RxNorm: 727245 1 Tablet(s) PO QD replaces Pravastatin 03/16/2017 06/07/2017 Inactive pravastatin 10 mg tablet RxNorm: 633744 1 Tablet(s) PO QD 03/15/2017 03/14/2017 Inactive pravastatin 10 mg tablet RxNorm: 713264 1 Tablet(s) PO QD 03/15/2017 03/15/2017 Inactive Zorvolex 35 mg capsule RxNorm: 3638873 1 Capsule(s) PO TID HOLD MELOXICAM 05/03/2016 06/01/2016 Inactive Zorvolex 35 mg capsule RxNorm: 1994997 1 Capsule(s) PO TID HOLD MELOXICAM 04/30/2016 05/02/2016 Inactive prednisone 20 mg tablet RxNorm: 348295 1 Tablet(s) PO B ID and then decrease to 1 tab PO QD x 5 days 04/30/2016 05/04/2016 Inactive cyclobenzaprine 10 mg tablet RxNorm: 124841 1 Tablet(s) PO TID as needed for muscle spasm 04/23/2016 08/29/2016 Inactive pravastatin 20 mg tablet RxNorm: 680478 1 Tablet(s) PO QD 04/14/2016 08/29/2016 Inactive Vivlodex 10 mg capsule RxNorm: 0117029 1 Capsule(s) PO QD 04/08/2016 05/07/2016 Inactive Co Q-10 300 mg capsule RxNorm: 973127 1 Capsule(s) PO QD No Start Date Active Vitamin D3 5,000 unit tablet RxNorm: 991027 1 Tablet(s) PO QD No Star t Date Active melatonin 5 mg tablet RxNorm: 690909 1 Tablet(s) PO QHS as needed N o Start Date Active Multivitamin & Mineral Formula tablet RxNorm: 1 Tablet(s) PO Q D No Start Date Active Fish Oil 1,000 mg capsule RxNorm: 2 Capsule(s) PO QD No Start Date 08/29/2016 Inactive Metamucil 0.4 gram capsule RxNorm: 7725658 2 Capsule(s) PO BID No S tart Date 02/13/2019 Inactive Vitamin D3 2,000 unit tablet RxNorm: 781841 1 Tablet(s) PO QD No St art Date 03/26/2019 Inactive Lipitor 10 mg tablet RxNorm: 861692 1 Tablet(s) PO QD No Start Date 0 03/15/2017 Inactive Crestor 5 mg tablet RxNorm: 339635 1 Tablet(s) PO Tu, Th, Sat and Sun and 1/2 tablet (2.5mg) on Mon, Wed and Fri No Start Date 03/04/2019 Inactive Calcium with Vitamin D 600 mg (1,500 mg)-400 unit tablet RxN orm: 469739 1 Tablet(s) PO QD No Start Date 03/01/2018 Inactive krill oil 1,000 mg-170 mg-50 mg-80 mg capsule RxNorm: 1 Capsule(s) PO BID No Start Date 08/14/2019 Inactive Co Q-10 200 mg capsule RxNorm: 907537 1 Capsule(s) PO QD No Start D ate 03/01/2018 Inactive Co Q-10 oral RxNorm: 01886 oral No Start Date 07/24/2017 Inactive oxycodone-acetaminophen 5 mg-325 mg tablet RxNorm: 8453560 1 Tab let(s) PO Q6H No Start Date 08/29/2016 Inactive Krill Oil (Justice 3 and 6) oral RxNorm: 52082 oral No Start Date 02/13/2019 Inactive Flexeril 10mg tablet RxNorm: 1 Tablet(s) PO Q8H No Start Date 12/2015 Inactive Vitamin D3 1,000 unit tablet RxNorm: 205041 1 Tablet(s) PO QD No St art Date 03/11/2019 Inactive Medication Administered No Medication Administered data Immunizations Vaccine Codes Date Status Zoster Unknown 08/15/2019 Complete Influenza CVX: 141 07/03/2018 Complete Results Observation Observation Code Item Item Code Result Date S ervice Location CULTURE, URINE, ROUTINE 395 CULTURE, URINE, ROUTINE SEE NOTE 08/16/2019 Mary Jane [place] [address] [place] [phone] EXTRA LAVENDER-TOP TUBE XLKS EXTRA LAVENDER-TOP TUBE 08/10/2019 Mary Jane [place] [id number] [place] [phone] EXTRA LAVENDER-TOP TUBE XLKS COMMENT 1 10/10/2018 Mary Jane [place] [address] [place] [phone] LIPID PANEL 99343 CHOLESTEROL, TOTAL 180 mg/dL 08/10 Mary Jane [place] [address] [place] [phone] LIPID PANEL 63110 HDL CHOLESTEROL 35 mg/dL 08/10/20 19 Mary Jane [place] [address] [place] [phone] LIPID PANEL 06898 TRIGLYCERIDES 200 mg/dL 08/10/2019 Mary Jane [place] [address] [place] [phone] LIPID PANEL 33228 LDL-CHOLESTEROL 113 mg/dL(calc) Mary Jane [place] [address] [place] [phone] LIPID PANEL 56788 CHOL/HDLC RATIO 5.1 (calc) 08/10/20 19 Mary Jane [place] [address] [place] [phone] LIPID PANEL 87066 NON HDL CHOLESTEROL 145 mg/dL(calc) 08/10/2019 Mary Jane Khan [place] [address] [place] [phone] COMPREHENSIVE METABOLIC PANEL 15653 Glucose 86 mg/ dL 08/10/2019 [facility] [address] [address] COMPREHENSIVE METABOLIC PANEL 55797 UREA NITROGEN (BUN) 11 mg/dL 08/10/2019 [facility] [address] [address] COMPREHENSIVE METABOLIC PANEL 30734 CREATININE 0.71 m g/dL 08/10/2019 [facility] [address] [address] COMPREHENSIVE METABOLIC PANEL 96468 eGFR NON-AFR. SPANISH 90 mL/min/1.73m2 08/10/2019 Rachel [facility] [address] [address] COMPREHENSIVE METABOLIC PANEL 18956 eGFR 104 mL/min/1.73m2 08/10/2019 Rachel [facility] [address] [address] COMPREHENSIVE METABOLIC PANEL 02723 BUN/CREATININE RATIO NOT APPLICABLE (calc) 08/10/2019 Rachel [facility] [address] [address] COMPREHENSIVE METABOLIC PANEL 79996 SODIUM 140 mm ol/L 08/10/2019 [facility] [address] [address] COMPREHENSIVE METABOLIC PANEL 93977 POTASSIUM 4.2 mm ol/L 08/10/2019 [facility] [address] [address] COMPREHENSIVE METABOLIC PANEL 24169 CHLORIDE 105 mm ol/L 08/10/2019 [facility] [address] [address] COMPREHENSIVE METABOLIC PANEL 88282 CARBON DIOXIDE 28 mmol/L 08/10/2019 [facility] [address] [address] COMPREHENSIVE METABOLIC PANEL 06986 CALCIUM 9.3 mg /dL 08/10/2019 [facility] [address] [address] COMPREHENSIVE METABOLIC PANEL 66090 PROTEIN, TOTAL 6. 7 g/dL 08/10/2019 Rachel Joyce [facility] [address] [address] COMPREHENSIVE METABOLIC PANEL 67439 ALBUMIN 4.3 g/ dL 08/10/[address] [address] COMPREHENSIVE METABOLIC PANEL 91616 GLOBULIN 2.4 g/ dL(calc) 08/10/2019 [facility] [address] COMPREHENSIVE METABOLIC PANEL 20446 ALBUMIN/GLOBULIN RATIO 1.8 (calc) 08/10/2019 [facility] [address] COMPREHENSIVE METABOLIC PANEL 71068 BILIRUBIN, TOTAL 0.6 mg/dL 08/10/[address] [address] COMPREHENSIVE METABOLIC PANEL 85484 ALKALINE PHOSPHATASE 74 U/L 08/10/[address] [address] COMPREHENSIVE METABOLIC PANEL 43830 AST 21 U/L 08/10/[address] [address] COMPREHENSIVE METABOLIC PANEL 44346 ALT 15 U/L 08/10/[address] [address] COMPREHENSIVE METABOLIC 99908 AST 18 U/L 2018 Unknown COMPREHENSIVE METABOLIC 62714 ALT 12 U/L 2018 Unknown COMPREHENSIVE METABOLIC 28759 BUN 11 mg/dL 2018 Unknown COMPREHENSIVE METABOLIC 29020 ALBUMIN 4.6 g/dL 2018 Unknown COMPREHENSIVE METABOLIC 25899 CHLORIDE 106 mmol/L 02/14 Unknown COMPREHENSIVE METABOLIC 90793 Bili Total 0.9 mg/dL 02/14 Unknown COMPREHENSIVE METABOLIC 99990 ALK PHOS 76 U/L 2018 Unknown COMPREHENSIVE METABOLIC 14730 SODIUM 142 mmol/L 02/14 Unknown COMPREHENSIVE METABOLIC 38724 CREATININE 0.69 mg/dL 01/25 Unknown COMPREHENSIVE METABOLIC 05914 CALCIUM 9.5 mg/dL 2018 Unknown COMPREHENSIVE METABOLIC 75697 POTASSIUM 3.9 mmol/L 02/14 Unknown COMPREHENSIVE METABOLIC 73580 Total Protein 6.6 g/dL Unknown COMPREHENSIVE METABOLIC 58530 Glucose 86 mg/dL 2018 Unknown COMPREHENSIVE METABOLIC 68426 Bicarbonate 29 mmol/L 01/25 Unknown COMPREHENSIVE METABOLIC 55605 AGAP 7 mmol/L 2018 Unknown GFR CALC 7764127 GFR Non Afr Amr >60 mL/min 02/14/2019 Un known GFR CALC 1426768 GFR Afr Amr >60 mL/min 02/14/2019 Unknow n [facility] 32423 Cholesterol 127 mg/dL 02/14/2019 Unkno wn [facility] 60226 Triglyceride 156 mg/dL 02/14/2019 Unkn own [facility] 70842 HDL CHOLESTEROL 45 mg/dL 02/14/2019 U nknown [facility] 13858 Chol/HDL Ratio 2.82 ratio 02/14/2019 U nknown [facility] 81899 NON-HDL Chol 82 mg/dL 02/14/2019 Unkn own [facility] 35976 LDL Cholesterol 51 mg/dL 02/14/2019 U nknown COMPREHENSIVE METABOLIC PANEL 52423 Glucose 88 mg/ dL 08/16/[address] [facility] [address] COMPREHENSIVE METABOLIC PANEL 54680 UREA NITROGEN (BUN) 11 mg/dL 08/16/[address] [facility] [address] COMPREHENSIVE METABOLIC PANEL 91359 CREATININE 0.70 m g/dL 08/16/[address] [facility] [address] COMPREHENSIVE METABOLIC PANEL 55179 eGFR NON-AFR. SPANISH 92 mL/min/1.73m2 08/16/2018 [facility] [address] COMPREHENSIVE METABOLIC PANEL 46358 eGFR 107 mL/min/1.73m2 08/16/[address] [facility] [address] COMPREHENSIVE METABOLIC PANEL 61551 BUN/CREATININE RATIO NOT APPLICABLE (calc) 08/16/[address] [facility] [address] COMPREHENSIVE METABOLIC PANEL 09318 SODIUM 140 mm ol/L 08/16/2018 [facility] [address] COMPREHENSIVE METABOLIC PANEL 13364 POTASSIUM 4.0 mm ol/L 08/16/2018 [facility] [address] COMPREHENSIVE METABOLIC PANEL 32054 CHLORIDE 104 mm ol/L 08/16/[address] [facility] [address] COMPREHENSIVE METABOLIC PANEL 80812 CARBON DIOXIDE 29 mmol/L 08/16/2018 [facility] [address] [address] COMPREHENSIVE METABOLIC PANEL 16985 CALCIUM 9.4 mg /dL 08/16/2018 [facility] [address] [address] COMPREHENSIVE METABOLIC PANEL 73130 PROTEIN, TOTAL 6. 7 g/dL 08/16/2018 [facility] [address] [address] COMPREHENSIVE METABOLIC PANEL 84912 ALBUMIN 4.4 g/ dL 08/16/2018 [facility] [address] [address] COMPREHENSIVE METABOLIC PANEL 07189 GLOBULIN 2.3 g/ dL(calc) 08/16/2018 [facility] [address] [address] COMPREHENSIVE METABOLIC PANEL 81544 ALBUMIN/GLOBULIN RATIO 1.9 (calc) 08/16/2018 [facility] [address] [address] COMPREHENSIVE METABOLIC PANEL 21039 BILIRUBIN, TOTAL 0.8 mg/dL 08/16/2018 [facility] [address] [address] COMPREHENSIVE METABOLIC PANEL 22455 ALKALINE PHOSPHATASE 72 U/L 08/16/2018 [facility] [address] [address] COMPREHENSIVE METABOLIC PANEL 52706 AST 19 U/L 08/16/2018 [facility] [address] [address] COMPREHENSIVE METABOLIC PANEL 71932 ALT 12 U/L 08/16/2018 [facility] [address] [address] LIPID PANEL 82634 CHOLESTEROL, TOTAL 228 mg/dL 08/16 [facility] [address] [address] LIPID PANEL 90933 HDL CHOLESTEROL 42 mg/dL 08/16/20 18 [facility] [address] [address] LIPID PANEL 16845 TRIGLYCERIDES 175 mg/dL 08/16/2018 [facility] [address] [address] LIPID PANEL 35357 LDL-CHOLESTEROL 155 mg/dL(calc) [facility] [address] [place] [address] LIPID PANEL 93572 CHOL/HDLC RATIO 5.4 (calc) 08/16/20 [facility] [place] [address] [place] [address] LIPID PANEL 17460 NON HDL CHOLESTEROL 186 mg/dL(calc) 08/16/2018 [facility] [place] [address] [place] [address] EXTRA LAVENDER-TOP TUBE XLKS EXTRA LAVENDER-TOP TUBE 08/16/2018 [facility] [address] [place] [address] EXTRA LAVENDER-TOP TUBE XLKS COMMENT 1 10/16/2017 [facility] [place] [address] Procedures Procedure Codes Date URINALYSIS, COMPLETE CPT-4: 25101 09/10/2019 URINALYSIS NONAUTO W/O SCOPE CPT-4: 08229 08/27/2019 CULTURE, URINE, ROUTINE CPT-4: 395 08/15/2019 URINALYSIS NONAUTO W/O SCOPE CPT-4: 70933 08/15/2019 SHINGRIX HZV VACC RECOMBINANT IM CPT-4: 00258 019 IMMUNIZATION ADMIN CPT-4: 06762 08/15/2019 COMPREHENSIVE METABOLIC PANEL CPT-4: 29784 08/09/2019 LIPID PANEL CPT-4: 25469 08/09/2019 ROUTINE VENIPUNCTURE CPT-4: 61837 08/09/2019 EXTRA LAVENDER-TOP TUBE CPT-4: XLKS 08/09/2019 ROUTINE VENIPUNCTURE CPT-4: 51653 02/14/2019 COMPREHEN METABOLIC PANEL CPT-4: 90519 02/14/2019 LIPID PANEL CPT-4: 96677 02/14/2019 ROUTINE VENIPUNCTURE CPT-4: 75036 08/15/2018 COMPREHENSIVE METABOLIC PANEL CPT-4: 85320 08/15/2018 EXTRA LAVENDER-TOP TUBE CPT-4: XLKS 08/15/2018 LIPID PANEL CPT-4: 54686 08/15/2018 IIV4 VACCINE 3 YRS+ IM AND UP CPT-4: 75431 07/03/2018 IMMUNIZATION ADMIN CPT-4: 95799 07/03/2018 SPECIMEN HANDLING OFFICE-LAB CPT-4: 77212 03/02/2018 OCCULT BLOOD FECES CPT-4: 36223 03/02/2018 THER/PROPH/DIAG INJ SC/IM CPT-4: 31278 11/03/2017 TRIAMCINOLONE ACET INJ NOS CPT-4: J3301 11/03/2017 INFLUENZA ASSAY W/OPTIC CPT-4: 40560 10/27/2017 THER/PROPH/DIAG INJ SC/IM CPT-4: 71411 10/27/2017 TRIAMCINOLONE ACET INJ NOS CPT-4: J3301 10/27/2017 THER/PROPH/DIAG INJ SC/IM CPT-4: 34895 04/23/2016 TRIAMCINOLONE ACET INJ NOS CPT-4: J3301 [...] 1: 126/70 Code: 8480-6 BMI: 26.7 Code: 81269-2 Heart Rate 1: 68 bpm Height: 5'6" Respiratory Rate: 18 bpm SpO2: 97% Tempera ture: 36.6 (C) / 97.9 (F) Weight: 168 lbs 08/15/2018 Blood Pressure 1: 122/78 Code: 8480-6 BMI: 25.9 Code: 89391-4 Heart Rate 1: 72 bpm Height: 5'6" Respiratory Rate: 20 bpm SpO2: 97% Tempera ture: 36.7 (C) / 98.0 (F) Weight: 163 lbs 03/02/2018 Blood Pressure 1: 126/74 Code: 8480-6 BMI: 26.1 Code: 41955-0 Heart Rate 1: 76 bpm Height: 5'6" Respiratory Rate: 20 bpm SpO2: 98% Tempera ture: 36.6 (C) / 97.8 (F) Weight: 164 lbs 11/03/2017 Blood Pressure 1: 124/82 Code: 8480-6 BMI: 25.3 Code: 91727-8 Heart Rate 1: 90 bpm Height: 5'6" Respiratory Rate: 22 bpm SpO2: 98% Tempera ture: 36.9 (C) / 98.4 (F) Weight: 159 lbs 10/27/2017 Blood Pressure 1: 122/84 Code: 8480-6 BMI: 25.6 Code: 34240-7 Heart Rate 1: 90 bpm Height: 5'6" Respiratory Rate: 22 bpm SpO2: 97% Tempera ture: 36.1 (C) / 97.0 (F) Weight: 161 lbs 08/11/2017 Blood Pressure 1: 132/76 Code: 8480-6 BMI: 26.4 Code: 05471-8 Heart Rate 1: 72 bpm Height: 5'6" Respiratory Rate: 20 bpm Temperature: 36 .6 (C) / 97.8 (F) Weight: 166 lbs 05/23/2017 Blood Pressure 1: 126/72 Code: 8480-6 BMI: 26.1 Code: 74168-2 Heart Rate 1: 72 bpm Height: 5'6" Respiratory Rate: 20 bpm SpO2: 98% Tempera ture: 37.1 (C) / 98.8 (F) Weight: 164 lbs 03/10/2017 Blood Pressure 1: 124/72 Code: 8480-6 BMI: 26.1 Code: 27430-2 Heart Rate 1: 92 bpm Height: 5'6" Respiratory Rate: 20 bpm SpO2: 97% Tempera ture: 37.2 (C) / 98.9 (F) Weight: 164 lbs 08/30/2016 Blood Pressure 1: 142/82 Code: 8480-6 BMI: 25.6 Code: 77580-4 Heart Rate 1: 72 bpm Height: 5'6" Respiratory Rate: 20 bpm Temperature: 36 .6 (C) / 97.9 (F) Weight: 161 lbs 06/01/2016 Blood Pressure 1: 156/88 Code: 8480-6 BMI: 26.4 Code: 22772-3 Heart Rate 1: 70 bpm Height: 5'6" Respiratory Rate: 18 bpm SpO2: 97% Tempera ture: 36.6 (C) / 97.8 (F) Weight: 166 lbs 04/30/2016 Blood Pressure 1: 122/70 Code: 8480-6 Heart Rate 1: 10 2 bpm Height: Respiratory Rate: 24 bpm SpO2: 95% Temperature: 36.4 (C) / 97.6 (F) We ight: 04/23/2016 Blood Pressure 1: 152/76 Code: 8480-6 BMI: 26.5 Code: 53828-7 Heart Rate 1: 106 bpm Height: 5'7" Respiratory Rate: 24 bpm SpO2: 96% Tempera ture: 36.8 (C) / 98.2 (F) Weight: 169 lbs 04/08/2016 Blood Pressure 1: 116/68 Code: 8480-6 BMI: 27.4 Code: 65572-0 Heart Rate 1: 76 bpm Height: 5'6" [...] R31.9] [facility] CPT-4: 18428 09/10/2019 ([id number]) OFFICE/OUTPATIENT VISIT EST Diagnosis: Hematuria[ICD10: R31.9] Chio Orebeckyirene CHAVEZCHIO MalathiHugo [facility] CPT-4: 20805 08/27/2019 ([id number]) PREV VISIT EST AGE 40-64 Diagnosis: Urinary tract infection[ICD10: N39.0] Diagnosis: Encounter for general adult medical examination without abnormal findings[ICD10: Z00.00] Diagnosis: Essential (primary) hypertension[ICD10: I10] Diagnosis: Mixed hyperlipidemia[ICD10: E78.2] Diagnosis: VACCIN FOR DISEASE NEC (HPV or Zostavax)[ICD10: Z23] Chio Sarthakjeimy MORTENSEN MalathiHugo [facility] CPT-4: 60655 08/15/2019 ([id number]) NURSE/OUTPATIENT VISIT EST Diagnosis: Mixed hyperlipidemia[ICD10: E78.2] Diagnosis: Essential (primary) hypertension[ICD10: I10] Chio Sarthakjeimy MORTENSEN MalathiHugo [facility] CPT-4: 08852 08/09/2019 ([id number]) OFFICE/OUTPATIENT VISIT EST Diagnosis: Mixed hyperlipidemia[ICD10: E78.2] Diagnosis: Other specified counseling[ICD10: Z71.89] Chioradha MORTENSEN MalathiHugo [facility] CPT-4: 24586 02/14/2019 ([id number]) OFFICE/OUTPATIENT VISIT EST Diagnosis: Mixed hyperlipidemia[ICD10: E78.2] Chio BALLARD SHugo [facility] [employer] [facility] CPT-4: 93596 08/15/2018 ([id number]) NURSE/OUTPATIENT VISIT EST Diagnosis: FLU VACCINE[ICD10: Z23] Chio MORTENSEN MalathiHugo [facility] CPT-4: 28415 07/03/2018 ([id number]) PREV VISIT EST AGE 40-64 Diagnosis: Encounter for general adult medical examination without abnormal findings[ICD10: Z00.00] Diagnosis: Encounter for gynecological examination (general) (routine) without abnormal findings[ICD10: Z01.419] Chio Mancini SARTHAKWARREN R [facility] CPT-4: 84418 03/02/2018 OFFICE/OUTPATIENT VISIT EST Diagnosis: Pneumonia, unspecified organism[ICD10: J18.9] Shanqiua Sara POST [employer] [facility] CPT-4: 22859 11/03/2017 OFFICE/OUTPATIENT VISIT EST Diagnosis: Influenza due to other identified influenza virus with other respiratory manifestations[ICD10: J10.1] Diagnosis: Acute bronchitis, unspecified[ICD10: J20.9] Shaniqua POST DO [facility] CPT-4: 26661 10/27/2017 ([id number]) OFFICE/OUTPATIENT VISIT EST Diagnosis: Mixed hyperlipidemia[ICD10: E78.2] Chio BALLARD SHugo DE LEÓNNDIRENE [employer] [facility] CPT-4: 94959 08/11/2017 ([id number]) PREV VISIT EST AGE 40-64 Diagnosis: Encounter for general adult medical examination without abnormal findings[ICD10: Z00.00] Diagnosis: Mixed hyperlipidemia[ICD10: E78.2] Chio DE LEÓNNDIRENE [employer] CPT-4: 11850 05/23/2017 ([id number]) OFFICE/OUTPATIENT VISIT EST Diagnosis: Essential (primary) hypertension[ICD10: I10] Diagnosis: Mixed hyperlipidemia[ICD10: E78.2] Chio BALLARD SHugo POST [employer] [facility] CPT-4: 85240 03/10/2017 ([id number]) OFFICE/OUTPATIENT VISIT EST Diagnosis: Mixed hyperlipidemia[ICD10: E78.2] Diagnosis: Essential (primary) hypertension[ICD10: I10] Chio POST [employer] [facility] CPT-4: 02898 08/30/2016 ([id number]) OFFICE/OUTPATIENT VISIT EST Diagnosis: Mixed hyperlipidemia[ICD10: E78.2] Ale BALLARD S. SARTHAKNDER [employer] [facility] CPT-4: 42609 06/01/2016 ([id number]) OFFICE/OUTPATIENT VISIT EST Diagnosis: Strain of muscle, fascia and tendon of lower back, subsequent encounter[ICD10: S39.012D] Diagnosis: Sciatica, left side[ICD10: M54.32] Ale CHAVEZJOSE M NELLIE S. SARTHAKNDER [employer] [facility] CPT-4: 84423 04/30/2016 ([id number]) OFFICE/OUTPATIENT VISIT EST Diagnosis: Strain of muscle, fascia and tendon of lower back, initial encounter[ICD10: S39.012A] Diagnosis: Sciatica, left side[ICD10: M54.32] Ale Becerra KAVITHA POST [employer] CPT-4: 09590 04/23/2016 ([id number]) PREV VISIT NEW AGE 40-64 Diagnosis: Encounter for general adult medical examination without abnormal findings[ICD10: Z00.00] Diagnosis: Plantar fascial fibromatosis[ICD10: M72.2] Chio POST [employer] CPT-4: 88103 04/08/2016 Plan of Care Planned Activity Notes Codes Status Date Visit Diagnosis Plan: Hematuria Discussion: Hold crest or No NSAIDs Push fluids/water Recheck urine microscopy in 2weeks and if still with microscopic blood then will need urology eval and cystoscope ICD-9 : 599.70 ICD-10 : R31.9 08/27/2019 Appointment: Chio Post WPtel: [address] [place] [address] ACUTE ILLNESS 08/27/2019 Visit Diagnosis Plan: Encounter for [facility] adult medical examination without abnormal findings [...] E78.2 08/15/2019 Appointment: Chio Post WPtel: [address] [place], [place] [phone] confirmed 08/09/19-- does not need reminder call Annual Well Visit 08/15/2019 Appointment: Chio Post WPtel: [address] [place], [place] [phone] 08/15/19 1330---added to office visit with Dr kwon (elsy) CANCELED 08/15/2019 Appointment: Chio Post WPtel: [address] [place] [address] US LAB 08/09/2019 Visit Diagnosis Plan: Mixed [...] : Z71.89 02/14/2019 Appointment: Chio Post WPtel: [address] [place] [address] FOLLOW UP 02/14/2019 Visit Diagnosis Plan: Mixed hyperlipidemia Discussion: Check CMP, Lipids Recommend Shingrix Had flu shot ICD-9 : 272.2 ICD-10 : E78.2 08/15/2018 Appointment: Chio Post WPtel: [address] [place] [address] FOLLOW UP 08/15/2018 Appointment: Chio Post WPtel: [address] [place] [address] US INJECTION 07/03/2018 Patient Education: Patient Medication [...] : Z00.00 03/02/2018 Appointment: Chio Post WPtel: [address] [place] [address] Annual Well Visit 03/02/2018 Patient Education: Patient Medication Summary Completed 03/02/2018 Appointment: Chio Post WPtel: [phone] [id number] RESCHEDULED 02/08/2018 Visit [...] ICD-10 : J18.9 11/03/2017 Appointment: Shaniqua Ruiz [address] [place] [address] ACUTE ILLNESS 11/03/2017 Patient Education: Patient Medication [...] ICD-10 : J10.1 10/27/2017 Appointment: Shaniqua Ruiz [address] [place] [address] ACUTE ILLNESS 10/27/2017 Patient Education: Patient Medication Summary Completed 10/27/2017 Visit Diagnosis Plan: Mixed hyperlipidemia Discussion: Hold on statins due to side effects 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 then check CMP, Lipids and fwup ICD-9 : 272.2 ICD-10 : E78.2 08/11/2017 Appointment: Chio Post WPtel: [phone] [id number] MEDICATION REVIEW 08/11/2017 Patient Education: Patient Medication Summary Completed 08/11/2017 Visit Diagnosis Plan: Mixed hyperlipidemia Discussion: Continue lipitor and check lipids with LFTs next month ICD-9 : 272.2 ICD-10 : E78.2 05/23/2017 Visit Diagnosis Plan: Encounter for gene [facility] adult medical examination without abnormal findings Discussion: Will update lab next month D efers mammogram until next year--normal mammogram last year Pap due next year Tdap 3 yrs ago Colonoscopy up to date Discussed zostavax--will check on coverage ICD-9 : V70.9 ICD-10 : Z00.00 05/23/2017 Appointment: [facility]Pt[facility]: [address] [place] [address] Annual Well Visit 05/23/2017 Patient Education: Patient Medication Summary Completed 05/23/2017 Visit Diagnosis Plan: Mixed hyperlipidemia Discussion: Check CMP, Lipids ICD-9 : 272.2 ICD-10 : E78.2 03/10/2017 Visit Diagnosis Plan: Essential (primary) hypertension Follow Up: 6 months ICD-9 : 401.9 ICD-10 : I10 03/10/2017 Appointment: [facility]: [address] [place] [address] 03/09 confimed ~sl CHECK UP 03/10/2017 Patient Education: Patient Medication Summary Completed 03/10/2017 Appointment: [facility]: [address] [place] [address] 02/03 rescheduled ~sl RESCHEDULED 02/28/2017 Visit Plan: Lab discussed Continue lifes tyle modification Check full fasting lab in 6mos Monitor BP 1-2 times a week at home Discussed adding weights or yoga/sriram chi 3 times a week 08/30/2016 Appointment: [facility]: [address] [place] [address] 08/26 lm`sl...confirmed~lb FOLLOW UP 08/30 Patient Education: Patient Medication Summary Completed 08/30/2016 Patient Education: Patient Medication Summary Completed 08/26/2016 Care Plan: COMPREHEN METABOLIC PANEL NINFA NC : 27397-1 Pending 08/26/2016 Care Plan: LIPID PANEL LOINC : 32116-2 Pending 08/26/2016 Visit Plan: Patient is very [...] fenofibrate possibly 06/01/2016 [phone] [id number] 05/27 confirmed ~sl FOLLOW UP 06/01/2016 [...] if negative) 04/30/2016 [phone] [id number] FO[facility] 04/30/2016 Patient Education: Patient Medication Summary Completed 04/30/2016 Visit Plan: Steroid injection given toda y Muscle relaxer as well Continue daily meloxicam Start weaning back on oxycodone Can replace oxycodone dosing with otc tylenol Advised topical pain relievers, heat/ice, etc If oxycodone runs completely out and patient still needs some, can call for refill to [facility] or could consider replacing with tramadol 04/23/2016 [id number] [facility] Follow UP 04/23/2016 Patient Education: Patient Medication Summary Completed 04/23/2016 Visit Plan: Continue inserts and stretch es for plantar fascia Add Vivlodex Return in 2-3 weeks for injection if pain persists Check Fasting Lab Update Mammogram 04/08/2016 Appointment: [facility]: [address] [place], [place] [id number] 04/07 confirmed ~sl NEW PATIENT 04/08/2016 Patient Education: Patient Medication Summary Completed 04/08/2016 Patient Education: [facility] [place] - Saving [employer]Inj - 18-64 - Dynamic [...] some, can call for refill to [facility] or could consider replacing with tramadol . [...]
--- OUTSIDE RECORDS SUMMARY | 2020-02-26 21:13 | XMS REPORT | CCD ---
Author Author Carola Post D.O. 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 Name Role Phone Chio Post D.O., PP Unavailable CCM Unavailable Summary Purpose Interface Exchange Insurance Providers Payer name Policy type / Coverage type Covered constitution party ID Effective Begin Date Effective End Date [employer] Insurance [id number] Unknown Family history Grandfather Diagnosis Age At Onset Cancer Unknown Social History Social History Element Codes Description Effective Dates Marital status Unknown 04/08/2016 Number of children Unknown 3 04/08/2016 Employment Unknown Currently employed [employer] 04/08/[address]: 772009420 Has never smoked or chewed tobacco 04/08/[address]: 021165 Currently drinks alcohol 04/08 Frequency of drinks SNOMED CT: 614125527 Drinks rarely 016 Has the patient ever [...] Fill Instructions Aleve 220 mg tablet RxNorm: 991457 Tablet(s) Oral as needed 019 No Stop Date Active Fish Oil 360 mg-1,200 mg capsule RxNorm: 1 Capsule(s) Or al two times a day 08/15/2019 No Stop Date Active Macrobid 100 mg capsule RxNorm: 725987 1 Capsule(s) Oral two ti mes a day 08/15/2019 08/22/2019 Inactive Crestor 5 mg tablet RxNorm: 106643 1/2 Tablet(s) PO twice a week 04/10/2019 Inactive Crestor 5 mg tablet RxNorm: 055466 1 Tablet(s) PO Tues, Thurs, Sat and Sun and 1/2 tablet (2.5mg) on Mon, Tue and Tue03/05/2019 03/11/2019 Inactive Crestor 5 mg tablet RxNorm: 918498 1 Tablet(s) PO QD 02/07/201903/05 Inactive Crestor 5 mg tablet RxNorm: 973315 1 Tablet(s) PO QD re check labwork in 6 months 08/21/2018 08/20/2018 Inactive Crestor 5 mg tablet RxNorm: 739992 1 Tablet(s) PO QD re check labwork in 6 months 08/21/2018 02/06/2019 Inactive Ventolin HFA 90 mcg/actuation aerosol inhaler RxNorm: 703797 2 Puff(s) INH Q4H as needed 11/03/2017 03/01/2018 Inactive please switch to proair if ventolin is not covered. thanks! Levaquin 500 mg tablet RxNorm: 684838 1 Tablet(s) PO QD 11/03/2017 Inactive Zithromax Z-Talat 250 mg tablet RxNorm: 799897 Tablet(s) PO 10/27/2017 03/01/2018 Inactive Lipitor 10 mg tablet RxNorm: 825979 1 TABLET(S) PO QD REPLACES PRAVASTATIN 06/08/2017 08/10/2017 Inactive Lipitor 10 mg tablet RxNorm: 643218 1 Tablet(s) PO QD replaces Pravastatin 03/16/2017 06/07/2017 Inactive pravastatin 10 mg tablet RxNorm: 806405 1 Tablet(s) PO QD 03/15/2017 03/14/2017 Inactive pravastatin 10 mg tablet RxNorm: 013219 1 Tablet(s) PO QD 03/15/2017 03/15/2017 Inactive Zorvolex 35 mg capsule RxNorm: 7876878 1 Capsule(s) PO TID HOLD MELOXICAM 05/03/2016 06/01/2016 Inactive Zorvolex 35 mg capsule RxNorm: 3797321 1 Capsule(s) PO TID HOLD MELOXICAM 04/30/2016 05/02/2016 Inactive prednisone 20 mg tablet RxNorm: 945335 1 Tablet(s) PO B ID and then decrease to 1 tab PO QD x 5 days 04/30/2016 05/04/2016 Inactive cyclobenzaprine 10 mg tablet RxNorm: 515442 1 Tablet(s) PO TID as needed for muscle spasm 04/23/2016 08/29/2016 Inactive pravastatin 20 mg tablet RxNorm: 894732 1 Tablet(s) PO QD 04/14/2016 08/29/2016 Inactive Vivlodex 10 mg capsule RxNorm: 0675611 1 Capsule(s) PO QD 04/08/2016 05/07/2016 Inactive Co Q-10 300 mg capsule RxNorm: 496766 1 Capsule(s) PO QD No Start Date Active Vitamin D3 5,000 unit tablet RxNorm: 797196 1 Tablet(s) PO QD No Star t Date Active melatonin 5 mg tablet RxNorm: 857163 1 Tablet(s) PO QHS as needed N o Start Date Active Multivitamin & Mineral Formula tablet RxNorm: 1 Tablet(s) PO Q D No Start Date Active Fish Oil 1,000 mg capsule RxNorm: 2 Capsule(s) PO QD No Start Date 08/29/2016 Inactive Metamucil 0.4 gram capsule RxNorm: 3352098 2 Capsule(s) PO BID No S tart Date 02/13/2019 Inactive Vitamin D3 2,000 unit tablet RxNorm: 809722 1 Tablet(s) PO QD No St art Date 03/26/2019 Inactive Lipitor 10 mg tablet RxNorm: 591896 1 Tablet(s) PO QD No Start Date 0 03/15/2017 Inactive Crestor 5 mg tablet RxNorm: 733678 1 Tablet(s) PO Tu, Th, Sat and Sun and 1/2 tablet (2.5mg) on Mon, Wed and Fri No Start Date 03/04/2019 Inactive Calcium with Vitamin D 600 mg (1,500 mg)-400 unit tablet RxN orm: 970350 1 Tablet(s) PO QD No Start Date 03/01/2018 Inactive krill oil 1,000 mg-170 mg-50 mg-80 mg capsule RxNorm: 1 Capsule(s) PO BID No Start Date 08/14/2019 Inactive Co Q-10 200 mg capsule RxNorm: 964247 1 Capsule(s) PO QD No Start D ate 03/01/2018 Inactive Co Q-10 oral RxNorm: 55684 oral No Start Date 07/24/2017 Inactive oxycodone-acetaminophen 5 mg-325 mg tablet RxNorm: 9789485 1 Tab let(s) PO Q6H No Start Date 08/29/2016 Inactive Krill Oil ([place] 3 and 6) oral RxNorm: 08260 oral No Start Date 02/13/2019 Inactive Flexeril 10mg tablet RxNorm: 1 Tablet(s) PO Q8H No Start Date 12/2015 Inactive Vitamin D3 1,000 unit tablet RxNorm: 375892 1 Tablet(s) PO QD No St art Date 03/11/2019 Inactive Medication Administered No Medication Administered data Immunizations Vaccine Codes Date Status Zoster Unknown 08/15/2019 Complete Influenza CVX: 141 07/03/2018 Complete Results Observation Observation Code Item Item Code Result Date S ervice Location CULTURE, URINE, ROUTINE 395 CULTURE, URINE, ROUTINE SEE NOTE 08/16/2019 [facility] [place] [address] [place] [phone] EXTRA LAVENDER-TOP TUBE XLKS EXTRA LAVENDER-TOP TUBE 08/10/2019 Mary Jane [place] [id number] [place] [phone] EXTRA LAVENDER-TOP TUBE XLKS COMMENT 1 10/10/2018 Mary Jane [place] [address] [place] [phone] LIPID PANEL 51038 CHOLESTEROL, TOTAL 180 mg/dL 08/10 Mary Jane [place] [address] [place] [phone] LIPID PANEL 06487 HDL CHOLESTEROL 35 mg/dL 08/10/20 19 Mary Jane [place] [address] [place] [address] LIPID PANEL 02593 TRIGLYCERIDES 200 mg/dL 08/10/2019 Mary Jane [place] [address] [place] [address] LIPID PANEL 76723 LDL-CHOLESTEROL 113 mg/dL(calc) Mary Jane [place] [address] [place] [address] LIPID PANEL 19350 CHOL/HDLC RATIO 5.1 (calc) 08/10/20 19 Mary Jane [place] [address] [place] [address] LIPID PANEL 27450 NON HDL CHOLESTEROL 145 mg/dL(calc) 08/10/2019 Mary Jane Khan [place] [address] [place] [address] COMPREHENSIVE METABOLIC PANEL 27048 Glucose 86 mg/ dL 08/10/2019 [facility] [address] [address] COMPREHENSIVE METABOLIC PANEL 51356 UREA NITROGEN (BUN) 11 mg/dL 08/10/2019 [facility] [address] [address] COMPREHENSIVE METABOLIC PANEL 01954 CREATININE 0.71 m g/dL 08/10/2019 [facility] [address] [address] COMPREHENSIVE METABOLIC PANEL 72605 eGFR NON-AFR. TRINIDADIAN 90 mL/min/1.73m2 08/10/2019 [facility] [address] [address] COMPREHENSIVE METABOLIC PANEL 97284 eGFR 104 mL/min/1.73m2 08/10/2019 [facility] [address] [address] COMPREHENSIVE METABOLIC PANEL 58778 BUN/CREATININE RATIO NOT APPLICABLE (calc) 08/10/2019 [facility] [address] [address] COMPREHENSIVE METABOLIC PANEL 40847 SODIUM 140 mm ol/L 08/10/2019 [facility] [address] [address] COMPREHENSIVE METABOLIC PANEL 11755 POTASSIUM 4.2 mm ol/L 08/10/2019 [facility] [address] [address] COMPREHENSIVE METABOLIC PANEL 00907 CHLORIDE 105 mm ol/L 08/10/2019 [facility] [address] [address] COMPREHENSIVE METABOLIC PANEL 68712 CARBON DIOXIDE 28 mmol/L 08/10/2019 [facility] [address] [address] COMPREHENSIVE METABOLIC PANEL 02661 CALCIUM 9.3 mg /dL 08/10/2019 [facility] [address] [address] COMPREHENSIVE METABOLIC PANEL 28090 PROTEIN, TOTAL 6. 7 g/dL 08/10/2019 [facility] [address] [address] COMPREHENSIVE METABOLIC PANEL 92805 ALBUMIN 4.3 g/ dL 08/10/[address] [facility] [address] COMPREHENSIVE METABOLIC PANEL 85580 GLOBULIN 2.4 g/ dL(calc) 08/10/[address] [facility] [address] COMPREHENSIVE METABOLIC PANEL 46974 ALBUMIN/GLOBULIN RATIO 1.8 (calc) 08/10/[address] [facility] [address] COMPREHENSIVE METABOLIC PANEL 71906 BILIRUBIN, TOTAL 0.6 mg/dL 08/10/[address] [facility] [address] COMPREHENSIVE METABOLIC PANEL 33937 ALKALINE PHOSPHATASE 74 U/L 08/10/[address] [facility] [address] COMPREHENSIVE METABOLIC PANEL 64900 AST 21 U/L 08/10/[address] [facility] [address] COMPREHENSIVE METABOLIC PANEL 65391 ALT 15 U/L 08/10/[address] [facility] [address] COMPREHENSIVE METABOLIC 26415 AST 18 U/L 2018 Unknown COMPREHENSIVE METABOLIC 16385 ALT 12 U/L 2018 Unknown COMPREHENSIVE METABOLIC 58137 BUN 11 mg/dL 2018 Unknown COMPREHENSIVE METABOLIC 84724 ALBUMIN 4.6 g/dL 2018 Unknown COMPREHENSIVE METABOLIC 51173 CHLORIDE 106 mmol/L 02/14 Unknown COMPREHENSIVE METABOLIC 44417 Bili Total 0.9 mg/dL 02/14 Unknown COMPREHENSIVE METABOLIC 81090 ALK PHOS 76 U/L 2018 Unknown COMPREHENSIVE METABOLIC 34582 SODIUM 142 mmol/L 02/14 Unknown COMPREHENSIVE METABOLIC 25764 CREATININE 0.69 mg/dL 01/25 Unknown COMPREHENSIVE METABOLIC 71502 CALCIUM 9.5 mg/dL 2018 Unknown COMPREHENSIVE METABOLIC 23061 POTASSIUM 3.9 mmol/L 02/14 Unknown COMPREHENSIVE METABOLIC 95615 Total Protein 6.6 g/dL Unknown COMPREHENSIVE METABOLIC 10163 Glucose 86 mg/dL 2018 Unknown COMPREHENSIVE METABOLIC 51689 Bicarbonate 29 mmol/L 01/25 Unknown COMPREHENSIVE METABOLIC 14837 AGAP 7 mmol/L 2018 Unknown GFR CALC 5162224 GFR Non Afr Amr >60 mL/min 02/14/2019 Un known GFR CALC [id number] GFR Afr Amr >60 mL/min 02/14/2019 Unknow n [facility] 47006 Cholesterol 127 mg/dL 02/14/2019 Unkno wn [facility] 89887 Triglyceride 156 mg/dL 02/14/2019 Unkn own [facility] 77534 HDL CHOLESTEROL 45 mg/dL 02/14/2019 U nknown [facility] 13419 Chol/HDL Ratio 2.82 ratio 02/14/2019 U nknown [facility] 15598 NON-HDL Chol 82 mg/dL 02/14/2019 Unkn own [facility] 30918 LDL Cholesterol 51 mg/dL 02/14/2019 U nknown COMPREHENSIVE METABOLIC PANEL 76032 Glucose 88 mg/ dL 08/16/[address] [facility] [address] COMPREHENSIVE METABOLIC PANEL 88491 UREA NITROGEN (BUN) 11 mg/dL 08/16/[address] [facility] [address] COMPREHENSIVE METABOLIC PANEL 76422 CREATININE 0.70 m g/dL 08/16/[address] [facility] [address] COMPREHENSIVE METABOLIC PANEL 55047 eGFR NON-AFR. TRINIDADIAN 92 mL/min/1.73m2 08/16/[address] [facility] [address] COMPREHENSIVE METABOLIC PANEL 65795 eGFR 107 mL/min/1.73m2 08/16/[address] [facility] [address] COMPREHENSIVE METABOLIC PANEL 46539 BUN/CREATININE RATIO NOT APPLICABLE (calc) 08/16/[address] [facility] [address] COMPREHENSIVE METABOLIC PANEL 82676 SODIUM 140 mm ol/L 08/16/[address] [facility] [address] COMPREHENSIVE METABOLIC PANEL 60881 POTASSIUM 4.0 mm ol/L 08/16/[address] [facility] [address] COMPREHENSIVE METABOLIC PANEL 82852 CHLORIDE 104 mm ol/L 08/16/[address] [facility] [address] COMPREHENSIVE METABOLIC PANEL 30104 CARBON DIOXIDE 29 mmol/L 08/16/2018 [facility] [address] [address] COMPREHENSIVE METABOLIC PANEL 33415 CALCIUM 9.4 mg /dL 08/16/2018 [facility] [address] [address] COMPREHENSIVE METABOLIC PANEL 29335 PROTEIN, TOTAL 6. 7 g/dL 08/16/2018 [facility] [address] [address] COMPREHENSIVE METABOLIC PANEL 25380 ALBUMIN 4.4 g/ dL 08/16/2018 [facility] [address] [address] COMPREHENSIVE METABOLIC PANEL 67934 GLOBULIN 2.3 g/ dL(calc) 08/16/2018 [facility] [address] [address] COMPREHENSIVE METABOLIC PANEL 54874 ALBUMIN/GLOBULIN RATIO 1.9 (calc) 08/16/2018 [facility] [address] [address] COMPREHENSIVE METABOLIC PANEL 92734 BILIRUBIN, TOTAL 0.8 mg/dL 08/16/2018 [facility] [address] [address] COMPREHENSIVE METABOLIC PANEL 59410 ALKALINE PHOSPHATASE 72 U/L 08/16/2018 [facility] [address] [address] COMPREHENSIVE METABOLIC PANEL 69703 AST 19 U/L 08/16/2018 [facility] [address] [address] COMPREHENSIVE METABOLIC PANEL 30913 ALT 12 U/L 08/16/2018 [facility] [address] [address] LIPID PANEL 66320 CHOLESTEROL, TOTAL 228 mg/dL 08/16 [facility] [address] [address] LIPID PANEL 98670 HDL CHOLESTEROL 42 mg/dL 08/16/20 18 [facility] [address] [address] LIPID PANEL 52373 TRIGLYCERIDES 175 mg/dL 08/16/2018 [facility] [address] [address] LIPID PANEL 78277 LDL-CHOLESTEROL 155 mg/dL(calc) [facility] [address] [place] [address] LIPID PANEL 47889 CHOL/HDLC RATIO 5.4 (calc) 08/16/20 [facility] [place] [address] [place] [address] LIPID PANEL 42885 NON HDL CHOLESTEROL 186 mg/dL(calc) 08/16/2018 [facility] [place] [address] [place] [address] EXTRA LAVENDER-TOP TUBE XLKS EXTRA LAVENDER-TOP TUBE 08/16/2018 [facility] [address] [place] [address] EXTRA LAVENDER-TOP TUBE XLKS COMMENT 1 10/16/2017 [facility] [place] [address] Procedures Procedure Codes Date URINALYSIS, COMPLETE CPT-4: 12361 09/10/2019 URINALYSIS NONAUTO W/O SCOPE CPT-4: 98584 08/27/2019 CULTURE, URINE, ROUTINE CPT-4: 395 08/15/2019 URINALYSIS NONAUTO W/O SCOPE CPT-4: 40908 08/15/2019 SHINGRIX HZV VACC RECOMBINANT IM CPT-4: 27781 019 IMMUNIZATION ADMIN CPT-4: 63059 08/15/2019 COMPREHENSIVE METABOLIC PANEL CPT-4: 86561 08/09/2019 LIPID PANEL CPT-4: 37913 08/09/2019 ROUTINE VENIPUNCTURE CPT-4: 92532 08/09/2019 EXTRA LAVENDER-TOP TUBE CPT-4: XLKS 08/09/2019 ROUTINE VENIPUNCTURE CPT-4: 38643 02/14/2019 COMPREHEN METABOLIC PANEL CPT-4: 73608 02/14/2019 LIPID PANEL CPT-4: 19266 02/14/2019 ROUTINE VENIPUNCTURE CPT-4: 30617 08/15/2018 COMPREHENSIVE METABOLIC PANEL CPT-4: 85179 08/15/2018 EXTRA LAVENDER-TOP TUBE CPT-4: XLKS 08/15/2018 LIPID PANEL CPT-4: 25090 08/15/2018 IIV4 VACCINE 3 YRS+ IM AND UP CPT-4: 35788 07/03/2018 IMMUNIZATION ADMIN CPT-4: 15449 07/03/2018 SPECIMEN HANDLING OFFICE-LAB CPT-4: 54577 03/02/2018 OCCULT BLOOD FECES CPT-4: 80391 03/02/2018 THER/PROPH/DIAG INJ SC/IM CPT-4: 94506 11/03/2017 TRIAMCINOLONE ACET INJ NOS CPT-4: J3301 11/03/2017 INFLUENZA ASSAY W/OPTIC CPT-4: 34754 10/27/2017 THER/PROPH/DIAG INJ SC/IM CPT-4: 61905 10/27/2017 TRIAMCINOLONE ACET INJ NOS CPT-4: J3301 10/27/2017 THER/PROPH/DIAG INJ SC/IM CPT-4: 84615 04/23/2016 TRIAMCINOLONE ACET INJ NOS CPT-4: J3301 [...] 1: 126/70 Code: 8480-6 BMI: 26.7 Code: 31218-6 Heart Rate 1: 68 bpm Height: 5'6" Respiratory Rate: 18 bpm SpO2: 97% Tempera ture: 36.6 (C) / 97.9 (F) Weight: 168 lbs 08/15/2018 Blood Pressure 1: 122/78 Code: 8480-6 BMI: 25.9 Code: 57949-0 Heart Rate 1: 72 bpm Height: 5'6" Respiratory Rate: 20 bpm SpO2: 97% Tempera ture: 36.7 (C) / 98.0 (F) Weight: 163 lbs 03/02/2018 Blood Pressure 1: 126/74 Code: 8480-6 BMI: 26.1 Code: 07668-2 Heart Rate 1: 76 bpm Height: 5'6" Respiratory Rate: 20 bpm SpO2: 98% Tempera ture: 36.6 (C) / 97.8 (F) Weight: 164 lbs 11/03/2017 Blood Pressure 1: 124/82 Code: 8480-6 BMI: 25.3 Code: 13319-8 Heart Rate 1: 90 bpm Height: 5'6" Respiratory Rate: 22 bpm SpO2: 98% Tempera ture: 36.9 (C) / 98.4 (F) Weight: 159 lbs 10/27/2017 Blood Pressure 1: 122/84 Code: 8480-6 BMI: 25.6 Code: 91855-8 Heart Rate 1: 90 bpm Height: 5'6" Respiratory Rate: 22 bpm SpO2: 97% Tempera ture: 36.1 (C) / 97.0 (F) Weight: 161 lbs 08/11/2017 Blood Pressure 1: 132/76 Code: 8480-6 BMI: 26.4 Code: 62787-3 Heart Rate 1: 72 bpm Height: 5'6" Respiratory Rate: 20 bpm Temperature: 36 .6 (C) / 97.8 (F) Weight: 166 lbs 05/23/2017 Blood Pressure 1: 126/72 Code: 8480-6 BMI: 26.1 Code: 35953-1 Heart Rate 1: 72 bpm Height: 5'6" Respiratory Rate: 20 bpm SpO2: 98% Tempera ture: 37.1 (C) / 98.8 (F) Weight: 164 lbs 03/10/2017 Blood Pressure 1: 124/72 Code: 8480-6 BMI: 26.1 Code: 67139-3 Heart Rate 1: 92 bpm Height: 5'6" Respiratory Rate: 20 bpm SpO2: 97% Tempera ture: 37.2 (C) / 98.9 (F) Weight: 164 lbs 08/30/2016 Blood Pressure 1: 142/82 Code: 8480-6 BMI: 25.6 Code: 20856-8 Heart Rate 1: 72 bpm Height: 5'6" Respiratory Rate: 20 bpm Temperature: 36 .6 (C) / 97.9 (F) Weight: 161 lbs 06/01/2016 Blood Pressure 1: 156/88 Code: 8480-6 BMI: 26.4 Code: 52486-7 Heart Rate 1: 70 bpm Height: 5'6" Respiratory Rate: 18 bpm SpO2: 97% Tempera ture: 36.6 (C) / 97.8 (F) Weight: 166 lbs 04/30/2016 Blood Pressure 1: 122/70 Code: 8480-6 Heart Rate 1: 10 2 bpm Height: Respiratory Rate: 24 bpm SpO2: 95% Temperature: 36.4 (C) / 97.6 (F) We ight: 04/23/2016 Blood Pressure 1: 152/76 Code: 8480-6 BMI: 26.5 Code: 07720-7 Heart Rate 1: 106 bpm Height: 5'7" Respiratory Rate: 24 bpm SpO2: 96% Tempera ture: 36.8 (C) / 98.2 (F) Weight: 169 lbs 04/08/2016 Blood Pressure 1: 116/68 Code: 8480-6 BMI: 27.4 Code: 40802-4 Heart Rate 1: 76 bpm Height: 5'6" [...] R31.9] [facility] CPT-4: 60943 09/10/2019 ([id number]) OFFICE/OUTPATIENT VISIT EST Diagnosis: Hematuria[ICD10: R31.9] Chio Orebeckyirene CHAVEZCHIO MalathiHugo [facility] CPT-4: 52392 08/27/2019 ([id number]) PREV VISIT EST AGE 40-64 Diagnosis: Urinary tract infection[ICD10: N39.0] Diagnosis: Encounter for general adult medical examination without abnormal findings[ICD10: Z00.00] Diagnosis: Essential (primary) hypertension[ICD10: I10] Diagnosis: Mixed hyperlipidemia[ICD10: E78.2] Diagnosis: VACCIN FOR DISEASE NEC (HPV or Zostavax)[ICD10: Z23] Chio Sarthakjeimy MORTENSEN MalathiHugo [facility] CPT-4: 11570 08/15/2019 ([id number]) NURSE/OUTPATIENT VISIT EST Diagnosis: Mixed hyperlipidemia[ICD10: E78.2] Diagnosis: Essential (primary) hypertension[ICD10: I10] Chio Sarthakjeimy MORTENSEN Mal[facility] CPT-4: 68899 08/09/2019 ([id number]) OFFICE/OUTPATIENT VISIT EST Diagnosis: Mixed hyperlipidemia[ICD10: E78.2] Diagnosis: Other specified counseling[ICD10: Z71.89] Chioradha MORTENSEN MalathiHugo [facility] CPT-4: 36267 02/14/2019 ([id number]) OFFICE/OUTPATIENT VISIT EST Diagnosis: Mixed hyperlipidemia[ICD10: E78.2] Chio BALLARD SHugo [facility] CPT-4: 06304 08/15/2018 ([id number]) NURSE/OUTPATIENT VISIT EST Diagnosis: FLU VACCINE[ICD10: Z23] Chio MORTENSEN MalathiHugo [facility] CPT-4: 33963 07/03/2018 ([id number]) PREV VISIT EST AGE 40-64 Diagnosis: Encounter for general adult medical examination without abnormal findings[ICD10: Z00.00] Diagnosis: Encounter for gynecological examination (general) (routine) without abnormal findings[ICD10: Z01.419] Chio Mancini SARTHAKWARREN R [facility] CPT-4: 70808 03/02/2018 OFFICE/OUTPATIENT VISIT EST Diagnosis: Pneumonia, unspecified organism[ICD10: J18.9] Shaniqua Sara POST [facility] CPT-4: 65068 11/03/2017 OFFICE/OUTPATIENT VISIT EST Diagnosis: Influenza due to other identified influenza virus with other respiratory manifestations[ICD10: J10.1] Diagnosis: Acute bronchitis, unspecified[ICD10: J20.9] Shaniqua POST DO [facility] CPT-4: 69590 10/27/2017 ([id number]) OFFICE/OUTPATIENT VISIT EST Diagnosis: Mixed hyperlipidemia[ICD10: E78.2] Chio BALLARD SHugo DE LEÓNNDIRENE [facility] CPT-4: 61064 08/11/2017 ([id number]) PREV VISIT EST AGE 40-64 Diagnosis: Encounter for general adult medical examination without abnormal findings[ICD10: Z00.00] Diagnosis: Mixed hyperlipidemia[ICD10: E78.2] Chio DE LENÓNDIRENE [facility] CPT-4: 92521 05/23/2017 ([id number]) OFFICE/OUTPATIENT VISIT EST Diagnosis: Essential (primary) hypertension[ICD10: I10] Diagnosis: Mixed hyperlipidemia[ICD10: E78.2] Chio BALLARD SHugo POST [facility] CPT-4: 13963 03/10/2017 ([id number]) OFFICE/OUTPATIENT VISIT EST Diagnosis: Mixed hyperlipidemia[ICD10: E78.2] Diagnosis: Essential (primary) hypertension[ICD10: I10] Chio POST [facility] CPT-4: 33993 08/30/2016 ([id number]) OFFICE/OUTPATIENT VISIT EST Diagnosis: Mixed hyperlipidemia[ICD10: E78.2] Ale BALLARD S. SARTHAKNDER [facility] CPT-4: 26860 06/01/2016 ([id number]) OFFICE/OUTPATIENT VISIT EST Diagnosis: Strain of muscle, fascia and tendon of lower back, subsequent encounter[ICD10: S39.012D] Diagnosis: Sciatica, left side[ICD10: M54.32] Ale CHAVEZJOSE M NELLIE S. SARTHAKNDER [facility] CPT-4: 76609 04/30/2016 ([id number]) OFFICE/OUTPATIENT VISIT EST Diagnosis: Strain of muscle, fascia and tendon of lower back, initial encounter[ICD10: S39.012A] Diagnosis: Sciatica, left side[ICD10: M54.32] Ale Becerra KAVITHA POST [facility] CPT-4: 99076 04/23/2016 ([id number]) PREV VISIT NEW AGE 40-64 Diagnosis: Encounter for general adult medical examination without abnormal findings[ICD10: Z00.00] Diagnosis: Plantar fascial fibromatosis[ICD10: M72.2] Chio POST [facility] CPT-4: 90111 04/08/2016 Plan of Care Planned Activity Notes Codes Status Date Visit Diagnosis Plan: Hematuria Discussion: Hold crest or No NSAIDs Push fluids/water Recheck urine microscopy in 2weeks and if still with microscopic blood then will need urology eval and cystoscope ICD-9 : 599.70 ICD-10 : R31.9 08/27/2019 Appointment: Chio Post WPtel: [address] [place] [address] ACUTE ILLNESS 08/27/2019 Visit Diagnosis Plan: Encounter for gene [facility] adult medical examination without abnormal findings Discussion: [...] : E78.2 08/15/2019 Appointment: Chio Post WPtel: [address] [place], [place] [phone] confirmed 08/09/19-- does not need reminder call Annual Well Visit 08/15/2019 Appointment: Chio Post WPtel: [address] [place], [place] [phone] 08/15/19 1330---added to office visit with Dr kwon (elsy) CANCELED 08/15/2019 Appointment: Chio Post WPtel: [address] [place] [address] US LAB 08/09/2019 Visit Diagnosis Plan: Mixed [...] : Z71.89 02/14/2019 Appointment: Chio Post WPtel: [address] [place] [address] FOLLOW UP 02/14/2019 Visit Diagnosis Plan: Mixed hyperlipidemia Discussion: Check CMP, Lipids Recommend Shingrix Had flu shot ICD-9 : 272.2 ICD-10 : E78.2 08/15/2018 Appointment: Chio Post WPtel: [address] [place] [address] FOLLOW UP 08/15/2018 Appointment: Chio Post WPtel: [address] [place] [address] US INJECTION 07/03/2018 Patient Education: Patient Medication [...] : Z00.00 03/02/2018 Appointment: Chio Post WPtel: [address] [place] [address] Annual Well Visit 03/02/2018 Patient Education: Patient Medication Summary Completed 03/02/2018 Appointment: Chio Post WPtel: [phone] [phone] RESCHEDULED 02/08/2018 Visit Diagnosis Plan: Pneumonia, unspecified [...] ICD-10 : J18.9 11/03/2017 Appointment: Shaniqua Ruiz [address] [place] [address] ACUTE ILLNESS 11/03/2017 Patient Education: Patient Medication [...] ICD-10 : J10.1 10/27/2017 Appointment: Shaniqua Ruiz [address] [place] [address] ACUTE ILLNESS 10/27/2017 Patient Education: Patient Medication Summary Completed 10/27/2017 Visit Diagnosis Plan: Mixed hyperlipidemia Discussion: Hold on statins due to side effects 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 then check CMP, Lipids and fwup ICD-9 : 272.2 ICD-10 : E78.2 08/11/2017 Appointment: Chio Post WPtel: [phone] [id number] MEDICATION REVIEW 08/11/2017 Patient Education: Patient Medication Summary Completed 08/11/2017 Visit Diagnosis Plan: Mixed hyperlipidemia Discussion: Continue lipitor and check lipids with LFTs next month ICD-9 : 272.2 ICD-10 : E78.2 05/23/2017 Visit Diagnosis Plan: Encounter for gene [facility] adult medical examination without abnormal findings Discussion: Will update lab next month D efers mammogram until next year--normal mammogram last year Pap due next year Tdap 3 yrs ago Colonoscopy up to date Discussed zostavax--will check on coverage ICD-9 : V70.9 ICD-10 : Z00.00 05/23/2017 Appointment: Chio Post WPtel: [address] [place] [address] Annual Well Visit 05/23/2017 Patient Education: Patient Medication Summary Completed 05/23/2017 Visit Diagnosis Plan: Mixed hyperlipidemia Discussion: Check CMP, Lipids ICD-9 : 272.2 ICD-10 : E78.2 03/10/2017 Visit Diagnosis Plan: Essential (primary) hypertension Follow Up: 6 months ICD-9 : 401.9 ICD-10 : I10 03/10/2017 Appointment: [facility]: [address] [place] [address] 03/09 confimed ~sl CHECK UP 03/10/2017 Patient Education: Patient Medication Summary Completed 03/10/2017 Appointment: [facility]: [address] [place] [address] 02/03 rescheduled ~sl RESCHEDULED 02/28/2017 Visit Plan: Lab discussed Continue lifes tyle modification Check full fasting lab in 6mos Monitor BP 1-2 times a week at home Discussed adding weights or yoga/sriram chi 3 times a week 08/30/2016 Appointment: [facility]: [address] [place] [address] 08/26 lm`sl...confirmed~lb FOLLOW UP 08/30 Patient Education: Patient Medication Summary Completed 08/30/2016 Patient Education: Patient Medication Summary Completed 08/26/2016 Care Plan: COMPREHEN METABOLIC PANEL NINFA NC : 67926-9 Pending 08/26/2016 Care Plan: LIPID PANEL LOINC : 00561-3 Pending 08/26/2016 Visit Plan: Patient is very [...] fenofibrate possibly 06/01/2016 [facility] [address] [facility] [id number] 05/27 confirmed ~sl FOLLOW UP 06/01/2016 Patient [...] App[facility]ment[facility] [address] [facility] [id number] FOLLOW UP 04/30/2016 Patient Education: Patient Medication [...] with tramadol 04/23/2016 [facility] [id number] [place] Follow UP 04/23/2016 Patient Education: Patient Medication Summary Completed 04/23/2016 Visit Plan: Continue inserts and stretch es for plantar fascia Add Vivlodex Return in 2-3 weeks for injection if pain persists Check Fasting Lab Update Mammogram 04/08/2016 Appointment: [facility]: [address] [place], [place] [id number] 04/07 confirmed ~sl NEW PATIENT 04/08/2016 Patient Education: Patient Medication Summary Completed 04/08/2016 Patient Education: [facility] - Saving AutoInj - 18-64 - Dynamic [...]
--- OUTSIDE RECORDS SUMMARY | 2020-02-26 21:14 | XMS REPORT | CCD ---
Author Author Carola Post D.O. Organization [facility] Address [address] [place] [address] Phone Care Team Providers Care Parking Meter Installer Name Role Phone Chio Post D.O., PP Unavailable CCM Unavailable Summary Purpose Interface Exchange Insurance Providers Payer name Policy type / Coverage type Covered libertarian ID Effective Begin Date Effective End Date zhiwo Insurance [id number] Unknown Family history Grandfather Diagnosis Age At Onset Cancer Unknown Social History Social History Element Codes Description Effective Dates Marital status Unknown 04/08/2016 Number of children Unknown 3 04/08/2016 Employment Unknown Currently employed [employer] 04/08/[address]: 018933246 Has never smoked or chewed tobacco 04/08/[address]: 345217 Currently drinks alcohol 04/08 Frequency of drinks SNOMED CT: 025208310 Drinks rarely 016 Has the patient ever [...] Fill Instructions Aleve 220 mg tablet RxNorm: 342642 Tablet(s) Oral as needed 019 No Stop Date Active Fish Oil 360 mg-1,200 mg capsule RxNorm: 1 Capsule(s) Or al two times a day 08/15/2019 No Stop Date Active Macrobid 100 mg capsule RxNorm: 446005 1 Capsule(s) Oral two ti mes a day 08/15/2019 08/22/2019 Inactive Crestor 5 mg tablet RxNorm: 434765 1/2 Tablet(s) PO twice a week 04/10/2019 Inactive Crestor 5 mg tablet RxNorm: 352101 1 Tablet(s) PO Tues, Thurs, Sat and Sun and 1/2 tablet (2.5mg) on Mon, Tue and Tue03/05/2019 03/11/2019 Inactive Crestor 5 mg tablet RxNorm: 096445 1 Tablet(s) PO QD 02/07/201903/05 Inactive Crestor 5 mg tablet RxNorm: 986478 1 Tablet(s) PO QD re check labwork in 6 months 08/21/2018 08/20/2018 Inactive Crestor 5 mg tablet RxNorm: 173498 1 Tablet(s) PO QD re check labwork in 6 months 08/21/2018 02/06/2019 Inactive Ventolin HFA 90 mcg/actuation aerosol inhaler RxNorm: 823619 2 Puff(s) INH Q4H as needed 11/03/2017 03/01/2018 Inactive please switch to proair if ventolin is not covered. thanks! Levaquin 500 mg tablet RxNorm: 503232 1 Tablet(s) PO QD 11/03/2017 Inactive Zithromax Z-Talat 250 mg tablet RxNorm: 900164 Tablet(s) PO 10/27/2017 03/01/2018 Inactive Lipitor 10 mg tablet RxNorm: 532028 1 TABLET(S) PO QD REPLACES PRAVASTATIN 06/08/2017 08/10/2017 Inactive Lipitor 10 mg tablet RxNorm: 640391 1 Tablet(s) PO QD replaces Pravastatin 03/16/2017 06/07/2017 Inactive pravastatin 10 mg tablet RxNorm: 728346 1 Tablet(s) PO QD 03/15/2017 03/14/2017 Inactive pravastatin 10 mg tablet RxNorm: 641673 1 Tablet(s) PO QD 03/15/2017 03/15/2017 Inactive Zorvolex 35 mg capsule RxNorm: 4860680 1 Capsule(s) PO TID HOLD MELOXICAM 05/03/2016 06/01/2016 Inactive Zorvolex 35 mg capsule RxNorm: 0555112 1 Capsule(s) PO TID HOLD MELOXICAM 04/30/2016 05/02/2016 Inactive prednisone 20 mg tablet RxNorm: 857329 1 Tablet(s) PO B ID and then decrease to 1 tab PO QD x 5 days 04/30/2016 05/04/2016 Inactive cyclobenzaprine 10 mg tablet RxNorm: 099367 1 Tablet(s) PO TID as needed for muscle spasm 04/23/2016 08/29/2016 Inactive pravastatin 20 mg tablet RxNorm: 555932 1 Tablet(s) PO QD 04/14/2016 08/29/2016 Inactive Vivlodex 10 mg capsule RxNorm: 6915316 1 Capsule(s) PO QD 04/08/2016 05/07/2016 Inactive Co Q-10 300 mg capsule RxNorm: 826987 1 Capsule(s) PO QD No Start Date Active Vitamin D3 5,000 unit tablet RxNorm: 100389 1 Tablet(s) PO QD No Star t Date Active melatonin 5 mg tablet RxNorm: 361277 1 Tablet(s) PO QHS as needed N o Start Date Active Multivitamin & Mineral Formula tablet RxNorm: 1 Tablet(s) PO Q D No Start Date Active Fish Oil 1,000 mg capsule RxNorm: 2 Capsule(s) PO QD No Start Date 08/29/2016 Inactive Metamucil 0.4 gram capsule RxNorm: 9694145 2 Capsule(s) PO BID No S tart Date 02/13/2019 Inactive Vitamin D3 2,000 unit tablet RxNorm: 126217 1 Tablet(s) PO QD No St art Date 03/26/2019 Inactive Lipitor 10 mg tablet RxNorm: 658785 1 Tablet(s) PO QD No Start Date 0 03/15/2017 Inactive Crestor 5 mg tablet RxNorm: 362150 1 Tablet(s) PO Tu, Th, Sat and Sun and 1/2 tablet (2.5mg) on Mon, Wed and Fri No Start Date 03/04/2019 Inactive Calcium with Vitamin D 600 mg (1,500 mg)-400 unit tablet RxN orm: 093480 1 Tablet(s) PO QD No Start Date 03/01/2018 Inactive krill oil 1,000 mg-170 mg-50 mg-80 mg capsule RxNorm: 1 Capsule(s) PO BID No Start Date 08/14/2019 Inactive Co Q-10 200 mg capsule RxNorm: 702840 1 Capsule(s) PO QD No Start D ate 03/01/2018 Inactive Co Q-10 oral RxNorm: 05591 oral No Start Date 07/24/2017 Inactive oxycodone-acetaminophen 5 mg-325 mg tablet RxNorm: 3413726 1 Tab let(s) PO Q6H No Start Date 08/29/2016 Inactive Krill Oil ([place] 3 and 6) oral RxNorm: 36903 oral No Start Date 02/13/2019 Inactive Flexeril 10mg tablet RxNorm: 1 Tablet(s) PO Q8H No Start Date 12/2015 Inactive Vitamin D3 1,000 unit tablet RxNorm: 755343 1 Tablet(s) PO QD No St art Date 03/11/2019 Inactive Medication Administered No Medication Administered data Immunizations Vaccine Codes Date Status Zoster Unknown 08/15/2019 Complete Influenza CVX: 141 07/03/2018 Complete Results Observation Observation Code Item Item Code Result Date S ervice Location CULTURE, URINE, ROUTINE 395 CULTURE, URINE, ROUTINE SEE NOTE 08/16/2019 [facility] [place] [address] [place] [phone] EXTRA LAVENDER-TOP TUBE XLKS EXTRA LAVENDER-TOP TUBE 08/10/2019 Mary Jane [place] [id number] [place] [phone] EXTRA LAVENDER-TOP TUBE XLKS COMMENT 1 10/10/2018 Mary Jane [place] [address] [place] [address] LIPID PANEL 71357 CHOLESTEROL, TOTAL 180 mg/dL 08/10 Mary Jane [place] [address] [place] [address] LIPID PANEL 56135 HDL CHOLESTEROL 35 mg/dL 08/10/20 19 Mary Jane [place] [address] [place] [address] LIPID PANEL 92644 TRIGLYCERIDES 200 mg/dL 08/10/2019 Mary Jane [place] [address] [place] [address] LIPID PANEL 17192 LDL-CHOLESTEROL 113 mg/dL(calc) Mary Jane [place] [address] [place] [address] LIPID PANEL 29630 CHOL/HDLC RATIO 5.1 (calc) 08/10/20 19 Mary Jane [place] [address] [place] [address] LIPID PANEL 77486 NON HDL CHOLESTEROL 145 mg/dL(calc) 08/10/2019 Mary Jane Khan [place] [address] [place] [address] COMPREHENSIVE METABOLIC PANEL 61159 Glucose 86 mg/ dL 08/10/2019 [facility] [address] [address] COMPREHENSIVE METABOLIC PANEL 42364 UREA NITROGEN (BUN) 11 mg/dL 08/10/2019 [facility] [address] [address] COMPREHENSIVE METABOLIC PANEL 16425 CREATININE 0.71 m g/dL 08/10/2019 [facility] [address] [address] COMPREHENSIVE METABOLIC PANEL 13028 eGFR NON-AFR. CANADIAN 90 mL/min/1.73m2 08/10/2019 [facility] [address] [address] COMPREHENSIVE METABOLIC PANEL 13351 eGFR 104 mL/min/1.73m2 08/10/2019 [facility] [address] [address] COMPREHENSIVE METABOLIC PANEL 64287 BUN/CREATININE RATIO NOT APPLICABLE (calc) 08/10/2019 [facility] [address] [address] COMPREHENSIVE METABOLIC PANEL 16615 SODIUM 140 mm ol/L 08/10/2019 [facility] [address] [address] COMPREHENSIVE METABOLIC PANEL 67788 POTASSIUM 4.2 mm ol/L 08/10/2019 [facility] [address] [address] COMPREHENSIVE METABOLIC PANEL 49511 CHLORIDE 105 mm ol/L 08/10/2019 [facility] [address] [address] COMPREHENSIVE METABOLIC PANEL 57084 CARBON DIOXIDE 28 mmol/L 08/10/2019 [facility] [address] [address] COMPREHENSIVE METABOLIC PANEL 85595 CALCIUM 9.3 mg /dL 08/10/2019 [facility] [address] [address] COMPREHENSIVE METABOLIC PANEL 90683 PROTEIN, TOTAL 6. 7 g/dL 08/10/2019 [facility] [address] [address] COMPREHENSIVE METABOLIC PANEL 27953 ALBUMIN 4.3 g/ dL 08/10/[address] [address] COMPREHENSIVE METABOLIC PANEL 52291 GLOBULIN 2.4 g/ dL(calc) 08/10/[address] [facility] [address] COMPREHENSIVE METABOLIC PANEL 36120 ALBUMIN/GLOBULIN RATIO 1.8 (calc) 08/10/[address] [facility] [address] COMPREHENSIVE METABOLIC PANEL 37422 BILIRUBIN, TOTAL 0.6 mg/dL 08/10/[address] [address] COMPREHENSIVE METABOLIC PANEL 65974 ALKALINE PHOSPHATASE 74 U/L 08/10/[address] [address] COMPREHENSIVE METABOLIC PANEL 75258 AST 21 U/L 08/10/[address] [address] COMPREHENSIVE METABOLIC PANEL 89540 ALT 15 U/L 08/10/[address] [address] COMPREHENSIVE METABOLIC 77211 AST 18 U/L 2018 Unknown COMPREHENSIVE METABOLIC 12559 ALT 12 U/L 2018 Unknown COMPREHENSIVE METABOLIC 82533 BUN 11 mg/dL 2018 Unknown COMPREHENSIVE METABOLIC 05089 ALBUMIN 4.6 g/dL 2018 Unknown COMPREHENSIVE METABOLIC 53891 CHLORIDE 106 mmol/L 02/14 Unknown COMPREHENSIVE METABOLIC 87778 Bili Total 0.9 mg/dL 02/14 Unknown COMPREHENSIVE METABOLIC 57277 ALK PHOS 76 U/L 2018 Unknown COMPREHENSIVE METABOLIC 41576 SODIUM 142 mmol/L 02/14 Unknown COMPREHENSIVE METABOLIC 78778 CREATININE 0.69 mg/dL 01/25 Unknown COMPREHENSIVE METABOLIC 89882 CALCIUM 9.5 mg/dL 2018 Unknown COMPREHENSIVE METABOLIC 71204 POTASSIUM 3.9 mmol/L 02/14 Unknown COMPREHENSIVE METABOLIC 44715 Total Protein 6.6 g/dL Unknown COMPREHENSIVE METABOLIC 08473 Glucose 86 mg/dL 2018 Unknown COMPREHENSIVE METABOLIC 12695 Bicarbonate 29 mmol/L 01/25 Unknown COMPREHENSIVE METABOLIC 81371 AGAP 7 mmol/L 2018 Unknown GFR CALC 6100886 GFR Non Afr Amr >60 mL/min 02/14/2019 Un known GFR CALC [id number] GFR Afr Amr >60 mL/min 02/14/2019 [facility]know n [facility] 56604 Cholesterol 127 mg/dL 02/14/2019 Unkno wn [facility] 26567 Triglyceride 156 mg/dL 02/14/2019 Unkn own [facility] 74479 HDL CHOLESTEROL 45 mg/dL 02/14/2019 U nknown [facility] 58681 Chol/HDL Ratio 2.82 ratio 02/14/2019 U nknown [facility] 38505 NON-HDL Chol 82 mg/dL 02/14/2019 Unkn own [facility] 72213 LDL Cholesterol 51 mg/dL 02/14/2019 U nknown COMPREHENSIVE METABOLIC PANEL 71800 Glucose 88 mg/ dL 08/16/[address] [facility] [address] COMPREHENSIVE METABOLIC PANEL 95179 UREA NITROGEN (BUN) 11 mg/dL 08/16/[address] [address] COMPREHENSIVE METABOLIC PANEL 70611 CREATININE 0.70 m g/dL 08/16/[address] [address] COMPREHENSIVE METABOLIC PANEL 72844 eGFR NON-AFR. CANADIAN 92 mL/min/1.73m2 08/16/[address] [facility] [address] COMPREHENSIVE METABOLIC PANEL 51803 eGFR 107 mL/min/1.73m2 08/16/[address] [address] COMPREHENSIVE METABOLIC PANEL 41282 BUN/CREATININE RATIO NOT APPLICABLE (calc) 08/16/[address] [address] COMPREHENSIVE METABOLIC PANEL 19285 SODIUM 140 mm ol/L 08/16/[address] [facility] [address] COMPREHENSIVE METABOLIC PANEL 20505 POTASSIUM 4.0 mm ol/L 08/16/[address] [facility] [address] COMPREHENSIVE METABOLIC PANEL 73959 CHLORIDE 104 mm ol/L 08/16/[address] [address] COMPREHENSIVE METABOLIC PANEL 34320 CARBON DIOXIDE 29 mmol/L 08/16/2018 [facility] [address] [address] COMPREHENSIVE METABOLIC PANEL 96611 CALCIUM 9.4 mg /dL 08/16/2018 [facility] [address] [address] COMPREHENSIVE METABOLIC PANEL 56183 PROTEIN, TOTAL 6. 7 g/dL 08/16/2018 [facility] [address] [address] COMPREHENSIVE METABOLIC PANEL 58158 ALBUMIN 4.4 g/ dL 08/16/2018 [facility] [address] [address] COMPREHENSIVE METABOLIC PANEL 12581 GLOBULIN 2.3 g/ dL(calc) 08/16/2018 [facility] [address] [address] COMPREHENSIVE METABOLIC PANEL 83071 ALBUMIN/GLOBULIN RATIO 1.9 (calc) 08/16/2018 [facility] [address] [address] COMPREHENSIVE METABOLIC PANEL 42991 BILIRUBIN, TOTAL 0.8 mg/dL 08/16/2018 [facility] [address] [address] COMPREHENSIVE METABOLIC PANEL 27008 ALKALINE PHOSPHATASE 72 U/L 08/16/2018 [facility] [address] [address] COMPREHENSIVE METABOLIC PANEL 38387 AST 19 U/L 08/16/2018 [facility] [address] [address] COMPREHENSIVE METABOLIC PANEL 68323 ALT 12 U/L 08/16/2018 [facility] [address] [address] LIPID PANEL 99268 CHOLESTEROL, TOTAL 228 mg/dL 08/16 [facility] [address] [address] LIPID PANEL 81420 HDL CHOLESTEROL 42 mg/dL 08/16/20 18 [facility] [address] [address] LIPID PANEL 76546 TRIGLYCERIDES 175 mg/dL 08/16/2018 [facility] [address] [address] LIPID PANEL 72637 LDL-CHOLESTEROL 155 mg/dL(calc) [facility] [address] [place] [address] LIPID PANEL 95917 CHOL/HDLC RATIO 5.4 (calc) 08/16/20 [facility] [place] [address] [place] [address] LIPID PANEL 69359 NON HDL CHOLESTEROL 186 mg/dL(calc) 08/16/2018 [facility] [place] [address] [place] [address] EXTRA LAVENDER-TOP TUBE XLKS EXTRA LAVENDER-TOP TUBE 08/16/2018 [facility] [address] [place] [address] EXTRA LAVENDER-TOP TUBE XLKS COMMENT 1 10/16/2017 [facility] [place] [address] Procedures Procedure Codes Date URINALYSIS, COMPLETE CPT-4: 25580 09/10/2019 URINALYSIS NONAUTO W/O SCOPE CPT-4: 00843 08/27/2019 CULTURE, URINE, ROUTINE CPT-4: 395 08/15/2019 URINALYSIS NONAUTO W/O SCOPE CPT-4: 11775 08/15/2019 SHINGRIX HZV VACC RECOMBINANT IM CPT-4: 92984 019 IMMUNIZATION ADMIN CPT-4: 97141 08/15/2019 COMPREHENSIVE METABOLIC PANEL CPT-4: 92653 08/09/2019 LIPID PANEL CPT-4: 19446 08/09/2019 ROUTINE VENIPUNCTURE CPT-4: 54906 08/09/2019 EXTRA LAVENDER-TOP TUBE CPT-4: XLKS 08/09/2019 ROUTINE VENIPUNCTURE CPT-4: 28499 02/14/2019 COMPREHEN METABOLIC PANEL CPT-4: 88507 02/14/2019 LIPID PANEL CPT-4: 23594 02/14/2019 ROUTINE VENIPUNCTURE CPT-4: 80508 08/15/2018 COMPREHENSIVE METABOLIC PANEL CPT-4: 88285 08/15/2018 EXTRA LAVENDER-TOP TUBE CPT-4: XLKS 08/15/2018 LIPID PANEL CPT-4: 29828 08/15/2018 IIV4 VACCINE 3 YRS+ IM AND UP CPT-4: 49942 07/03/2018 IMMUNIZATION ADMIN CPT-4: 73851 07/03/2018 SPECIMEN HANDLING OFFICE-LAB CPT-4: 30019 03/02/2018 OCCULT BLOOD FECES CPT-4: 06844 03/02/2018 THER/PROPH/DIAG INJ SC/IM CPT-4: 98714 11/03/2017 TRIAMCINOLONE ACET INJ NOS CPT-4: J3301 11/03/2017 INFLUENZA ASSAY W/OPTIC CPT-4: 15139 10/27/2017 THER/PROPH/DIAG INJ SC/IM CPT-4: 32988 10/27/2017 TRIAMCINOLONE ACET INJ NOS CPT-4: J3301 10/27/2017 THER/PROPH/DIAG INJ SC/IM CPT-4: 72558 04/23/2016 TRIAMCINOLONE ACET INJ NOS CPT-4: J3301 [...] 1: 126/70 Code: 8480-6 BMI: 26.7 Code: 98115-4 Heart Rate 1: 68 bpm Height: 5'6" Respiratory Rate: 18 bpm SpO2: 97% Tempera ture: 36.6 (C) / 97.9 (F) Weight: 168 lbs 08/15/2018 Blood Pressure 1: 122/78 Code: 8480-6 BMI: 25.9 Code: 61840-4 Heart Rate 1: 72 bpm Height: 5'6" Respiratory Rate: 20 bpm SpO2: 97% Tempera ture: 36.7 (C) / 98.0 (F) Weight: 163 lbs 03/02/2018 Blood Pressure 1: 126/74 Code: 8480-6 BMI: 26.1 Code: 29856-8 Heart Rate 1: 76 bpm Height: 5'6" Respiratory Rate: 20 bpm SpO2: 98% Tempera ture: 36.6 (C) / 97.8 (F) Weight: 164 lbs 11/03/2017 Blood Pressure 1: 124/82 Code: 8480-6 BMI: 25.3 Code: 78118-6 Heart Rate 1: 90 bpm Height: 5'6" Respiratory Rate: 22 bpm SpO2: 98% Tempera ture: 36.9 (C) / 98.4 (F) Weight: 159 lbs 10/27/2017 Blood Pressure 1: 122/84 Code: 8480-6 BMI: 25.6 Code: 84061-5 Heart Rate 1: 90 bpm Height: 5'6" Respiratory Rate: 22 bpm SpO2: 97% Tempera ture: 36.1 (C) / 97.0 (F) Weight: 161 lbs 08/11/2017 Blood Pressure 1: 132/76 Code: 8480-6 BMI: 26.4 Code: 74489-6 Heart Rate 1: 72 bpm Height: 5'6" Respiratory Rate: 20 bpm Temperature: 36 .6 (C) / 97.8 (F) Weight: 166 lbs 05/23/2017 Blood Pressure 1: 126/72 Code: 8480-6 BMI: 26.1 Code: 26282-5 Heart Rate 1: 72 bpm Height: 5'6" Respiratory Rate: 20 bpm SpO2: 98% Tempera ture: 37.1 (C) / 98.8 (F) Weight: 164 lbs 03/10/2017 Blood Pressure 1: 124/72 Code: 8480-6 BMI: 26.1 Code: 06905-4 Heart Rate 1: 92 bpm Height: 5'6" Respiratory Rate: 20 bpm SpO2: 97% Tempera ture: 37.2 (C) / 98.9 (F) Weight: 164 lbs 08/30/2016 Blood Pressure 1: 142/82 Code: 8480-6 BMI: 25.6 Code: 76925-1 Heart Rate 1: 72 bpm Height: 5'6" Respiratory Rate: 20 bpm Temperature: 36 .6 (C) / 97.9 (F) Weight: 161 lbs 06/01/2016 Blood Pressure 1: 156/88 Code: 8480-6 BMI: 26.4 Code: 00098-7 Heart Rate 1: 70 bpm Height: 5'6" Respiratory Rate: 18 bpm SpO2: 97% Tempera ture: 36.6 (C) / 97.8 (F) Weight: 166 lbs 04/30/2016 Blood Pressure 1: 122/70 Code: 8480-6 Heart Rate 1: 10 2 bpm Height: Respiratory Rate: 24 bpm SpO2: 95% Temperature: 36.4 (C) / 97.6 (F) We ight: 04/23/2016 Blood Pressure 1: 152/76 Code: 8480-6 BMI: 26.5 Code: 59154-5 Heart Rate 1: 106 bpm Height: 5'7" Respiratory Rate: 24 bpm SpO2: 96% Tempera ture: 36.8 (C) / 98.2 (F) Weight: 169 lbs 04/08/2016 Blood Pressure 1: 116/68 Code: 8480-6 BMI: 27.4 Code: 73730-0 Heart Rate 1: 76 bpm Height: 5'6" [...] R31.9] [facility] CPT-4: 61869 09/10/2019 ([id number]) OFFICE/OUTPATIENT VISIT EST Diagnosis: Hematuria[ICD10: R31.9] Chio Orebeckyirene CHAVEZCHIO MalathiHugo [facility] CPT-4: 93084 08/27/2019 ([id number]) PREV VISIT EST AGE 40-64 Diagnosis: Urinary tract infection[ICD10: N39.0] Diagnosis: Encounter for general adult medical examination without abnormal findings[ICD10: Z00.00] Diagnosis: Essential (primary) hypertension[ICD10: I10] Diagnosis: Mixed hyperlipidemia[ICD10: E78.2] Diagnosis: VACCIN FOR DISEASE NEC (HPV or Zostavax)[ICD10: Z23] Chio Sarthakjeimy MORTENSEN Malathi[facility] CPT-4: 86604 08/15/2019 ([id number]) NURSE/OUTPATIENT VISIT EST Diagnosis: Mixed hyperlipidemia[ICD10: E78.2] Diagnosis: Essential (primary) hypertension[ICD10: I10] Chio Sarthakjeimy MORTENSEN [facility] CPT-4: 30860 08/09/2019 ([id number]) OFFICE/OUTPATIENT VISIT EST Diagnosis: Mixed hyperlipidemia[ICD10: E78.2] Diagnosis: Other specified counseling[ICD10: Z71.89] Chioradha MORTENSEN MalathiHugo [facility] CPT-4: 30566 02/14/2019 ([id number]) OFFICE/OUTPATIENT VISIT EST Diagnosis: Mixed hyperlipidemia[ICD10: E78.2] Chio BALLARD SHugo [facility] CPT-4: 36587 08/15/2018 ([id number]) NURSE/OUTPATIENT VISIT EST Diagnosis: FLU VACCINE[ICD10: Z23] Chio MORTENSEN MalathiHugo [facility] CPT-4: 73252 07/03/2018 ([id number]) PREV VISIT EST AGE 40-64 Diagnosis: Encounter for general adult medical examination without abnormal findings[ICD10: Z00.00] Diagnosis: Encounter for gynecological examination (general) (routine) without abnormal findings[ICD10: Z01.419] Chio Mancini SARTHAKWARREN R [facility] CPT-4: 07602 03/02/2018 OFFICE/OUTPATIENT VISIT EST Diagnosis: Pneumonia, unspecified organism[ICD10: J18.9] Shaniqua Sara POST [facility] CPT-4: 21283 11/03/2017 OFFICE/OUTPATIENT VISIT EST Diagnosis: Influenza due to other identified influenza virus with other respiratory manifestations[ICD10: J10.1] Diagnosis: Acute bronchitis, unspecified[ICD10: J20.9] Shaniqua [facility] CPT-4: 45228 10/27/2017 ([id number]) OFFICE/OUTPATIENT VISIT EST Diagnosis: Mixed hyperlipidemia[ICD10: E78.2] Chio BALLARD SHugo DE LEÓNNDIRENE [facility] CPT-4: 82684 08/11/2017 ([id number]) PREV VISIT EST AGE 40-64 Diagnosis: Encounter for general adult medical examination without abnormal findings[ICD10: Z00.00] Diagnosis: Mixed hyperlipidemia[ICD10: E78.2] Chio DE LEÓNNDIRENE [employer] CPT-4: 57683 05/23/2017 ([id number]) OFFICE/OUTPATIENT VISIT EST Diagnosis: Essential (primary) hypertension[ICD10: I10] Diagnosis: Mixed hyperlipidemia[ICD10: E78.2] Chio BALLARD SHugo POST [facility] CPT-4: 52131 03/10/2017 ([id number]) OFFICE/OUTPATIENT VISIT EST Diagnosis: Mixed hyperlipidemia[ICD10: E78.2] Diagnosis: Essential (primary) hypertension[ICD10: I10] Chio POST [facility] CPT-4: 99996 08/30/2016 ([id number]) OFFICE/OUTPATIENT VISIT EST Diagnosis: Mixed hyperlipidemia[ICD10: E78.2] Ale BALLARD S. SARTHAKNDER [facility] CPT-4: 89122 06/01/2016 ([id number]) OFFICE/OUTPATIENT VISIT EST Diagnosis: Strain of muscle, fascia and tendon of lower back, subsequent encounter[ICD10: S39.012D] Diagnosis: Sciatica, left side[ICD10: M54.32] Ale CHAVEZJOSE M NELLIE S. SARTHAKNDER [facility] CPT-4: 74020 04/30/2016 ([id number]) OFFICE/OUTPATIENT VISIT EST Diagnosis: Strain of muscle, fascia and tendon of lower back, initial encounter[ICD10: S39.012A] Diagnosis: Sciatica, left side[ICD10: M54.32] Ale Becerra KAVITHA POST [employer] CPT-4: 72392 04/23/2016 ([id number]) PREV VISIT NEW AGE 40-64 Diagnosis: Encounter for general adult medical examination without abnormal findings[ICD10: Z00.00] Diagnosis: Plantar fascial fibromatosis[ICD10: M72.2] Chio POST [employer] CPT-4: 26443 04/08/2016 Plan of Care Planned Activity Notes Codes Status Date Visit Diagnosis Plan: Hematuria Discussion: Hold crest or No NSAIDs Push fluids/water Recheck urine microscopy in 2weeks and if still with microscopic blood then will need urology eval and cystoscope ICD-9 : 599.70 ICD-10 : R31.9 08/27/2019 Appointment: Chio Post WPtel: [address] [place] [address] ACUTE ILLNESS 08/27/2019 Visit Diagnosis Plan: Encounter for [facility] adult medical examination without abnormal findings Discussion: [...] E78.2 08/15/2019 Appointment: Chio Post WPtel: [address] [place], [place] [phone] confirmed 08/09/19-- does not need reminder call Annual Well Visit 08/15/2019 Appointment: Chio Post WPtel: [address] [place], [place] [phone] 08/15/19 1330---added to office visit with Dr kwon (elsy) CANCELED 08/15/2019 Appointment: Chio Post WPtel: [address] [place] [address] US LAB 08/09/2019 Visit Diagnosis Plan: Mixed [...] : Z71.89 02/14/2019 Appointment: Chio Post WPtel: [address] [place] [address] FOLLOW UP 02/14/2019 Visit Diagnosis Plan: Mixed hyperlipidemia Discussion: Check CMP, Lipids Recommend Shingrix Had flu shot ICD-9 : 272.2 ICD-10 : E78.2 08/15/2018 Appointment: Chio Post WPtel: [address] [place] [address] FOLLOW UP 08/15/2018 Appointment: Chio Post WPtel: [address] [place] [address] US INJECTION 07/03/2018 Patient Education: Patient Medication [...] : Z00.00 03/02/2018 Appointment: Chio Post WPtel: [address] [place] [address] Annual Well Visit 03/02/2018 Patient Education: Patient Medication Summary Completed 03/02/2018 Appointment: Chio Post WPtel: [phone] [id number] RESCHEDULED 02/08/2018 Visit Diagnosis Plan: [...] ICD-10 : J18.9 11/03/2017 Appointment: Shaniqua Ruiz [address] [place] [address] ACUTE ILLNESS 11/03/2017 Patient Education: Patient Medication [...] ICD-10 : J10.1 10/27/2017 Appointment: Shaniqua Ruiz [address] [place] [address] ACUTE ILLNESS 10/27/2017 Patient Education: Patient Medication Summary Completed 10/27/2017 Visit Diagnosis Plan: Mixed hyperlipidemia Discussion: Hold on statins due to side effects Lifestyle meter changes 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 then check CMP, Lipids and fwup ICD-9 : 272.2 ICD-10 : E78.2 08/11/2017 Appointment: Chio Post WPtel: [phone] [id number] MEDICATION REVIEW 08/11/2017 Patient Education: Patient Medication Summary Completed 08/11/2017 Visit Diagnosis Plan: Mixed hyperlipidemia Discussion: Continue lipitor and check lipids with LFTs next month ICD-9 : 272.2 ICD-10 : E78.2 05/23/2017 Visit Diagnosis Plan: Encounter for gene [facility] adult medical examination without abnormal findings Discussion: Will update lab next month D efers mammogram until next year--normal mammogram last year Pap due next year Tdap 3 yrs ago Colonoscopy up to date Discussed zostavax--will check on coverage ICD-9 : V70.9 ICD-10 : Z00.00 05/23/2017 Appointment: Chio Post WPtel: [address] [place] [address] Annual Well Visit 05/23/2017 Patient Education: Patient Medication Summary Completed 05/23/2017 Visit Diagnosis Plan: Mixed hyperlipidemia Discussion: Check CMP, Lipids ICD-9 : 272.2 ICD-10 : E78.2 03/10/2017 Visit Diagnosis Plan: Essential (primary) hypertension Follow Up: 6 months ICD-9 : 401.9 ICD-10 : I10 03/10/2017 Appointment: [facility]: [address] [place] [address] 03/09 confimed ~sl CHECK UP 03/10/2017 Patient Education: Patient Medication Summary Completed 03/10/2017 Appointment: [facility]: [address] [place] [address] 02/03 rescheduled ~sl RESCHEDULED 02/28/2017 Visit Plan: Lab discussed Continue lifes tyle modification Check full fasting lab in 6mos Monitor BP 1-2 times a week at home Discussed adding weights or yoga/sriram chi 3 times a week 08/30/2016 Appointment: [facility] W[facility]: [address] [place] [address] 08/26 lm`sl...confirmed~lb FOLLOW UP 08/30 Patient Education: Patient Medication Summary Completed 08/30/2016 Patient Education: Patient Medication Summary Completed 08/26/2016 Care Plan: COMPREHEN METABOLIC PANEL NINFA NC : 68363-4 Pending 08/26/2016 Care Plan: LIPID PANEL LOINC : 96900-7 Pending 08/26/2016 Visit Plan: Patient is very anxious abou t going back on any medication for her lipids right now Stressed diet and exercise changes she can try Continue higher dose of fish oil she is now taking Can recheck lipids and cmp in 3 months If not much better, will need rx started - discussed trying fenofibrate possibly 06/01/2016 [facility]ment[phone] [id number] 05/27 confirmed ~sl FOLLOW UP 06/01/2016 Patient [...] if negative) 04/30/2016 Appointment: [phone] [id number] FOLLOW UP 04/30/2016 Patient Education: Patient Medication Summary Completed 04/30/2016 Visit Plan: Steroid injection given toda y Muscle relaxer as well Continue daily meloxicam Start weaning back on oxycodone Can replace oxycodone dosing with otc tylenol Advised topical pain relievers, heat/ice, etc If oxycodone runs completely out and patient still needs some, can call for refill to pickler helper or could consider replacing with tramadol 04/23/2016 Appointment: [facility] [place] [id number] [place] Follow UP 04/23/2016 Patient Education: Patient Medication Summary Completed 04/23/2016 Visit Plan: Continue inserts and stretch es for plantar fascia Add Vivlodex Return in 2-3 weeks for injection if pain persists Check Fasting Lab Update Mammogram 04/08/2016 Appointment: [facility]io [facility] W[facility]: [address] [place], [place] [id number] 04/07 confirmed ~sl NEW PATIENT 04/08/2016 Patient Education: Patient Medication Summary Completed 04/08/2016 Patient Education: [facility] - Saving AutoInj - 18-64 - [...] needs some, can call for refill to pickler helper or could consider replacing with tramadol . [...]
--- OUTSIDE RECORDS SUMMARY | 2020-02-26 21:14 | XMS REPORT | CCD ---
Author Author Carola Post D.O. 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 Unknown Has never used illegal drugs 016 Allergies, Adverse Reactions, Alerts Substance Reaction Codes Entered Date Inactivated Date Status * NO KNOWN FOOD MECHE RGIES Unknown 04/08/2016 No Inactive Date Active * NO KNOWN ENVIRONME NTAL ALLERGIES Unknown 04/08/2016 No Inactive Date Active * NO KNOWN DRUG MECHE RGIES Unknown 04/08/2016 No Inactive Date Active Past Medical History Illness Codes Condition Status Onset Date Resolved Date Mixed hyperlipidemia ICD-9: 272.2 ICD-10: E78.2 Active 08/29/2016 Unknown Other specified coun seling ICD-9: V65.49 ICD-10: Z71.89 Active 02/14/2019 Unknown FLU VACCINE ICD-9: V04.81 ICD-10: Z23 Active 07/03/2018 Unknown Encounter for genera l adult medical examination without abnormal findings ICD-9: V70.9 ICD-10: Z00.00 Active 04/07/2016 Unknown Encounter for gyneco logical examination (general) (routine) without abnormal findings ICD-9: V72.31 ICD-10: Z01.419 Active 03/02/2018 Unknown Pneumonia, unspecifi ed organism ICD-9: 486 ICD-10: J18.9 Active 11/03/2017 Unknown Acute bronchitis, un specified ICD-9: 490 ICD-10: J20.9 Active 10/27/2017 Unknown Influenza due to oth er identified influenza virus with other respiratory manifestations ICD-9: 487.1 ICD-10: J10.1 Active 10/27/2017 Unknown Essential (primary) hypertension ICD-9: 401.9 ICD-10: I10 Active 08/29/2016 Unknown Hypertension Unknown Active 03/10/2017 Unknow n Sciatica, left side ICD- 9: 724.3 ICD-10: M54.32 Active 04/29/2016 Unknown Strain of muscle, fa scia and tendon of lower back, subsequent encounter ICD-9: V58.89 ICD-10: S39.012D Active 04/29/2016 Unknown Strain of muscle, fa scia and tendon of lower back, initial encounter ICD-9: 847.2 ICD-10: S39.012A Active 04/22/2016 Unknown Plantar fascial fibr omatosis ICD-9: 728.71 ICD-10: M72.2 Active 04/07/2016 Unknown Problems Condition Codes Effectiv e Dates Condition Status Mixed hyperlipidemia ICD-9: 272.2 ICD-10: E78.2 08/29/2016 Active Other specified coun seling ICD-9: V65.49 ICD-10: Z71.89 02/14/2019 Active FLU VACCINE ICD-9: V04.81 ICD-10: Z23 07/03/2018 Active Encounter for genera l adult medical examination without abnormal findings ICD-9: V70.9 ICD-10: Z00.00 04/07/2016 Active Encounter for gyneco logical examination (general) (routine) without abnormal findings ICD-9: V72.31 ICD-10: Z01.419 03/02/2018 Active Pneumonia, unspecifi ed organism ICD-9: 486 ICD-10: J18.9 11/03/2017 Active Acute bronchitis, un specified ICD-9: 490 ICD-10: J20.9 10/27/2017 Active Influenza due to oth er identified influenza virus with other respiratory manifestations ICD-9: 487.1 ICD-10: J10.1 10/27/2017 Active Essential (primary) hypertension ICD-9: 401.9 ICD-10: I10 08/29/2016 Active Hypertension Unknown 03/10/2017 Active Sciatica, left side ICD- 9: 724.3 ICD-10: M54.32 04/29/2016 Active Strain of muscle, fa scia and tendon of lower back, subsequent encounter ICD-9: V58.89 ICD-10: S39.012D 04/29/2016 Active Strain of muscle, fa scia and tendon of lower back, initial encounter ICD-9: 847.2 ICD-10: S39.012A 04/22/2016 Active Plantar fascial fibr omatosis ICD-9: 728.71 ICD-10: M72.2 04/07/2016 Active Medications Medication Codes Instruc tions Start Date Stop Date Sta tus Fill Instructions Crestor 5 mg tablet RxNorm: 789795 1/2 Tablet(s) PO twice a week 03/12/2019 04/10/2019 In active Crestor 5 mg tablet RxNorm: 738786 1 Tablet(s) PO Tues, Thurs, Sat and Sun and 1/2 tablet (2.5mg) on Mon, Wed and Tue03/05/2019 03/11/2019 Inactive Crestor 5 mg tablet RxNorm: 808023 1 Tablet(s) PO QD 02/07/2019 03/05/2019 Inactive Crestor 5 mg tablet RxNorm: 039541 1 Tablet(s) PO QD recheck labwork in 6 m [facility] 08/21/2018 08/20/2018 Inactive Crestor 5 mg tablet RxNorm: 885227 1 Tablet(s) PO QD recheck labwork in 6 m [facility] 08/21/2018 02/06/2019 Inactive Ventolin HFA 90 mcg/ actuation aerosol inhaler RxNorm: 962371 2 Puff(s) INH Q4H as needed 11/03/2017 03/01/2018 Inactive please switch to proair if ventolin is not covered. thanks! Levaquin 500 mg tablet RxNorm: 820998 1 Tablet(s) PO QD 11/03/2017 11/09/2017 Inactive Zithromax Z-Talat 250 mg tablet RxNorm: 091748 Tablet(s) PO 10/27/2017 03/01/2018 Inactive Lipitor 10 mg tablet RxNorm: 263568 1 TABLET(S) PO QD REPLACES PRAVASTATIN 06/08/2017 08/10/2017 In active Lipitor 10 mg tablet RxNorm: 643416 1 Tablet(s) PO QD replaces Pravastatin 03/16/2017 06/07/2017 In active pravastatin 10 mg ta blet RxNorm: 452567 1 Tablet(s) PO QD 03/15/2017 03/14/2017 Inactive pravastatin 10 mg ta blet RxNorm: 812422 1 Tablet(s) PO QD 03/15/2017 03/15/2017 Inactive Zorvolex 35 mg capsule RxNorm: 3686104 1 Capsule(s) PO TID HOLD MELOXICAM 05/03/2016 06/01/2016 In active Zorvolex 35 mg capsule RxNorm: 6584278 1 Capsule(s) PO TID HOLD MELOXICAM 04/30/2016 05/02/2016 In active prednisone 20 mg tablet RxNorm: 730699 1 Tablet(s) PO BID and then decrease to 1 tab PO QD x 5 days 04/30/2016 05/04/2016 Inactive cyclobenzaprine 10 m g tablet RxNorm: 488130 1 Tablet(s) PO TID as needed for muscle spasm 04/23/2016 08/29/2016 Inactive pravastatin 20 mg ta blet RxNorm: 755452 1 Tablet(s) PO QD 04/14/2016 08/29/2016 Inactive Vivlodex 10 mg capsule RxNorm: 7427097 1 Capsule(s) PO QD 04/08/2016 05/07/2016 Inactive Co Q-10 300 mg capsule RxNorm: 377111 1 Capsule(s) PO QD No Start Date Active krill oil 1,000 mg-1 70 mg-50 mg-80 mg capsule RxNorm: 1 Capsule(s) PO BID No Start Date Active Vitamin D3 5,000 uni t tablet RxNorm: 734765 1 Tablet(s) PO QD No Start Date Active melatonin 5 mg tablet RxNorm: 631385 1 Tablet(s) PO QHS as needed No Start Date Active Multivitamin & [employer] al Formula tablet RxNorm: 1 Tablet(s) PO QD No Start Date Active Fish Oil 1,000 mg ca psule RxNorm: 2 Capsule(s) PO QD No Start Date 08/29/2016 Inactive Metamucil 0.4 gram c apsule RxNorm: 6342486 2 Capsule(s) PO BID No Start Date 02/13/2019 Inactive Vitamin D3 2,000 uni t tablet RxNorm: 409866 1 Tablet(s) PO QD No Start Date 03/26/2019 Inactive Lipitor 10 mg tablet RxNorm: 846600 1 Tablet(s) PO QD No Start Date 03/15/2017 Inactive Crestor 5 mg tablet RxNorm: 733434 1 Tablet(s) PO Tues, Th, Sat and Sun and 1/2 tablet (2.5mg) on Mon, Wed and Tue No Start Date 03/04/2019 Inactive Calcium with Vitamin D 600 mg (1,500 mg)-400 unit tablet RxNorm: 057695 1 Tablet(s) PO QD No Start Date 03/01/2018 Inactive Co Q-10 200 mg capsule RxNorm: 242547 1 Capsule(s) PO QD No Start Date 03/01/2018 Inactive Co Q-10 oral RxNorm: 60600 oral No Start Date 07/24/2017 Inactive oxycodone-acetaminop hen 5 mg-325 mg tablet RxNorm: 7200489 1 Tablet(s) PO Q6H No Start Date 08/29/2016 Inactive Krill Oil (Calvin 3 a nd 6) oral RxNorm: [address] art Date 02/13/2019 Inactive Flexeril 10mg tablet RxNorm: 1 Tablet(s) PO Q8H No Start Date 08/29/2016 Inactive Vitamin D3 1,000 uni t tablet RxNorm: 240000 1 Tablet(s) PO QD No Start Date 03/11/2019 Inactive Medication Administered No Medication Administered data Immunizations Vaccine Codes Date Status Influenza CVX: 141 07/03 completed Assessments Condition Codes Effectiv e Dates Mixed hyperlipidemia ICD-10: E78.2 ICD-9: 272.2 02/14/2019 Other specified counseling ICD-10: Z 71.89 ICD-9: V65.49 02/14/2019 FLU VACCINE ICD-10: Z23 ICD-9: V04.81 07/03/2018 Encounter for general adult medical exam ination without abnormal findings ICD-10: Z00.00 ICD-9: V70.9 03/02/2018 Encounter for gynecological examination (general) (routine) without abnormal findings ICD-10: Z01.419 ICD-9: V72.31 03/02/2018 Pneumonia, unspecified organism ICD- 10: J18.9 ICD-9: 486 11/03/2017 Influenza due to other identified influe nza virus with other respiratory manifestations ICD-10: J10.1 ICD-9: 487.1 10/27/2017 Acute bronchitis, unspecified ICD-10 : J20.9 ICD-9: 490 10/27/2017 Essential (primary) hypertension ICD -10: I10 ICD-9: 401.9 03/10/2017 Strain of muscle, fascia and tendon of l ower back, subsequent encounter ICD-10: S39.012D ICD-9: V58.89 04/30/2016 Sciatica, left side ICD-10: M54.32 ICD-9: 724.3 04/30/2016 Strain of muscle, fascia and tendon of l ower back, initial encounter ICD-10: S39.012A ICD-9: 847.2 04/23/2016 Plantar fascial fibromatosis ICD-10: M72.2 ICD-9: 728.71 04/08/2016 Reason For Visit Reason For Visit Effective Dates Notes follow up 02/14/2019 follow up 08/15/2018 injection(s) 07/03/2018 requesting flu shot well woman exam (40-65 years) 03/02/2018 Due for mammogram, patient unsure if ever had bone density, colonoscopy at age 54 follow up 11/03/2017 fatigue 10/27/2017 hyperlipidemia 08/11/2017 hyperlipidemia 05/23/2017 follow up 03/10/2017 follow up 08/30/2016 follow up 06/01/2016 Pat ient states the legs are the worst of it follow up 04/30/2016 Pat ient has stopped the Oxycodone and is now Extra Strength Tylenol with stretches follow up 04/23/2016 ER visit from 04/16/2016 for persistent lower back/hip pain. ~generic 04/08/2016 New Patient---establishing visit Results Observation Observation Code Item Item Code Result Date COMPREHENSIVE METABOLIC 64131 AST 18 U/L 02/14/2019 COMPREHENSIVE METABOLIC 93868 ALT 12 U/L 02/14/2019 COMPREHENSIVE METABOLIC 79814 BUN 11 mg/dL 02/14/2019 COMPREHENSIVE METABOLIC 33583 ALBUMIN 4.6 g/dL 02/14/2019 COMPREHENSIVE METABOLIC 02929 CHLORIDE 106 mmol/L 02/14/2019 COMPREHENSIVE METABOLIC 58124 Bili Total 0.9 mg/dL 02/14/2019 COMPREHENSIVE METABOLIC 27892 ALK PHOS 76 U/L 02/14/2019 COMPREHENSIVE METABOLIC 07108 SODIUM 142 mmol/L 02/14/2019 COMPREHENSIVE METABOLIC 42821 CREATININE 0.69 mg/dL 02/14/2019 COMPREHENSIVE METABOLIC 42511 CALCIUM 9.5 mg/dL 02/14/2019 COMPREHENSIVE METABOLIC 77243 POTASSIUM 3.9 mmol/L 02/14/2019 COMPREHENSIVE METABOLIC 67281 Total Protein 6.6 g/dL 02/14/2019 COMPREHENSIVE METABOLIC 28177 Glucose 86 mg/dL 02/14/2019 COMPREHENSIVE METABOLIC 26176 Bicarbonate 29 mmol/L 02/14/2019 COMPREHENSIVE METABOLIC 19994 AGAP 7 mmol/L 02/14/2019 GFR CALC 7404453 GFR Non Afr Amr >60 mL/min 02/14/2019 GFR CALC 8192320 GFR Afr Amr >60 mL/min 02/14/2019 LIPID GROUP 69990 Choles terol 127 mg/dL 02/14/2019 LIPID GROUP 00613 Trigly ceride 156 mg/dL 02/14/2019 LIPID GROUP 24655 HDL CH OLESTEROL 45 mg/dL 02/14/2019 LIPID GROUP 57046 Chol/H DL Ratio 2.82 ratio 02/14/2019 LIPID GROUP 06014 NON-HD L Chol 82 mg/dL 02/14/2019 LIPID GROUP 45643 LDL Ch olesterol 51 mg/dL 02/14/2019 COMPREHENSIVE METABOLIC PANEL 62911 Glucose 88 mg/dL 08/16/2018 COMPREHENSIVE METABOLIC PANEL 51673 UREA NITROGEN (BUN) 11 mg/dL 08/16/2018 COMPREHENSIVE METABOLIC PANEL 07567 CREATININE 0.70 mg/dL 08/16/2018 COMPREHENSIVE METABOLIC PANEL 99413 eGFR NON-AFR. EMIRATI 92 mL/min/1.73m2 08/16/2018 COMPREHENSIVE METABOLIC PANEL 14021 eGFR 107 mL/min/1.73m2 08/16/2018 COMPREHENSIVE METABOLIC PANEL 71120 BUN/CREATININE RATIO NOT APPLICABLE (calc) 08/16/2018 COMPREHENSIVE METABOLIC PANEL 29121 SODIUM 140 mmol/L 08/16/2018 COMPREHENSIVE METABOLIC PANEL 86571 POTASSIUM 4.0 mmol/L 08/16/2018 COMPREHENSIVE METABOLIC PANEL 65998 CHLORIDE 104 mmol/L 08/16/2018 COMPREHENSIVE METABOLIC PANEL 45224 CARBON DIOXIDE 29 mmol/L 08/16/2018 COMPREHENSIVE METABOLIC PANEL 67443 CALCIUM 9.4 mg/dL 08/16/2018 COMPREHENSIVE METABOLIC PANEL 44685 PROTEIN, TOTAL 6.7 g/dL 8 COMPREHENSIVE METABOLIC PANEL 33335 ALBUMIN 4.4 g/dL 08/16/2018 COMPREHENSIVE METABOLIC PANEL 70975 GLOBULIN 2.3 g/dL(calc) 018 COMPREHENSIVE METABOLIC PANEL 97640 ALBUMIN/GLOBULIN RATIO 1.9 (calc) 08/16/2018 COMPREHENSIVE METABOLIC PANEL 19674 BILIRUBIN, TOTAL 0.8 mg/dL 08/16/2018 COMPREHENSIVE METABOLIC PANEL 94130 ALKALINE PHOSPHATASE 72 U/L 08/16/2018 COMPREHENSIVE METABOLIC PANEL 50348 AST 19 U/L 08/16/2018 COMPREHENSIVE METABOLIC PANEL 65342 ALT 12 U/L 08/16/2018 LIPID PANEL 17315 CHOLES TEROL, TOTAL 228 mg/dL 08/16/2018 LIPID PANEL 08101 HDL CH OLESTEROL 42 mg/dL 08/16/2018 LIPID PANEL 26779 TRIGLY CERIDES 175 mg/dL 08/16/2018 LIPID PANEL 66723 LDL-CH OLESTEROL 155 mg/dL(calc) 2017 LIPID PANEL 87423 CHOL/H [place] RATIO 5.4 (calc) 08/16/2018 LIPID PANEL 20782 NON HD L CHOLESTEROL 186 mg/dL(calc) 2017 EXTRA LAVENDER-TOP TUBE XLKS EXTRA LAVENDER- TOP TUBE 08/16/2018 EXTRA LAVENDER-TOP TUBE XLKS COMMENT 08/16/2018 Review of Systems System Result Effective Dates Cardiovascular No arrhythmia 02/14/2019 Cardiovascular No chest pain/pressure 02/14/2019 Cardiovascular No edema 02/14/2019 Cardiovascular No exercise intolerance 02/14/2019 Cardiovascular No orthopnea 02/14/2019 Cardiovascular No palpitations 02/14/2019 Endocrine hyperlipidemia 02/14/2019 Ears/Nose/Throat/Neck No hearing loss 08/15/2018 Ears/Nose/Throat/Neck No nasal discharge 08/15/2018 Ears/Nose/Throat/Neck No sinus congestion 08/15/2018 Ears/Nose/Throat/Neck No sore throat 08/15/2018 Cardiovascular No arrhythmia 08/15/2018 Cardiovascular No chest pain/pressure 08/15/2018 Cardiovascular No edema 08/15/2018 Cardiovascular No exercise intolerance 08/15/2018 Cardiovascular No orthopnea 08/15/2018 Cardiovascular No palpitations 08/15/2018 Respiratory No asthma Respiratory No cough Respiratory No dyspnea 1 10/15/2017 Respiratory No pleuritic pain 08/15/2018 Respiratory No productive sputum 08/15/2018 Respiratory No wheezing 08/15/2018 Gastrointestinal No hemorrhoids 08/15/2018 Gastrointestinal No hepatitis 08/15/2018 Gastrointestinal No abdominal pain 08/15/2018 Gastrointestinal No constipation 08/15/2018 Gastrointestinal No diarrhea 08/15/2018 Gastrointestinal No gastroesophageal reflu x 08/15/2018 Gastrointestinal No melena 08/15/2018 Gastrointestinal No nausea 08/15/2018 Gastrointestinal No vomiting 08/15/2018 Genitourinary/Nephrology No dysuria 08/15/2018 Genitourinary/Nephrology No nocturia 08/15/2018 Genitourinary/Nephrology No urinary incontinence 08/15/2018 Musculoskeletal No muscle weakness 08/15/2018 Musculoskeletal No myalgias 08/15/2018 Musculoskeletal No stiffness 08/15/2018 Musculoskeletal No swelling 08/15/2018 Dermatologic No rash Dermatologic No scar Neurologic No dizziness 08/15/2018 Neurologic No headache 10/15/2017 Neurologic No neck pain 08/15/2018 Neurologic No syncope Psychiatric No anxiety 1 10/15/2017 Psychiatric No depression 08/15/2018 Endocrine No goiter 07/28 Endocrine No hyperglycemia 08/15/2018 Endocrine No hypoglycemia 08/15/2018 Endocrine hyperlipidemia 08/15/2018 Constitutional No night sweats 03/02/2018 Constitutional No fatigue 03/02/2018 Constitutional No fever 03/02/2018 Constitutional No insomnia 03/02/2018 Constitutional No weight loss 03/02/2018 Eyes No eye pain 018 Eyes No photophobia 03/2018 Eyes No vision change Eyes No visual disturbance 03/02/2018 Ears/Nose/Throat/Neck No hearing loss 03/02/2018 Ears/Nose/Throat/Neck No nasal discharge 03/02/2018 Ears/Nose/Throat/Neck No sinus congestion 03/02/2018 Ears/Nose/Throat/Neck No sore throat 03/02/2018 Cardiovascular No arrhythmia 03/02/2018 Cardiovascular No chest pain/pressure 03/02/2018 Cardiovascular No edema 03/02/2018 Cardiovascular No exercise intolerance 03/02/2018 Cardiovascular No orthopnea 03/02/2018 Cardiovascular No palpitations 03/02/2018 Respiratory No asthma Respiratory No cough 03/2018 Respiratory No dyspnea 0 03/02/2018 Respiratory No pleuritic pain 03/02/2018 Respiratory No productive sputum 03/02/2018 Respiratory No wheezing 03/02/2018 Gastrointestinal No hemorrhoids 03/02/2018 Gastrointestinal No hepatitis 03/02/2018 Gastrointestinal No abdominal pain 03/02/2018 Gastrointestinal No constipation 03/02/2018 Gastrointestinal No diarrhea 03/02/2018 Gastrointestinal No gastroesophageal reflu x 03/02/2018 Gastrointestinal No melena 03/02/2018 Gastrointestinal No nausea 03/02/2018 Gastrointestinal No vomiting 03/02/2018 Genitourinary/Nephrology No dysuria 03/02/2018 Genitourinary/Nephrology No nocturia 03/02/2018 Genitourinary/Nephrology No urinary incontinence 03/02/2018 Musculoskeletal No muscle weakness 03/02/2018 Musculoskeletal No myalgias 03/02/2018 Musculoskeletal No stiffness 03/02/2018 Musculoskeletal No swelling 03/02/2018 Dermatologic No rash 03/2018 Dermatologic No scar 03/2018 Neurologic No dizziness 03/02/2018 Neurologic No headache 0 03/02/2018 Neurologic No neck pain 03/02/2018 Neurologic No syncope Psychiatric No anxiety 0 03/02/2018 Psychiatric No depression 03/02/2018 Endocrine No goiter 03/2018 Endocrine No hyperglycemia 03/02/2018 Endocrine No hypoglycemia 03/02/2018 Hematologic/Lymphatic No abnormal ec chymoses 03/02/2018 Hematologic/Lymphatic No petechiae 03/02/2018 Hematologic/Lymphatic No abnormal bl eeding and bruising 03/02/2018 Hematologic/Lymphatic No anemia 03/02/2018 Hematologic/Lymphatic No lymph node enlargement/mass 03/02/2018 Allergy/Immunology No food allergy 03/02/2018 Endocrine hyperlipidemia 03/02/2018 Constitutional No fever 11/03/2017 Constitutional No chills 11/03/2017 Constitutional fatigue 0 11/03/2017 Musculoskeletal myalgias 11/03/2017 Respiratory cough 2017 Respiratory chest congestion 11/03/2017 Respiratory chest tightness 11/03/2017 Respiratory dyspnea on exertion 11/03/2017 Ears/Nose/Throat/Neck No sore throat 11/03/2017 Ears/Nose/Throat/Neck voice change 11/03/2017 Ears/Nose/Throat/Neck otalgia 11/03/2017 Gastrointestinal No abdominal pain 11/03/2017 Gastrointestinal diarrhea 11/03/2017 Gastrointestinal No vomiting 11/03/2017 Gastrointestinal No nausea 11/03/2017 Dermatologic No rash 04/2018 Cardiovascular No chest pain/pressure 11/03/2017 Genitourinary/Nephrology No anuria/oliguri a 11/03/2017 Genitourinary/Nephrology No dysuria 11/03/2017 Gastrointestinal No abdominal pain 10/27/2017 Gastrointestinal vomiting 10/27/2017 Gastrointestinal No nausea 10/27/2017 Constitutional fever 09/2017 Constitutional fatigue 0 10/27/2017 Ears/Nose/Throat/Neck No sore throat 10/27/2017 Ears/Nose/Throat/Neck otalgia 10/27/2017 Respiratory No cough 09/2017 Musculoskeletal myalgias 10/27/2017 Ears/Nose/Throat/Neck headache 10/27/2017 Ears/Nose/Throat/Neck sinus congestion 10/27/2017 Ears/Nose/Throat/Neck sinusitis 10/27/2017 Neurologic headache 0209/2017 Endocrine hyperlipidemia 08/11/2017 Constitutional No night sweats 05/23/2017 Constitutional No fatigue 05/23/2017 Constitutional No fever 05/23/2017 Constitutional No insomnia 05/23/2017 Constitutional No weight loss 05/23/2017 Eyes No eye pain 017 Eyes No photophobia 04/27 Eyes No vision change Eyes No visual disturbance 05/23/2017 Ears/Nose/Throat/Neck No hearing loss 05/23/2017 Ears/Nose/Throat/Neck No nasal discharge 05/23/2017 Ears/Nose/Throat/Neck No sinus congestion 05/23/2017 Ears/Nose/Throat/Neck No sore throat 05/23/2017 Cardiovascular No arrhythmia 05/23/2017 Cardiovascular No chest pain/pressure 05/23/2017 Cardiovascular No edema 05/23/2017 Cardiovascular No exercise intolerance 05/23/2017 Cardiovascular No orthopnea 05/23/2017 Cardiovascular No palpitations 05/23/2017 Respiratory No asthma Respiratory No cough Respiratory No dyspnea 0 05/23/2017 Respiratory No pleuritic pain 05/23/2017 Respiratory No productive sputum 05/23/2017 Respiratory No wheezing 05/23/2017 Gastrointestinal No hemorrhoids 05/23/2017 Gastrointestinal No hepatitis 05/23/2017 Gastrointestinal No abdominal pain 05/23/2017 Gastrointestinal No constipation 05/23/2017 Gastrointestinal No diarrhea 05/23/2017 Gastrointestinal No gastroesophageal reflu x 05/23/2017 Gastrointestinal No melena 05/23/2017 Gastrointestinal No nausea 05/23/2017 Gastrointestinal No vomiting 05/23/2017 Genitourinary/Nephrology No dysuria 05/23/2017 Genitourinary/Nephrology No nocturia 05/23/2017 Genitourinary/Nephrology No urinary incontinence 05/23/2017 Musculoskeletal No muscle weakness 05/23/2017 Musculoskeletal No myalgias 05/23/2017 Musculoskeletal No stiffness 05/23/2017 Musculoskeletal No swelling 05/23/2017 Dermatologic No rash Dermatologic No scar Neurologic No dizziness 05/23/2017 Neurologic No headache 0 05/23/2017 Neurologic No neck pain 05/23/2017 Neurologic No syncope Psychiatric No anxiety 0 05/23/2017 Psychiatric No depression 05/23/2017 Endocrine No goiter 04/27 Endocrine No hyperglycemia 05/23/2017 Endocrine No hypoglycemia 05/23/2017 Hematologic/Lymphatic No abnormal ec chymoses 05/23/2017 Hematologic/Lymphatic No petechiae 05/23/2017 Hematologic/Lymphatic No abnormal bl eeding and bruising 05/23/2017 Hematologic/Lymphatic No anemia 05/23/2017 Hematologic/Lymphatic No lymph node enlargement/mass 05/23/2017 Allergy/Immunology No food allergy 05/23/2017 Cardiovascular hypertension 08/30/2016 Endocrine hyperlipidemia 08/30/2016 Constitutional No night sweats 06/01/2016 Constitutional No recent illness 06/01/2016 Constitutional No fatigue 06/01/2016 Constitutional No fever 06/01/2016 Constitutional No insomnia 06/01/2016 Constitutional No weight loss 06/01/2016 Cardiovascular No arrhythmia 06/01/2016 Cardiovascular No chest pain/pressure 06/01/2016 Cardiovascular No edema 06/01/2016 Cardiovascular No exercise intolerance 06/01/2016 Cardiovascular No orthopnea 06/01/2016 Cardiovascular No palpitations 06/01/2016 Respiratory No asthma Respiratory No cough 02/2016 Respiratory No dyspnea 0 06/01/2016 Respiratory No pleuritic pain 06/01/2016 Respiratory No productive sputum 06/01/2016 Respiratory No wheezing 06/01/2016 Gastrointestinal No hemorrhoids 06/01/2016 Gastrointestinal No hepatitis 06/01/2016 Gastrointestinal No abdominal pain 06/01/2016 Gastrointestinal No constipation 06/01/2016 Gastrointestinal No diarrhea 06/01/2016 Gastrointestinal No gastroesophageal reflu x 06/01/2016 Gastrointestinal No melena 06/01/2016 Gastrointestinal No nausea 06/01/2016 Gastrointestinal No vomiting 06/01/2016 Musculoskeletal No stiffness 06/01/2016 Musculoskeletal No swelling 06/01/2016 Musculoskeletal No muscle weakness 06/01/2016 Musculoskeletal No myalgias 06/01/2016 Dermatologic No rash 02/2016 Dermatologic No scar 02/2016 Psychiatric No anxiety 0 06/01/2016 Psychiatric No depression 06/01/2016 Hematologic/Lymphatic No abnormal ec chymoses 06/01/2016 Hematologic/Lymphatic No petechiae 06/01/2016 Hematologic/Lymphatic No abnormal bl eeding and bruising 06/01/2016 Hematologic/Lymphatic No anemia 06/01/2016 Hematologic/Lymphatic No lymph node enlargement/mass 06/01/2016 Constitutional No night sweats 04/30/2016 Constitutional No recent illness 04/30/2016 Constitutional No fatigue 04/30/2016 Constitutional No fever 04/30/2016 Constitutional No insomnia 04/30/2016 Constitutional No weight loss 04/30/2016 Cardiovascular No arrhythmia 04/30/2016 Cardiovascular No chest pain/pressure 04/30/2016 Cardiovascular No edema 04/30/2016 Cardiovascular No exercise intolerance 04/30/2016 Cardiovascular No orthopnea 04/30/2016 Cardiovascular No palpitations 04/30/2016 Respiratory No asthma Respiratory No cough 01/2016 Respiratory No dyspnea 0 04/30/2016 Respiratory No pleuritic pain 04/30/2016 Respiratory No productive sputum 04/30/2016 Respiratory No wheezing 04/30/2016 Gastrointestinal No hemorrhoids 04/30/2016 Gastrointestinal No hepatitis 04/30/2016 Gastrointestinal No abdominal pain 04/30/2016 Gastrointestinal No constipation 04/30/2016 Gastrointestinal No diarrhea 04/30/2016 Gastrointestinal No gastroesophageal reflu x 04/30/2016 Gastrointestinal No melena 04/30/2016 Gastrointestinal No nausea 04/30/2016 Gastrointestinal No vomiting 04/30/2016 Dermatologic No rash 01/2016 Dermatologic No scar 01/2016 Musculoskeletal sciatica 04/30/2016 Psychiatric No anxiety 0 04/30/2016 Psychiatric No depression 04/30/2016 Constitutional No night sweats 04/23/2016 Constitutional No recent illness 04/23/2016 Constitutional No fatigue 04/23/2016 Constitutional No fever 04/23/2016 Constitutional No insomnia 04/23/2016 Constitutional No weight loss 04/23/2016 Cardiovascular No arrhythmia 04/23/2016 Cardiovascular No chest pain/pressure 04/23/2016 Cardiovascular No edema 04/23/2016 Cardiovascular No exercise intolerance 04/23/2016 Cardiovascular No orthopnea 04/23/2016 Cardiovascular No palpitations 04/23/2016 Respiratory No asthma Respiratory No cough Respiratory No dyspnea 0 04/23/2016 Respiratory No pleuritic pain 04/23/2016 Respiratory No productive sputum 04/23/2016 Respiratory No wheezing 04/23/2016 Gastrointestinal No hemorrhoids 04/23/2016 Gastrointestinal No hepatitis 04/23/2016 Gastrointestinal No abdominal pain 04/23/2016 Gastrointestinal No constipation 04/23/2016 Gastrointestinal No diarrhea 04/23/2016 Gastrointestinal No gastroesophageal reflu x 04/23/2016 Gastrointestinal No melena 04/23/2016 Gastrointestinal No nausea 04/23/2016 Gastrointestinal No vomiting 04/23/2016 Musculoskeletal low back pain 04/23/2016 Musculoskeletal arthralgia(s) 04/23/2016 Musculoskeletal No muscle weakness 04/23/2016 Musculoskeletal sciatica 04/23/2016 Neurologic No gait abnormality 04/23/2016 Neurologic pain, back Neurologic paresthesia 0 04/23/2016 Neurologic No weakness 0 04/23/2016 Constitutional No night sweats 04/08/2016 Constitutional No fatigue 04/08/2016 Constitutional No fever 04/08/2016 Constitutional No insomnia 04/08/2016 Constitutional No weight loss 04/08/2016 Eyes No eye pain 016 Eyes No photophobia 03/26 Eyes No vision change Eyes No visual disturbance 04/08/2016 Ears/Nose/Throat/Neck No hearing loss 04/08/2016 Ears/Nose/Throat/Neck No nasal discharge 04/08/2016 Ears/Nose/Throat/Neck No sinus congestion 04/08/2016 Ears/Nose/Throat/Neck No sore throat 04/08/2016 Cardiovascular No arrhythmia 04/08/2016 Cardiovascular No chest pain/pressure 04/08/2016 Cardiovascular No edema 04/08/2016 Cardiovascular No exercise intolerance 04/08/2016 Cardiovascular No orthopnea 04/08/2016 Cardiovascular No palpitations 04/08/2016 Respiratory No asthma Respiratory No cough Respiratory No dyspnea 0 04/08/2016 Respiratory No pleuritic pain 04/08/2016 Respiratory No productive sputum 04/08/2016 Respiratory No wheezing 04/08/2016 Gastrointestinal No hemorrhoids 04/08/2016 Gastrointestinal No hepatitis 04/08/2016 Gastrointestinal No abdominal pain 04/08/2016 Gastrointestinal No constipation 04/08/2016 Gastrointestinal No diarrhea 04/08/2016 Gastrointestinal No gastroesophageal reflu x 04/08/2016 Gastrointestinal No melena 04/08/2016 Gastrointestinal No nausea 04/08/2016 Gastrointestinal No vomiting 04/08/2016 Genitourinary/Nephrology No dysuria 04/08/2016 Genitourinary/Nephrology No nocturia 04/08/2016 Genitourinary/Nephrology No urinary incontinence 04/08/2016 Musculoskeletal No muscle weakness 04/08/2016 Musculoskeletal No myalgias 04/08/2016 Musculoskeletal No stiffness 04/08/2016 Musculoskeletal No swelling 04/08/2016 Dermatologic No rash Dermatologic No scar Neurologic No dizziness 04/08/2016 Neurologic No headache 0 04/08/2016 Neurologic No neck pain 04/08/2016 Neurologic No syncope Psychiatric No anxiety 0 04/08/2016 Psychiatric No depression 04/08/2016 Endocrine No goiter 03/26 Endocrine No hyperglycemia 04/08/2016 Endocrine No hypoglycemia 04/08/2016 Hematologic/Lymphatic No abnormal ec chymoses 04/08/2016 Hematologic/Lymphatic No petechiae 04/08/2016 Hematologic/Lymphatic No abnormal bl eeding and bruising 04/08/2016 Hematologic/Lymphatic No anemia 04/08/2016 Hematologic/Lymphatic No lymph node enlargement/mass 04/08/2016 Allergy/Immunology No food allergy 04/08/2016 Physical Exam Exam Name System Name It em Name Status Result Effective Dates Notes Full Exam - General Constitutional general appearance Overall: well nourished 02/14/2019 None Full Exam - General Constitutional general appearance Overall: well developed 02/14/2019 None Full Exam - General Constitutional general appearance Overall: in no acute distress 02/14/2019 None Full Exam - General Neurologic mental status Overall: alert 9 None Full Exam - General Neurologic mental status Overall: oriented 02/14/2019 None Full Exam - General Psychiatric mood and affect Overall: normal mood and affect 02/14/2019 None Full Exam - General Respiratory auscultation Overall: breath sounds clear bilater ally 02/14/2019 None Full Exam - General Cardiovascular auscultation of heart Overall: regular rate 02/14/2019 None Full Exam - General Cardiovascular auscultation of heart Overall: normal heart sounds 02/14/2019 None Full Exam - General Cardiovascular auscultation of heart Overall: no murmurs 02/14/2019 None Full Exam - General Cardiovascular extremities Overall: no clubbing 02/14/2019 None Full Exam - General Cardiovascular extremities Overall: No edema 02/14/2019 None Full Exam - General Cardiovascular extremities Overall: No cyanosis 02/14/2019 None Full Exam - General Constitutional general appearance Overall: well nourished 08/15/2018 None Full Exam - General Constitutional general appearance Overall: well developed 08/15/2018 None Full Exam - General Constitutional general appearance Overall: in no acute distress 08/15/2018 None Full Exam - General Neurologic mental status Overall: alert 8 None Full Exam - General Neurologic mental status Overall: oriented 08/15/2018 None Full Exam - General Psychiatric mood and affect Overall: normal mood and affect 08/15/2018 None Full Exam - General Respiratory auscultation Overall: breath sounds clear bilater ally 08/15/2018 None Full Exam - General Cardiovascular auscultation of heart Overall: regular rate 08/15/2018 None Full Exam - General Cardiovascular auscultation of heart Overall: normal heart sounds 08/15/2018 None Full Exam - General Cardiovascular auscultation of heart Overall: no murmurs 08/15/2018 None Full Exam - General Cardiovascular extremities Overall: no clubbing 08/15/2018 None Full Exam - General Cardiovascular extremities Overall: No edema 08/15/2018 None Full Exam - General Cardiovascular extremities Overall: No cyanosis 08/15/2018 None Full Exam - General Constitutional general appearance Overall: well nourished 03/02/2018 None Full Exam - General Constitutional general appearance Overall: well developed 03/02/2018 None Full Exam - General Constitutional general appearance Overall: in no acute distress 03/02/2018 None Full Exam - General Neurologic mental status Overall: alert 8 None Full Exam - General Neurologic mental status Overall: oriented 03/02/2018 None Full Exam - General Psychiatric mood and affect Overall: normal mood and affect 03/02/2018 None Full Exam - General Ears/Nose/Throat otoscopic exam Overall: external auditory canals clear 03/02/2018 None Full Exam - General Ears/Nose/Throat otoscopic exam Overall: tympanic membranes clear 03/02/2018 None Full Exam - General Ears/Nose/Throat internal nose Overall: bilateral nasal cavities clear 03/02/2018 None Full Exam - General Ears/Nose/Throat oral cavity/pharynx/larynx Overall: oral mucosa clear 03/02/2018 None Full Exam - General Neck inspection of neck Overall: normal size 03/02/2018 None Full Exam - General Neck inspection of neck Overall: no masses 03/02/2018 None Full Exam - General Respiratory auscultation Overall: breath sounds clear bilater ally 03/02/2018 None Full Exam - General Cardiovascular auscultation of heart Overall: regular rate 03/02/2018 None Full Exam - General Cardiovascular auscultation of heart Overall: normal heart sounds 03/02/2018 None Full Exam - General Cardiovascular auscultation of heart S4 (atrial gallop): present 03/02/2018 None Full Exam - General Cardiovascular auscultation of heart Murmur: previously known murmur unchanged 03/02/2018 None Full Exam - General Cardiovascular extremities Overall: no clubbing 03/02/2018 None Full Exam - General Cardiovascular extremities Overall: No edema 03/02/2018 None Full Exam - General Cardiovascular extremities Overall: No cyanosis 03/02/2018 None Full Exam - General Abdomen abdominal exam Overall: no tenderness 03/02/2018 None Full Exam - General Abdomen abdominal exam Overall: no masses 03/02/2018 None Full Exam - General Abdomen abdominal exam Overall: normal bowel sounds 03/02/2018 None Full Exam - General Abdomen abdominal exam Overall: soft 03/02/2018 None Full Exam - General Chest/Breast breast and axillae palpation Overall: no masses 03/02/2018 None Full Exam - General Chest/Breast breast and axillae palpation Overall: breasts non- tender 03/02/2018 None Full Exam - General Chest/Breast breast and axillae palpation Overall: axillae non- tender 03/02/2018 None Full Exam - General Chest/Breast breast and axillae palpation Overall: no nipple discharge 03/02/2018 None Full Exam - General Genitourinary cervix Inspection: normal os 03/02/2018 None Full Exam - General Genitourinary cervix Inspection: no lesions 03/02/2018 None Full Exam - General Genitourinary labia and vagina Labia: erythematous 03/02/2018 None Full Exam - General Genitourinary labia and vagina Vagina: erythematous 03/02/2018 None Full Exam - General Genitourinary adnexa/parametria Overall: no tenderness 03/02/2018 None Full Exam - General Abdomen stool sample obtained Overall: occult blood negative 03/02/2018 None Full Exam - General Abdomen stool sample obtained Overall: normal appearance 03/02/2018 None Full Exam - General Abdomen rectal exam Overall: good sphincter tone, no mas ses, no lesions 03/02/2018 None Full Exam - General Constitutional general appearance Overall: well nourished 11/03/2017 None Full Exam - General Constitutional general appearance Overall: in no acute distress 11/03/2017 None Full Exam - General Respiratory respiratory effort/rhythm Overall: no retractions 11/03/2017 None Full Exam - General Respiratory respiratory effort/rhythm Overall: normal rate 11/03/2017 None Full Exam - General Ears/Nose/Throat otoscopic exam Left tympanic membrane: air- fluid level 11/03/2017 None Full Exam - General Ears/Nose/Throat otoscopic exam Right tympanic membrane: air- fluid level 11/03/2017 None Full Exam - General Ears/Nose/Throat oral cavity/pharynx/larynx Oropharynx: erythema 11/03/2017 None Full Exam - General Cardiovascular auscultation of heart Overall: regular rate 11/03/2017 None Full Exam - General Cardiovascular auscultation of heart Overall: no murmurs 11/03/2017 None Full Exam - General Lymphatic neck nodes Overall: anterior cervical chain faith ign 11/03/2017 None Full Exam - General Lymphatic neck nodes Overall: posterior cervical chain be nign 11/03/2017 None Full Exam - General Respiratory auscultation Left upper lung field: diminished 11/03/2017 None Full Exam - General Respiratory auscultation Left upper lung field: crackles 11/03/2017 None Full Exam - General Respiratory auscultation Left lower lung field: diminished 11/03/2017 None Full Exam - General Respiratory auscultation Left lower lung field: crackles 11/03/2017 None Full Exam - General Neurologic mental status Overall: alert 8 None Full Exam - General Neurologic mental status Overall: oriented 11/03/2017 None Full Exam - General Constitutional general appearance Overall: well nourished 10/27/2017 None Full Exam - General Constitutional general appearance Overall: in no acute distress 10/27/2017 None Full Exam - General Respiratory respiratory effort/rhythm Overall: no retractions 10/27/2017 None Full Exam - General Respiratory respiratory effort/rhythm Overall: normal rate 10/27/2017 None Full Exam - General Respiratory auscultation Diffuse: diminished 10/27/2017 None Full Exam - General Ears/Nose/Throat otoscopic exam Left tympanic membrane: air- fluid level 10/27/2017 None Full Exam - General Ears/Nose/Throat otoscopic exam Right tympanic membrane: air- fluid level 10/27/2017 None Full Exam - General Ears/Nose/Throat oral cavity/pharynx/larynx Oropharynx: erythema 10/27/2017 None Full Exam - General Cardiovascular auscultation of heart Overall: regular rate 10/27/2017 None Full Exam - General Cardiovascular auscultation of heart Overall: no murmurs 10/27/2017 None Full Exam - General Lymphatic neck nodes Left anterior cervical chain: shotty 10/27/2017 None Full Exam - General Lymphatic neck nodes Left anterior cervical chain: tender 10/27/2017 None Full Exam - General Lymphatic neck nodes Right anterior cervical chain: shott y 10/27/2017 None Full Exam - General Lymphatic neck nodes Right anterior cervical chain: tende r 10/27/2017 None Full Exam - General Respiratory auscultation Diffuse: bronchial 10/27/2017 None Full Exam - General Neurologic mental status Overall: alert 8 None Full Exam - General Neurologic mental status Overall: oriented 10/27/2017 None Full Exam - General Constitutional general appearance Overall: well nourished 08/11/2017 None Full Exam - General Constitutional general appearance Overall: well developed 08/11/2017 None Full Exam - General Constitutional general appearance Overall: in no acute distress 08/11/2017 None Full Exam - General Neurologic mental status Overall: alert 7 None Full Exam - General Neurologic mental status Overall: oriented 08/11/2017 None Full Exam - General Psychiatric mood and affect Overall: normal mood and affect 08/11/2017 None Full Exam - General Musculoskeletal spine, ribs and pelvis Spine: tender @ lumbar spin e 08/11/2017 None Full Exam - General Musculoskeletal spine, ribs and pelvis Sacroiliac joints: tender right sacroiliac joint 08/11/2017 None Full Exam - General Constitutional general appearance Overall: well nourished 05/23/2017 None Full Exam - General Constitutional general appearance Overall: well developed 05/23/2017 None Full Exam - General Constitutional general appearance Overall: in no acute distress 05/23/2017 None Full Exam - General Neurologic mental status Overall: alert 7 None Full Exam - General Neurologic mental status Overall: oriented 05/23/2017 None Full Exam - General Psychiatric mood and affect Overall: normal mood and affect 05/23/2017 None Full Exam - General Ears/Nose/Throat otoscopic exam Overall: external auditory canals clear 05/23/2017 None Full Exam - General Ears/Nose/Throat otoscopic exam Overall: tympanic membranes clear 05/23/2017 None Full Exam - General Ears/Nose/Throat internal nose Overall: bilateral nasal cavities clear 05/23/2017 None Full Exam - General Ears/Nose/Throat oral cavity/pharynx/larynx Overall: oral mucosa clear 05/23/2017 None Full Exam - General Neck inspection of neck Overall: normal size 05/23/2017 None Full Exam - General Neck inspection of neck Overall: no masses 05/23/2017 None Full Exam - General Respiratory auscultation Overall: breath sounds clear bilater ally 05/23/2017 None Full Exam - General Cardiovascular auscultation of heart Overall: regular rate 05/23/2017 None Full Exam - General Cardiovascular auscultation of heart Overall: normal heart sounds 05/23/2017 None Full Exam - General Cardiovascular auscultation of heart Overall: no murmurs 05/23/2017 None Full Exam - General Cardiovascular extremities Overall: no clubbing 05/23/2017 None Full Exam - General Cardiovascular extremities Overall: No edema 05/23/2017 None Full Exam - General Cardiovascular extremities Overall: No cyanosis 05/23/2017 None Full Exam - General Abdomen abdominal exam Overall: no masses 05/23/2017 None Full Exam - General Abdomen abdominal exam Overall: no tenderness 05/23/2017 None Full Exam - General Abdomen abdominal exam Overall: normal bowel sounds 05/23/2017 None Full Exam - General Abdomen abdominal exam Overall: soft 05/23/2017 None Full Exam - General Integument inspection of skin Overall: no rash, lesions 05/23/2017 None Full Exam - General Musculoskeletal spine, ribs and pelvis Spine: a normal exam 05/23/2017 None Full Exam - General Constitutional general appearance Overall: well nourished 03/10/2017 None Full Exam - General Constitutional general appearance Overall: well developed 03/10/2017 None Full Exam - General Constitutional general appearance Overall: in no acute distress 03/10/2017 None Full Exam - General Neurologic mental status Overall: alert 7 None Full Exam - General Neurologic mental status Overall: oriented 03/10/2017 None Full Exam - General Psychiatric mood and affect Overall: normal mood and affect 03/10/2017 None Full Exam - General Respiratory auscultation Overall: breath sounds clear bilater ally 03/10/2017 None Full Exam - General Cardiovascular auscultation of heart Overall: regular rate 03/10/2017 None Full Exam - General Cardiovascular auscultation of heart Overall: normal heart sounds 03/10/2017 None Full Exam - General Cardiovascular auscultation of heart S4 (atrial gallop): present 03/10/2017 None Full Exam - General Cardiovascular extremities Overall: no clubbing 03/10/2017 None Full Exam - General Cardiovascular extremities Overall: No edema 03/10/2017 None Full Exam - General Cardiovascular extremities Overall: No cyanosis 03/10/2017 None Full Exam - General Abdomen abdominal exam Overall: no masses 03/10/2017 None Full Exam - General Abdomen abdominal exam Overall: no tenderness 03/10/2017 None Full Exam - General Abdomen abdominal exam Overall: normal bowel sounds 03/10/2017 None Full Exam - General Abdomen abdominal exam Overall: soft 03/10/2017 None Full Exam - General Constitutional general appearance Overall: well nourished 08/30/2016 None Full Exam - General Constitutional general appearance Overall: well developed 08/30/2016 None Full Exam - General Constitutional general appearance Overall: in no acute distress 08/30/2016 None Full Exam - General Neurologic mental status Overall: alert 6 None Full Exam - General Neurologic mental status Overall: oriented 08/30/2016 None Full Exam - General Psychiatric mood and affect Overall: normal mood and affect 08/30/2016 None Full Exam - General Respiratory auscultation Overall: breath sounds clear bilater ally 08/30/2016 None Full Exam - General Cardiovascular auscultation of heart Overall: regular rate 08/30/2016 None Full Exam - General Cardiovascular auscultation of heart Overall: normal heart sounds 08/30/2016 None Full Exam - General Cardiovascular auscultation of heart S3 (ventricular gallop): present 08/30/2016 None Full Exam - General Cardiovascular extremities Overall: no clubbing 08/30/2016 None Full Exam - General Cardiovascular extremities Overall: No edema 08/30/2016 None Full Exam - General Cardiovascular extremities Overall: No cyanosis 08/30/2016 None Full Exam - General Constitutional general appearance Overall: well nourished 06/01/2016 None Full Exam - General Constitutional general appearance Overall: well developed 06/01/2016 None Full Exam - General Constitutional general appearance Overall: in no acute distress 06/01/2016 None Full Exam - General Eyes conjunctiva/eyelids Overall: conjunctiva clear 06/01/2016 None Full Exam - General Eyes conjunctiva/eyelids Overall: eyelids normal 06/01/2016 None Full Exam - General Ears/Nose/Throat lips/teeth/gingiva Overall: benign lips 06/01/2016 None Full Exam - General Ears/Nose/Throat oral cavity/pharynx/larynx Overall: oral mucosa clear 06/01/2016 None Full Exam - General Respiratory respiratory effort/rhythm Overall: no retractions 06/01/2016 None Full Exam - General Respiratory respiratory effort/rhythm Overall: normal rate 06/01/2016 None Full Exam - General Integument inspection of skin Overall: no rash, lesions 06/01/2016 None Full Exam - General Neurologic mental status Overall: alert 6 None Full Exam - General Neurologic mental status Overall: oriented 06/01/2016 None Full Exam - General Constitutional general appearance Overall: well nourished 04/30/2016 None Full Exam - General Constitutional general appearance Overall: well developed 04/30/2016 None Full Exam - General Constitutional general appearance Overall: in no acute distress 04/30/2016 None Full Exam - General Respiratory respiratory effort/rhythm Overall: no retractions 04/30/2016 None Full Exam - General Respiratory respiratory effort/rhythm Overall: normal rate 04/30/2016 None Full Exam - General Cardiovascular inspection of pedal pulses Overall: strong, equal bilaterally 04/30/2016 None Full Exam - General Cardiovascular extremities Overall: no clubbing 04/30/2016 None Full Exam - General Cardiovascular extremities Overall: No edema 04/30/2016 None Full Exam - General Cardiovascular extremities Overall: No cyanosis 04/30/2016 None Full Exam - General Musculoskeletal spine, ribs and pelvis Spine: tender @ lumbar spin e 04/30/2016 mild pain to low left lum bar region Full Exam - General Integument inspection of skin Overall: no rash, lesions 04/30/2016 None Full Exam - General Musculoskeletal spine, ribs and pelvis Spine: normal straight leg raise 04/30/2016 None Full Exam - General Musculoskeletal spine, ribs and pelvis Spine: full flexion 04/30/2016 None Full Exam - General Musculoskeletal spine, ribs and pelvis Spine: full extension 04/30/2016 None Full Exam - General Neurologic deep tendon reflexes Overall: deep tendon reflexes intact 04/30/2016 None Full Exam - General Neurologic motor Overall: normal bulk, tone 04/30/2016 None Full Exam - General Neurologic gait Overall: no ataxia, no unsteadiness 04/30/2016 None Full Exam - General Constitutional general appearance Overall: well nourished 04/23/2016 None Full Exam - General Constitutional general appearance Overall: well developed 04/23/2016 None Full Exam - General Constitutional general appearance Overall: in no acute distress 04/23/2016 None Full Exam - General Respiratory respiratory effort/rhythm Overall: no retractions 04/23/2016 None Full Exam - General Respiratory respiratory effort/rhythm Overall: normal rate 04/23/2016 None Full Exam - General Cardiovascular inspection of pedal pulses Overall: strong, equal bilaterally 04/23/2016 None Full Exam - General Cardiovascular extremities Overall: no clubbing 04/23/2016 None Full Exam - General Cardiovascular extremities Overall: No cyanosis 04/23/2016 None Full Exam - General Cardiovascular extremities Overall: No edema 04/23/2016 None Full Exam - General Musculoskeletal spine, ribs and pelvis Spine: tender @ lumbar spin e 04/23/2016 left low lumbar region Full Exam - General Musculoskeletal spine, ribs and pelvis Spine: full flexion 04/23/2016 None Full Exam - General Musculoskeletal spine, ribs and pelvis Spine: full extension 04/23/2016 None Full Exam - General Musculoskeletal spine, ribs and pelvis Spine: normal straight leg raise 04/23/2016 None Full Exam - General Musculoskeletal gait and station Overall: normal gait 04/23/2016 None Full Exam - General Musculoskeletal gait and station Overall: normal station 04/23/2016 None Full Exam - General Neurologic deep tendon reflexes Overall: deep tendon reflexes intact 04/23/2016 None Full Exam - General Neurologic motor Overall: normal bulk, tone 04/23/2016 None Full Exam - General Neurologic gait Overall: no ataxia, no unsteadiness 04/23/2016 None Full Exam - General Constitutional general appearance Overall: well nourished 04/08/2016 None Full Exam - General Constitutional general appearance Overall: well developed 04/08/2016 None Full Exam - General Constitutional general appearance Overall: in no acute distress 04/08/2016 None Full Exam - General Neurologic mental status Overall: alert 6 None Full Exam - General Neurologic mental status Overall: oriented 04/08/2016 None Full Exam - General Psychiatric mood and affect Overall: normal mood and affect 04/08/2016 None Full Exam - General Respiratory auscultation Overall: breath sounds clear bilater ally 04/08/2016 None Full Exam - General Cardiovascular auscultation of heart Overall: regular rate 04/08/2016 None Full Exam - General Cardiovascular auscultation of heart Overall: normal heart sounds 04/08/2016 None Full Exam - General Cardiovascular auscultation of heart Overall: no murmurs 04/08/2016 None Full Exam - General Cardiovascular extremities Overall: no clubbing 04/08/2016 None Full Exam - General Cardiovascular extremities Overall: No edema 04/08/2016 None Full Exam - General Cardiovascular extremities Overall: No cyanosis 04/08/2016 None Full Exam - General Neck inspection of neck Overall: normal size 04/08/2016 None Full Exam - General Neck inspection of neck Overall: no masses 04/08/2016 None Full Exam - General Ears/Nose/Throat otoscopic exam Overall: external auditory canals clear 04/08/2016 None Full Exam - General Ears/Nose/Throat otoscopic exam Overall: tympanic membranes clear 04/08/2016 None Full Exam - General Ears/Nose/Throat internal nose Overall: bilateral nasal cavities clear 04/08/2016 None Full Exam - General Ears/Nose/Throat oral cavity/pharynx/larynx Overall: oral mucosa clear 04/08/2016 None Full Exam - General Abdomen abdominal exam Overall: no masses 04/08/2016 None Full Exam - General Abdomen abdominal exam Overall: no tenderness 04/08/2016 None Full Exam - General Abdomen abdominal exam Overall: normal bowel sounds 04/08/2016 None Full Exam - General Abdomen abdominal exam Overall: soft 04/08/2016 None Full Exam - General Musculoskeletal gait and station Overall: normal gait 04/08/2016 None Full Exam - General Musculoskeletal gait and station Overall: normal station 04/08/2016 None Full Exam - General Musculoskeletal right lower extremity Palpation - right foot: tender 04/08/2016 heal at plantar fascia insertion site Procedures Procedure Codes Date ROUTINE VENIPUNCTURE CPT-4: 10102 02/14/2019 COMPREHEN METABOLIC PANEL CPT-4: 02095 02/14/2019 LIPID PANEL CPT-4: 47770 02/14/2019 ROUTINE VENIPUNCTURE CPT-4: 60266 08/15/2018 COMPREHENSIVE METABO LIC PANEL CPT-4: 33379 08/15/2018 EXTRA LAVENDER-TOP TUBE CPT-4: XLKS 08/15/2018 LIPID PANEL CPT-4: 09312 08/15/2018 IIV4 VACCINE 3 YRS+ IM AND UP CPT-4: 00456 07/03/2018 IMMUNIZATION ADMIN CPT- 4: 36719 07/03/2018 SPECIMEN HANDLING OF FICE-LAB CPT-4: 66570 03/02/2018 OCCULT BLOOD FECES CPT- 4: 03236 03/02/2018 THER/PROPH/DIAG INJ SC/IM CPT-4: 20496 11/03/2017 TRIAMCINOLONE ACET I [place] NOS CPT-4: J3301 11/03/2017 INFLUENZA ASSAY W/OPTIC CPT-4: 15219 10/27/2017 THER/PROPH/DIAG INJ SC/IM CPT-4: 38806 10/27/2017 TRIAMCINOLONE ACET I NJ NOS CPT-4: J3301 10/27/2017 THER/PROPH/DIAG INJ SC/IM CPT-4: 23312 04/23/2016 TRIAMCINOLONE ACET I NJ NOS CPT-4: J3301 04/23/2016 DEXAMETHASONE SODIUM PHOS CPT-4: J1100 04/23/2016 Vital Signs Date Vital 02/14/2019 Blood Pressure 1: 126/70 Code: 8480-6 BMI: 26.7 Code: 41886-3 Heart Rate 1: 68 bpm Height: 5'6" Respiratory Rate: 18 bpm SpO2: 97% Temperature: 36.6 (C ) / 97.9 (F) Weight: 168 lbs 08/15/2018 Blood Pressure 1: 122/78 Code: 8480-6 BMI: 25.9 Code: 01300-7 Heart Rate 1: 72 bpm Height: 5'6" Respiratory Rate: 20 bpm SpO2: 97% Temperature: 36.7 (C ) / 98.0 (F) Weight: 163 lbs 03/02/2018 Blood Pressure 1: 126/74 Code: 8480-6 BMI: 26.1 Code: 81713-0 Heart Rate 1: 76 bpm Height: 5'6" Respiratory Rate: 20 bpm SpO2: 98% Temperature: 36.6 (C ) / 97.8 (F) Weight: 164 lbs 11/03/2017 Blood Pressure 1: 124/82 Code: 8480-6 BMI: 25.3 Code: 54438-5 Heart Rate 1: 90 bpm Height: 5'6" Respiratory Rate: 22 bpm SpO2: 98% Temperature: 36.9 (C ) / 98.4 (F) Weight: 159 lbs 10/27/2017 Blood Pressure 1: 122/84 Code: 8480-6 BMI: 25.6 Code: 62594-7 Heart Rate 1: 90 bpm Height: 5'6" Respiratory Rate: 22 bpm SpO2: 97% Temperature: 36.1 (C ) / 97.0 (F) Weight: 161 lbs 08/11/2017 Blood Pressure 1: 132/76 Code: 8480-6 BMI: 26.4 Code: 99879-3 Heart Rate 1: 72 bpm Height: 5'6" Respiratory Rate: 20 bpm Temperature: 36.6 (C ) / 97.8 (F) Weight: 166 lbs 05/23/2017 Blood Pressure 1: 126/72 Code: 8480-6 BMI: 26.1 Code: 58816-7 Heart Rate 1: 72 bpm Height: 5'6" Respiratory Rate: 20 bpm SpO2: 98% Temperature: 37.1 (C ) / 98.8 (F) Weight: 164 lbs 03/10/2017 Blood Pressure 1: 124/72 Code: 8480-6 BMI: 26.1 Code: 12060-1 Heart Rate 1: 92 bpm Height: 5'6" Respiratory Rate: 20 bpm SpO2: 97% Temperature: 37.2 (C ) / 98.9 (F) Weight: 164 lbs 08/30/2016 Blood Pressure 1: 142/82 Code: 8480-6 BMI: 25.6 Code: 55711-3 Heart Rate 1: 72 bpm Height: 5'6" Respiratory Rate: 20 bpm Temperature: 36.6 (C ) / 97.9 (F) Weight: 161 lbs 06/01/2016 Blood Pressure 1: 156/88 Code: 8480-6 BMI: 26.4 Code: 25903-2 Heart Rate 1: 70 bpm Height: 5'6" Respiratory Rate: 18 bpm SpO2: 97% Temperature: 36.6 (C ) / 97.8 (F) Weight: 166 lbs 04/30/2016 Blood Pressure 1: 122/70 Code: 8480-6 Heart Rate 1: 102 bpm Height: Respiratory Rate: 24 bpm SpO2: 95% Temperature: 36.4 (C ) / 97.6 (F) Weight: 04/23/2016 Blood Pressure 1: 152/76 Code: 8480-6 BMI: 26.5 Code: 96542-5 Heart Rate 1: 106 bpm Height: 5'7" Respiratory Rate: 24 bpm SpO2: 96% Temperature: 36.8 (C ) / 98.2 (F) Weight: 169 lbs 04/08/2016 Blood Pressure 1: 116/68 Code: 8480-6 BMI: 27.4 Code: 57080-1 Heart Rate 1: 76 bpm Height: 5'6" Respiratory Rate: 20 bpm Temperature: 36.7 (C ) / 98.1 (F) Weight: 170 lbs Functional Status No Functional Status data History of Present Illness Symptom Name Status Resu lt Effective Date Notes Quality chronic. 02/14/2019 Currently taking Crestor 5mg daily hyperlipidemia Quality c hronic 08/15/2018 None well woman exam (40-65 years) Pap Smear normal results 03/02/2018 None well woman exam (40-65 years) Pap Smear 4 years ago 03/02/2018 None well woman exam (40-65 years) Contro l menopause 03/02/2018 None well woman exam (40-65 years) Sexual Activity is monogamous 03/02/2018 None well woman exam (40-65 years) Sexual Activity is sexually active 03/02/2018 None well woman exam (40-65 years) Immunization s tetanus-diphtheria booster 03/02/2018 4 years ago well woman exam (40-65 years) Health Guidance self-breast exam 03/02/2018 None well woman exam (40-65 years) Health Guidance baseline mammogram 03/02/2018 None well woman exam (40-65 years) Health Guidance HIV precautions 03/02/2018 None well woman exam (40-65 years) Health Guidance STD precautions 03/02/2018 None well woman exam (40-65 years) Health Guidance genetic counseling 03/02/2018 None well woman exam (40-65 years) Health Guidance tobacco, drugs and alcohol avoidance 03/02/2018 None well woman exam (40-65 years) Health Guidance regular exercise 03/02/2018 None well woman exam (40-65 years) Health Guidance safety belt use 03/02/2018 None well woman exam (40-65 years) Health Guidance helmet use 03/02/2018 No ne well woman exam (40-65 years) Health Guidance hearing loss prevention 03/02/2018 None well woman exam (40-65 years) Health Guidance limiting UV/sun exposure 03/02/2018 None well woman exam (40-65 years) Health Guidance suicide prevention 03/02/2018 None well woman exam (40-65 years) Health Guidance depression symptoms 03/02/2018 None well woman exam (40-65 years) Health Guidance hormone replacement therapy 03/02/2018 None well woman exam (40-65 years) Health Guidance fecal occult blood testing 03/02/2018 None well woman exam (40-65 years) Nutrit ion and Exercise normal weight 03/02/2018 None well woman exam (40-65 years) Nutrit ion and Exercise balanced nutrition 03/02/2018 None well woman exam (40-65 years) Nutrit ion and Exercise minimal exercise 03/02/2018 None well woman exam (40-65 years) Cardio vascular Risk Factors dyslipidemia 03/02/2018 None well woman exam (40-65 years) Lifestyle no history of physical abuse 03/02/2018 None well woman exam (40-65 years) Lifestyle no history of sexual abuse 03/02/2018 None well woman exam (40-65 years) Lifestyle no history of verbal abuse 03/02/2018 None well woman exam (40-65 years) Lifestyle regular seatbelt use 03/02/2018 None well woman exam (40-65 years) Lifestyle family supportive of relationship 03/02/2018 None well woman exam (40-65 years) Lifestyle satisfactory work experience 03/02/2018 None well woman exam (40-65 years) Lifestyle normal sleep patterns 03/02/2018 None well woman exam (40-65 years) Lifestyle normal amount of stress 03/02/2018 but did lose her dad in October well woman exam (40-65 years) Lifestyle satisfactory marriage/partner relationship 03/02/2018 None well woman exam (40-65 years) Menstr ual History amenorrhea 03/02/2018 No ne well woman exam (40-65 years) Menstr ual History menopause at age _ 03/02/2018 None fatigue Quality acute 11/03/2017 None fatigue Quality intermit tent 11/03/2017 None fatigue Quality worsening 11/03/2017 None fatigue Onset and Resolution gradual in onset 11/03/2017 None fatigue Onset and Resolution ongoing 11/03/2017 None cough Location in the th roat 11/03/2017 None cough Quality acute 11/03/2017 None cough Quality dry 11/03/2017 None cough Quality hacking 11/03/2017 None cough Onset and Resolution ongoing 11/03/2017 None otalgia Location on both sides 11/03/2017 None otalgia Quality acute 11/03/2017 None otalgia Quality dull 11/03/2017 None otalgia Quality throbbing 11/03/2017 None otalgia Quality worsening 11/03/2017 None otalgia Onset and Resolution ongoing 11/03/2017 None sinus congestion Quality acute 11/03/2017 None sinus congestion Quality fullness 11/03/2017 None sinus congestion Quality intermittent 11/03/2017 None sinus congestion Quality pain 11/03/2017 None sinus congestion Quality pressure 11/03/2017 None sinus congestion Quality worsening 11/03/2017 None sinus congestion Location on both sides 11/03/2017 None chest congestion Quality acute 11/03/2017 None chest congestion Quality intermittent 11/03/2017 None chest congestion Quality painful 11/03/2017 None chest congestion Quality thick secretions 11/03/2017 None chest congestion Quality worsening 11/03/2017 None chest congestion Onset and Resolution ongoing 11/03/2017 None fatigue Quality acute 10/27/2017 None fatigue Quality intermit tent 10/27/2017 None fatigue Quality worsening 10/27/2017 None fatigue Onset and Resolution ongoing 10/27/2017 None cough Location in the th roat 10/27/2017 None cough Quality acute 10/27/2017 None cough Quality dry 10/27/2017 None cough Quality hacking 10/27/2017 None cough Onset and Resolution ongoing 10/27/2017 None headache Location diffus sergey 10/27/2017 None headache Quality acute 10/27/2017 None headache Quality aching 10/27/2017 None headache Onset and Resolution gradual in onset 10/27/2017 None headache Onset and Resolution ongoing 10/27/2017 None headache Onset of Symptom 5 days ago 10/27/2017 None fever Quality acute 10/27/2017 None fever Quality intermitte nt 10/27/2017 None fever Quality waxing and waning 10/27/2017 None fever Quality worsening 10/27/2017 None fever Onset and Resolution ongoing 10/27/2017 None otalgia Location on both sides 10/27/2017 None otalgia Quality acute 10/27/2017 None otalgia Quality intermit tent 10/27/2017 None otalgia Quality worsening 10/27/2017 None otalgia Onset and Resolution ongoing 10/27/2017 None otalgia Onset of Symptom 5 days ago 10/27/2017 None sinus congestion Quality acute 10/27/2017 None sinus congestion Quality fullness 10/27/2017 None sinus congestion Quality pressure 10/27/2017 None sinus congestion Quality pain 10/27/2017 None sinus congestion Quality worsening 10/27/2017 None sinus congestion Location on both sides 10/27/2017 None sinus congestion Onset of Symptom 5 days ago 10/27/2017 None vomiting Quality acute 10/27/2017 None vomiting Quality project ile 10/27/2017 None vomiting Onset and Resolution resolved 10/27/2017 None pain, limb Location on t he right leg 08/11/2017 None pain, limb Quality aching 08/11/2017 None pain, limb Onset and Resolution ongoing 08/11/2017 None hyperlipidemia Quality c hronic. 08/11/2017 Patient stopped atorvasta tin about two weeks ago hyperlipidemia Labs TOTA L CHOL;219 05/23/2017 None hyperlipidemia Labs TG;1 13 05/23/2017 None hyperlipidemia Labs LDL; 146 05/23/2017 None hyperlipidemia Labs HDL: 44 05/23/2017 None hyperlipidemia Quality c hronic 05/23/2017 None hyperlipidemia Quality i ncreased cholesterol 05/23/2017 None hyperlipidemia Quality i ncreased LDL 05/23/2017 None well woman exam (40-65 years) Lifestyle no history of physical abuse 05/23/2017 None well woman exam (40-65 years) Lifestyle no history of sexual abuse 05/23/2017 None well woman exam (40-65 years) Lifestyle no history of verbal abuse 05/23/2017 None well woman exam (40-65 years) Lifestyle regular seatbelt use 05/23/2017 None well woman exam (40-65 years) Lifestyle family supportive of relationship 05/23/2017 None well woman exam (40-65 years) Lifestyle satisfactory work experience 05/23/2017 None well woman exam (40-65 years) Lifestyle normal sleep patterns 05/23/2017 None well woman exam (40-65 years) Lifestyle normal amount of stress 05/23/2017 None well woman exam (40-65 years) Lifestyle satisfactory marriage/partner relationship 05/23/2017 None well woman exam (40-65 years) Sexual Activity is sexually active 05/23/2017 None well woman exam (40-65 years) Sexual Activity is monogamous 05/23/2017 None well woman exam (40-65 years) Health Guidance self-breast exam 05/23/2017 None well woman exam (40-65 years) Breast /Dip Dyer Complaints menopausal symptoms 05/23/2017 mild vaginal dryness well woman exam (40-65 years) Pap Smear normal results 05/23/2017 2 years ago well woman exam (40-65 years) Cardio vascular Risk Factors dyslipidemia 05/23/2017 None well woman exam (40-65 years) Nutrit ion and Exercise normal weight 05/23/2017 None well woman exam (40-65 years) Nutrit ion and Exercise balanced nutrition 05/23/2017 None well woman exam (40-65 years) Nutrit ion and Exercise moderate exercise 05/23/2017 None hypertension Quality sta ble 03/10/2017 None hyperlipidemia Quality c hronic. 03/10/2017 No updated labs and patie nt not fasting this morning hyperlipidemia Labs TOTA L CHOL;196 08/30/2016 None hyperlipidemia Labs TG;1 42 08/30/2016 None hyperlipidemia Labs LDL; 128 08/30/2016 None hyperlipidemia Labs HDL: 44 08/30/2016 None hyperlipidemia Quality c hronic 08/30/2016 None hyperlipidemia Quality s table 08/30/2016 None hyperlipidemia Alleviating Factors diet and exercise 08/30/2016 None hypertension Onset and Resolution ongoing 08/30/2016 None hypertension Onset of Symptom during adulthood 08/30/2016 None joint complaint Location diffusely 06/01/2016 None joint complaint Quality acute 06/01/2016 None joint complaint Quality aching 06/01/2016 None joint complaint Onset and Resolution gradual in onset 06/01/2016 None joint complaint Onset and Resolution ongoing 06/01/2016 None hyperlipidemia Quality i ncreased cholesterol 06/01/2016 None leg pain/sciatica Location Left-Sided 04/30/2016 None leg pain/sciatica Radiating the left groin 04/30/2016 None leg pain/sciatica Radiating the left lateral thigh 04/30/2016 None leg pain/sciatica Radiating the left anterior thigh 04/30/2016 None leg pain/sciatica Quality burning sensation 04/30/2016 None leg pain/sciatica Quality acute 04/30/2016 None leg pain/sciatica Onset and Resolution ongoing 04/30/2016 None back pain Location lumba r-sacral spine 04/23/2016 None back pain Location in th e left lower back area 04/23/2016 None back pain Quality acute 04/23/2016 None back pain Quality aching 04/23/2016 None back pain Quality burning 04/23/2016 None back pain Quality pinchi ng 04/23/2016 None back pain Onset and Resolution sudden in onset 04/23/2016 None back pain Onset of Symptom 10 days ago 04/23/2016 None plantar fasciitis Location on the right 04/08/2016 None plantar fasciitis Quality recurrent 04/08/2016 None plantar fasciitis Quality dull pain 04/08/2016 None plantar fasciitis Quality chronic. 04/08/2016 Patient has had surgery i n the past well woman exam (40-65 years) Pap Smear 1 years ago 04/08/2016 None well woman exam (40-65 years) Lifestyle no history of physical abuse 04/08/2016 None well woman exam (40-65 years) Lifestyle no history of sexual abuse 04/08/2016 None well woman exam (40-65 years) Lifestyle no history of verbal abuse 04/08/2016 None well woman exam (40-65 years) Lifestyle regular seatbelt use 04/08/2016 None well woman exam (40-65 years) Lifestyle family supportive of relationship 04/08/2016 None well woman exam (40-65 years) Lifestyle satisfactory work experience 04/08/2016 None well woman exam (40-65 years) Lifestyle normal sleep patterns 04/08/2016 None well woman exam (40-65 years) Lifestyle normal amount of stress 04/08/2016 None well woman exam (40-65 years) Lifestyle satisfactory marriage/partner relationship 04/08/2016 None well woman exam (40-65 years) Contro l none 04/08/2016 None well woman exam (40-65 years) Nutrit ion and Exercise normal weight 04/08/2016 None well woman exam (40-65 years) Nutrit ion and Exercise balanced nutrition 04/08/2016 None well woman exam (40-65 years) Nutrit ion and Exercise minimal exercise 04/08/2016 None well woman exam (40-65 years) Health Guidance self-breast exam 04/08/2016 None well woman exam (40-65 years) Health Guidance baseline mammogram 04/08/2016 None well woman exam (40-65 years) Health Guidance HIV precautions 04/08/2016 None well woman exam (40-65 years) Health Guidance STD precautions 04/08/2016 None well woman exam (40-65 years) Health Guidance hormone replacement therapy 04/08/2016 None well woman exam (40-65 years) Health Guidance genetic counseling 04/08/2016 None well woman exam (40-65 years) Health Guidance tobacco, drugs and alcohol avoidance 04/08/2016 None well woman exam (40-65 years) Health Guidance regular exercise 04/08/2016 None well woman exam (40-65 years) Health Guidance safety belt use 04/08/2016 None well woman exam (40-65 years) Health Guidance helmet use 04/08/2016 No ne well woman exam (40-65 years) Health Guidance hearing loss prevention 04/08/2016 None well woman exam (40-65 years) Health Guidance limiting UV/sun exposure 04/08/2016 None well woman exam (40-65 years) Health Guidance suicide prevention 04/08/2016 None well woman exam (40-65 years) Health Guidance depression symptoms 04/08/2016 None well woman exam (40-65 years) Health Guidance fecal occult blood testing 04/08/2016 None well woman exam (40-65 years) Health Guidance fasting glucose every 3 years 04/08/2016 None well woman exam (40-65 years) Health Guidance colonoscopy/sigmoidoscopy 04/08/2016 obtain most recent results well woman exam (40-65 years) Sexual Activity is sexually active 04/08/2016 None well woman exam (40-65 years) Sexual Activity is monogamous 04/08/2016 None Advance Directives No Advance Directive data Encounters Encounter Performer Loca tion Codes Date ([id number]) OFFICE/OUTPA TIENT VISIT EST Diagnosis: Mixed hyperlipidemia[ICD10: E78.2] Diagnosis: Other specified counseling[ICD10: Z71.89] Balbina MARTIN NDER DJZ CPT-4: 04421 02/14/2019 ([id number]) OFFICE/OUTPA TIENT VISIT EST Diagnosis: Mixed hyperlipidemia[ICD10: E78.2] Balbina MARTIN NDER DJZ CPT-4: 64920 08/15/2018 ([id number]) NURSE/OUTPAT IENT VISIT EST Diagnosis: FLU VACCINE[ICD10: Z23] Balbina MORENOLINE [place] MICHAELER DJZ CPT-4: 40108 07/03/2018 ([id number]) PREV VISIT E ST AGE 40-64 Diagnosis: Encounter for general adult medical examination without abnormal findings[ICD10: Z00.00] Diagnosis: Encounter for gynecological examination (general) (routine) without abnormal findings[ICD10: Z01.419] Balbina MARTINNDER DJZ CPT-4: 48045 03/02/2018 OFFICE/OUTPATIENT SIT EST Diagnosis: Pneumonia, unspecified organism[ICD10: J18.9] Shaniqua MARTINND ER DJZ CPT-4: 97967 11/03/2017 OFFICE/OUTPATIENT SIT EST Diagnosis: Influenza due to other identified influenza virus with other respiratory manifestations[ICD10: J10.1] Diagnosis: Acute bronchitis, unspecified[ICD10: J20.9] Shaniqua MARTINND ER DJZ CPT-4: 23474 10/27/2017 ([id number]) OFFICE/OUTPA TIENT VISIT EST Diagnosis: Mixed hyperlipidemia[ICD10: E78.2] Balbina Sejal MORENOFER KELLEYR DJZ CPT-4: 52716 08/11/2017 ([id number]) PREV VISIT E ST AGE 40-64 Diagnosis: Encounter for general adult medical examination without abnormal findings[ICD10: Z00.00] Diagnosis: Mixed hyperlipidemia[ICD10: E78.2] Balbina KELLEYR [employer] [facility] CPT-4: 70717 05/23/2017 ([id number]) OFFICE/OUTPA TIENT VISIT EST Diagnosis: Essential (primary) hypertension[ICD10: I10] Diagnosis: Mixed hyperlipidemia[ICD10: E78.2] Balbina KELLEYR [employer] [facility] CPT-4: 82614 03/10/2017 ([id number]) OFFICE/OUTPA TIENT VISIT EST Diagnosis: Mixed hyperlipidemia[ICD10: E78.2] Diagnosis: Essential (primary) hypertension[ICD10: I10] Balbina KELLEYR DJZ CPT-4: 81732 08/30/2016 ([id number]) OFFICE/OUTPA TIENT VISIT EST Diagnosis: Mixed hyperlipidemia[ICD10: E78.2] Ale POST [employer] [facility] CPT-4: 42354 06/01/2016 ([id number]) OFFICE/OUTPA TIENT VISIT EST Diagnosis: Strain of muscle, fascia and tendon of lower back, subsequent encounter[ICD10: S39.012D] Diagnosis: Sciatica, left side[ICD10: M54.32] Ale MORENOLINE [place] POST [employer] [facility] CPT-4: 33708 04/30/2016 ([id number]) OFFICE/OUTPA TIENT VISIT EST Diagnosis: Strain of muscle, fascia and tendon of lower back, initial encounter[ICD10: S39.012A] Diagnosis: Sciatica, left side[ICD10: M54.32] Ale MORENOLINE [place] POST [employer] [facility] CPT-4: 13242 04/23/2016 ([id number]) PREV VISIT N EW AGE 40-64 Diagnosis: Encounter for general adult medical examination without abnormal findings[ICD10: Z00.00] Diagnosis: Plantar fascial fibromatosis[ICD10: M72.2] Balbina KELLEYR [employer] [facility] CPT-4: 33589 04/08/2016 Plan of Care Planned Activity Notes C odes Status Date Visit Diagnosis Plan: Mixed hyperlipidemia Discussion: Check CMP, Lipids Doing well with Crestor Restart Vitamin D ICD-9 : 272.2 ICD-10 : E78.2 02/14/2019 Visit Diagnosis Plan: Other specified counseling Discussion: Discussed upcoming travel and using compression socks as well as aspirin 81mg starting 2 days prior to travel and continuing for 1 week after ICD-9 : V65.49 ICD-10 : Z71.89 02/14/2019 Appointment: Balbina oPsttel: [address] [place] [address] FOLLOW UP 02/14/2019 Visit Diagnosis Plan: Mixed hyperlipidemia Discussion: Check CMP, Lipids Recommend Shingrix Had flu shot ICD-9 : 272.2 ICD-10 : E78.2 08/15/2018 Appointment: Balbina Post WPtel: [address] [place] [address] FOLLOW UP 08/15/2018 Appointment: Balbina Post WPtel: [address] [place] [address] US INJECTION 07/03/2018 Patient Education: Patient Medication [...] : V72.31 ICD-10 : Z01.419 03/02/2018 Appointment: Balbina Posttel: [address] [place] [address] Annual Well Visit 03/02/2018 Patient Education: Patient Medication Summary Completed 03/02/2018 Appointment: Balbina Post WPtel: [address] [place] [address] RESCHEDULED 02/08/2018 Visit Diagnosis Plan: Pneumonia, unspecified [...] ICD-10 : J18.9 11/03/2017 [facility] [facility] 11/03/2017 Patient Education: Patient Medication Summary Completed 11/03/2017 Visit Diagnosis Plan: Acute bronchitis, unspecified Discussion: zpack prescribed for patient. 40 mg kenalog given to patient to assist with fluid collection. instructed to perform deep breathing exercises at home. ICD-9 : 490 ICD-10 : J20.9 10/27/2017 Visit Diagnosis Plan: Influenza due to o ther identified influenza virus with other respiratory manifestations Discussion: positive for influenza b. out of window for tamiflu. increase fluid intake and rest. no work until tuesday. discussed length of illness and secondary infections. continue with tylenol/ibuprofen for pain or fever. call or rtc next week if new or worsening symptoms. 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 then check CMP, Lipids and fwup ICD-9 : 272.2 ICD-10 : E78.2 08/11/2017 Appointment: Balbina Post WPtel: [phone] [facility] MEDICATION REVIEW 08/11/2017 Patient Education: Patient Medication Summary Completed 08/11/2017 Visit Diagnosis Plan: Mixed hyperlipidemia Discussion: Continue lipitor and check lipids with LFTs next month ICD-9 : 272.2 ICD-10 : E78.2 05/23/2017 Visit Diagnosis Plan: Encounter for gene [facility] adult medical examination without abnormal findings Discussion: Will update lab next month Defers mammogram until next year--normal mammogram last year Pap due next year Tdap 3 yrs ago Colonoscopy up to date Discussed zostavax--will check on coverage ICD-9 : V70.9 ICD-10 : Z00.00 05/23/2017 Appointment: Balbina Post WPtel: [address] [place] [address] Annual Well Visit 05/23/2017 Patient Education: Patient Medication Summary Completed 05/23/2017 Visit Diagnosis Plan: Essential (primary) hypertension Follow Up: 6 months ICD-9 : 401.9 ICD-10 : I10 03/10/2017 Visit Diagnosis Plan: Mixed hyperlipidemia Discussion: Check CMP, Lipids ICD-9 : 272.2 ICD-10 : E78.2 03/10/2017 Appointment: Balbina Post WPtel: [address] [place] [address] 03/09 confimed ~sl CHECK UP 03/10/2017 Patient Education: Patient Medication Summary Completed 03/10/2017 Appointment: Balbina Post WPtel: [address] [place] [address] 02/03 rescheduled ~sl RESCHEDULED 02/28/2017 Visit Plan: Lab discussed Continue lifestyle modification Check full fasting lab in 6mos Monitor BP 1-2 times a week at home Discussed adding weights or yoga/sriram chi 3 times a week 08/30/2016 Appointment: Balbina Post WPtel: [address] [place], [place] [id number] 08/26 lm`sl...confirmed~lb FOLLOW UP 08/30/2016 Patient Education: Patient Medication Summary Completed 08/30/2016 Patient Education: Patient Medication Summary Completed 08/26/2016 Care Plan: COMPREHEN METABOLIC PANEL LOINC : 84892-6 Pending 08/26/2016 Care Plan: LIPID PANEL LOINC : 23656-8 Pending 08/26/2016 Visit Plan: Patient is very anxious about going back on any medication for her lipids right now Stressed diet and exercise changes she can try Continue higher dose of fish oil she is now taking Can recheck lipids and cmp in 3 months If not much better, will need rx started - discussed trying fenofibrate possibly 06/01/2016 Visit Plan: Patient is very anxious about going back on any medication for her lipids right now Stressed diet and exercise changes she can try Continue higher dose of fish oil she is now taking Can recheck lipids and cmp in 3 months If not much better, will need rx started - discussed trying fenofibrate possibly 06/01/2016 [facility] [address] [facility] 05/27 confirmed ~sl FOLLOW UP 06/01/2016 Patient Education: Patient Medication Summary Completed 06/01/2016 Visit Plan: 3 days of zorvolex samp les given - hold meloxicam - if working well, can send into [facility] Tuesday Additional prednisone above since injection seemed to be helpful Continue flexeril since helping also Can do tylebol still Continue stretching, heat, ice, topical pain relievers Follow up in 1-2 weeks if not still improving and will consider imaging(lumbar xrays and then MRI if negative) 04/30/2016 Visit Plan: 3 days of zorvolex samp les given - hold meloxicam - if working well, can send into [facility] Tuesday Additional prednisone above since injection seemed to be helpful Continue flexeril since helping also Can do tylebol still Continue stretching, heat, ice, topical pain relievers Follow up in 1-2 weeks if not still improving and will consider imaging(lumbar xrays and then MRI if negative) 04/30/2016 [facility]ment: [facility] [address] [facility] FOLLOW UP 04/30/2016 Patient Education: Patient Medication Summary Completed 04/30/2016 Visit Plan: Steroid injection given today Muscle relaxer as well Continue daily meloxicam Start weaning back on oxycodone Can replace oxycodone dosing with otc tylenol Advised topical pain relievers, heat/ice, etc If oxycodone runs completely out and patient still needs some, can call for refill to cook pickled meat or could consider replacing with tramadol 04/23/2016 Visit Plan: Steroid injection given today Muscle relaxer as well Continue daily meloxicam Start weaning back on oxycodone Can replace oxycodone dosing with otc tylenol Advised topical pain relievers, heat/ice, etc If oxycodone runs completely out and patient still needs some, can call for refill to cook pickled meat or could consider replacing with tramadol 04/23/2016 [facility]ment: [facility] [address] [facility] [facility] Follow UP 04/23/2016 Patient Education: Patient Medication Summary Completed 04/23/2016 Visit Plan: Continue inserts and st retches for plantar fascia Add Vivlodex Return in 2-3 weeks for injection if pain persists Check Fasting Lab Update Mammogram 04/08/2016 [facility]ment: [facility] [facility] 04/07 confirmed ~sl NEW PATIENT 04/08/2016 Patient Education: Patient Medication Summary Completed 04/08/2016 Patient Education: [facility] [employer] [employer] - 18-64 - Dynamic Portal ID Completed 04/08/2016 Care Plan: MAMMOGRAM SCREENING LOINC : 92970-4 Pending 04/08/2016 Instructions Comment . Steroid injection given today Muscle relaxer as well Continue daily meloxicam Start weaning back on oxycodone Can replace oxycodone dosing with otc tylenol Advised topical pain relievers, heat/ice, etc If oxycodone runs completely out and patient still needs some, can call for refill to cook pickled meat or could consider replacing with tramadol . Steroid injection given today Muscle relaxer as well Continue daily meloxicam Start weaning back on oxycodone Can replace oxycodone dosing with otc tylenol Advised topical pain relievers, heat/ice, etc If oxycodone runs completely out and patient still needs some, can call for refill to cook pickled meat or could consider replacing with tramadol . Lab discussed Continue lifestyle modification Check full fasting lab in 6mos Monitor BP 1-2 times a week at home Discussed adding weights or yoga/sriram chi 3 times a week . 3 days of zorvolex samples given - hold meloxicam - if working well, can send into [facility] Tuesday Additional prednisone above since injection seemed to be helpful Continue flexeril since helping also Can do tylebol still Continue stretching, heat, ice, topical pain relievers Follow up in 1-2 weeks if not still improving and will consider imaging(lumbar xrays and then MRI if negative) . 3 days of zorvolex samples given - hold meloxicam - if working well, can send into [facility] Tuesday Additional prednisone above since injection seemed to be helpful Continue flexeril since helping also Can do tylebol still Continue stretching, heat, ice, topical pain relievers Follow up in 1-2 weeks if not still improving and will consider imaging(lumbar xrays and then MRI if negative) . Continue inserts a nd stretches for plantar fascia Add Vivlodex Return in 2-3 weeks for injection if pain persists Check Fasting Lab Update Mammogram . Patient is very an xious about going back on any medication for her lipids right now Stressed diet and exercise changes she can try Continue higher dose of fish oil she is now taking Can recheck lipids and cmp in 3 months If not much better, will need rx started - discussed trying fenofibrate possibly . Patient is very an xious about going back on any medication for her lipids right now Stressed diet and exercise changes she can try Continue higher dose of fish oil she is now taking Can recheck lipids and cmp in 3 months If not much better, will need rx started - discussed trying fenofibrate possibly
--- OUTSIDE RECORDS SUMMARY | 2020-02-26 21:15 | XMS REPORT | Continuity of Care Document ---
Author Organization Unknown Address Unknown Phone Unavailable Allergies Active Description Code Type Severity Reaction Onset Reported/Identified Relationship to Patient Clinical Status Yes FLOXACIN FLOXACIN Mild N/A 06/22/2010 Medications There is no data. Problems Date Dx Coded Attending Type Code Diagnosis Diagnosed By 09/02/2014 JOSH MACHADO MD Ot 786.2 09/02/2014 JOSH MACHADO MD Ot 786.5 9 04/13/2016 Ot V76.12 OTH SCREEN MAMMO- MALIGN NEOPLASM OF LISA 04/13/2016 Ot V70.0 ROUT INE MEDICAL EXAM 04/13/2016 Ot V76.12 OTH SCREEN MAMMO- MALIGN NEOPLASM OF LISA 04/13/2016 JOSH MACHADO MD Ot 786.2 COUGH 04/13/2016 JOSH MACHADO MD Ot 786.5 9 CHEST PAIN NEC 04/14/2016 JOSH POST DOLINE S Ot Z00.00 ENCNTR FOR GENERAL ADULT MEDICAL EXAM W04/28/2016 SCOTT POST DOQUELINE S Ot Z00.00 ENCNTR FOR GENERAL ADULT MEDICAL EXAM W05/06/2016 SCOTT POST DOQUELINE S Ot Z12.31 ENCNTR SCREEN MAMMOGRAM FOR MALIGNANT NE 05/20/2016 JOSH POST DOLINE S Ot Z12.31 ENCNTR SCREEN MAMMOGRAM FOR MALIGNANT NE 08/27/2016 Ot V76.12 OTH SCREEN MAMMO- MALIGN NEOPLASM OF LISA 08/27/2016 Ot V70.0 ROUT INE MEDICAL EXAM 08/27/2016 Ot V76.12 OTH SCREEN MAMMO- MALIGN NEOPLASM OF LISA 08/27/2016 JOSH MACHADO MD Ot 786.2 COUGH 08/27/2016 JOSH MACHADO MD Ot 786.5 9 CHEST PAIN NEC 08/27/2016 BALBINA POST DO S Ot Z12.31 ENCNTR SCREEN MAMMOGRAM FOR MALIGNANT NE 08/27/2016 BALBINA POST DO S Ot Z00.00 ENCNTR FOR GENERAL ADULT MEDICAL EXAM W09/08/2016 ORENDER DO, BALBINA S Ot E78.2 MIXED HYPERLIPIDEMIA 03/11/2017 Ot V70.0 ROUT INE MEDICAL EXAM 03/11/2017 Ot V76.12 OTH SCREEN MAMMO- MALIGN NEOPLASM OF LISA 03/11/2017 CARTER KUO, JOSH Jarrett Ot 786.2 COUGH 03/11/2017 CARTER KUO, JOSH Jarrett Ot 786.5 9 CHEST PAIN NEC 03/11/2017 ORENDER DO, BALBINA S Ot Z12.31 ENCNTR SCREEN MAMMOGRAM FOR MALIGNANT NE 03/11/2017 ORENDER DO, BALBINA S Ot Z00.00 ENCNTR FOR GENERAL ADULT MEDICAL EXAM W03/11/2017 ORENDER DO, BALBINA S Ot E78.2 MIXED HYPERLIPIDEMIA 03/17/2017 ORENDER DO, BALBINA S Ot E78.5 HYPERLIPIDEMIA, UNSPECIFIED 03/17/2017 ORENDER DO, BALBINA S Ot I10 ESSENTIAL (PRIMARY) HYPERTENSION 03/17/2017 ORENDER DO, BALBINA S Ot Z00.00 ENCNTR FOR GENERAL ADULT MEDICAL EXAM W03/24/2017 ORENDER DO, BALBINA S Ot E78.5 HYPERLIPIDEMIA, UNSPECIFIED 03/24/2017 ORENDER DO, BALBINA S Ot I10 ESSENTIAL (PRIMARY) HYPERTENSION 03/24/2017 ORENDER DO, BALBINA S Ot Z00.00 ENCNTR FOR GENERAL ADULT MEDICAL EXAM W06/16/2017 ORENDER DO, BALBINA S Ot E78.5 HYPERLIPIDEMIA, UNSPECIFIED 03/10/2018 ORENDER DO, BALBINA S Ot Z12.31 ENCNTR SCREEN MAMMOGRAM FOR MALIGNANT NE 11/08/2019 CARTER KUO, JOSH Jarrett Ot 786.2 COUGH 11/08/2019 JOSH MACHADO MD Ot 786.5 9 CHEST PAIN NEC 11/08/2019 ORENDER DO, BALBINA S Ot Z12.31 ENCNTR SCREEN MAMMOGRAM FOR MALIGNANT NE 11/08/2019 ORENDER DO, BALBINA S Ot Z00.00 ENCNTR FOR GENERAL ADULT MEDICAL EXAM W11/08/2019 ORENDER DO, BALBINA S Ot E78.2 MIXED HYPERLIPIDEMIA 11/08/2019 ORENDER DO, BALBINA S Ot E78.5 HYPERLIPIDEMIA, UNSPECIFIED 11/08/2019 ORENDER DO, BALBINA S Ot I10 ESSENTIAL (PRIMARY) HYPERTENSION 11/08/2019 ORENDER DO, BALBINA S Ot Z00.00 ENCNTR FOR GENERAL ADULT MEDICAL EXAM W/ 11/08/2019 ORENDER DO, BALBINA S Ot E78.5 HYPERLIPIDEMIA, UNSPECIFIED 11/08/2019 ORENDER DO, BALBINA S Ot Z12.31 ENCNTR SCREEN MAMMOGRAM FOR MALIGNANT NE 11/15/2019 CARTER KUO, JOSH Jarrett Ot 786.2 COUGH 11/15/2019 JOSH MACHADO MD Ot 786.5 9 CHEST PAIN NEC 11/15/2019 ORENDER DO, BALBINA S Ot Z12.31 ENCNTR SCREEN MAMMOGRAM FOR MALIGNANT NE 11/15/2019 ORENDER DO, BALBINA S Ot Z00.00 ENCNTR FOR GENERAL ADULT MEDICAL EXAM W/ 11/15/2019 ORENDER DO, BALBINA S Ot E78.2 MIXED HYPERLIPIDEMIA 11/15/2019 ORENDER DO, BALBINA S Ot E78.5 HYPERLIPIDEMIA, UNSPECIFIED 11/15/2019 ORENDER DO, BALBINA S Ot I10 ESSENTIAL (PRIMARY) HYPERTENSION 11/15/2019 ORENDER DO, BALBINA S Ot Z00.00 ENCNTR FOR GENERAL ADULT MEDICAL EXAM W11/15/2019 ORENDER DO, BALBINA S Ot E78.5 HYPERLIPIDEMIA, UNSPECIFIED 11/15/2019 ORENDER DO, BALBINA S Ot Z12.31 ENCNTR SCREEN MAMMOGRAM FOR MALIGNANT NE 11/18/2019 ORENDER DO, BALBINA S Ot Z12.31 ENCNTR SCREEN MAMMOGRAM FOR MALIGNANT NE 11/23/2019 W Z12.31 Scr eening mammogram, encounter for Orender, Balbina S. 11/29/2019 SHERLYNDUDLEY [employer] SUPERVISOR Ot N64.89 OTHER SPECIFIED DISORDERS OF BREAST 12/06/2019 SHERLYNDUDLEY [employer] SUPERVISOR Ot R92.2 INCONCLUSIVE MAMMOGRAM 12/14/2019 SHERLYNDUDLEY [employer] SUPERVISOR Ot R92.2 INCONCLUSIVE MAMMOGRAM 02/13/2020 W E78.2 Mixe d hyperlipidemia Orender, Balbina S. 02/13/2020 W I10 Essent ial (primary) hypertension OrendJsoh branchline S. 02/13/2020 W Z00.00 Enc ounter for general adult medical examination without abnormal findings SarthaknderScottBalbina S. 02/13/2020 W E78.2 Mixe d hyperlipidemia Orender, Balbina S. 02/13/2020 W I10 Essent ial (primary) hypertension Orender, Balbina S. 02/13/2020 W Z00.00 Enc ounter for general adult medical examination without abnormal findings Orender, Balbina S. 02/20/2020 W E78.2 Mixe d hyperlipidemia Orender, Balbina S. 02/20/2020 W Z00.00 Enc ounter for general adult medical examination without abnormal findings Orender, Balbina S. 02/20/2020 W E78.2 Mixe d hyperlipidemia Orender, Balbina S. 02/20/2020 W Z00.00 Enc ounter for general adult medical examination without abnormal findings Josh Postline S. 02/22/2020 DUDLEY PLATA APRN Ot R92.2 INCONCLUSIVE MAMMOGRAM Procedures There is no data. Results Test Result Range Comprehensive metabolic panel - 08/27/16 07:08 Serum or plasma sodium measurement (moles/volume) 142 mmol/L 135-145 Serum or plasma potassium measurement (moles/volume) 3.8 mmol/L 3.6-5.0 Serum or plasma chloride measurement (moles/volume) 108 mmol/L 98-107 Carbon dioxide 26 mmol/L 21-32 Serum or plasma anion gap determination (moles/volume) 8 mmol/L 5-14 Serum or plasma urea nitrogen measurement (mass/volume ) 10 mg/dL 7-18 Serum or plasma creatinine measurement (mass/volume) 0.70 mg/dL 0.60-1.30 Serum or plasma urea nitrogen/creatinine mass ratio 14 NRG Serum or plasma creatinine measurement w ith calculation of estimated glomerular filtration rate > NRG Serum or plasma glucose measurement (mass/volume) 88 mg/dL 70-105 Serum or plasma calcium measurement (mass/volume) 9.3 mg/dL 8.5-10.1 Serum or plasma total bilirubin measurement (mass/volu me) 0.8 mg/dL 0.1-1.0 Serum or plasma alkaline phosphatase garo surement (enzymatic activity/volume) 67 U/L 40-136 Serum or plasma aspartate aminotransfera se measurement (enzymatic activity/volume) 20 U/L 5-34 Serum or plasma alanine aminotransferase measurement (enzymatic activity/volume) 18 U/L 0-55 Serum or plasma protein measurement (mass/volume) 6.7 g/dL 6.4-8.2 Serum or plasma albumin measurement (mass/volume) 4.3 g/dL 3.2-4.5 Lipid 1996 panel - 08/27/16 07:08 Serum or plasma triglyceride measurement (mass/volume) 142 mg/dL <150 Serum or plasma cholesterol measurement (mass/volume) 196 mg/dL < 200 Serum or plasma cholesterol in HDL measurement (mass/v olume) 44 mg/dL 40-60 Cholesterol in LDL [mass/volume] in serum or plasma by direct assay 128 mg/dL 1-129 Serum or plasma cholesterol in VLDL measurement (mass/ volume) 28 mg/dL 5-40 Complete blood count (CBC) with automate d white blood cell (WBC) differential - 03/11/17 09:32 Blood leukocytes automated count (number/volume) 6.4 10*3/uL 4.3-11.0 Blood erythrocytes automated count (number/volume) 4.81 10*6/uL 4.35-5.85 Venous blood hemoglobin measurement (mass/volume) 13.9 g/dL 11.5-16.0 Blood hematocrit (volume fraction) 41 % 35-52 Automated erythrocyte mean corpuscular volume 86 [ foz_us] 80-99 Automated erythrocyte mean corpuscular h emoglobin (mass per erythrocyte) 29 pg 25-34 Automated erythrocyte mean corpuscular h emoglobin concentration measurement (mass/volume) 34 g/dL 32-36 Automated erythrocyte distribution width ratio 12. 6 % 10.0- 14.5 Automated blood platelet count (count/volume) 151 10*3/uL 130-400 Automated blood platelet mean volume measurement 11.6 [foz_us] 7.4-10.4 Automated blood neutrophils/100 leukocytes 53 % 42-75 Automated blood lymphocytes/100 leukocytes 36 % 12-44 Blood monocytes/100 leukocytes 9 % 0-12 Automated blood eosinophils/100 leukocytes 1 % 0-10 Automated blood basophils/100 leukocytes 0 % 0-10 Blood neutrophils automated count (number/volume) 3.4 10*3 1.8-7.8 Blood lymphocytes automated count (number/volume) 2.3 10*3 1.0-4.0 Blood monocytes automated count (number/volume) 0. 6 10*3 0.0-1.0 Automated eosinophil count 0.1 10*3/uL 0 .0-0.3 Automated blood basophil count (count/volume) 0.0 10*3/uL 0.0-0.1 Comprehensive metabolic panel - 03/11/17 09:32 Serum or plasma sodium measurement (moles/volume) 140 mmol/L 135-145 Serum or plasma potassium measurement (moles/volume) 4.0 mmol/L 3.6-5.0 Serum or plasma chloride measurement (moles/volume) 106 mmol/L 98-107 Carbon dioxide 26 mmol/L 21-32 Serum or plasma anion gap determination (moles/volume) 8 mmol/L 5-14 Serum or plasma urea nitrogen measurement (mass/volume ) 10 mg/dL 7-18 Serum or plasma creatinine measurement (mass/volume) 0.75 mg/dL 0.60-1.30 Serum or plasma urea nitrogen/creatinine mass ratio 13 0-20 Serum or plasma creatinine measurement w ith calculation of estimated glomerular filtration rate > NRG Serum or plasma glucose measurement (mass/volume) 95 mg/dL 70-105 Serum or plasma calcium measurement (mass/volume) 9.3 mg/dL 8.5-10.1 Serum or plasma total bilirubin measurement (mass/volu me) 1.1 mg/dL 0.1-1.0 Serum or plasma alkaline phosphatase garo surement (enzymatic activity/volume) 64 U/L 40-136 Serum or plasma aspartate aminotransfera se measurement (enzymatic activity/volume) 21 U/L 5-34 Serum or plasma alanine aminotransferase measurement (enzymatic activity/volume) 15 U/L 0-55 Serum or plasma protein measurement (mass/volume) 7.3 g/dL 6.4-8.2 Serum or plasma albumin measurement (mass/volume) 4.3 g/dL 3.2-4.5 Lipid 1996 panel - 03/11/17 09:32 Serum or plasma triglyceride measurement (mass/volume) 113 mg/dL <150 Serum or plasma cholesterol measurement (mass/volume) 219 mg/dL < 200 Serum or plasma cholesterol in HDL measurement (mass/v olume) 44 mg/dL 40-60 Cholesterol in LDL [mass/volume] in serum or plasma by direct assay 146 mg/dL 1-129 Serum or plasma cholesterol in VLDL measurement (mass/ volume) 23 mg/dL 5-40 THYROID STIMULATING HORMONE - 03/11/17 0 9:32 THYROID STIMULATING HORMONE 1.64 u[iU]/mL 0.35-4.94 Complete blood count (CBC) with automate d white blood cell (WBC) differential - 06/01/17 07:20 Blood leukocytes automated count (number/volume) 5.8 10*3/uL 4.3-11.0 Blood erythrocytes automated count (number/volume) 4.80 10*6/uL 4.35-5.85 Venous blood hemoglobin measurement (mass/volume) 14.1 g/dL 11.5-16.0 Blood hematocrit (volume fraction) 42 % 35-52 Automated erythrocyte mean corpuscular volume 87 [ foz_us] 80-99 Automated erythrocyte mean corpuscular h emoglobin (mass per erythrocyte) 29 pg 25-34 Automated erythrocyte mean corpuscular h emoglobin concentration measurement (mass/volume) 34 g/dL 32-36 Automated erythrocyte distribution width ratio 12. 7 % 10.0- 14.5 Automated blood platelet count (count/volume) 163 10*3/uL 130-400 Automated blood platelet mean volume measurement 11.1 [foz_us] 7.4-10.4 Automated blood neutrophils/100 leukocytes 51 % 42-75 Automated blood lymphocytes/100 leukocytes 39 % 12-44 Blood monocytes/100 leukocytes 7 % 0-12 Automated blood eosinophils/100 leukocytes 2 % 0-10 Automated blood basophils/100 leukocytes 0 % 0-10 Blood neutrophils automated count (number/volume) 3.0 10*3 1.8-7.8 Blood lymphocytes automated count (number/volume) 2.2 10*3 1.0-4.0 Blood monocytes automated count (number/volume) 0. 4 10*3 0.0-1.0 Automated eosinophil count 0.1 10*3/uL 0 .0-0.3 Automated blood basophil count (count/volume) 0.0 10*3/uL 0.0-0.1 Comprehensive metabolic panel - 06/01/17 07:20 Serum or plasma sodium measurement (moles/volume) 142 mmol/L 135-145 Serum or plasma potassium measurement (moles/volume) 3.9 mmol/L 3.6-5.0 Serum or plasma chloride measurement (moles/volume) 107 mmol/L 98-107 Carbon dioxide 26 mmol/L 21-32 Serum or plasma anion gap determination (moles/volume) 9 mmol/L 5-14 Serum or plasma urea nitrogen measurement (mass/volume ) 10 mg/dL 7-18 Serum or plasma creatinine measurement (mass/volume) 0.78 mg/dL 0.60-1.30 Serum or plasma urea nitrogen/creatinine mass ratio 13 NRG Serum or plasma creatinine measurement w ith calculation of estimated glomerular filtration rate > NRG Serum or plasma glucose measurement (mass/volume) 94 mg/dL 70-105 Serum or plasma calcium measurement (mass/volume) 9.3 mg/dL 8.5-10.1 Serum or plasma total bilirubin measurement (mass/volu me) 1.1 mg/dL 0.1-1.0 Serum or plasma alkaline phosphatase garo surement (enzymatic activity/volume) 63 U/L 40-136 Serum or plasma aspartate aminotransfera se measurement (enzymatic activity/volume) 22 U/L 5-34 Serum or plasma alanine aminotransferase measurement (enzymatic activity/volume) 21 U/L 0-55 Serum or plasma protein measurement (mass/volume) 7.1 g/dL 6.4-8.2 Serum or plasma albumin measurement (mass/volume) 4.3 g/dL 3.2-4.5 Lipid 1996 panel - 06/01/17 07:20 Serum or plasma triglyceride measurement (mass/volume) 105 mg/dL <150 Serum or plasma cholesterol measurement (mass/volume) 127 mg/dL < 200 Serum or plasma cholesterol in HDL measurement (mass/v olume) 48 mg/dL 40-60 Cholesterol in LDL [mass/volume] in serum or plasma by direct assay 61 mg/dL 1-129 Serum or plasma cholesterol in VLDL measurement (mass/ volume) 21 mg/dL 5-40 THYROID STIMULATING HORMONE - 06/01/17 0 7:20 THYROID STIMULATING HORMONE 2.89 u[iU]/mL 0.35-4.94 Encounters ACCT No. Visit Date/Time Discharge Status Pt. Type Provider Facility Loc./Unit Complaint [id number] 08/01/2014 15:40:02 08/01/2014 23:59: 59 CLS Outpatient Johnny Verduzco Deandra 02/201709/25/2019 11:37:57 09/25/2019 23:59 :59 CLS Outpatient Scott Postqueline S. [id number] 02/27/2016 10:44:04 02/27/2016 23:59:5 9 CLS Outpatient [id number] 12/03/2019 13:31:00 020 23:59:59 CLS Outpatient DUDLEY PLATA [employer] SUPER[employer] [facility] RAD RT BREAST DENSI TY [id number] 11/15/2019 10:09:00 020 23:59:59 CLS Outpatient ORENDER DO, BALBINA S [facility] RAD SCREENING [id number] 03/09/2018 13:53:00 018 23:59:59 CLS Outpatient ORENDER DO, BALBINA S [facility] RAD SCREENING [id number] 06/01/2017 07:07:00 017 23:59:59 CLS Outpatient ORENDER DO, BALBINA S [facility] LAB YEARLY LAB [id number] 03/11/2017 09:18:00 017 23:59:59 CLS Outpatient ORENDER DO, BALBINA S [facility] LAB HYPERLIPIDEMIA, HTN [id number] 08/27/2016 06:59:00 016 23:59:59 CLS Outpatient ORENDER DO, BALBINA S [facility] LAB E08.2 [id number] 05/04/2016 09:31:00 016 23:59:59 CLS Outpatient ORENDER DO, BALBINA S [facility] RAD SCREENING [id number] 04/13/2016 07:45:00 016 23:59:59 CLS Outpatient ORENDER DO, BALBINA S [facility] LAB YEARLY LAB [id number] 08/05/2014 11:05:00 014 23:59:59 CLS Outpatient CARTER KUO, JOSH Jarrett [facility] CARD CHEST PRESSURE,HEAVINES S [id number] 05/05/2012 07:24:00 Document Registration [id number] 04/15/2011 09:22:00 Document Registration
[2020-02-26 21:43] LABS: BILIRUBIN,URINE NEGATIVE (NEGATIVE); CLARITY,URINE CLEAR; COLOR,URINE YELLOW; GLUCOSE, URINE (UA) NEGATIVE (NEGATIVE); KETONES,URINE NEGATIVE (NEGATIVE); LEUKOCYTE ESTERASE ,URINE TRACE (NEGATIVE); NITRITE,URINE NEGATIVE (NEGATIVE); PH,URINE 6.5 (5-9); PROTEIN,URINE 2+ (NEGATIVE)
[2020-02-26] MEDS ORDERED: ONDANSETRON 4 MG/2 ML (SDV) Z0FRAN IVP ONE (22:00)
[2020-02-26 22:01] LABS: BASOPHILS % (AUTO) 0 % (0-10); EOSINOPHILS # (AUTO) 0.2 10^3/uL (0.0-0.3); EOSINOPHILS % (AUTO) 2 % (0-10); HEMATOCRIT 42 % (35-52); HEMOGLOBIN 14.5 G/DL (11.5-16.0); LYMPHOCYTES # (AUTO) 3.1 X 10^3 (1.0-4.0); LYMPHOCYTES % (AUTO) 34 % (12-44); MEAN CORPUSCULAR HEMOGLOBIN 30 PG (25-34); MEAN CORPUSCULAR HGB CONC 35 G/DL (32-36); MEAN CORPUSCULAR VOLUME 85 FL (80-99); MEAN PLATELET VOLUME 10.9 FL (7.4-10.4); MONOCYTES # (AUTO) 0.6 X 10^3 (0.0-1.0); MONOCYTES % (AUTO) 7 % (0-12); NEUTROPHILS # (AUTO) 5.2 X 10^3 (1.8-7.8); NEUTROPHILS % (AUTO) 57 % (42-75); PLATELET COUNT 162 10^3/uL (130-400); WHITE BLOOD COUNT 9.1 10^3/uL (4.3-11.0)
[2020-02-26 22:12] LABS: AMORPHOUS SEDIMENT,UR RARE AMOR URATES /LPF; BACTERIA,URINE NEGATIVE /HPF; RBC,URINE 0-2 /HPF
[2020-02-26 22:26] LABS: ALBUMIN 4.6 GM/DL (3.2-4.5); CHLORIDE 104 MMOL/L (98-107); POTASSIUM 3.4 MMOL/L (3.6-5.0); SODIUM 140 MMOL/L (135-145)
[2020-02-26 22:28] LABS: CALCIUM 9.5 MG/DL (8.5-10.1)
[2020-02-26 22:29] LABS: GLUCOSE 120 MG/DL (70-105); TOTAL PROTEIN 7.8 GM/DL (6.4-8.2)
[2020-02-26 22:30] LABS: CARBON DIOXIDE 24 MMOL/L (21-32)
[2020-02-26 22:31] LABS: BILIRUBIN,TOTAL 0.7 MG/DL (0.1-1.0)
[2020-02-26 22:32] LABS: ALKALINE PHOSPHATASE 89 U/L (40-136)
[2020-02-26 22:33] LABS: CREATININE SERUM 0.86 MG/DL (0.60-1.30); GFR ESTIMATED > 60
[2020-02-26 22:34] LABS: BUN/CREATININE RATIO 9
[2020-02-26 22:35] LABS: ALANINE AMINOTRANSFERASE 17 U/L (0-55)
[2020-02-26 22:36] LABS: LIPASE 17 U/L (8-78)
[2020-02-26] MEDS ORDERED: IOHEXOL 350 MG/ML 100 ML (OMNIPAQUE 350) VIAL IV ONE (23:00)
[2020-02-26] MEDS ORDERED: NS 100 ML (IVPB) BAG IV ONE (23:00)
--- NOTE | 2020-02-26 23:27 | ED General ---
General Chief Complaint: General Problems/Pain Stated Complaint: STOMACH AND BACK PAIN Nursing Triage Note: c/o pain off and on for 2 weeks with occasional low grade fever. yesterday temp max was 99.8. pain increased last night and was accompanied withsome nausea. Nursing Sepsis Screen: No Definite Risk Source of Information: Patient Exam Limitations: No Limitations History of Present Illness Date Seen by Provider: Feb 26, 2020 Time Seen by Provider: 21:50 Initial Comments 64-year-old female who presents to emergency room with complaints of right lower quadrant abdominal pain that radiates to her back for the past 2 weeks. She reports occasional fever and his reaching 99.8. She reports the pain increased last night accompanied with nausea. She denies any vomiting. She denies taking any medication for this. Associated Systoms: Nausea/Vomiting Allergies and Home Medications Allergies Uncoded Allergies: FLOXACIN (Allergy, Mild, 06/22/10) Home Medications Hydrocodone/Acetaminophen 1 Each Tablet, 1 EACH PO Q4H PRN for PAIN-BREAKTHROUGH Prescribed by: GUS BOYLE on 02/26/202336 Ondansetron 4 Mg Tab.rapdis, 4 MG PO Q4H Prescribed by: GUS BOYLE on 02/26/202336 Sulfamethoxazole/Trimethoprim 1 Each Tablet, 1 EACH PO BID Prescribed by: GUS BOYLE on 02/26/202336 Patient Home Medication List Home Medication List Reviewed: Yes Review of Systems Review of Systems Constitutional: see HPI, chills, fever Gastrointestinal: see HPI, abdominal pain (RLQ) Musculoskeletal: see HPI, back pain All Other Systems Reviewed Negative Unless Noted: Yes Past Kvcbyxe-Naxftr-Inaipl Hx Past Med/Social Hx: Reviewed Nursing Past Med/Soc Hx Patient Social History Alcohol Use: Denies Use Recreational Drug Use: No Recent Foreign Travel: No Contact w/Someone Who Travel: No Recent Infectious Disease Expo: No Physical Abuse: No Sexual Abuse: No Mistreated: No Fear: No Past Medical History : No 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 oz. kg; 27.00 BMI Method: General Appearance: No Apparent Distress, WD/WN Respiratory: Chest Non Tender, Lungs Clear, Normal Breath Sounds, No Accessory Muscle Use, No Respiratory Distress Cardiovascular: Regular Rate, Rhythm, No Edema, No Gallop, No JVD, No Murmur, Normal Peripheral Pulses Gastrointestinal: Normal Bowel Sounds, No Organomegaly, No Pulsatile Mass, Soft, Tenderness (right lower quadrant) Neurologic/Psychiatric: Alert, Oriented x3, Normal Mood/Affect Skin: Normal Color, Warm/Dry Progress/Results/Core Measures Suspected Sepsis Recent Fever Within 48 Hours: No Infection Criteria Present: Suspected New Infection New/Unexplained Altered Menta: No Sepsis Screen: No Definite Risk SIRS Temperature: Pulse: 77 Respiratory Rate: 20 Laboratory Tests 02/26/20 21:55: White Blood Count 9.1 Blood Pressure 177 /95 Mean: 122 Laboratory Tests 02/26/20 21:55: Creatinine 0.86, Platelet Count 162, Total Bilirubin 0.7 Results/Orders Lab Results Laboratory Tests Test 02/26/20 21:35 02/26/20 21:55 Range/Units Urine Color YELLOW Urine Clarity CLEAR Urine pH 6.5 5-9 Urine Specific [place] 1.020 1.016-1.022 Urine Protein 2+ H NEGATIVE Urine Glucose (UA) NEGATIVE NEGATIVE Urine Ketones NEGATIVE NEGATIVE Urine Nitrite NEGATIVE NEGATIVE Urine Bilirubin NEGATIVE NEGATIVE Urine Urobilinogen 0.2 < = 1.0 MG/DL Urine Leukocyte Esterase TRACE H NEGATIVE Urine RBC (Auto) TRACE-I NEGATIVE Urine RBC 0-2 /HPF Urine WBC 2-5 /HPF Urine Crystals PRESENT H /LPF Urine Amorphous Sediment RARE SANGITA URATES H /LPF Urine Bacteria NEGATIVE /HPF Urine Casts NONE /LPF Urine Mucus NEGATIVE /LPF Urine Culture Indicated NO White Blood Count 9.1 4.3-11.0 10^3/uL Red Blood Count 4.92 4.35-5.85 10^6/uL Hemoglobin 14.5 11.5-16.0 G/DL Hematocrit 42 35-52 % Mean Corpuscular Volume 85 80-99 FL Mean Corpuscular Hemoglobin 30 25-34 PG Mean Corpuscular Hemoglobin Concent 35 32-36 G/DL Red Cell Distribution Width 13.0 10.0-14.5 % Platelet Count 162 130-400 10^3/uL Mean Platelet Volume 10.9 H 7.4-10.4 FL Neutrophils (%) (Auto) 57 42-75 % Lymphocytes (%) (Auto) 34 12-44 % Monocytes (%) (Auto) 7 0-12 % Eosinophils (%) (Auto) 2 0-10 % Basophils (%) (Auto) 0 0-10 % Neutrophils # (Auto) 5.2 1.8-7.8 X 10^3 Lymphocytes # (Auto) 3.1 1.0-4.0 X 10^3 Monocytes # (Auto) 0.6 0.0-1.0 X 10^3 Eosinophils # (Auto) 0.2 0.0-0.3 10^3/uL Basophils # (Auto) 0.0 0.0-0.1 10^3/uL Sodium Level 140 135-145 MMOL/L Potassium Level 3.4 L 3.6-5.0 MMOL/L Chloride Level 104 98-107 MMOL/L Carbon Dioxide Level 24 21-32 MMOL/L Anion Gap 12 5-14 MMOL/L Blood Urea Nitrogen 8 7-18 MG/DL Creatinine 0.86 0.60-1.30 MG/DL Estimat Glomerular Filtration Rate > 60 BUN/Creatinine Ratio 9 Glucose Level 120 H 70-105 MG/DL Calcium Level 9.5 8.5-10.1 MG/DL Corrected Calcium 8.5-10.1 MG/DL Total Bilirubin 0.7 0.1-1.0 MG/DL Aspartate Amino Transf (AST/SGOT) 23 5-34 U/L Alanine Aminotransferase (ALT/SGPT) 17 0-55 U/L Alkaline Phosphatase 89 40-136 U/L C-Reactive Protein High Sensitivity 0.22 0.00-0.50 MG/DL Total Protein 7.8 6.4-8.2 GM/DL Albumin 4.6 H 3.2-4.5 GM/DL Lipase 17 8-78 U/L My Orders Orders - GUS BOYLE Ua Culture If Indicated (02/26/20 21:02) Ondansetron Injection (Zofran Injectio (02/26/20 22:00) Ct Abdomen/Pelvis W (02/26/20 21:55) Ketorolac Injection (Toradol Injection) (02/26/20 23:30) Ns Iv 1000 Ml (Sodium Chloride 0.9%) (02/26/20 23:30) Medications Given in ED Current Medications Medications Dose Ordered Sig/Chidi Route Start Time Stop Time Status Last Admin Dose Admin Iohexol 100 ml ONCE ONCE IV 02/26/20 23:00 02/26/20 23:27 DC 02/26/20 22:50 100 ML Ondansetron HCl 8 mg ONCE ONCE IVP 02/26/20 22:00 02/26/20 22:01 DC 02/26/20 22:00 8 MG Sodium Chloride 80 ml ONCE ONCE IV 02/26/20 23:00 02/26/20 23:27 DC 02/26/20 22:50 80 ML Vital Signs/I&O 02/26/20 21:55 Temp 37.5 Pulse 77 Resp 20 B/P (MAP) 177/95 (122) Pulse Ox 98 Capillary Refill : Less Than 3 Seconds Blood Pressure Mean: 122 Progress Note : Time: 23:27 Progress Note I have seen and evaluated the patient. I've informed her of her laboratory and imaging studies. She agrees with plan of care, plans for discharge, return precautions were given. Departure Impression Primary Impression: Ureteral stone with hydronephrosis Disposition: HOME, SELF-CARE Condition: Stable/Unchanged Departure-Patient Inst. Decision time for Depature: 23:33 Referrals: BALBINA OWENS DO (PCP/Family) Primary Care Physician KATIUSKA WILLIAMSON MD Patient Instructions: Hydronephrosis, Adult (DC), Kidney Stones (DC) Add. Discharge Instructions: Take medications as directed. Drink plenty of fluids to stay hydrated. Call tomorrow morning to schedule an appointment with Dr. Williamson's office for close follow-up. Return back to the emergency room for worsening symptoms or concerns as needed. All discharge instructions reviewed with patient and/or family. Voiced understanding. Scripts Sulfamethoxazole/Trimethoprim (Bactrim Ds Tablet) 1 Each Tablet 1 EACH PO BID for 7 Days, #14 TAB Prov: GUS BOYLE 02/26/20 Ondansetron (Ondansetron Odt) 4 Mg Tab.rapdis 4 MG PO Q4H, #30 TAB Prov: BERNOTGUS 02/26/20 Hydrocodone/Acetaminophen (Hydrocodone-Acetamin 5-325 mg) 1 Each Tablet 1 EACH PO Q4H PRN for PAIN-BREAKTHROUGH, #14 TAB Prov: BERNOTGUS 02/26/20 Copy Copies To 1: KATIUSKA WILLIAMSON MD Copies To 2: BALBINA OWENS TRAVIS Feb 26, 2020 23:27
[2020-02-26] MEDS ORDERED: KETOROLAC 30 MG/ML VIAL IVP ONE (23:30)
[2020-02-26] MEDS ORDERED: NS IV 1000 ML 1,000 ML IV SCH (23:30)
[2020-02-26] MEDS ORDERED: SULF1TAB35 PO (23:37)
[2020-02-26] MEDS ORDERED: ONDA4TAB11 PO (23:37)
[2020-02-26] MEDS ORDERED: HYDR-83 PO (23:37)
[2020-02-27] MEDS ORDERED: RX-ONDANSETRON 4 MG ODT (ZOFRAN) PPK #4 SL STA (00:03)
[2020-02-27 00:36] VITALS: BP 123/90
--- NOTE | 2020-02-27 06:41 | Diagnostic Imaging Report ---
PROCEDURE: CT abdomen and pelvis with contrast. TECHNIQUE: Multiple contiguous axial images were obtained through the abdomen and pelvis after administration of intravenous contrast. Auto Exposure Controls were utilized during the CT exam to meet ALARA standards for radiation dose reduction. INDICATION: Stomach and back pain. FINDINGS: There is a moderate severe hydronephrosis of the right kidney with a 8 mm stone at the UPJ. There is symmetrical nephrogram following IV contrast. Left kidney appears normal. Liver appears normal. Gallbladder and bile ducts are normal. The pancreas and spleen are normal. The adrenal glands are normal. Bowel gas pattern is normal. The appendix is not dilated. Uterus is not enlarged. Bladder is nondistended. There are no pelvic masses. No free air or free fluid. No bony abnormalities. IMPRESSION: Obstructive uropathy UPJ on the right with moderate to severe hydronephrosis due to a 8 mm calculus. These findings are concordant with the preliminary report . Dictated by: Dictated on workstation # [id number]
[2020-02-27] MEDS ORDERED: KRIL1CAP18 PO (16:05)
[2020-02-27] MEDS ORDERED: DOCU-143 PO (16:05)
[2020-02-27] MEDS ORDERED: EZET10TA17 PO (16:05)
[2020-02-27] MEDS ORDERED: MULT-1136 PO (16:05)
[2020-02-28] MEDS ORDERED: TMSL.4C PO (12:39)
[2020-02-28] MEDS ORDERED: PHEN-640 PO (12:39)
[2020-02-28] MEDS ORDERED: NITR-65 PO (12:39)
== END 2020-02-27 00:36 | disposition home or self-care (01) ==
LOC: EDUNIT# 21:01 → ER 21:02
DX: N13.2 Hydronephrosis with renal and ureteral calculous obstruction (principal); Z88.1 Allergy status to other antibiotic agents
CPT/HCPCS: 36415; 74177; 80053; 81000; 83690; 85025; 86141

== ENCOUNTER 2020-02-27 15:50 | Outpatient (RCR) | payer MEDICARE, OTHER ==
[~2020-02-27] VITALS: Ht 167 cm; Wt 77.0 kg
[~2020-02-27 15:50] MED LIST changes: -DOCU-143 PO; -EZET10TA17 PO; -KRIL1CAP18 PO; -MULT-1136 PO; -NITR-65 PO; -PHEN-640 PO; -TMSL.4C PO
[2020-02-27] MEDS ORDERED: DOCU-143 PO (16:05)
[2020-02-27] MEDS ORDERED: KRIL1CAP18 PO (16:05)
[2020-02-27] MEDS ORDERED: MULT-1136 PO (16:05)
[2020-02-27] MEDS ORDERED: EZET10TA17 PO (16:05)
[2020-02-28] MEDS ORDERED: NITR-65 PO (12:39)
[2020-02-28] MEDS ORDERED: TMSL.4C PO (12:39)
[2020-02-28] MEDS ORDERED: PHEN-640 PO (12:39)
== END 2020-02-27 16:14 | disposition home or self-care (01) ==
LOC: PREOP 15:50
PROVIDERS: ATTEND Urology
DX: Z01.818 Encounter for other preprocedural examination (principal)

== ENCOUNTER → 2020-02-27 | Outpatient (CLI) | payer MEDICARE, OTHER ==
[~2020-02-27] MED LIST: DOCU-143 PO; EZET10TA17 PO; HYDR-83 PO; KRIL1CAP18 PO; MULT-1136 PO; NITR-65 PO; ONDA4TAB11 PO; PHEN-640 PO; SULF1TAB35 PO; TMSL.4C PO
--- NOTE | 2020-02-27 16:01 | Diagnostic Imaging Report ---
INDICATION: History of renal calculus. COMPARISON: CT from 02/26/2020. FINDINGS: A single supine radiographic view of the abdomen was obtained and demonstrates dense opacification of the right renal pelvis and calyces. This is felt to be secondary to retained contrast from the recent CT dated 02/26/2020. Additionally, there is severe hydronephrosis on the right. The patient's known right UPJ calculus is inconspicuous. A punctate calculus is noted projecting over the inferior pole of the left kidney. No unexpected radiopaque foreign bodies are seen. The small bowel loops are nondistended. There is no large collection of free intraperitoneal air. IMPRESSION: 1. Severe right-sided hydronephrosis with retention of excreted contrast from the recent CT. 2. Punctate left renal calculus. Dictated by: Dictated on workstation # [id number]
== END ==
LOC: RAD 12:31
PROVIDERS: ATTEND Urology
DX: N20.2 Calculus of kidney with calculus of ureter (principal); N13.30 Unspecified hydronephrosis
CPT/HCPCS: 74018

== ENCOUNTER 2020-02-28 08:18 | Day surgery (SDC) | payer MEDICARE, OTHER ==
[2020-02-28] VITALS (11 sets, daily range): BP systolic 100–149; BP diastolic 56–79
[~2020-02-28] VITALS: Ht 167 cm; Wt 77.0 kg
[~2020-02-28 08:18] MED LIST changes: +DOCU-143 PO; +EZET10TA17 PO; +KRIL1CAP18 PO; +MULT-1136 PO
--- NOTE | 2020-02-28 08:59 | Diagnostic Imaging Report ---
INDICATION: Renal calculus. Exam compared with radiograph of one day prior. There has been interval evacuation of the previous retained contrast media within the dilated right renal collecting system and pelvis. A calculus measuring about 8.2 mm long axis projects at the level of the lower endplate of L3; this is not appreciably changed in alignment when correlated with CT of 02/26/2020. The bowel gas pattern normal. IMPRESSION: 1. 8.2 mm calculus proximal right ureter found at the L3 inferior endplate level unchanged in alignment from the CT of 2 days earlier. 2. Interval clearance of the previous retained contrast media on the right. Dictated by: Dictated on workstation # [id number]
[2020-02-28] MEDS ORDERED: cefTRIAXone FOR IV USE 1,000 MG in WATER (STERILE) FOR INJECTION 10 ML IV ONE (09:00)
[2020-02-28] MEDS: LACTATED RINGERS 1,000 ML IV PRN ×2 (09:00→11:31)
[2020-02-28] MEDS ORDERED: WATER (STERILE) FOR INJECTION 10 ML ONE (09:11)
[2020-02-28] MEDS ORDERED: cefTRIAXone 1,000 MG IV (ROCEPHIN) VIAL ONE (09:11)
[2020-02-28] MEDS ORDERED: fentaNYL INJECTION 100 MCG/2 ML AMP IVP ONE (09:45)
[2020-02-28] MEDS ORDERED: ONDANSETRON 4 MG/2 ML (SDV) Z0FRAN IVP ONE (09:45)
--- NOTE | 2020-02-28 09:52 | Progress Note-Pre Operative ---
Pre-Operative Progress Note H&P Reviewed The H&P was reviewed, patient examined and no changes noted. Date Seen by Provider: Feb 28, 2020 Time Seen by Provider: 09:52 Date H&P Reviewed: Feb 28, 2020 Time H&P Reviewed: 09:52 Pre-Operative Diagnosis: RT PROXIMAL URETERAL STONE KATIUSKA WILLIAMSON MD Feb 28, 2020 09:52
--- NOTE | 2020-02-28 10:10 | Progress Note-Post Operative ---
Post-Operative Progess Note Surgeon (s)/Ballet Dancer (s) Surgeon KATIUSKA WILLIAMSON MD Ballet Dancer: NONE Pre-Operative Diagnosis RT PROXIMAL URETERAL STONE Post-Operative Diagnosis SAME Procedure & Operative Findings Date of Procedure 02/28/20 Procedure Performed/Findings CYSTOSCOPY, RT PROXIMAL URETERAL STONE MANIPULATION AND INSERTION OF RT STENT Anesthesia Type GENERAL Estimated Blood Loss Estimated blood loss (mL): NONE Specimens/Packing Specimens Removed NONE Packing: NONE KATIUSKA WILLIAMSON MD Feb 28, 2020 10:10
[2020-02-28] MEDS ORDERED: fentaNYL INJECTION 100 MCG/2 ML AMP ONE (10:57)
[2020-02-28] MEDS ORDERED: MIDAZOLAM 2 MG/2 ML (VERSED) VIAL ONE (10:58)
--- NOTE | 2020-02-28 11:06 | Discharge Inst-Urology ---
Discharge Inst-Urology Reconcile Patient Problems Problems Reviewed?: Yes Final Diagnosis RT PROXIMAL URETERAL STONE Patient Instructions/Follow Up Plan/Assessment/Instructions Please make appointment to been seen in office Saturday 03/10, KUB prior to it KUB on way home Increase oral fluids for 48 hours and then as needed. Diet and Activity as tolerated. If questions or concerns contact your physician Or seek help at emergency department. KATIUSKA WILLIAMSON MD Feb 28, 2020 11:06
[2020-02-28] MEDS ORDERED: DEXAMETHASONE 10 MG/ML (DECADRON) 1 ML VIAL ONE (11:34)
[2020-02-28] MEDS ORDERED: ONDANSETRON 4 MG/2 ML (SDV) Z0FRAN ONE (11:34)
[2020-02-28] MEDS ORDERED: proPOfol 200 MG/20 ML (DIPRIVAN) VIAL IV ONE (11:34)
[2020-02-28] MEDS ORDERED: LIDOCAINE PF 2% 5 ML (XYLOCAINE) VIAL ONE (11:34)
[2020-02-28] MEDS ORDERED: SEVOFLURANE (ULTANE) 15 ML INHAL SOLN ONE (11:35)
--- NOTE | 2020-02-28 11:42 | Anesthesia-General Post-Op ---
General Patient Condition Mental Status/LOC: Same as Preop Cardiovascular: Satisfactory Nausea/Vomiting: Absent Respiratory: Satisfactory Pain: Controlled Complications: Absent Post Op Complications Complications None Follow Up Care/Instructions Patient Instructions None needed. Anesthesia/Patient Condition Patient Condition Patient is doing well, no complaints, stable vital signs, no apparent adverse anesthesia problems. No complications reported per nursing. ANDRESSA BANUELOS CRNA Feb 28, 2020 11:42
[2020-02-28] MEDS ORDERED: ONDANSETRON 4 MG/2 ML (SDV) Z0FRAN IVP PRN (11:45)
[2020-02-28] MEDS ORDERED: morphine INJ 10 MG/ML 1ML (SYR OR VIAL) IVP ONE (11:45)
[2020-02-28] MEDS ORDERED: NITR-65 PO (12:39)
[2020-02-28] MEDS ORDERED: TMSL.4C PO (12:39)
[2020-02-28] MEDS ORDERED: PHEN-640 PO (12:39)
--- NOTE | 2020-02-28 15:00 | OPERATIVE REPORT ---
DATE OF SERVICE: 02/28/2020 PREOPERATIVE DIAGNOSIS: Right proximal ureteral stone. POSTOPERATIVE DIAGNOSIS: Right proximal ureteral stone. OPERATION PERFORMED: Cystoscopy, right ureteral stone manipulation and insertion of right double-J stent. SURGEON: Cullen Williamson MD ANESTHESIA: General. COMPLICATIONS: None. DESCRIPTION OF PROCEDURE: Under satisfactory general anesthesia, the patient in lithotomy position, genitalia were prepped and draped in the usual sterile fashion. Cystoscope was introduced under vision. The bladder was normal except for a very sluggish efflux on the right side. Using the foroblique lens, I passed a 6-Occitan 26 cm double-J stent all the way up bypassing the stone to the renal pelvis guided fluoroscopically. I removed the guidewire. The stent was seen jetting nicely proximally fluoroscopically and distally endoscopically. Bladder was evacuated and the cystoscope was removed. The patient tolerated the procedure and anesthesia well and was sent to recovery room in stable condition. PLAN: We will do an ESWL when the machine is here in couple of . Plan was previously explained to the patient. Job ID: [id number] DocumentID: [id number] Dictated Date: 02/28/2020 11:37:54 Appraiser Timber Date: 02/28/2020 14:59:39 Dictated By: CULLEN WILLIAMSON MD
--- NOTE | 2020-02-28 16:03 | Diagnostic Imaging Report ---
INDICATION: Calculus. FINDINGS: A right-sided double-J stent has been placed and projects in good alignment. Previously a stone at the L3 inferior endplate level was present. This can no longer be identified at that level. Its conceivably obscured by the overlying bony structures and advanced more distally however again not apparent. IMPRESSION: The double-J stent projects in good alignment. The previous stone is not appreciable at this radiograph. Dictated by: Dictated on workstation # [id number]
== END 2020-02-28 13:35 | disposition home or self-care (01) ==
LOC: SDC 08:18
PROVIDERS: ATTEND Urology
DX: N20.1 Calculus of ureter (principal); Z88.1 Allergy status to other antibiotic agents; Z79.899 Other long term (current) drug therapy
CPT/HCPCS: 74018; 76000; 87081; 87635

== ENCOUNTER → 2020-03-10 | Outpatient (CLI) | payer MEDICARE, OTHER ==
[~2020-03-10] MED LIST changes: +NITR-65 PO; +PHEN-640 PO; +SULF1TAB34 PO; +TMSL.4C PO; +TRM50T PO
--- NOTE | 2020-03-10 16:35 | Diagnostic Imaging Report ---
INDICATION: Ureteral stone, post ESWL. FINDINGS: The right-sided double-J ureteral stent is in good alignment. Stool content in the right upper quadrant limits evaluation of the ureter at that level. Beyond that, no evidence for radiopaque stone. IMPRESSION: The ureteral stent is in good alignment with no definite urolithiasis. Stool content adjacent to the proximal stent in the right upper quadrant limits regional evaluation. Dictated by: Dictated on workstation # [id number]
== END ==
LOC: LAB 14:23
PROVIDERS: ATTEND Urology
DX: N20.1 Calculus of ureter (principal); Z98.890 Other specified postprocedural states; Z96.0 Presence of urogenital implants
CPT/HCPCS: 74018

== ENCOUNTER 2020-03-11 10:04 | Outpatient (RCR) | payer MEDICARE, OTHER ==
[~2020-03-11] VITALS: Ht 167 cm; Wt 77.0 kg
[~2020-03-11 10:04] MED LIST changes: -SULF1TAB34 PO; -TRM50T PO
[2020-03-12] MEDS ORDERED: TRM50T PO (08:06)
[2020-03-12] MEDS ORDERED: SULF1TAB34 PO (08:06)
== END 2020-03-11 10:12 | disposition home or self-care (01) ==
LOC: PREOP 10:04
PROVIDERS: ATTEND Urology
DX: Z01.818 Encounter for other preprocedural examination (principal); Z11.59 Encounter for screening for other viral diseases
CPT/HCPCS: 87635

== ENCOUNTER 2020-03-12 06:04 | Day surgery (SDC) | payer MEDICARE, OTHER ==
[2020-03-12] VITALS (10 sets, daily range): BP systolic 103–142; BP diastolic 64–88
[~2020-03-12] VITALS: Ht 167 cm; Wt 77.0 kg
[2020-03-12] MEDS ORDERED: ONDANSETRON 4 MG/2 ML (SDV) Z0FRAN ONE ×2 (06:48→06:54)
[2020-03-12] MEDS ORDERED: FAMOTIDINE 20MG/2ML IV (PEPCID) ONE (06:48)
[2020-03-12] MEDS ORDERED: SCOPOLAMINE 1.5 MG (TRANSDERM-SCOP) PATCH ONE (06:48)
[2020-03-12] MEDS ORDERED: WATER (STERILE) FOR INJECTION 10 ML ONE (06:49)
[2020-03-12] MEDS ORDERED: cefTRIAXone 1,000 MG IV (ROCEPHIN) VIAL ONE (06:49)
[2020-03-12] MEDS ORDERED: IOPAMIDOL 61% 30 ML (ISOVUE 300) VIAL ONE (06:52)
[2020-03-12] MEDS ORDERED: ROCURONIUM 10 MG/ML 5 ML SYRINGE IV ONE (06:53)
[2020-03-12] MEDS ORDERED: LACTATED RINGERS 1,000 ML IV ONE (06:54)
[2020-03-12] MEDS ORDERED: proPOfol 200 MG/20 ML (DIPRIVAN) VIAL IV ONE (06:54)
[2020-03-12] MEDS ORDERED: LIDOCAINE PF 2% 5 ML (XYLOCAINE) VIAL ONE (06:54)
[2020-03-12] MEDS ORDERED: fentaNYL INJECTION 100 MCG/2 ML AMP ONE (06:55)
[2020-03-12] MEDS ORDERED: MIDAZOLAM 2 MG/2 ML (VERSED) VIAL ONE (06:55)
[2020-03-12] MEDS ORDERED: LACTATED RINGERS 1,000 ML IV PRN (06:57)
[2020-03-12] MEDS ORDERED: cefTRIAXone FOR IV USE 1,000 MG in WATER (STERILE) FOR INJECTION 10 ML IV ONE (07:00)
[2020-03-12] MEDS ORDERED: FAMOTIDINE 20MG/2ML IV (PEPCID) IV ONE (07:00)
[2020-03-12] MEDS ORDERED: ONDANSETRON 4 MG/2 ML (SDV) Z0FRAN IV ONE (07:00)
[2020-03-12] MEDS ORDERED: SCOPOLAMINE 1.5 MG (TRANSDERM-SCOP) PATCH TOP ONE (07:00)
[2020-03-12] MEDS: LACTATED RINGERS 1,000 ML IV PRN ×2 (07:05→07:40)
[2020-03-12] MEDS ORDERED: PROPOFOL INJECTION 50 ML IV ONE (07:10)
[2020-03-12] MEDS ORDERED: CATHETER FLUSH 10 ML SYR IV PRN (07:15)
--- NOTE | 2020-03-12 07:15 | Progress Note-Pre Operative ---
Pre-Operative Progress Note H&P Reviewed The H&P was reviewed, patient examined and no changes noted. Date Seen by Provider: Mar 12, 2020 Time Seen by Provider: 07:15 Date H&P Reviewed: Mar 12, 2020 Time H&P Reviewed: 07:15 Pre-Operative Diagnosis: RT RENAL STONE KATIUSKA WILLIAMSON MD Mar 12, 2020 07:15
--- NOTE | 2020-03-12 07:18 | Progress Note-Post Operative ---
Post-Operative Progess Note Surgeon (s)/Chlorobutadiene Scrubber Operator (s) Surgeon KATIUSKA WILLIAMSON MD Chlorobutadiene Scrubber Operator: NONE Pre-Operative Diagnosis RT RENAL STONE Post-Operative Diagnosis SAME Procedure & Operative Findings Date of Procedure 03/12/20 Procedure Performed/Findings RT ESWL AND CYSTO WITH REMOVAL OF STENT Anesthesia Type GENERAL Estimated Blood Loss Estimated blood loss (mL): NONE Specimens/Packing Specimens Removed NONE Packing: NONE KATIUSKA WILLIAMSON MD Mar 12, 2020 07:18
--- NOTE | 2020-03-12 07:20 | Discharge Inst-Urology ---
Discharge Inst-Urology Reconcile Patient Problems Problems Reviewed?: Yes Final Diagnosis RT RENAL STONE Patient Instructions/Follow Up Plan/Assessment/Instructions Please make appointment to been seen in office in 2 weeks. KUB prior to it Stone for analysis, patient has it KUB on way home Post ESWL instructions Increase oral fluids for 48 hours and then as needed. Diet and Activity as tolerated. If questions or concerns contact your physician Or seek help at emergency department. KATIUSKA WILLIAMSON MD Mar 12, 2020 07:20
--- NOTE | 2020-03-12 07:28 | Diagnostic Imaging Report ---
EXAM: ABDOMEN/KUB 1VIEW INDICATION: Right ureteral stone. COMPARISON: 03/10/2020. FINDINGS: Right ureteral stent appears in stable position. No radiopaque foreign bodies are identified along the course of the right ureter. Phleboliths in the pelvis. Nonspecific bowel gas pattern. IMPRESSION: Stable positioning of a right ureteral stent. No renal stones are identified. Dictated by: Dictated on workstation # [id number]
[2020-03-12] MEDS ORDERED: KETOROLAC 30 MG/ML VIAL ONE (07:41)
[2020-03-12] MEDS ORDERED: FUROSEMIDE 40 MG/4 ML INJ (LASIX) ONE (07:41)
[2020-03-12] MEDS ORDERED: SULF1TAB34 PO (08:06)
[2020-03-12] MEDS ORDERED: TRM50T PO (08:06)
[2020-03-12] MEDS ORDERED: ONDANSETRON 4 MG/2 ML (SDV) Z0FRAN IVP PRN (08:15)
[2020-03-12] MEDS ORDERED: morphine INJ 10 MG/ML 1ML (SYR OR VIAL) IVP ONE (08:15)
--- NOTE | 2020-03-12 09:47 | OPERATIVE REPORT ---
DATE OF SERVICE: 03/12/2020 PREOPERATIVE DIAGNOSIS: Right renal stone. POSTOPERATIVE DIAGNOSIS: Right renal stone. OPERATION PERFORMED: Right ESWL with cystoscopy and removal of right stent. SURGEON: Cullen Williamson MD. ANESTHESIA: General. COMPLICATIONS: None. DESCRIPTION OF PROCEDURE: Under satisfactory general anesthesia with the patient supine on the ESWL table, the right renal stone was localized. Shocks were delivered at kV of 6, a total of 2000 shocks completely fragmented the stone that was not visible anymore. The patient was put in the frog position, genitalia were prepped and draped in the usual sterile fashion. Flexible cystoscope was introduced in the bladder. The distal end of the right ureteral stent was visualized. It was grasped with the grasping forceps and removed in toto. The patient received 40 mg of Lasix and 30 mg of Toradol at the end of the procedure. She tolerated the procedure and anesthesia well and was sent to recovery room in a stable condition. Job ID: [id number] DocumentID: [id number] Dictated Date: 03/12/2020 07:59:17 Publications Writer Date: 03/12/2020 09:46:53 Dictated By: CULLEN WILLIAMSON MD
--- NOTE | 2020-03-12 10:40 | Diagnostic Imaging Report ---
INDICATION: Right-sided pain, post extracorporeal shock wave lithotripsy. TECHNIQUE: Single supine view of the abdomen at 10:38 AM. CORRELATION STUDY: 03/12/2020. FINDINGS: A right ureteral stent has been removed. There is a large amount of overlying bowel gas, particularly over the right kidney, obscuring detail. The previously noted calcification over the central aspect of the right kidney is not well appreciated at followup. A small calcification does project superior to the right L2 transverse process. No appreciable calcification over the left renal silhouette. Calcifications in the bilateral hemipelves appear unchanged favoring phleboliths. The osseous structures appear unchanged with mild degenerative changes inferiorly. IMPRESSION: Interval removal of the right ureteral stent. Dictated by: Dictated on workstation # [id number]
--- NOTE | 2020-03-12 11:52 | Anesthesia-General Post-Op ---
General Patient Condition Mental Status/LOC: Same as Preop Cardiovascular: Satisfactory Nausea/Vomiting: Absent Respiratory: Satisfactory Pain: Controlled Complications: Absent Post Op Complications Complications None Follow Up Care/Instructions Patient Instructions None needed. Anesthesia/Patient Condition Patient Condition Patient was seen after the procedure this morning and she was doing well, no complaints, stable vital signs, no apparent adverse anesthesia problems. VANESA BOND DO Mar 12, 2020 11:52
== END 2020-03-12 10:40 | disposition home or self-care (01) ==
LOC: SDC 06:04
PROVIDERS: ATTEND Urology
DX: N20.0 Calculus of kidney (principal); Z11.2 Encounter for screening for other bacterial diseases; E78.5 Hyperlipidemia, unspecified; Z79.899 Other long term (current) drug therapy
CPT/HCPCS: 74018; 87081

== ENCOUNTER → 2020-03-26 | Outpatient (CLI) | payer MEDICARE, OTHER ==
[~2020-03-26] MED LIST changes: +SULF1TAB34 PO; +TRM50T PO
--- NOTE | 2020-03-26 15:56 | Diagnostic Imaging Report ---
INDICATION: Right-sided renal stone status post lithotripsy. TIME OF EXAM: 3:02 p.m. EXAMINATION: KUB. COMPARISON: Correlation is made with prior radiograph from 03/12/2020. FINDINGS: The bowel gas pattern is nonobstructed. There is moderate stool in the colon. Pelvic calcifications appear stable. No definite radiopaque urinary tract calculi are seen. IMPRESSION: Stable KUB when compared with examination of two weeks earlier. Dictated by: Dictated on workstation # [id number]
== END ==
LOC: RAD 14:38
PROVIDERS: ATTEND Urology
DX: N20.0 Calculus of kidney (principal); Z98.890 Other specified postprocedural states
CPT/HCPCS: 74018

== ENCOUNTER → 2020-03-26 | Outpatient (CLI) | payer MEDICARE, OTHER ==
[2020-03-26 16:55] LABS: CHLORIDE 106 MMOL/L (98-107); POTASSIUM 3.9 MMOL/L (3.6-5.0); SODIUM 139 MMOL/L (135-145)
[2020-03-26 16:56] LABS: CALCIUM 9.3 MG/DL (8.5-10.1)
[2020-03-26 16:57] LABS: GLUCOSE 92 MG/DL (70-105)
[2020-03-26 16:58] LABS: CARBON DIOXIDE 26 MMOL/L (21-32)
[2020-03-26 17:00] LABS: PHOSPHORUS 3.4 MG/DL (2.3-4.7)
[2020-03-26 17:01] LABS: BUN/CREATININE RATIO 12; CREATININE SERUM 0.73 MG/DL (0.60-1.30); GFR ESTIMATED > 60
[2020-03-26 17:03] LABS: URIC ACID 4.1 MG/DL (2.6-7.2)
== END ==
LOC: LAB 16:24
PROVIDERS: ATTEND Urology
DX: N20.0 Calculus of kidney (principal)
CPT/HCPCS: 36415; 80048; 83970; 84100; 84550

== ENCOUNTER → 2020-10-22 | Outpatient (CLI) | payer MEDICARE, OTHER ==
[~2020-10-22] MED LIST changes: +ACHD5005 PO; -HYDR-83 PO
--- NOTE | 2020-10-22 15:56 | Diagnostic Imaging Report ---
INDICATION: Nephrolithiasis. EXAMINATION: KUB at 3:49 PM. FINDINGS: The bowel gas pattern is normal. There are no pathologic masses or calcifications. IMPRESSION: Unremarkable abdomen. Dictated by: Dictated on workstation # [id number]
== END ==
LOC: RAD 15:37
PROVIDERS: ATTEND Urology
DX: N20.0 Calculus of kidney (principal)
CPT/HCPCS: 74018

== ENCOUNTER → 2022-05-25 | Outpatient (CLI) | payer MEDICARE, OTHER ==
[~2022-05-25] MED LIST changes: -SULF1TAB35 PO; +SULF1TAB38 PO
--- NOTE | 2022-05-25 17:53 | Diagnostic Imaging Report ---
EXAMINATION: Right knee radiograph EXAM DATE: 05/25/2022 2:37 PM COMPARISON: None available. HISTORY: RT KNEE PAIN/SWELLING TECHNIQUE: Two views FINDINGS: There is no acute fracture, dislocation, or destructive osseous process. There is mild medial compartment joint space narrowing with small osteophytes. The soft tissues are normal. IMPRESSION: 1. No acute osseous abnormality. 2. Mild medial compartment joint space narrowing. Dictated by: Dictated on workstation # [id number]
== END ==
LOC: RAD 14:22
PROVIDERS: ATTEND Family Medicine
DX: M25.861 Other specified joint disorders, right knee (principal)
CPT/HCPCS: 73560

== ENCOUNTER 2022-06-23 09:32 | Outpatient (RCR) | payer MEDICARE, OTHER | END 2022-06-25 | disposition home or self-care (01) | PROVIDERS: ATTEND Nurse Practitioner Family | DX: M25.561 Pain in right knee (principal) ==

== ENCOUNTER 2022-07-12 11:19 | Outpatient (RCR) | payer MEDICARE, OTHER | END 2022-07-26 | disposition home or self-care (01) | PROVIDERS: ATTEND Nurse Practitioner Family | DX: M25.561 Pain in right knee (principal) ==

== ENCOUNTER → 2022-08-27 | Outpatient (CLI) | payer MEDICARE, OTHER ==
[2022-08-27 09:50] LABS: BASOPHILS % (AUTO) 0 % (0-10); EOSINOPHILS # (AUTO) 0.1 10^3/uL (0.0-0.3); EOSINOPHILS % (AUTO) 2 % (0-10); HEMATOCRIT 43 % (35-52); HEMOGLOBIN 14.4 g/dL (11.5-16.0); LYMPHOCYTES % (AUTO) 41 % (12-44); MEAN CORPUSCULAR HEMOGLOBIN 30 pg (25-34); MEAN CORPUSCULAR HGB CONC 34 g/dL (32-36); MEAN CORPUSCULAR VOLUME 88 fL (80-99); MEAN PLATELET VOLUME 10.9 fL (9.0-12.2); MONOCYTES # (AUTO) 0.6 10^3/uL (0.0-1.0); MONOCYTES % (AUTO) 8 % (0-12); NEUTROPHILS # (AUTO) 3.5 10^3/uL (1.8-7.8); NEUTROPHILS % (AUTO) 48 % (42-75); PLATELET COUNT 152 10^3/uL (130-400); WHITE BLOOD COUNT 7.3 10^3/uL (4.3-11.0)
[2022-08-27 10:14] LABS: ALBUMIN 4.2 GM/DL (3.2-4.5); CALCIUM 9.1 MG/DL (8.5-10.1); CREATININE SERUM 0.77 MG/DL (0.60-1.30); POTASSIUM 3.9 MMOL/L (3.6-5.0); TOTAL PROTEIN 7.1 GM/DL (6.4-8.2)
[2022-08-27 10:28] LABS: ATYPICAL LYMPHOCYTES 3 %; LYMPHOCYTES % (MANUAL) 57 %; MONOCYTES % (MANUAL) 4 %; NEUTROPHILS % (MANUAL) 36 %
== END ==
LOC: LAB 09:22
PROVIDERS: ATTEND Family Medicine
DX: Z13.6 Encounter for screening for cardiovascular disorders (principal)
CPT/HCPCS: 36415; 80053; 80061; 85007; 85027

== ENCOUNTER → 2022-09-30 | Outpatient (CLI) | payer MEDICARE, OTHER ==
[~2022-09-30] VITALS: Ht 170.2 cm; Wt 78.5 kg
[~2022-09-30] MED LIST changes: +PITA1TAB PO; +UBID50CA21 PO
== END | disposition home or self-care (01) ==
LOC: PREOP 05:33
PROVIDERS: ATTEND Internal Medicine
DX: Z01.818 Encounter for other preprocedural examination (principal)

== ENCOUNTER 2022-10-01 09:15 | Day surgery (SDC) | payer MEDICARE, OTHER ==
--- NOTE | 2022-09-29 17:11 | HISTORY AND PHYSICAL ---
DATE OF SERVICE: 10/01/2022 COLONOSCOPY HISTORY AND PHYSICAL HISTORY OF PRESENT ILLNESS: The patient is a 66-year-old white female referred by Dr. Post for screening colonoscopy. She reports colonoscopy over 10 years ago that was reportedly unremarkable her first colonoscopy. She is deemed to be of average risk as she is not aware of any family history for colon cancer. She denies melena or bright red blood per rectum. She reports no change in bowel habits. No change in weight. She denies indigestion or dysphagia. PAST MEDICAL HISTORY: Significant for hyperlipidemia with no known history of coronary artery disease. She has had history of nephrolithiasis and has had stent placement in 2019 following lithotripsy. No problems since. PAST SURGICAL HISTORY: Significant for excision of a melanoma in situ of the left cheek with no other reported surgeries. FAMILY HISTORY: [ ] negative for colon cancer or GI tract malignancy. 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 Has no past smoking history. Occasional small volume alcohol intake. REVIEW OF SYSTEMS: CONSTITUTIONAL: Denies night sweats, chills, fever, change in weight. GASTROINTESTINAL: As noted in the HPI. PULMONARY: Denies cough, wheezing or shortness of breath. CARDIOVASCULAR: Denies chest pain, shortness of breath, or syncope. PHYSICAL EXAMINATION: GENERAL: Reveals a white female, appeared to be in no acute distress. VITAL SIGNS: Weight 173 pounds, blood pressure 120/82. HEENT: Unremarkable. Sclerae nonicteric. Oral cavity clear. No erythema or exudate. CHEST: Clear to auscultation. CARDIOVASCULAR: Reveals a regular rate and rhythm without murmur, S3, or S4. ABDOMEN: Soft, supple without mass, organomegaly, or tenderness. EXTREMITIES: Reveal no cyanosis, clubbing or edema. ASSESSMENT AND PLAN: 1. The patient is being set up for a screening colonoscopy deemed to be of average risk as noted above. Proper instructions with Colyte were given. She had some nausea with the prep that she utilizes that she believes is mag citrate 11 years ago. She was given Zofran melt tabs to take 60 minutes before both doses of Colyte, which are being split up. I thank you for the referral of this pleasant lady. Job ID: [id number] DocumentID: [id number] Dictated Date: 09/29/2022 16:53:56 Casework Specialist Date: 09/29/2022 17:09:00 Dictated By: DAISHA GEORGE MD MTDD
[~2022-10-01] VITALS: Ht 173 cm; Wt 78.5 kg
--- NOTE | 2022-10-01 09:51 | Pre-Op Note & Conscious Sedat ---
Pre-Operative Progress Note Date H&P Reviewed: Oct 01, 2022 Time H&P Reviewed: 09:51 Pre-Op Diagnosis: screening Conscious Sedation Pre-Proced ASA Score 2 For ASA 3 and 4: Consider anesthesia and medical clearance. Also, for patients with a history of failed moderate sedation consider anesthesia. Airway Lungs Heart ASA score ASA 1: a normal healthy patient ASA 2: a patient with a mild systemic disease (mid diabetes, controlled hypertension, obesity ASA 3: a patient with a severe systemic disease that limits activity (angina, COPD, prior Myocardial infarction) ASA 4: a patient with an incapacitating disease that is a constant threat to life (CHF, renal failure) ASA 5: a moribund patient not expected to survive 24 hrs. (ruptured aneurysm) ASA 6: a declared brain- patient whose organs are being harvested. For emergent operations, add the letter E after the classification Mallampati Classification Grade 1 Sedation Plan Analgesia, Amnesia, Plan communicated to team members, Discussed options with patient/fam, Discussed risks with patient/fam The patient is an appropriate candidate to undergo the planned procedure, sedation, and anesthesia. The patient immediately re-assessed prior to indication. DAISHA GEORGE MD Oct 01, 2022 09:51
[2022-10-01] MEDS ORDERED: LACTATED RINGERS 1,000 ML IV STA (10:00)
[2022-10-01 10:04] VITALS: BP 140/84
[2022-10-01] MEDS ORDERED: LACTATED RINGERS 1,000 ML IV ONE (10:33)
[2022-10-01] MEDS ORDERED: SIMETHICONE 40 MG/0.6 ML (MYLICON DROPS) 30 ML BTL PO PRN (10:45)
[2022-10-01 10:55] VITALS: BP 80/50
--- NOTE | 2022-10-01 10:55 | Progress Note-Post Operative ---
Post-Procedure Note Physician (s)/Decorator Inspector (s) Physician DAISHA GEORGE MD Pre-Procedure Diagnosis Pre-Procedure Diagnosis: screening Post-Procedure Diagnosis Post-operative diagnosis: Prior to undergoing colonoscopy digital rectal evaluation was performed. Anal central tone was normal and the perianal reflexes intact. No abnormalities noted on visual inspection anal canal or distal rectal vault. The colonoscope was then inserted into the rectum and under direct visualization advanced to the cecum. The cecum was Identified by identification of the ileocecal valve and cecal strap. photographic documentation was obtained. A careful inspection was made as the colonoscope was withdrawn. Quality the prep was good. Findings: The rectum sigmoid colon descending colon splenic flexure transverse colon hepatic flexure ascending colon and cecum were unremarkable. Assessment normal colonoscopy to the cecum. Would recommend consideration for screening colonoscopy in 10 years. CC: Dr. Chio GEORGE,DAISHA Cook MD Oct 01, 2022 10:55
[2022-10-01 11:00] VITALS: BP 101/58
[2022-10-01 11:20] VITALS: BP 122/70
--- NOTE | 2022-10-01 14:25 | Anesthesia-General Post-Op ---
MAC Patient Condition Mental Status/LOC: Same as Preop Cardiovascular: Satisfactory Nausea/Vomiting: Absent Respiratory: Satisfactory Pain: Controlled Complications: Absent Post Op Complications Complications None Follow Up Care/Instructions Patient Instructions None needed. Anesthesiology Discharge Order Discharge Order Patient is doing well, no complaints, stable vital signs, no apparent adverse anesthesia problems. No complications reported per nursing. JOHNATHAN TRAORE CRNA Oct 01, 2022 14:25
== END 2022-10-01 11:50 | disposition home or self-care (01) ==
LOC: ENDO 09:15
PROVIDERS: ATTEND Internal Medicine
DX: Z12.11 Encounter for screening for malignant neoplasm of colon (principal)